=== PATIENT | female | born 1945 | race Caucasian/White ===

== ENCOUNTER 2017-02-06 11:57 | Inpatient (IN) | payer MEDICARE, BC ==
[~2017-02-06] VITALS: Ht 162.6 cm; Wt 55.8 kg
[2017-02-06] MEDS ORDERED: ONDANSETRON (ODT) 4 MG TAB ODT STA (12:29)
[2017-02-06] MEDS ORDERED: HYDROCODONE/APAP (5/325) TAB PO ONE (12:30)
[2017-02-06] MEDS ORDERED: INSU100V3 IJ (12:44)
[2017-02-06] MEDS ORDERED: FOLI-49 PO (12:45)
[2017-02-06] MEDS ORDERED: METO-429 PO (12:45)
[2017-02-06] MEDS ORDERED: LEVO200T6 PO (12:48)
[2017-02-06] MEDS ORDERED: WARF5TAB72 PO (12:48)
[2017-02-06] MEDS ORDERED: SITA1TAB PO (12:49)
[2017-02-06] MEDS ORDERED: LANT3I SC (12:51)
--- NOTE | 2017-02-06 13:24 | ERD ---
ER Documentation Chief Complaint Date/Time DATE: 02/06/17 TIME: 13:23 Chief Complaint trip and fall no ko c/o back pain HPI 71-year-old female history of end-stage renal disease on dialysis who fell out of bed this morning. Patient states that she landed directly on her bottom. She denies hitting her head or losing consciousness. Patient describes paraspinal lumbar back tenderness. The pain is moderate and nonradiating. No prodrome of chest pain or shortness of breath. The patient describes clear mechanical fall. ROS All systems reviewed and are negative except as per history of present illness. Medications Home Meds Reported Medications Insulin Glargine* (Lantus*) 100 Unit/Ml Soln, 10 UNIT SC QHS, #1 VIAL HOLD FOR BS LESS THAN 110 02/06/17 Sitagliptin Phos/Metformin HCl (Janumet 50-500 mg Tablet) 1 Each Tablet, 1 EACH PO DAILY, TAB 02/06/17 Levothyroxine Sodium* (Levothyroxine Sodium*) 200 Mcg Tablet, 200 MCG PO BEFORE BREAKFAST, #30 TAB 02/06/17 Warfarin Sodium* (Coumadin*) 5 Mg Tablet, 5 MG PO DAILY, TAB 02/06/17 Metoprolol Tartrate* (Lopressor*) 50 Mg Tab, 50 MG PO DAILY, #60 TAB 02/06/17 Folic Acid* (Folic Acid*) 1 Mg Tablet, 1 MG PO DAILY, TAB 02/06/17 Insulin Regular, Human (Humulin R) 100 Unit/1 Ml Vial, IJ TID Y for SLIDING SCALE, VIAL 02/06/17 Allergies Allergies: Coded Allergies: Penicillins (Unverified Allergy, Unknown, 02/06/17) PMhx/Soc Hx Miscellaneous Medical Probl: Yes (dialysis) Hx Alcohol Use: No Hx Substance Use: No Hx Tobacco Use: No Smoking Status: Never smoker FmHx Family History: No diabetes Physical Exam Vitals Vital Signs Date Time Temp Pulse Resp B/P Pulse Ox O2 Delivery O2 Flow Rate FiO2 02/06/17 15:30 124 14 106/87 99 02/06/17 13:21 149 15 109/85 94 Room Air 02/06/17 12:33 97.8 142 20 111/79 98 Physical Exam Airway is intact Bilateral breath sounds Strong distal pulses No obvious deficits General: Well developed, well nourished, no acute distress Head: Normocephalic, atraumatic Eyes: Pupils equally reactive, EOM intact ENT: Moist mucous membranes Neck: Supple, no lymphadenopathy, No midline tenderness, deformities, step-offs to the cervical spine, full active and passive range of motion without midline pain. Respiratory: Lungs clear bilaterally, no distress, no chest wall tenderness, no crepitus Cardiovascular: RRR, no murmurs, rubs, or gallops Abdominal: Soft, non-tender, non-distended, no peritoneal signs, pelvis is stable : Deferred MSK: No edema, no unilateral swelling, 5/5 strength, no midline tenderness deformities or step-offs to the thoracolumbar spine, reproducible soft tissue tenderness to the paraspinal muscles of the lumbar back Neurologic: Alert and oriented, moving all extremities, normal speech, no focal weakness, no cerebellar signs Skin: No ecchymoses or bruising to the chest or abdomen, tunneled right subclavian Vas-Cath in good position Psych: Normal mood Result Diagram: 02/06/17 1433 02/06/17 1433 Results 24 hrs Laboratory Tests Test 02/06/17 14:33 02/06/17 14:59 Anion Gap 22 Basophils # 0.010^3/ul Basophils % 0.1% Blood Urea Nitrogen 64mg/dl Calcium Level 9.9mg/dl Carbon Dioxide Level 29mmol/L Chloride Level 95mmol/L Creatinine 4.25mg/dl Eosinophils # 0.010^3/ul Eosinophils % 0.1% Glucose Level 195mg/dl Hematocrit 39.8% Hemoglobin 12.1g/dl Lymphocytes # 0.810^3/ul Lymphocytes % 9.3% Mean Corpuscular Hemoglobin 30.0pg Mean Corpuscular Hemoglobin Concent 30.4g/dl Mean Corpuscular Volume 98.8fl Mean Platelet Volume 11.3fl Monocytes # 0.710^3/ul Monocytes % 7.2% Neutrophils # 7.510^3/ul Neutrophils % 82.7% Nucleated Red Blood Cells # 0.010^3/ul Nucleated Red Blood Cells % 0.0/100WBC Platelet Count 43426^3/UL Potassium Level 5.5mmol/L Red Blood Count 4.0310^6/ul Red Cell Distribution Width 17.9% Sodium Level 140mmol/L Troponin I 0.026ng/ml White Blood Count 9.010^3/ul Activated Partial Thromboplast Time 59.5Sec INR International Normalized Ratio Pending Prothrombin Time Pending Prothrombin Time Ratio 7.1 Current Medications Medications (Trade) Dose Ordered Sig/Alan Route PRN Reason Start Time Stop Time Status Last Admin Dose Admin Acetaminophen/ Hydrocodone Bitart (Cabot (5/325)) 1 tab ONCE ONCE PO 02/06/17 12:30 02/06/17 12:32 DC 02/06/17 13:24 Ondansetron HCl 4 mg 4 mg ONCE STAT ODT 02/06/17 12:29 02/06/17 12:32 DC 02/06/17 13:24 Sodium Chloride (NS) 1,000 ml @ 1,000 mls/hr Q1H STAT IV 02/06/17 14:04 02/06/17 15:03 DC Diltiazem HCl 10 mg 10 mg ONCE STAT IV 02/06/17 14:12 02/06/17 14:16 DC 02/06/17 14:47 Diltiazem HCl 125 ml @ 5 mls/hr ONCE STAT IV 02/06/17 14:12 02/07/17 15:11 02/06/17 14:49 Sodium Chloride (NS) 250 ml @ 250 mls/hr Q1H STAT IV 02/06/17 14:52 02/06/17 15:51 DC Ondansetron HCl (Zofran Inj) 4 mg ER BRIDGE PRN IV NAUSEA AND/OR VOMITING 02/06/17 16:00 02/07/17 15:59 Acetaminophen (Tylenol Tab) 650 mg ER BRIDGE PRN PO MILD PAIN/FEVER 02/06/17 16:00 02/07/17 15:59 Procedures/MDM EKG, MONITORS, & DIAGNOSTIC IMAGING: CT head: No acute intracranial process CT lumbar spine: Pending CT pelvis no acute fracture Chest x-ray: I reviewed and interpreted a 1 view of the chest Mediastinum: No enlargement Cardiac silhouette: No cardiomegaly Airspace: Clear lung rose bilaterally without evidence of pneumothorax Bones: No evidence of fracture EKG: I reviewed and interpreted a 12-lead EKG. Rhythm: A. fib with RVR Ectopy: None Intervals: No abnormalities ST segments: No elevations or depressions T waves: No contiguous inversions MEDICAL DECISION MAKING: Clear mechanical fall. No evidence of syncope or seizure. The patient denies hitting her head. The patient does not meet high-risk criteria and based on NEXUS cervical spine criteria there is no indication for cervical spine imaging at this time. The patient is an end-stage renal patient and despite the fact that she did not hit her head at would be reasonable to obtain a CT imaging of the brain. Given the patient's age x-ray imaging will likely be insufficient sensitivity. CT imaging of the lumbar spine and pelvis would be reasonable. Patient given oral Cabot. ER COURSE: The patient was noted to have tachycardia. An EKG revealed A. fib with RVR. Patient reports a history of A. fib. She is not sure if she is anticoagulated. The patient was given a gentle bolus of 250. Cardizem 10 and Cardizem drip was initiated. The patient has better rate control. The patient also has very slight hyperkalemia of 5.5, no indication for reversal at this time. Patient requires nonemergent dialysis at some point. I kept the patient and/or family informed of laboratory and diagnostic imaging results throughout the emergency room course. DISPOSITION PLAN: Telemetry admission for management of the A. fib with RVR CONSULTATION: Accepting care team and consultations: I discussed the current laboratory data, diagnostic imaging and emergency care provided. Admitting team: Dr. Larios Admitting team indication: Insurance directed Departure Diagnosis: Primary Impression: Atrial fibrillation with RVR Additional Impressions: Back contusion Encounter type: initial encounter Laterality: unspecified laterality Qualified Code: S20.229A - Back contusion, unspecified laterality, initial encounter End stage renal disease on dialysis Condition: ADALBERTO Dunne MD Feb 06, 2017 13:24
--- NOTE | 2017-02-06 13:28 | RADRPT ---
PROCEDURE: CT Brain without contrast. CLINICAL INDICATION: 71-year-old female that fell out of bed. TECHNIQUE: A CT of the brain was performed on a high-resolution CT scanner utilizing a low dose te chnique with axial imaging from the skull base through the vertex without IV contrast. Multiplanar reformatted images were made. Images were reviewed on a PACS workstation. The CTDIvol is 43 point a mGy and the DLP is 720.2 mGycm. One or more of the following dose reduction techniques were used: - Automated exposure control. - Adjustment of the mA and/or kV according to patient size. Use of iterative reconstruction technique. COMPARISON: No. FINDINGS: There are vascular calcifications in the cavernous and supracavernous portions of the internal carot id arteries. There are vascular calcifications in the vertebral arteries. The cerebellar folia and cerebral sulci are prominent. There are chronic small vessel ischemic changes in the periventricula r white matter tracts adjacent to the lateral ventricles. There is a 1.2 x 0.8 cm old lacunar infar ct in the right lentiform nucleus. No intracranial mass or acute intracranial hemorrhages identifie d. The third and lateral ventricles are normal in size and configuration. The brain parenchyma is n ormal. The visible portions of the globes and extraocular muscles are normal. The paranasal sinuses are cl ear. The mastoid air cells and internal auditory canals are normal. The bony calvarium is intact. IMPRESSION: 1. Cerebral and cerebellar atrophy with chronic small vessel ischemic changes in the periventricula r white matter tracts adjacent to the lateral ventricles. MRI with diffusion weighted imaging is mo re sensitive in the detection of acute ischemic change in this setting. 2. 1.2 x 0.8 cm old lacunar infarct in the right lentiform nucleus. 3. There are vascular calcifications in the cavernous and supracavernous portions of the internal ca rotid arteries and in the basilar artery. 4. No intracranial mass or hemorrhage is identified. RPTAT:AAJJ Physician Jessy Date Time Electronically viewed and signed by Physician Jessy on 02/06/2017 13:28 JM/
[2017-02-06] MEDS ORDERED: SOD CHLORIDE 0.9% 1,000 ML IV STA (14:04)
[2017-02-06] MEDS ORDERED: DILTIAZEM 25 MG INJ IV STA (14:12)
[2017-02-06] MEDS ORDERED: DILTIAZEM-D5W 125MG/125ML DRIP 125 ML IV STA (14:12)
--- NOTE | 2017-02-06 14:16 | RADRPT ---
PROCEDURE: CT scan of the pelvis with IV contrast. CLINICAL INDICATION: 71-year-old female with history of fall from bed. TECHNIQUE: Thin section axial, coronal and sagittal images were performed through the pelvis witho ut contrast. Radiation Dose: CTDI: 3.7 and DLP: 110.5 One or more of the following dose reduction techniques were used: - Automated exposure control. - Adjustment of the mA and/or kV according to patient size. Use of iterative reconstruction technique. COMPARISON: No. FINDINGS: There are vascular calcifications ectasia of the distal abdominal aorta and proximal and distal port ions of the common iliac arteries. There is fecal material in the colon and rectal ampulla. There are vascular calcifications in the right left common iliac arteries. There is a partially visualized 2.5 by 2.3 cm calcification in the right abdomen. This may be conta ined within the gallbladder or a bowel loop. A CT scan of the abdomen and pelvis with oral contrast can be performed for definitive evaluation if needed. There are degenerative changes in the lower lumbar spine. There is a diverticulum in the proximal s igmoid colon containing barium. There is fecal material in the sigmoid colon and rectal ampulla. The innominate bone and visible portions of the femurs are intact. The sacrum and SI joints are int act. IMPRESSION: 1. There is no evidence of an acute pelvic fracture. 2. Atherosclerosis of the abdominal aorta and common iliac arteries. Atherosclerosis of the common femoral arteries. 3. Constipation. 4. Partially visualized 2.3 x 2.5 cm elliptical calcification in the right abdomen which is likely a partially visualized gallstone. 5. Osteoarthritis of the lower lumbar spine. 6. Osteoarthritis of both hips. 7. Grade 1 anterolisthesis of L4 on L5 with disk space narrowing and vacuum disk phenomenon at L4-5 . Number a disk space narrowing with ventral and dorsal spondylosis at L5-S1. 7. Diverticulosis of the sigmoid colon. RPTAT:AAJJ Physician Jessy Date Time Electronically viewed and signed by Reji Barbour Physician on 02/06/2017 14:16 FOX/
[2017-02-06 14:38] LABS: ADD SCAN DIFF NO
[2017-02-06 14:40] LABS: BASOPHILS % 0.1 % (0.0-2.0); EOSINOPHILS % 0.1 % (0.0-7.0); HEMATOCRIT 39.8 % (37.0-47.0); HEMOGLOBIN 12.1 g/dl (12.0-16.0); LYMPHOCYTES # 0.8 10^3/ul (0.8-2.9); LYMPHOCYTES % 9.3 % (15.0-51.0); MEAN CORPUSCULAR HGB CONC 30.4 g/dl (32.0-37.0); MEAN CORPUSCULAR VOLUME 98.8 fl (82.0-101.0); MEAN PLATELET VOLUME 11.3 fl (7.4-10.4); MONOCYTE # 0.7 10^3/ul (0.3-0.9); MONOCYTES % 7.2 % (0.0-11.0); NEUTROPHIL # 7.5 10^3/ul (1.6-7.5); NEUTROPHILS % 82.7 % (39.0-77.0); PLATELET COUNT 133 10^3/UL (140-415); RED BLOOD COUNT 4.03 10^6/ul (4.20-5.40); RED CELL DISTRIBUTION WIDTH 17.9 % (11.5-14.5)
[2017-02-06 14:49] LABS: POTASSIUM 5.5 mmol/L (3.5-5.1)
--- NOTE | 2017-02-06 14:49 | RADRPT ---
PROCEDURE: XR Chest. CLINICAL INDICATION: Chest pain TECHNIQUE: Anterior chest x-ray. COMPARISON: None. FINDINGS: Dual lumen dialysis catheter in right chest terminates the cavoatrial junction. Moderate size left pleural effusion is noted. Consolidation left lung base obscures left hemidiaphragm. The right lung is clear. No pleural effusion identified. There is no evidence of pneumothorax. There is atherosclerotic calcification of the aorta. The cardiomediastinal silhouette is unremarkab le. The soft tissues are normal. Degenerative changes are noted in the shoulders and in the thoracic spine. IMPRESSION: 1. Moderate size left pleural effusion. 2. Atelectasis versus infiltrate in left lung base. 3. Atherosclerotic calcification of the aorta. 4. Satisfactory position of right-sided dialysis catheter. RPTAT: QQ .Jose Marc MD, Date Time Electronically viewed and signed by .Jose Marc MD, MD on 02/06/2017 14:49 .M/
[2017-02-06 14:51] LABS: CREATININE 4.25 mg/dl (0.44-1.00)
[2017-02-06 14:52] LABS: CALCIUM 9.9 mg/dl (8.4-10.2)
[2017-02-06] MEDS ORDERED: SOD CHLORIDE 0.9% 250 ML IV STA (14:52)
[2017-02-06 15:04] LABS: TROPONIN-I 0.026 ng/ml (0.00-0.12)
[2017-02-06 15:57] LABS: PARTIAL THROMBOPLASTIN TIME 59.5 Sec (25.0-35.0)
[2017-02-06] MEDS ORDERED: ACETAMINOPHEN 325 MG TAB PO PRN (16:00)
[2017-02-06] MEDS ORDERED: ONDANSETRON 4 MG INJ IV PRN ×2 (16:00→20:00)
--- NOTE | 2017-02-06 16:03 | RADRPT ---
PROCEDURE: CT Lumbar Spine. CLINICAL INDICATION: Trauma TECHNIQUE: Noncontrast CT of the lumbar spine was performed with multiplanar reformatted images gen erated from the axial acquired data. The administered radiation dose was CTDI vol = 17 mGy, DLP = 5 45 mGy-cm. COMPARISON: There are no similar studies submitted for comparison. FINDINGS: SCOLIOSIS: There is some minimal levoscoliosis of the lumbar spine. LORDOSIS: Within normal limits. VERTEBRAL BODY HEIGHTS: Maintained. ALLIGNMENT: There is grade 1 anterolisthesis of L4-L5 due to facet arthritic changes. OSSEOUS STRUCTURES: There is no destructive osseous lesion.There is no acute fracture. DISCS: There is loss of disk height and L4-5 and L5-S1 with vacuum disk phenomena at L4-5. T12-L1 : There is no disc herniation, spinal canal, or foraminal stenosis. L1-L2 : There is no disc herniation, spinal canal, or foraminal stenosis. L2-L3 : There is no disc herniation, spinal canal, or foraminal stenosis. L3-L4 : There is no disc herniation, spinal canal, or foraminal stenosis. L4-L5 : There is diffuse disk bulge and disk osteophyte complex with superimposed right foraminal di sk protrusion. There is also bilateral facet arthrosis and ligamentum flavum hypertrophy. This res ults in moderate to marked spinal canal and right neural foraminal narrowing. L5-S1 : There is diffuse disk osteophyte complex with bilateral facet arthrosis and ligamentum flavu m hypertrophy. This results in mild spinal canal narrowing as well as mild right and moderate left neural foraminal narrowing. SACRUM: The sacroiliac joints are intact. OTHER: Bilateral pleural effusions are noted, likely large on the left and small to moderate on the right. Atherosclerotic calcifications are noted in the aorta and its branches. Coronary artery reyna cifications are noted. Multiple large stones within the gallbladder are partially seen. IMPRESSION: No acute fracture or subluxation. Lumbar spondylotic changes with moderate to marked spinal canal and right neural foraminal narrowing at L4-5. RPTAT: HIKT .Faisal Brar MD, MD Date Time Electronically viewed and signed by .Faisal Brar MD, on 02/06/2017 16:03 .T/
[2017-02-06 16:38] LABS: PROTIME 92.1 Sec (12.2-14.2); PT RATIO 7.2
[2017-02-06 16:39] LABS: INR > 10.00
[2017-02-06] MEDS ORDERED: PHYTONADIONE (1 MG/ML PO SYG) PO ONE (19:30)
[2017-02-06] MEDS ORDERED: GLUCAGON 1 MG INJ IM PRN (20:00)
[2017-02-06] MEDS ORDERED: GLUCOSE GEL 15 GRAM TUBE BUCCAL PRN (20:00)
[2017-02-06] MEDS ORDERED: DEXTROSE 50% 50 ML SYRINGE IV PRN ×2 (20:00)
[2017-02-06] MEDS ORDERED: DC GLYBURIDE, GLIPIZIDE,GLIMEPIRIDE AND PREVIOUS INSULIN ORDERS XX SCH (20:00)
[2017-02-06] MEDS ORDERED: GLUCOSE GEL 15 GRAM TUBE PO PRN ×2 (20:00)
[2017-02-06] MEDS ORDERED: PHYTONADIONE 5 MG in DEXTROSE 5% 50 ML IVPB ONE (20:00)
[2017-02-06 20:09] VITALS: TEMP 97.9
[2017-02-06 20:45] LABS: CK-MB 1.89 ng/ml (0.0-2.4)
[2017-02-06 20:48] LABS: TROPONIN-I 0.031 ng/ml (0.00-0.12)
[2017-02-06 21:00] VITALS: BP 116/80; RESP 17
[2017-02-06] MEDS ORDERED: NA POLYST SULFON 15 GM/60 ML BTL PO ONE (21:00)
[2017-02-06] MEDS: INSULIN ASPART [NOVOLOG] 3 ML PEN SC SCH (21:00)
[2017-02-06] MEDS ORDERED: FAMOTIDINE 20 MG TAB PO SCH (21:00)
[2017-02-06 21:14] VITALS: PULSE 130
--- NOTE | 2017-02-06 22:18 | HP ---
DATE OF ADMISSION: 02/06/2017 PRESENTING COMPLAINT: Per report is status post fall. HISTORY OF PRESENTING COMPLAINT: Ms. Self is a 71-year-old female who is an extremely poor hist orian. At this point, her orientation is not very clear. She seems to know where she is and her na me but does not know the time or date. Per report, she had reported ____ falling on her back. The patient tells me that she resides with her and her son, and her had called EMS to br ing her to the ER. In the ER, per ER physician, the patient was complaining about back pain, but fo r me, she complains only of severe dysphagia and very dry mouth. Further history basically is unobt ainable from this lady. She, however, does report affirmatively when asked about the back pain but denies chest pain or abdominal pain. She sometimes will not respond to questions and at other times responds depending on how she feels. No other history is obtainable at this time. Hence, a 12-poi nt review of systems could not be completed. PAST MEDICAL HISTORY: From evaluation of her medications and review of the chart includes: 1. Chronic atrial fibrillation. 2. Diabetes mellitus type 2. 3. Hypothyroidism. 4. End-stage renal disease on hemodialysis. SURGICAL HISTORY: The patient does have a temporary dialysis catheter in her right upper chest. Ot her surgical history is unknown. ALLERGIES: THE PATIENT IS SAID TO BE ALLERGIC TO PENICILLIN. SOCIAL HISTORY: The patient is said not to smoke, drink alcohol or use illicit drugs. FAMILY HISTORY: The patient says she resides at home with her and her son, but I was unable to elicit any family history of any chronic medical diseases. PHYSICAL EXAMINATION: VITAL SIGNS: Temperature 97.8, pulse ranges between 124 and 149, respiratory rate 14, blood pressur e 106/87, saturations 99% on room air. GENERAL: I found a very frail lady who was alert, oriented x2 only. She seemed comfortable but was yelling "I cannot swallow, I cannot swallow." HEENT: Her head was normocephalic without evidence of trauma. Her pupils were equal and reactive w ithout scleral jaundice. There was mild conjunctival pallor. Her mucous membranes are quite dry. Evaluation of the posterior pharynx was negative for erythema or exudate. NECK: Supple, nontender without JVD. CHEST: Presence of temporary dialysis access on the right upper chest but reduced air entry bilater ally but no overt crackles or wheezes. CARDIOVASCULAR: Irregularly irregular heart sounds. No cardiac murmurs. ABDOMEN: Seemed soft, nontender, nondistended with normoactive bowel sounds. LOWER EXTREMITIES: Negative for edema. BACK: Evaluation of her back did not show any gross bruising, but she did have some questionable te nderness where you palpate her on the lower back. NEUROLOGIC: She did not seem to have any focal deficits, but her strength was not quite optimal, wh ich was impeding physical exam. PSYCHIATRIC: She seemed mildly confused or just very thirsty. LABORATORY VALUES: Her chemistry is concerning with a potassium of 5.5, BUN of 64, creatinine of 4. 25 consistent with her history of end-stage renal disease, and her glucose was 195. First troponin was 0.26. Her coagulation profile was very concerning. Her INR was greater than 10, PT was 92.18, PTT was 59.5. On her CBC, her WBC count was normal as was her hemoglobin, but her platelet count is low at 133. She also had a neutrophilia. There is no urinalysis at this time. IMAGING STUDIES: Reviewed by myself. 1. Pelvis CT showed no evidence of acute pelvic fracture. Atherosclerosis of aorta, iliac arteries and femoral arteries. Constipation. A calcified probable gallstone. Chronic osteoarthritis of lo wer lumbar spine and of both hips. Grade I anterolisthesis of L4 on L5 with disk space narrowing an d vacuum disk phenomenon at L4-L5 and diverticulosis without diverticulitis of the sigmoid colon. 2. CT scan of the lumber spine did show no acute fracture or subluxation, but it did show bilateral pleural effusions, larger on the left than the right; atherosclerosis and multiple gallstones. The re are chronic spondylotic changes with moderate to marked spinal canal and right neural foraminal n arrowing at L4-L5. 3. Brain CT did show cerebral and cerebellar atrophy with chronic small vessel ischemic changes in the periventricular white matter tracts adjacent to the lateral ventricles, and they recommend an MR I if we want to look for acute ischemic changes. There is an old lacunar infarct in the right lenti form nucleus, but no acute intracranial mass or hemorrhage is identified. 4. Her chest x-ray showed moderate-sized left pleural effusion, atelectasis versus infiltrate in le ft lung base, atherosclerosis of the aorta and satisfactory position of the right-sided dialysis cat heter. EKG reviewed by myself and showed atrial fibrillation with RVR without ST elevations. ASSESSMENT: A 71-year-old brought in by emergency medical services with history of reported fall, c omplaining of lower back pain, managed for the followin. Status post acute fall without evidence of acute injury on CT scans. 2. Atrial fibrillation with rapid ventricular response. 3. Supratherapeutic INR. 4. Hyperkalemia secondary to #5. 5. End-stage renal disease on hemodialysis. 6. Bilateral pleural effusions, left greater than right, with probable underlying left-sided pneumo roselyn. 7. Suboptimally controlled diabetes type 2. 8. Thrombocytopenia. 9. Chronic hypothyroidism. 10. Previous cerebrovascular accident. 11. Chronic ____ osteoarthritis which also affects the lumbar spine with L4-L5 canal narrowing of u ncertain significance. 12. Cholelithiasis without cholecystitis. PLAN: The plan is to: 1. Admit this patient to the hospital and perform a detailed workup. 2. She is going to admit to telemetry floor and acute coronary syndrome ruled out. She will need a 2D echocardiogram. Will continue to push for rate control using Cardizem drip. 3. Patient needs cardiology consultation, and I will speak with Dr. Gongora to follow the patient. 4. For her bilateral pleural effusions, she will be continued on in-house dialysis, and I will obta in ultrasound-guided thoracentesis once her INR is improved and send that sample for culture in sett ing of probable left-sided pneumonia. 5. I will give her vitamin K intravenously at a low dose because her INR is greater than 10. 6. No further anticoagulation until INR is back to within therapeutic range. 7. Check a TSH to ensure that there is no abnormal control of her thyroid disease. 8. The patient will need physical therapy evaluation once more medically optimized. 9. The patient to be continued on her home Lantus at 10 units and given an 1800-calorie ADA diet. Oral hypoglycemics to be held at this time until we see how patient responds to current regimen. Pr ophylaxis will be with Pepcid. The patient does not require additional DVT prophylaxis in the setti ng of the supratherapeutic INR. This plan of care has been discussed patient. It is unclear how much she understands. Questions still ve been answered. I will be speaking with both Cardiology as well as Nephrology, Dr. Sanjeev Tolliver, to eliza tessa the patient for in-house hemodialysis. Dictated By: ALIX TALBOT MD BA/NTS Conf#: [id number] DID#: [id number]
[2017-02-06] MEDS: DOCUSATE SODIUM 100 MG CAP PO SCH (22:50)
[2017-02-06] MEDS: SOD CHLORIDE 0.9% 1,000 ML IV SCH (22:51)
[2017-02-06 23:00] VITALS: Ht 162.6 cm; Wt 55.8 kg
[2017-02-06] MEDS: INSULIN GLARGINE [LANtus] 3 ML PEN SC SCH (23:13)
--- NOTE | 2017-02-06 23:16 | CONS ---
DATE OF ADMISSION: 02/06/2017 DATE OF CONSULTATION: 02/06/2017 TYPE OF CONSULTATION: Nephrology. REASON FOR CONSULTATION: End-stage renal disease on hemodialysis who presented with atrial fibrilla tion with rapid ventricular rate. HISTORY OF PRESENT ILLNESS: This is a 71-year-old female with a past medical history of end-stage r enal disease on dialysis who fell out of bed this morning. The patient states that the patient land ed directly on her bottom. She denies hitting her head or losing consciousness. The patient descri bes the paraspinal lumbar back tenderness. She is noted to have atrial fibrillation with rapid vent ricular rate. Hence, admitted to the telemetry floor and renal has been consulted for maintenance h emodialysis in a chronic dialysis patient. REVIEW OF SYSTEMS: At the time of my evaluation, the patient is complaining of dizziness, blurry vi beryl, the fall episodes, and the back pain. Other review of systems has been obtained and is negati ve except what is mentioned in the history of present illness. PAST MEDICAL HISTORY: History of end-stage renal disease on hemodialysis, hypertension, diabetes me llitus, history of atrial fibrillation on possible anticoagulation with Coumadin. ALLERGIES: ALLERGIC TO PENICILLIN. SOCIAL HISTORY: No smoking, alcohol, or recreational drug use. FAMILY HISTORY: Not available. PHYSICAL EXAMINATION: VITAL SIGNS: Temperature 97.9, heart rate 130, respiration 22, blood pressure 93/70, saturation is 100% on room air. GENERAL: Awake, alert, in no distress. HEENT: Normal. Oropharynx clear. NECK: Supple. No JVD, no lymphadenopathy. LUNGS: Clear to auscultation. No crackles, no wheezes. HEART: S1, S2. Irregularly irregular. No murmur. ABDOMEN: Soft, nontender, nondistended. Bowel sounds are present. EXTREMITIES: No clubbing, cyanosis, or edema. NEUROLOGICAL: Nonfocal, intact. PSYCHIATRIC: Appropriate affect and mood. LABORATORY DATA/DIAGNOSTIC IMAGIN. WBC 9, hemoglobin 12.1, platelet count 133. 2. Sodium 140, potassium 5.5, chloride 95, bicarbonate 29, BUN 64, creatinine 4.2, glucose 195, reyna cium 9.9. 3. Troponin x2 negative. 4. PT 92.1, INR more than 10. 5. CT brain without contrast: No acute findings. It shows cerebral and cerebellar atrophy with ch ronic small vessel ischemic changes. 6. CT pelvis done which shows no evidence of any fractures, but there was some disk disease and spi nal stenosis. 7. Chest x-ray: Moderate size left pleural effusion, atelectasis versus infiltrate in the left basilio g base, atherosclerotic calcification of the aorta, satisfactory position of the right-sided dialysi s catheter. IMPRESSION: This is a 71-year-old female who was admitted after having a fall episode and found to be in atrial fibrillation with rapid ventricular rate. Renal has been consulted for maintenance hem odialysis. IMPRESSION: 1. End-stage renal disease on hemodialysis through right upper chest tunneled hemodialysis catheter . 2. Atrial fibrillation with rapid ventricular rate. The patient was on anticoagulation with Coumad in at home. 3. Left-sided moderate pleural effusion with left basilar infiltrates. 4. Status post fall episode at home. 5. History of hypertension. 6. History of diabetes mellitus. 7. History of end-stage renal disease on hemodialysis. PLAN: Thank you, Dr. Talbot, for this consultation. The patient was seen on the telemetry floor. 1. I will arrange the patient's hemodialysis to be done tomorrow. Currently, the potassium was tod ay 5.4, which has been treated. 2. The patient will need a thoracentesis of left chest for left moderate pleural effusion. 3. Continue the other anticoagulation plan. Cardiology consultation will be required. 4. The patient will be followed up along with the primary care service and subspecialist service. 5. The patient will be kept on dialysis Tuesday, Tuesday, Tuesday while being in the hospital. Shweta nwwvle, we will call the patient's dialysis unit tomorrow and try to get some more details about the patient's dialysis schedule. Thank you, Dr. Talbot for this consultation. I will continue to follow this patient. Total time spent in this patient's evaluations, making assessment and plan, communicating with the p atient and communicating with the nursing staff took more than 90 minutes and more than 50% of time spent in education. Dictated By: VIRIDIANA VILLARREAL MD, KP/NTS Conf#: [id number] DID#: [id number] CC: ALIX TALBOT MD;*[facility]*
[2017-02-07] VITALS (22 sets, daily range): BP systolic 98–137; BP diastolic 46–92; PULSE 98–160; RESP 16–20
[2017-02-07 00:08] LABS: CK-MB 1.87 ng/ml (0.0-2.4)
[2017-02-07 00:52] LABS: TROPONIN-I 0.028 ng/ml (0.00-0.12)
[2017-02-07] MEDS: ACCUCHECK AT 2AM (Patients on SS coverage) XX SCH (02:00)
[2017-02-07] MEDS: SOD CHLORIDE 0.9% 1,000 ML IV SCH ×2 (06:00→11:30)
[2017-02-07] MEDS ORDERED: LEVOTHYROXINE 100 MCG TAB PO SCH (07:00)
[2017-02-07] MEDS: INSULIN ASPART [NOVOLOG] 3 ML PEN SC SCH ×4 (08:00→21:00)
[2017-02-07 08:23] LABS: ADD SCAN DIFF NO
[2017-02-07] MEDS: FOLIC ACID 1 MG TAB PO SCH (08:37)
[2017-02-07] MEDS: DOCUSATE SODIUM 100 MG CAP PO SCH (08:37)
[2017-02-07] MEDS: FAMOTIDINE 20 MG TAB PO SCH (08:38)
[2017-02-07 08:42] LABS: INR 2.21; PROTIME 24.8 Sec (12.2-14.2); PT RATIO 1.9
[2017-02-07 08:46] LABS: ABNORMAL IP MESSAGE 1; BASOPHILS % 0.1 % (0.0-2.0); EOSINOPHILS % 0.2 % (0.0-7.0); HEMATOCRIT 36.1 % (37.0-47.0); HEMOGLOBIN 10.4 g/dl (12.0-16.0); LYMPHOCYTES # 0.8 10^3/ul (0.8-2.9); LYMPHOCYTES % 8.9 % (15.0-51.0); MEAN CORPUSCULAR HEMOGLOBIN 28.9 pg (29.0-33.0); MEAN CORPUSCULAR HGB CONC 28.8 g/dl (32.0-37.0); MEAN CORPUSCULAR VOLUME 100.3 fl (82.0-101.0); MEAN PLATELET VOLUME 11.4 fl (7.4-10.4); MONOCYTE # 0.6 10^3/ul (0.3-0.9); MONOCYTES % 6.6 % (0.0-11.0); NEUTROPHIL # 7.6 10^3/ul (1.6-7.5); NEUTROPHILS % 83.6 % (39.0-77.0); PLATELET COUNT 111 10^3/UL (140-415); RED CELL DISTRIBUTION WIDTH 17.9 % (11.5-14.5); WHITE BLOOD COUNT 9.1 10^3/ul (4.8-10.8)
[2017-02-07 08:51] LABS: POTASSIUM 4.5 mmol/L (3.5-5.1)
[2017-02-07 08:52] LABS: IRON 73 ug/dl (35-150)
[2017-02-07 08:53] LABS: BILIRUBIN,INDIRECT 0.3 mg/dl (0-1.1); BILIRUBIN,TOTAL 0.3 mg/dl (0.2-1.3); CREATININE 4.7 mg/dl (0.44-1.00); TOTAL PROTEIN 5.5 g/dl (6.1-8.1)
[2017-02-07 08:54] LABS: CALCIUM 9.4 mg/dl (8.4-10.2); CHOL/HDL RATIO 2.8 RATIO
[2017-02-07 08:59] LABS: CK-MB 2.25 ng/ml (0.0-2.4)
[2017-02-07] MEDS ORDERED: METOPROLOL 50 MG TAB PO SCH (09:00)
[2017-02-07 09:01] LABS: TOTAL IRON BINDING CAPACITY 223 ug/dl (241-421)
[2017-02-07 09:02] LABS: TROPONIN-I 0.016 ng/ml (0.00-0.12)
--- NOTE | 2017-02-07 11:59 | CONS ---
Date/Time of Note Date/Time of Note DATE: 02/07/17 TIME: 11:53 Assessment/Plan Assessment/Plan Additional Assessment/Plan 1. End-stage renal disease on hemodialysis through right upper chest tunneled hemodialysis catheter. 2. Atrial fibrillation with rapid ventricular rate. The patient was on anticoagulation with Coumadin at home. 3. Left-sided moderate pleural effusion with left basilar infiltrates. 4. Status post fall episode at home. 5. History of hypertension. 6. History of diabetes mellitus. 7. History of end-stage renal disease on hemodialysis. PLAN: pt still confused today HR in 120s BP stable will plan for HD today with gentle ultrafiltration if Pt becomes hypotensive then we will stop HD will follow up Consultation Date/Type/Reason Admit Date/Time Feb 06, 2017 at 15:53 Initial Consult Date 02/06/2017 Type of Consultation: NEPHROLOGY Reason for Consultation ESRD on HD presented with atrial fibrillation with RVR Referring Provider: ALIX TALBOT 24 HR Interval Summary Free Text/Dictation no acute events overnight,HR still 120-130, Plan for HD today Exam/Review of Systems Vital Signs Vitals Vital Signs Date Time Temp Pulse Resp B/P Pulse Ox O2 Delivery O2 Flow Rate FiO2 02/07/17 09:55 106 02/07/17 08:03 97.1 20 119/92 93 02/06/17 20:09 Room Air Intake and Output 02/06/17 02/06/17 02/07/17 15:00 23:00 07:00 Intake Total 770 ml Balance 770 ml Exam GENERAL: Awake,but not oriented to place and person HEENT: Normal. Oropharynx clear. NECK: Supple. No JVD, no lymphadenopathy. LUNGS: Clear to auscultation. No crackles, no wheezes. HEART: S1, S2. Irregularly irregular. No murmur. ABDOMEN: Soft, nontender, nondistended. Bowel sounds are present. EXTREMITIES: No clubbing, cyanosis, or edema. NEUROLOGICAL: Nonfocal, intact. PSYCHIATRIC: Appropriate affect and mood. Results Result Diagram: 02/07/17 0805 02/07/17 0805 Results 24 hrs Laboratory Tests Test 02/06/17 14:33 02/06/17 14:59 02/06/17 20:10 02/06/17 22:49 Anion Gap 22 H Basophils # 0.0 Basophils % 0.1 Blood Urea Nitrogen 64 H Calcium Level 9.9 Carbon Dioxide Level 29 Chloride Level 95 L Creatinine 4.25 H Eosinophils # 0.0 Eosinophils % 0.1 Glucose Level 195 Hematocrit 39.8 Hemoglobin 12.1 Lymphocytes # 0.8 Lymphocytes % 9.3 L Mean Corpuscular Hemoglobin 30.0 Mean Corpuscular Hemoglobin Concent 30.4 L Mean Corpuscular Volume 98.8 Mean Platelet Volume 11.3 H Monocytes # 0.7 Monocytes % 7.2 Neutrophils # 7.5 Neutrophils % 82.7 H Nucleated Red Blood Cells # 0.0 Nucleated Red Blood Cells % 0.0 Platelet Count 133 L Potassium Level 5.5 H Red Blood Count 4.03 L Red Cell Distribution Width 17.9 H Sodium Level 140 Troponin I 0.026 0.031 White Blood Count 9.0 Activated Partial Thromboplast Time 59.5 H INR International Normalized Ratio > 10.00 *H Prothrombin Time 92.1 H Prothrombin Time Ratio 7.2 Creatine Kinase 28 Creatine Kinase Index 6.8 Creatinine Kinase MB (Mass) 1.89 Bedside Glucose 142 Test 02/06/17 23:14 02/07/17 06:56 02/07/17 07:56 02/07/17 08:05 Creatine Kinase 30 23 Creatine Kinase Index 6.2 9.8 Creatinine Kinase MB (Mass) 1.87 2.25 Troponin I 0.028 0.016 Thyroid Stimulating Hormone (TSH) 0.209 L Bedside Glucose 67 L Activated Partial Thromboplast Time 40.0 H Alanine Aminotransferase (ALT/SGPT) 32 Albumin 3.0 L Alkaline Phosphatase 78 Anion Gap 22 H Aspartate Amino Transf (AST/SGOT) 11 L Basophils # 0.0 Basophils % 0.1 Blood Urea Nitrogen 65 H Calcium Level 9.4 Carbon Dioxide Level 29 Chloride Level 98 Cholesterol Level 107 Cholesterol/HDL Ratio 2.8 Creatinine 4.70 H Direct Bilirubin 0.00 Eosinophils # 0.0 Eosinophils % 0.2 Glucose Level 70 # HDL Cholesterol 38 Hematocrit 36.1 L Hemoglobin 10.4 L Hemoglobin A1c 5.3 INR International Normalized Ratio 2.21 Indirect Bilirubin 0.3 Iron Level 73 LDL Cholesterol, Calculated 54 Lymphocytes # 0.8 Lymphocytes % 8.9 L Magnesium Level 2.0 Mean Corpuscular Hemoglobin 28.9 L Mean Corpuscular Hemoglobin Concent 28.8 L Mean Corpuscular Volume 100.3 Mean Platelet Volume 11.4 H Monocytes # 0.6 Monocytes % 6.6 Neutrophils # 7.6 H Neutrophils % 83.6 H Nucleated Red Blood Cells # 0.0 Nucleated Red Blood Cells % 0.0 Percent Iron Saturation 33 Platelet Count 111 L Potassium Level 4.5 Prothrombin Time 24.8 #H Prothrombin Time Ratio 1.9 Red Blood Count 3.60 L Red Cell Distribution Width 17.9 H Sodium Level 144 Total Bilirubin 0.3 Total Iron Binding Capacity 223 L Total Protein 5.5 L Triglycerides Level 77 White Blood Count 9.1 Medications Medications Current Medications Folic Acid (Folic Acid) 1 mg DAILY PO Last administered on 02/07/17 08:37; Admin Dose 1 MG; Start 02/07/17 at 09:00 Insulin Glargine (Lantus) 10 unit QHS SC Last administered on 02/06/17 23:13; Admin Dose 10 UNIT; Start 02/06/17 at 21:00 Metoprolol Tartrate 50 mg 50 mg DAILY PO Last administered on 02/07/17 08:38; Admin Dose 50 MG; Start 02/07/17 at 09:00 Sodium Chloride (NS) 1,000 ml @ 100 mls/hr Q10H IV Last administered on 22:51; Admin Dose 100 MLS/HR; Start 02/06/17 at 20:00 Ondansetron HCl (Zofran Inj) 4 mg Q6H PRN IV NAUSEA AND/OR VOMITING; Start at 20:00 Docusate Sodium (Colace) 100 mg BID PO Last administered on 02/07/17 08:37; Admin Dose 100 MG; Start 02/06/17 at 21:00 Miscellaneous Information 1 ea NOTE XX ; Start 02/06/17 at 20:00 Diagnostic Test (Pha) (Accucheck) 1 ea 02 XX ; Start 02/07/17 at 02:00 Miscellaneous Information 1 ea NOTE XX ; Start 02/06/17 at 20:00 Glucose (Glutose) 15 gm Q15M PRN PO DECREASED GLUCOSE; Start 02/06/17 at 20:00 Glucose (Glutose) 22.5 gm Q15M PRN PO DECREASED GLUCOSE; Start 02/06/17 at 20: 00 Dextrose (D50w Syringe) 25 ml Q15M PRN IV DECREASED GLUCOSE; Start 3/19/17 at 20:00 Dextrose (D50w Syringe) 50 ml Q15M PRN IV DECREASED GLUCOSE; Start 02/06/17 at 20:00 Glucagon (Glucagen) 1 mg Q15M PRN IM DECREASED GLUCOSE; Start 02/06/17 at 20:00 Glucose (Glutose) 15 gm Q15M PRN BUCCAL DECREASED GLUCOSE; Start 02/06/17 at 20 :00 Famotidine (Pepcid) 20 mg DAILY PO Last administered on 02/07/17t 08:38; Admin Dose 20 MG; Start 02/07/17 at 09:00 VIRIDINAA VILLARREAL MD Feb 07, 2017 11:59
--- NOTE | 2017-02-07 13:54 | PN ---
Date/Time of Note Date/Time of Note DATE: 02/07/17 TIME: 13:47 Assessment/Plan VTE Prophylaxis VTE Prophylaxis Intervention: other (coumadin) Lines/Catheters IV Catheter Type (from Nrsg): Peripheral IV Urinary Cath still in place: No Assessment/Plan Chief Complaint/Hosp Course A/P 1) A Fib rvr; stable, cont rt control, Rx pain. 2) Pleural effusion; should improve w Rt control/HD. doubt infectious. 3) ESRD/ hd status 4) Ac encephalopathy/ delirium; watch for hypoxia 5) Dm/Htn 6) Constipation 7) Coagulopathy; improved. no coumadin if there are recurrent falls. may restart coumadin soon 8) Old stroke/ lacunar. cont rfm. 9) L4-5 stenosis; try medical management 1st. PT/snf if she agrees 10) Dysphagia? 11) Hypothyroidism 12) CAD? medical management for now. Problems: Subjective 24 Hr Interval Summary Free Text/Dictation S: events noted. +dyspnea. less back pain. Exam/Review of Systems Vital Signs Vitals Vital Signs Date Time Temp Pulse Resp B/P Pulse Ox O2 Delivery O2 Flow Rate FiO2 02/07/17 12:16 137 02/07/17 12:07 97.1 20 100/73 95 02/06/17 20:09 Room Air Intake and Output 02/06/17 02/06/17 02/07/17 14:59 22:59 06:59 Intake Total 770 ml Balance 770 ml Exam Constitutional: alert Respiratory: diminished breath sounds (+ crackles) Cardiovascular: irregular rhythm Gastrointestinal: non-tender, soft Extremities: other (no edema; back- non tender.) Results Result Diagram: 02/07/1780402/07/17 08 Results 24 hrs Laboratory Tests Test 02/06/17 14:33 02/06/17 14:59 02/06/17 20:10 02/06/17 22:49 Anion Gap 22 H Basophils # 0.0 Basophils % 0.1 Blood Urea Nitrogen 64 H Calcium Level 9.9 Carbon Dioxide Level 29 Chloride Level 95 L Creatinine 4.25 H Eosinophils # 0.0 Eosinophils % 0.1 Glucose Level 195 Hematocrit 39.8 Hemoglobin 12.1 Lymphocytes # 0.8 Lymphocytes % 9.3 L Mean Corpuscular Hemoglobin 30.0 Mean Corpuscular Hemoglobin Concent 30.4 L Mean Corpuscular Volume 98.8 Mean Platelet Volume 11.3 H Monocytes # 0.7 Monocytes % 7.2 Neutrophils # 7.5 Neutrophils % 82.7 H Nucleated Red Blood Cells # 0.0 Nucleated Red Blood Cells % 0.0 Platelet Count 133 L Potassium Level 5.5 H Red Blood Count 4.03 L Red Cell Distribution Width 17.9 H Sodium Level 140 Troponin I 0.026 0.031 White Blood Count 9.0 Activated Partial Thromboplast Time 59.5 H INR International Normalized Ratio > 10.00 *H Prothrombin Time 92.1 H Prothrombin Time Ratio 7.2 Creatine Kinase 28 Creatine Kinase Index 6.8 Creatinine Kinase MB (Mass) 1.89 Bedside Glucose 142 Test 02/06/17 23:14 02/07/17 06:56 02/07/17 07:56 02/07/17 08:05 Creatine Kinase 30 23 Creatine Kinase Index 6.2 9.8 Creatinine Kinase MB (Mass) 1.87 2.25 Troponin I 0.028 0.016 Thyroid Stimulating Hormone (TSH) 0.209 L Bedside Glucose 67 L Activated Partial Thromboplast Time 40.0 H Alanine Aminotransferase (ALT/SGPT) 32 Albumin 3.0 L Alkaline Phosphatase 78 Anion Gap 22 H Aspartate Amino Transf (AST/SGOT) 11 L Basophils # 0.0 Basophils % 0.1 Blood Urea Nitrogen 65 H Calcium Level 9.4 Carbon Dioxide Level 29 Chloride Level 98 Cholesterol Level 107 Cholesterol/HDL Ratio 2.8 Creatinine 4.70 H Direct Bilirubin 0.00 Eosinophils # 0.0 Eosinophils % 0.2 Glucose Level 70 # HDL Cholesterol 38 Hematocrit 36.1 L Hemoglobin 10.4 L Hemoglobin A1c 5.3 INR International Normalized Ratio 2.21 Indirect Bilirubin 0.3 Iron Level 73 LDL Cholesterol, Calculated 54 Lymphocytes # 0.8 Lymphocytes % 8.9 L Magnesium Level 2.0 Mean Corpuscular Hemoglobin 28.9 L Mean Corpuscular Hemoglobin Concent 28.8 L Mean Corpuscular Volume 100.3 Mean Platelet Volume 11.4 H Monocytes # 0.6 Monocytes % 6.6 Neutrophils # 7.6 H Neutrophils % 83.6 H Nucleated Red Blood Cells # 0.0 Nucleated Red Blood Cells % 0.0 Percent Iron Saturation 33 Platelet Count 111 L Potassium Level 4.5 Prothrombin Time 24.8 #H Prothrombin Time Ratio 1.9 Red Blood Count 3.60 L Red Cell Distribution Width 17.9 H Sodium Level 144 Total Bilirubin 0.3 Total Iron Binding Capacity 223 L Total Protein 5.5 L Triglycerides Level 77 White Blood Count 9.1 Test 02/07/17 12:07 Bedside Glucose 125 Medications Medications Current Medications Folic Acid (Folic Acid) 1 mg DAILY PO Last administered on 02/07/17 08:37; Admin Dose 1 MG; Start 02/07/17 at 09:00 Insulin Glargine (Lantus) 10 unit QHS SC Last administered on 02/06/17 23:13; Admin Dose 10 UNIT; Start 02/06/17 at 21:00 Metoprolol Tartrate 50 mg 50 mg DAILY PO Last administered on 02/07/17 08:38; Admin Dose 50 MG; Start 02/07/17 at 09:00 Sodium Chloride (NS) 1,000 ml @ 100 mls/hr Q10H IV Last administered on 22:51; Admin Dose 100 MLS/HR; Start 02/06/17 at 20:00 Ondansetron HCl (Zofran Inj) 4 mg Q6H PRN IV NAUSEA AND/OR VOMITING; Start at 20:00 Docusate Sodium (Colace) 100 mg BID PO Last administered on 02/07/17 08:37; Admin Dose 100 MG; Start 02/06/17 at 21:00 Miscellaneous Information 1 ea NOTE XX ; Start 02/06/17 at 20:00 Diagnostic Test (Pha) (Accucheck) 1 ea 02 XX ; Start 02/07/17 at 02:00 Miscellaneous Information 1 ea NOTE XX ; Start 02/06/17 at 20:00 Glucose (Glutose) 15 gm Q15M PRN PO DECREASED GLUCOSE; Start 02/06/17 at 20:00 Glucose (Glutose) 22.5 gm Q15M PRN PO DECREASED GLUCOSE; Start 02/06/17 at 20: 00 Dextrose (D50w Syringe) 25 ml Q15M PRN IV DECREASED GLUCOSE; Start 02/06/17 at 20:00 Dextrose (D50w Syringe) 50 ml Q15M PRN IV DECREASED GLUCOSE; Start 02/06/17 at 20:00 Glucagon (Glucagen) 1 mg Q15M PRN IM DECREASED GLUCOSE; Start 02/06/17 at 20:00 Glucose (Glutose) 15 gm Q15M PRN BUCCAL DECREASED GLUCOSE; Start 02/06/17 at 20 :00 Famotidine (Pepcid) 20 mg DAILY PO Last administered on 02/07/17t 08:38; Admin Dose 20 MG; Start 02/07/17 at 09:00 CRUZ CROUCH MD Feb 07, 2017 13:54
[2017-02-07] MEDS ORDERED: KETOROLAC 15 MG INJ IV PRN (14:00)
[2017-02-07] MEDS ORDERED: IBUPROFEN 800 MG TAB PO PRN (14:00)
[2017-02-07] MEDS ORDERED: BISACODYL (EC) 5 MG TAB PO ONE (14:00)
[2017-02-07] MEDS ORDERED: FUROSEMIDE 40 MG INJ IV ONE (21:00)
[2017-02-07] MEDS ORDERED: DIGOXIN 500 MCG INJ IV ONE ×2 (21:24→21:30)
[2017-02-07] MEDS: SENNA/DOCUSATE NA (8.6MG/50MG) TAB PO SCH (21:29)
--- NOTE | 2017-02-07 21:47 | CONS ---
DATE OF ADMISSION: 02/06/2017 DATE OF CONSULTATION: 02/07/2017 TYPE OF CONSULTATION: Cardiology. REASON FOR CONSULTATION: ____ atrial fibrillation. CHIEF COMPLAINT: Status post fall. HISTORY OF PRESENT ILLNESS: Thank you for this referral. History obtained from the patient who is an extremely poor historian, review of the chart, review of the old chart, discussion with the famil y and staff. This is an unfortunate 71-year-old female with history of renal failure on dialysis, h istory of chronic atrial fibrillation brought in reportedly for falls. The patient is not clear why she is here. She cannot explain to me. The patient that she has had recurrent falls. The last fa ll was a few days ago. However, she is not oriented to time, though. We were contacted to evaluate the patient because the patient has atrial fibrillation. Review of rhythm strip shows the patient has atrial fibrillation with rapid ventricular response yesterday and last night around 100 to 150 h eart rate. Denies any palpitations, denies any chest pain. She is on Coumadin. INR was more than 10 on admission. It has improved to 2.21 this morning. She denies any chest pain or pressure to me . PAST MEDICAL HISTORY: History of renal failure on dialysis, history of chronic atrial fibrillation, history of hypothyroidism on Synthroid, history of diabetes. Most likely memory impairment and dem entia. PAST SURGICAL HISTORY: Status post dialysis catheter placement. ALLERGIES: TO PENICILLIN. SOCIAL HISTORY: The patient does not smoke or drink. FAMILY HISTORY: No reported early coronary artery disease. REVIEW OF SYSTEMS: She denied all other except for above-mentioned. However, again poor historian. PHYSICAL EXAMINATION: VITAL SIGNS: Temperature 97.1, heart rate of 160, blood pressure 115/78, respiration rate of 20, sa turating 100%. HEENT: Normocephalic, atraumatic. Thin female in no acute distress. EYES: Pupils equal and round. CARDIOVASCULAR: Irregularly irregular. Systolic murmur. PULMONARY: With no wheezes anteriorly. GASTROINTESTINAL: Soft, nontender. No rebound or guarding. EXTREMITIES: With no significant lower extremity edema. DERMATOLOGIC: With multiple ecchymoses throughout the body. NEUROLOGIC: Awake and alert, oriented to person and place, but not date. PSYCHIATRIC: Appears to be calm now. LABORATORY: INR on admission was more than 10, repeat one this morning is 2.21. Sodium 144, potass ium 4.5, BUN of 65, creatinine 4.7, glucose of 70. Albumin is 3. Cholesterol 107, LDL is 54. WBC of 9.1, hemoglobin 10.4, platelets of 111. Chest x-ray done shows moderate-sized left pleural effus ion. Brain CT shows cerebral and cerebellar atrophy with chronic small vessel ischemic changes. A 1.2 x ____ mm old lacunar infarct. EKG shows atrial fibrillation with rapid ventricular response, w as personally reviewed. TSH was 0.209. ASSESSMENT AND PLAN: 1. Atrial fibrillation with rapid ventricular response. 2. Renal failure on dialysis. 3. Pleural effusion. 4. Abnormal EKG consistent with old anterior infarct. 5. Hypertension. 6. History of hypothyroidism on Synthroid supplement, but low TSH now consistent with possible hype rthyroidism. 7. Encephalopathy. RECOMMENDATIONS: I will give the patient 2 doses of Digoxin to control the heart rate better. I wi ll also change the metoprolol to propranolol to control the heart rate. I will monitor on telemetry . Dialysis as per renal. Thyroid function tests will be repeated including TSH and free T4. We wi ll hold off on thyroid medication until thyroid is adjusted. We will check the PT, INR again tomorr ow. Consider stopping the Coumadin, given her fall risk and recurrent falls. We will continue to eliza zarate along with you. Thank you for this referral. Dictated By: KATIUSKA BRITO MD AV/NTS Conf#: [id number] DID#: [id number] CC: ALIX TALBOT MD;*[facility]*
[2017-02-08] VITALS (10 sets, daily range): BP systolic 86–135; BP diastolic 53–97; PULSE 48–144; RESP 17–18
[2017-02-08] MEDS: PROPRANOLOL 20 MG TAB PO SCH ×5 (00:51→17:00)
[2017-02-08] MEDS ORDERED: DIGOXIN 500 MCG INJ IV ONE (01:30)
[2017-02-08] MEDS: INSULIN GLARGINE [LANtus] 3 ML PEN SC SCH ×2 (01:39→22:20)
[2017-02-08] MEDS: ACCUCHECK AT 2AM (Patients on SS coverage) XX SCH (02:00)
[2017-02-08] MEDS: DILTIAZEM-D5W 125MG/125ML DRIP 125 ML IV SCH ×2 (03:26→09:20)
[2017-02-08 07:44] LABS: ADD SCAN DIFF NO
[2017-02-08] MEDS: INSULIN ASPART [NOVOLOG] 3 ML PEN SC SCH ×4 (07:49→22:20)
[2017-02-08 07:56] LABS: ABNORMAL IP MESSAGE 1; BASOPHILS % 0.2 % (0.0-2.0); EOSINOPHILS % 0.6 % (0.0-7.0); HEMATOCRIT 34.3 % (37.0-47.0); LYMPHOCYTES # 0.7 10^3/ul (0.8-2.9); LYMPHOCYTES % 11.8 % (15.0-51.0); MEAN CORPUSCULAR HEMOGLOBIN 29.5 pg (29.0-33.0); MEAN CORPUSCULAR HGB CONC 29.2 g/dl (32.0-37.0); MEAN CORPUSCULAR VOLUME 101.2 fl (82.0-101.0); MEAN PLATELET VOLUME 11.7 fl (7.4-10.4); MONOCYTE # 0.6 10^3/ul (0.3-0.9); MONOCYTES % 9.8 % (0.0-11.0); NEUTROPHIL # 4.8 10^3/ul (1.6-7.5); NEUTROPHILS % 77.1 % (39.0-77.0); PLATELET COUNT 93 10^3/UL (140-415); RED BLOOD COUNT 3.39 10^6/ul (4.20-5.40); RED CELL DISTRIBUTION WIDTH 17.5 % (11.5-14.5); WHITE BLOOD COUNT 6.2 10^3/ul (4.8-10.8)
[2017-02-08 08:19] LABS: ALBUMIN 2.6 g/dl (3.3-4.9)
[2017-02-08 08:20] LABS: POTASSIUM 3.9 mmol/L (3.5-5.1)
[2017-02-08 08:22] LABS: ALBUMIN/GLOBULIN RATIO 1.08; BILIRUBIN,INDIRECT 0.4 mg/dl (0-1.1); BILIRUBIN,TOTAL 0.4 mg/dl (0.2-1.3); CREATININE 4.14 mg/dl (0.44-1.00)
[2017-02-08 08:23] LABS: CALCIUM 8.7 mg/dl (8.4-10.2); PHOSPHORUS 5.8 mg/dl (2.5-4.9)
[2017-02-08 08:30] LABS: INR 1.81; PROTIME 21.1 Sec (12.2-14.2); PT RATIO 1.6
[2017-02-08] MEDS: FOLIC ACID 1 MG TAB PO SCH (10:27)
[2017-02-08] MEDS: FAMOTIDINE 20 MG TAB PO SCH (10:27)
--- NOTE | 2017-02-08 11:57 | CONS ---
Date/Time of Note Date/Time of Note DATE: 02/08/17 TIME: 11:56 Assessment/Plan Assessment/Plan Additional Assessment/Plan 1. End-stage renal disease on hemodialysis through right upper chest tunneled hemodialysis catheter. 2. Atrial fibrillation with rapid ventricular rate. The patient was on anticoagulation with Coumadin at home. 3. Left-sided moderate pleural effusion with left basilar infiltrates. 4. Status post fall episode at home. 5. History of hypertension. 6. History of diabetes mellitus. 7. History of end-stage renal disease on hemodialysis. PLAN: pt still confused today HR more stable BP stable will plan for HD tomorrow will follow up Consultation Date/Type/Reason Admit Date/Time Feb 06, 2017 at 15:53 Initial Consult Date 02/06/2017 Type of Consultation: NEPHROLOGY Reason for Consultation ESRD on HD with atrial fibrillation RVR Referring Provider: ALIX TALBOT Exam/Review of Systems Vital Signs Vitals Vital Signs Date Time Temp Pulse Resp B/P Pulse Ox O2 Delivery O2 Flow Rate FiO2 02/08/17 08:18 98.9 57 18 86/66 97 02/06/17 20:09 Room Air Intake and Output 02/07/17 02/07/17 02/08/17 15:00 23:00 07:00 Intake Total 500 ml 400 ml Output Total 2100 ml Balance -1600 ml 400 ml Exam GENERAL: Awake,but not oriented to place and person HEENT: Normal. Oropharynx clear. NECK: Supple. No JVD, no lymphadenopathy. LUNGS: Clear to auscultation. No crackles, no wheezes. HEART: S1, S2. Irregularly irregular. No murmur. ABDOMEN: Soft, nontender, nondistended. Bowel sounds are present. EXTREMITIES: No clubbing, cyanosis, or edema. NEUROLOGICAL: Nonfocal, intact. PSYCHIATRIC: Appropriate affect and mood. Results Result Diagram: 02/08/17 0710 02/08/17 0710 Results 24 hrs Laboratory Tests Test 02/07/17 12:07 02/07/17 18:30 02/08/17 01:35 02/08/17 03:53 Bedside Glucose 125 196 152 74 Test 02/08/17 07:10 02/08/17 07:47 Alanine Aminotransferase (ALT/SGPT) 29 Albumin 2.6 L Albumin/Globulin Ratio 1.08 Alkaline Phosphatase 72 Anion Gap 20 H Aspartate Amino Transf (AST/SGOT) 17 Basophils # 0.0 Basophils % 0.2 Blood Urea Nitrogen 59 H Calcium Level 8.7 Carbon Dioxide Level 27 Chloride Level 96 L Creatinine 4.14 H Direct Bilirubin 0.00 Eosinophils # 0.0 Eosinophils % 0.6 Free Thyroxine 1.80 Globulin 2.40 Glucose Level 70 Hematocrit 34.3 L Hemoglobin 10.0 L INR International Normalized Ratio 1.81 Indirect Bilirubin 0.4 Lymphocytes # 0.7 L Lymphocytes % 11.8 L Magnesium Level 2.0 Mean Corpuscular Hemoglobin 29.5 Mean Corpuscular Hemoglobin Concent 29.2 L Mean Corpuscular Volume 101.2 H Mean Platelet Volume 11.7 H Monocytes # 0.6 Monocytes % 9.8 Neutrophils # 4.8 Neutrophils % 77.1 H Nucleated Red Blood Cells # 0.0 Nucleated Red Blood Cells % 0.0 Phosphorus Level 5.8 H Platelet Count 93 L Potassium Level 3.9 Prothrombin Time 21.1 H Prothrombin Time Ratio 1.6 Red Blood Count 3.39 L Red Cell Distribution Width 17.5 H Sodium Level 139 Thyroid Stimulating Hormone (TSH) 0.155 L Total Bilirubin 0.4 Total Protein 5.0 L White Blood Count 6.2 # Bedside Glucose 110 Medications Medications Current Medications Folic Acid (Folic Acid) 1 mg DAILY PO Last administered on 02/08/17 10:27; Admin Dose 1 MG; Start 02/07/17 at 09:00 Insulin Glargine (Lantus) 10 unit QHS SC Last administered on 02/08/17 01:39; Admin Dose 10 UNIT; Start 02/06/17 at 21:00 Ondansetron HCl (Zofran Inj) 4 mg Q6H PRN IV NAUSEA AND/OR VOMITING; Start at 20:00 Miscellaneous Information 1 ea NOTE XX ; Start 02/06/17 at 20:00 Diagnostic Test (Pha) (Accucheck) 1 ea 02 XX ; Start 02/07/17 at 02:00 Miscellaneous Information 1 ea NOTE XX ; Start 02/06/17 at 20:00 Glucose (Glutose) 15 gm Q15M PRN PO DECREASED GLUCOSE; Start 02/06/17 at 20:00 Glucose (Glutose) 22.5 gm Q15M PRN PO DECREASED GLUCOSE; Start 02/06/17 at 20: 00 Dextrose (D50w Syringe) 25 ml Q15M PRN IV DECREASED GLUCOSE; Start 02/06/17 at 20:00 Dextrose (D50w Syringe) 50 ml Q15M PRN IV DECREASED GLUCOSE; Start 02/06/17 at 20:00 Glucagon (Glucagen) 1 mg Q15M PRN IM DECREASED GLUCOSE; Start 02/06/17 at 20:00 Glucose (Glutose) 15 gm Q15M PRN BUCCAL DECREASED GLUCOSE; Start 02/06/17 at 20 :00 Famotidine (Pepcid) 20 mg DAILY PO Last administered on 02/08/17 10:27; Admin Dose 20 MG; Start 02/07/17 at 09:00 Senna/Docusate Sodium (Senokot-S) 2 tab HS PO Last administered on 02/07/17 21 :29; Admin Dose 2 TAB; Start 02/07/17 at 21:00 Ibuprofen (Motrin) 800 mg Q6H PRN PO MODERATE PAIN LEVEL 4-6; Start 02/07/17 at 14:00 Ketorolac Tromethamine (Toradol) 15 mg Q8H PRN IV PAIN; Start 02/07/17 at 14:00 ; Stop 02/10/17 at 13:59 Warfarin Sodium (Coumadin) 1 mg DAILY@17 PO ; Start 02/08/17 at 17:00 Propranolol HCl 20 mg 20 mg QID PO Last administered on 02/08/17 00:51; Admin Dose 20 MG; Start 02/07/17 at 21:30 Diltiazem HCl (Cardizem-D5W 125 Mg/125 ml Drip) 125 ml @ 15 mls/hr Q8H20M IV Last administered on 02/08/17 03:26; Admin Dose 15 MLS/HR; Start 02/08/17 at 01 :00 VIRIDIANA VILLARREAL MD Feb 08, 2017 11:57
--- NOTE | 2017-02-08 12:32 | PN ---
Date/Time of Note Date/Time of Note DATE: 02/08/17 TIME: 12:27 Assessment/Plan VTE Prophylaxis VTE Prophylaxis Intervention: other (Coumadin) Lines/Catheters IV Catheter Type (from Nrs): Peripheral IV Urinary Cath still in place: No Assessment/Plan Chief Complaint/Hosp Course Subjective: Events noted. RVR overnight. Required dig, beta-shakir, and then Cardizem drip. Poor sleep obviously. More comfortable today. Updated family. Sinus bradycardia then even pauses noted on monitor. Asymptomatic. Objective: Blood pressure stable Physical exam No pallor JVD droop Irregular, no murmur rub gallop Diminished but appears better Bowel sounds positive, nontender, nondistended, no origin No edema A/P 1) A Fib rvr; stable, cont rt control/adjust Cardizem & Coumadin. Rx pain. 2) Pleural effusion; should improve w Rt control/HD. doubt infectious. 3) ESRD/ hd status 4) Ac encephalopathy/ delirium; watch for hypoxia 5) Dm/Htn 6) Constipation 7) Coagulopathy; improved. no coumadin if there are recurrent falls. 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 cont rfm. 9) L4-5 stenosis; try medical management 1st. PT/snf if she agrees 10) Dysphagia? 11) Hypothyroidism. TSH a little low, hold therapy for now. 12) CAD? medical mngmnt for now. 13) SB/Pauses, adjust Cardizem drip. Keep on telemetry. Problems: Exam/Review of Systems Vital Signs Vitals Vital Signs Date Time Temp Pulse Resp B/P Pulse Ox O2 Delivery O2 Flow Rate FiO2 02/08/17 08:18 98.9 57 18 86/66 97 02/06/17 20:09 Room Air Intake and Output 02/07/17 02/07/17 02/08/17 15:00 23:00 07:00 Intake Total 500 ml 400 ml Output Total 2100 ml Balance -1600 ml 400 ml Results Result Diagram: 02/08/17 0710 02/08/17 0710 Results 24 hrs Laboratory Tests Test 02/07/17 18:30 02/08/17 01:35 02/08/17 03:53 02/08/17 07:10 Bedside Glucose 196 152 74 Alanine Aminotransferase (ALT/SGPT) 29 Albumin 2.6 L Albumin/Globulin Ratio 1.08 Alkaline Phosphatase 72 Anion Gap 20 H Aspartate Amino Transf (AST/SGOT) 17 Basophils # 0.0 Basophils % 0.2 Blood Urea Nitrogen 59 H Calcium Level 8.7 Carbon Dioxide Level 27 Chloride Level 96 L Creatinine 4.14 H Direct Bilirubin 0.00 Eosinophils # 0.0 Eosinophils % 0.6 Free Thyroxine 1.80 Globulin 2.40 Glucose Level 70 Hematocrit 34.3 L Hemoglobin 10.0 L INR International Normalized Ratio 1.81 Indirect Bilirubin 0.4 Lymphocytes # 0.7 L Lymphocytes % 11.8 L Magnesium Level 2.0 Mean Corpuscular Hemoglobin 29.5 Mean Corpuscular Hemoglobin Concent 29.2 L Mean Corpuscular Volume 101.2 H Mean Platelet Volume 11.7 H Monocytes # 0.6 Monocytes % 9.8 Neutrophils # 4.8 Neutrophils % 77.1 H Nucleated Red Blood Cells # 0.0 Nucleated Red Blood Cells % 0.0 Phosphorus Level 5.8 H Platelet Count 93 L Potassium Level 3.9 Prothrombin Time 21.1 H Prothrombin Time Ratio 1.6 Red Blood Count 3.39 L Red Cell Distribution Width 17.5 H Sodium Level 139 Thyroid Stimulating Hormone (TSH) 0.155 L Total Bilirubin 0.4 Total Protein 5.0 L White Blood Count 6.2 # Test 02/08/17 07:47 Bedside Glucose 110 Medications Medications Current Medications Folic Acid (Folic Acid) 1 mg DAILY PO Last administered on 02/08/17 10:27; Admin Dose 1 MG; Start 02/07/17 at 09:00 Insulin Glargine (Lantus) 10 unit QHS SC Last administered on 02/08/17 01:39; Admin Dose 10 UNIT; Start 02/06/17 at 21:00 Ondansetron HCl (Zofran Inj) 4 mg Q6H PRN IV NAUSEA AND/OR VOMITING; Start at 20:00 Miscellaneous Information 1 ea NOTE XX ; Start 02/06/17 at 20:00 Diagnostic Test (Pha) (Accucheck) 1 ea 02 XX ; Start 02/07/17 at 02:00 Miscellaneous Information 1 ea NOTE XX ; Start 02/06/17 at 20:00 Glucose (Glutose) 15 gm Q15M PRN PO DECREASED GLUCOSE; Start 02/06/17 at 20:00 Glucose (Glutose) 22.5 gm Q15M PRN PO DECREASED GLUCOSE; Start 02/06/17 at 20: 00 Dextrose (D50w Syringe) 25 ml Q15M PRN IV DECREASED GLUCOSE; Start 02/06/17 at 20:00 Dextrose (D50w Syringe) 50 ml Q15M PRN IV DECREASED GLUCOSE; Start 02/06/17 at 20:00 Glucagon (Glucagen) 1 mg Q15M PRN IM DECREASED GLUCOSE; Start 02/06/17 at 20:00 Glucose (Glutose) 15 gm Q15M PRN BUCCAL DECREASED GLUCOSE; Start 02/06/17 at 20 :00 Famotidine (Pepcid) 20 mg DAILY PO Last administered on 02/08/17 10:27; Admin Dose 20 MG; Start 02/07/17 at 09:00 Senna/Docusate Sodium (Senokot-S) 2 tab HS PO Last administered on 02/07/17 21 :29; Admin Dose 2 TAB; Start 02/07/17 at 21:00 Ibuprofen (Motrin) 800 mg Q6H PRN PO MODERATE PAIN LEVEL 4-6; Start 02/07/17 at 14:00 Ketorolac Tromethamine (Toradol) 15 mg Q8H PRN IV PAIN; Start 02/07/17 at 14:00 ; Stop 02/10/17 at 13:59 Warfarin Sodium (Coumadin) 1 mg DAILY@17 PO ; Start 02/08/17 at 17:00 Propranolol HCl 20 mg 20 mg QID PO Last administered on 02/08/17 00:51; Admin Dose 20 MG; Start 02/07/17 at 21:30 Diltiazem HCl (Cardizem-D5W 125 Mg/125 ml Drip) 125 ml @ 15 mls/hr Q8H20M IV Last administered on 02/08/17 03:26; Admin Dose 15 MLS/HR; Start 02/08/17 at 01 :00 CRUZ CROUCH MD Feb 08, 2017 12:32
[2017-02-08] MEDS ORDERED: ENOXAPARIN 60 MG/0.6 ML SYG SC SCH (13:00)
[2017-02-08] MEDS ORDERED: DILTIAZEM 30 MG TAB PO SCH (13:00)
--- NOTE | 2017-02-08 15:10 | RADRPT ---
Echocardiogram Report Patient Name: EVER GILL Gender: Female Date: 1945 Study Date: 08-Feb-2017 Progress Man: Julio Smith [facility] Location: 5551 Ref. Physician: KATIUSKA GONGORA Quality: Good Procedures: Transthoracic echocardiogram with complete 2D, M-Mode, and doppler examination. Indications: Atrial Fibrillation. 2D/M Mode Doppler Measurement Value Normal Ranges Measurement Value Normal Ranges LVIDd 2D 4.6 3.5 - 5.6 cm NORBERT Vmax 1.0 cm2 LVIDs 2D 3.5 2.1 - 4.1 cm NORBERT VTI 0.8 cm2 FS 2D 25.0 % AV Mean Joo 1.8 m/sec LVPWd 2D 1.1 0.6 - 1.1 cm AV Mean PG 15.0 mmHg IVSd 2D 1.0 0.6 - 1.1 cm AV Peak Joo 2.6 m/sec IVS/LVPW 2D 0.9 AV Peak PG 27.0 mmHg AoR Diam 2D 2.9 2.0 - 3.7 cm AV VTI 64.1 cm LA/Ao 2D 1 0 - 1 AI Peak PG 52.0 mmHg EDV 2D 97.3 cm3 AI Peak Joo 3.6 m/sec ESV 2D 41.1 cm3 AI PHT 668.0 msec LA Dimen 2D 3.5 2.3 - 4.0 cm LVOT Mean Joo 0.4 m/sec LVOT Diam 2.3 cm LVOT Mean PG 1.0 mmHg LVOT Area 4.2 cm2 LVOT Peak Joo 0.6 m/sec LVOT Peak PG 2.0 mmHg LVOT VTI 11.8 cm MV E Peak Joo 1.0 m/sec MV Decel Time 151 msec TR Peak Joo 2.7 m/sec TR Peak PG 29.0 mmHg RVSP 44.0 mmHg Findings Left Ventricle: Normal left ventricular cavity size. Mild concentric left ventricular hypertrophy. Severe global left ventricular systolic dysfunction. Ejection fraction is visually estimated at 25 %. Tissue Doppler/Mitral Doppler indices are indeterminate in this study due to the presence of atrial fibrillation. Right Ventricle: Normal right ventricular size. Normal right ventricular systolic function. Left Atrium: There is moderate enlargement of left atrium. Right Atrium: There is mild enlargement of right atrium. Mitral Valve: Mild mitral leaflet calcification. Mild mitral annular calcification. Trace mitral regurgitation. Aortic Valve: Mild aortic stenosis. Aortic valve Max velocity 2.60 m/sec. Max PG 27.00 mmHg. Mean PG 15.00 mmHg. Aortic sclerosis without stenosis. Aortic cusps appear mildly calcified. Trace aortic valve regurgitation. Tricuspid Valve: Normal appearance of the tricuspid valve. Estimated peak PA systolic pressure 44 mmHg. There is mild tricuspid regurgitation. Pulmonic Valve: Normal pulmonic valve appearance. There is trace pulmonic regurgitation. Pericardium: Normal pericardium with no significant pericardial effusion. Left pleural effusion seen. Aorta: Normal aortic root. IVC: Dilated IVC without respiratory collapse consistent with elevated right atrial pressure. Conclusions 1.Normal left ventricular cavity size. Mild concentric left ventricular hypertrophy. Severe global left ventricular systolic dysfunction. Ejection fraction is visually estimated at 25 %. Tissue Doppler/Mitral Doppler indices are indeterminate in this study due to the presence of atrial fibrillation. 2.There is moderate enlargement of left atrium. 3.There is mild enlargement of right atrium. 4.Mild mitral leaflet calcification. Mild mitral annular calcification. Trace mitral regurgitation. 5.Mild aortic stenosis. Aortic valve Max velocity 2.60 m/sec. Max PG 27.00 mmHg. Mean PG 15.00 mmHg. Aortic sclerosis without stenosis. Aortic cusps appear mildly calcified. Trace aortic valve regurgitation. 6.Normal appearance of the tricuspid valve. Estimated peak PA systolic pressure 44 mmHg. There is mild tricuspid regurgitation. 7.Dilated IVC without respiratory collapse consistent with elevated right atrial pressure. Electronically Signed By: Katiuska Gongora 08-Feb-2017 15:09:20 -0700 Patient Name: EVER GILL Study Date: 08-Feb-2017 [id number]
[2017-02-08] MEDS ORDERED: WARFARIN 1 MG TAB PO SCH (17:00)
[2017-02-08] MEDS ORDERED: WARFARIN 3 MG TAB PO SCH (17:00)
[2017-02-08] MEDS ORDERED: DIGOXIN 0.125 MG TAB PO ONE (18:30)
[2017-02-08] MEDS ORDERED: DILTIAZEM 125 MG in DEXTROSE 5% 100 ML IV SCH (18:30)
[2017-02-08] MEDS ORDERED: DILTIAZEM-D5W 125MG/125ML DRIP 125 ML IV SCH (18:30)
[2017-02-08] MEDS: DILTIAZEM 125 MG in DEXTROSE 5% 100 ML IV SCH (18:48)
[2017-02-08] MEDS: SENNA/DOCUSATE NA (8.6MG/50MG) TAB PO SCH (22:17)
[2017-02-09] VITALS (16 sets, daily range): BP systolic 94–135; BP diastolic 52–89; PULSE 98–151; RESP 16–20
--- NOTE | 2017-02-09 00:33 | PN ---
DATE: 02/08/2017 CARDIOLOGY FOLLOWUP SUBJECTIVE: Discussed with the staff. ____ Discussed with rhythm strip was reviewed. The patient remains in atrial fibrillation. Heart rate has remained elevated but much better controlled than . She is on Cardizem drip. Denies any chest pain or pressure, shortness of breath, palpitat ions to me. MEDICATIONS: Reviewed. PHYSICAL EXAMINATION: VITAL SIGNS: Temperature 97.6, heart rate of 108, blood pressure 121/76, respiration rate of 18, sa turating 96%. HEENT: Normocephalic, atraumatic, cachectic female. Pupils are equal. CARDIOVASCULAR: Irregularly irregular. Systolic murmur. PULMONARY: With no wheezes heard. GASTROINTESTINAL: Soft, thin, nontender. EXTREMITIES: With trivial lower extremity edema. NEUROLOGIC: Awake, alert, oriented to person and place. PSYCHIATRIC: Appears to be calm. DERMATOLOGIC: There are multiple ecchymoses throughout the body. LABORATORY DATA: WBC of 6.2, hemoglobin 10.0, glucose of 93. Sodium 139, potassium 3.9, BUN of 59, creatinine 4.14, glucose 70. INR is 1.81. Echocardiogram was personally reviewed, which shows sev ere LV dysfunction, ejection fraction estimated about 25%. There is biatrial enlargement noted. Ao rtic valve appeared to be calcified with probably moderate aortic stenosis. Trace aortic insufficie ncy noted. PA pressures ____ mmHg. IVC was dilated too. ASSESSMENT AND PLAN: 1. Atrial fibrillation with rapid ventricular response. 2. Congestive heart failure. 3. Severe cardiomyopathy. 4. Renal failure and fluid overload. 5. Coagulopathy. 6. Hyperkalemia, currently has resolved with dialysis. RECOMMENDATIONS: I will start the patient on Coreg and will stop the Cardizem p.o. and Propranolol instead. I will start the patient on low dose of lisinopril as well as long as long as okay with Re nal. monitoring analyst will be continued. We will give one extra dose of digoxin today and monitor digoxin level tomorrow. Thyroid supplement will be replaced as a lower dose. Thyroid function sejal t recommended to be checked again in a few weeks and adjusted. Dictated By: KATIUSKA BRITO MD AV/EMANUEL Conf#: [id number] DID#: [id number] CC: CRUZ CROUCH MD;*[facility]*
[2017-02-09] MEDS: ACCUCHECK AT 2AM (Patients on SS coverage) XX SCH (02:00)
[2017-02-09] MEDS: LEVOTHYROXINE 125 MCG TAB PO SCH (05:46)
--- NOTE | 2017-02-09 07:44 | RADRPT ---
PROCEDURE: XR Chest. CLINICAL INDICATION: Dyspnea TECHNIQUE: Single frontal chest x-ray. COMPARISON: 02/06/2017 FINDINGS: Cardiomegaly with moderate CHF is seen, stable over time. Moderate and significant left basilar ple ural effusion is identified. Atelectasis is seen in the right lung base. The heart size is enlarged with a aortic atherosclerotic vascular calcifications. Right chest central line is seen with the t ip in the superior vena cava, stable. Advanced chronic degenerative changes of the left shoulder jhonatan int is seen with intra-articular loose bodies. Benign senescent changes are seen elsewhere througho ut the remaining osseous structures. IMPRESSION: 1. Cardiomegaly with moderate congestion and edema, stable. 2. Moderate and significant left basilar pleural effusion, also stable. 3. Vascular calcifications consistent with atherosclerosis. 4. Similar and stable appearances since the prior study. RPTAT: HMJB .Edward Vásquez MD, Date Time Electronically viewed and signed by .Edward Vásquez MD, on 02/09/2017 07:43 .B/
[2017-02-09] MEDS: INSULIN ASPART [NOVOLOG] 3 ML PEN SC SCH ×4 (08:00→20:39)
[2017-02-09 08:46] LABS: ALBUMIN 2.4 g/dl (3.3-4.9)
[2017-02-09 08:48] LABS: INR 4.43; PT RATIO 3.4
[2017-02-09 08:49] LABS: ALBUMIN/GLOBULIN RATIO 1.04; BILIRUBIN,INDIRECT 0.2 mg/dl (0-1.1); BILIRUBIN,TOTAL 0.2 mg/dl (0.2-1.3); CREATININE 5.08 mg/dl (0.44-1.00); TOTAL PROTEIN 4.7 g/dl (6.1-8.1)
[2017-02-09 08:50] LABS: CALCIUM 8.9 mg/dl (8.4-10.2); CHOL/HDL RATIO 2.4 RATIO
[2017-02-09 08:58] LABS: MAGNESIUM 1.8 mg/dl (1.7-2.5); PHOSPHORUS 6.2 mg/dl (2.5-4.9)
[2017-02-09] MEDS: FAMOTIDINE 20 MG TAB PO SCH (09:14)
[2017-02-09] MEDS: FOLIC ACID 1 MG TAB PO SCH (09:14)
[2017-02-09] MEDS: LISINOPRIL 5 MG TAB PO SCH (09:16)
--- NOTE | 2017-02-09 10:21 | CONS ---
Date/Time of Note Date/Time of Note DATE: 02/09/17 TIME: 10:12 Assessment/Plan Assessment/Plan Additional Assessment/Plan 1. End-stage renal disease on hemodialysis through right upper chest tunneled hemodialysis catheter. 2. Atrial fibrillation with rapid ventricular rate. The patient was on anticoagulation with Coumadin at home. 3. Left-sided moderate pleural effusion with left basilar infiltrates. 4. Status post fall episode at home. 5. History of hypertension. 6. History of diabetes mellitus. 7. History of end-stage renal disease on hemodialysis. PLAN: pt still agitated, currenlty getting HD, tolerating so far, but not eating well , nurse instructed ok to give IVF D51/2 NS if pt not taking enough PO diet HR more stable BP stable will continue HD on MWF while being in hospital pt go to HD Unit in [place], regular schedule is now TTS Consultation Date/Type/Reason Admit Date/Time Feb 06, 2017 at 15:53 Initial Consult Date 02/06/2017 Type of Consultation: NEPHROLOGY Reason for Consultation ESRD on HD , admitted with atrial fibrillation with RVR Referring Provider: ALIX TALBOT 24 HR Interval Summary Free Text/Dictation currently gettign HD, had a low BS, pt is agitated, still not eating enough PO diet Exam/Review of Systems Vital Signs Vitals Vital Signs Date Time Temp Pulse Resp B/P Pulse Ox O2 Delivery O2 Flow Rate FiO2 02/09/17 08:55 98.8 106 16 112/88 95 02/06/17 20:09 Room Air Intake and Output 02/08/17 02/08/17 02/09/17 15:00 23:00 07:00 Intake Total 850 ml 200 ml Balance 850 ml 200 ml Exam GENERAL: Awake,but not oriented to place and person HEENT: Normal. Oropharynx clear. NECK: Supple. No JVD, no lymphadenopathy. LUNGS: Clear to auscultation. No crackles, no wheezes. HEART: S1, S2. Irregularly irregular. No murmur. ABDOMEN: Soft, nontender, nondistended. Bowel sounds are present. EXTREMITIES: No clubbing, cyanosis, or edema. NEUROLOGICAL: Nonfocal, intact. PSYCHIATRIC: Appropriate affect and mood. Results Result Diagram: 02/08/17 0710 02/09/17 0720 Results 24 hrs Laboratory Tests Test 02/08/17 12:40 02/08/17 17:04 02/08/17 22:13 02/09/17 02:10 Bedside Glucose 87 94 301 H 72 Test 02/09/17 07:20 02/09/17 07:40 02/09/17 08:26 Alanine Aminotransferase (ALT/SGPT) 30 Albumin 2.4 L Albumin/Globulin Ratio 1.04 Alkaline Phosphatase 68 Anion Gap 18 H Aspartate Amino Transf (AST/SGOT) 13 L Blood Urea Nitrogen 76 H Calcium Level 8.9 Carbon Dioxide Level 27 Chloride Level 95 L Cholesterol Level 77 L Cholesterol/HDL Ratio 2.4 Creatinine 5.08 H Direct Bilirubin 0.00 Globulin 2.30 Glucose Level 37 #*L HDL Cholesterol 32 L INR International Normalized Ratio 4.43 Indirect Bilirubin 0.2 LDL Cholesterol, Calculated 34 Potassium Level 5.0 Prothrombin Time 43.0 #H Prothrombin Time Ratio 3.4 Sodium Level 135 Total Bilirubin 0.2 Total Protein 4.7 L Triglycerides Level 54 Magnesium Level 1.8 Phosphorus Level 6.2 H Bedside Glucose 46 *L Medications Medications Current Medications Folic Acid (Folic Acid) 1 mg DAILY PO Last administered on 02/09/17 09:14; Admin Dose 1 MG; Start 02/07/17 at 09:00 Insulin Glargine (Lantus) 10 unit QHS SC Last administered on 02/08/17 22:20; Admin Dose 10 UNIT; Start 02/06/17 at 21:00 Ondansetron HCl (Zofran Inj) 4 mg Q6H PRN IV NAUSEA AND/OR VOMITING; Start at 20:00 Miscellaneous Information 1 ea NOTE XX ; Start 02/06/17 at 20:00 Diagnostic Test (Pha) (Accucheck) 1 ea 02 XX ; Start 02/07/17 at 02:00 Miscellaneous Information 1 ea NOTE XX ; Start 02/06/17 at 20:00 Glucose (Glutose) 15 gm Q15M PRN PO DECREASED GLUCOSE; Start 02/06/17 at 20:00 Glucose (Glutose) 22.5 gm Q15M PRN PO DECREASED GLUCOSE; Start 02/06/17 at 20: 00 Dextrose (D50w Syringe) 25 ml Q15M PRN IV DECREASED GLUCOSE; Start 02/06/17 at 20:00 Dextrose (D50w Syringe) 50 ml Q15M PRN IV DECREASED GLUCOSE; Start 02/06/17 at 20:00 Glucagon (Glucagen) 1 mg Q15M PRN IM DECREASED GLUCOSE; Start 02/06/17 at 20:00 Glucose (Glutose) 15 gm Q15M PRN BUCCAL DECREASED GLUCOSE; Start 02/06/17 at 20 :00 Famotidine (Pepcid) 20 mg DAILY PO Last administered on 02/09/17 09:14; Admin Dose 20 MG; Start 02/07/17 at 09:00 Senna/Docusate Sodium (Senokot-S) 2 tab HS PO Last administered on 02/08/17 22 :17; Admin Dose 2 TAB; Start 02/07/17 at 21:00 Ibuprofen (Motrin) 800 mg Q6H PRN PO MODERATE PAIN LEVEL 4-6; Start 02/07/17 at 14:00 Ketorolac Tromethamine (Toradol) 15 mg Q8H PRN IV PAIN; Start 02/07/17 at 14:00 ; Stop 02/10/17 at 13:59 Warfarin Sodium (Coumadin) 3 mg DAILY@17 PO Last administered on 02/08/17 18: 07; Admin Dose 3 MG; Start 02/08/17 at 17:00; Status Future Hold Enoxaparin Sodium (Lovenox) 55 mg Q24H SC Last administered on 02/08/17 14:02 ; Admin Dose 55 MG; Start 02/08/17 at 13:00; Status Future Hold Carvedilol (Coreg) 3.125 mg QID PO Last administered on 02/09/17 09:14; Admin Dose 3.125 MG; Start 02/08/17 at 18:30 Levothyroxine Sodium (Synthroid) 125 mcg DAILY@06 PO Last administered on 05:46; Admin Dose 125 MCG; Start 02/09/17 at 06:00 Lisinopril 2.5 mg 2.5 mg DAILY PO Last administered on 02/09/17 09:16; Admin Dose 2.5 MG; Start 02/09/17 at 09:00 Diltiazem HCl/ Dextrose (Cardizem Iv/D5W) 125 ml @ 5 mls/hr Q24H IV Last administered on 02/08/17 18:48; Admin Dose 5 MLS/HR; Start 02/08/17 at 19:00 VIRIDIANA VILLARREAL MD Feb 09, 2017 10:21
--- NOTE | 2017-02-09 10:35 | PN ---
DATE: 02/09/2017 CARDIOLOGY FOLLOWUP SUBJECTIVE: Discussed with the staff. Rhythm strip reviewed. The patient remains in atrial fibril lation. Heart rate is overall better control but intermittently has been a little low, with the mor e than 3-second pauses and at times has been markedly elevated, heart rate of 150s. The patient say s she denies any chest pain or palpitation to me. Denies any palpitations to me, shortness of breat h to me. She is still confused though. Discussed with the staff. Discussed with Dr. Tolliver. MEDICATIONS: Reviewed as per medication reconciliation, personally reviewed. PHYSICAL EXAMINATION: VITAL SIGNS: Temperature 98.8, heart rate of 106, blood pressure 112/88, respiration rate of 16, sa turating 95%. HEENT: Normocephalic, atraumatic. Thin female in no acute distress. Pupils are equal and round. CARDIOVASCULAR: Irregularly irregular. Systolic murmur. PULMONARY: No wheezes heard. Minimal rhonchi at the base. GASTROINTESTINAL: Soft, nontender. EXTREMITIES: No significant edema. NEUROLOGIC: Awake and alert, oriented to person and place. PSYCHIATRIC: Appears to be calm. LABORATORY: Sodium 135, potassium 5, BUN of 76, creatinine 5.08, glucose 37. INR was 4.43. ASSESSMENT AND PLAN: 1. Atrial fibrillation with rapid ventricular response. 2. Congestive heart failure. 3. Severe cardiomyopathy, etiology unclear. 4. Renal failure on dialysis. 5. Coagulopathy. 6. Electrolyte abnormalities. 7. History of hypertension, currently hypotensive. 8. Dementia, memory impairment. RECOMMENDATIONS: I will continue with lisinopril. Coreg will be continued at the current dose and increase as needed and tolerated. Lisinopril will be continued and try to increase as tolerated. D igoxin will be given the very low dose intermittently to avoid digoxin toxicity given her renal fail ure. Dialysis as per renal. We will schedule her for Lexiscan for tomorrow to evaluate for ischemi a given her severe cardiomyopathy. Continue to monitor on telemetry. Dictated By: KATIUSKA BRITO MD AV/NTS Conf#: [id number] DID#: [id number] CC: CRUZ CROUCH MD;*End*
[2017-02-09] MEDS ORDERED: METOPROLOL (XL) 25 MG TAB PO ONE (11:00)
[2017-02-09 11:01] LABS: ADD SCAN DIFF NO
[2017-02-09 11:05] LABS: BASOPHILS % 0.1 % (0.0-2.0); EOSINOPHILS # 0.1 10^3/ul (0.0-0.5); EOSINOPHILS % 0.7 % (0.0-7.0); HEMATOCRIT 33.3 % (37.0-47.0); HEMOGLOBIN 10.3 g/dl (12.0-16.0); LYMPHOCYTES # 1.2 10^3/ul (0.8-2.9); LYMPHOCYTES % 17.5 % (15.0-51.0); MEAN CORPUSCULAR HEMOGLOBIN 30.5 pg (29.0-33.0); MEAN CORPUSCULAR HGB CONC 30.9 g/dl (32.0-37.0); MEAN CORPUSCULAR VOLUME 98.5 fl (82.0-101.0); MEAN PLATELET VOLUME 11.5 fl (7.4-10.4); MONOCYTE # 0.7 10^3/ul (0.3-0.9); MONOCYTES % 10.9 % (0.0-11.0); NEUTROPHIL # 4.7 10^3/ul (1.6-7.5); NEUTROPHILS % 70.2 % (39.0-77.0); PLATELET COUNT 110 10^3/UL (140-415); RED BLOOD COUNT 3.38 10^6/ul (4.20-5.40); RED CELL DISTRIBUTION WIDTH 16.7 % (11.5-14.5); WHITE BLOOD COUNT 6.7 10^3/ul (4.8-10.8)
--- NOTE | 2017-02-09 17:39 | PN ---
Date/Time of Note Date/Time of Note DATE: 02/09/17 TIME: 17:34 Assessment/Plan VTE Prophylaxis VTE Prophylaxis Intervention: LMWH Lines/Catheters IV Catheter Type (from Nrs): Peripheral IV Urinary Cath still in place: No Assessment/Plan Chief Complaint/Hosp Course S: 02/08-Events noted. RVR overnight.Req dig/ bb, then Cardizem gtt.Poor sleep obviously.More comfortable today.Updated family.Sb/pauses noted. Asymptomatic. 02/09- more stable, but still in delirium. low bs noted this am; didnt eat. O: vss; ST PE No pallor/JVD/droop Irreg, no m/r/g ctab Bs+ nt nd, no r/r/g No edema Neuro- non focal A/P 1) A Fib rvr; stable, cont rt control/adjust Cardizem & Coumadin. Rx pain. 2) Pl Effusion; should improve w Rt control/HD. doubt infectious. 3) ESRD/ hd status 4) Ac encephalopathy/ delirium; dig? watch for hypoxia 5) Dm/Htn 6) Constipation 7) Coagulopathy; improved. no coumadin if there are recurrent falls. 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 cont rfm. 9) L4-5 stenosis; try medical management 1st. PT/snf if she agrees 10) Dysphagia? 11) Hypothyroidism. TSH a little low, hold therapy for now. 12) CAD? medical mngmnt for now. 13) SB/Pauses, adjust Cardizem drip. Keep on telemetry. Problems: Exam/Review of Systems Vital Signs Vitals Vital Signs Date Time Temp Pulse Resp B/P Pulse Ox O2 Delivery O2 Flow Rate FiO2 02/09/17 16:07 125 02/09/17 12:22 98.6 18 122/78 96 02/06/17 20:09 Room Air Intake and Output 02/08/17 02/08/17 02/09/17 15:00 23:00 07:00 Intake Total 850 ml 200 ml Balance 850 ml 200 ml Results Result Diagram: 02/09/17 0720 02/09/17 0720 Results 24 hrs Laboratory Tests Test 02/08/17 22:13 02/09/17 02:10 02/09/17 07:20 02/09/17 07:40 Bedside Glucose 301 H 72 White Blood Count 6.7 Red Blood Count 3.38 L Hemoglobin 10.3 L Hematocrit 33.3 L Mean Corpuscular Volume 98.5 Mean Corpuscular Hemoglobin 30.5 Mean Corpuscular Hemoglobin Concent 30.9 L Red Cell Distribution Width 16.7 H Platelet Count 110 L Mean Platelet Volume 11.5 H Neutrophils % 70.2 Lymphocytes % 17.5 Monocytes % 10.9 Eosinophils % 0.7 Basophils % 0.1 Nucleated Red Blood Cells % 0.0 Neutrophils # 4.7 Lymphocytes # 1.2 Monocytes # 0.7 Eosinophils # 0.1 Basophils # 0.0 Nucleated Red Blood Cells # 0.0 Prothrombin Time 43.0 #H Prothrombin Time Ratio 3.4 INR International Normalized Ratio 4.43 Sodium Level 135 Potassium Level 5.0 Chloride Level 95 L Carbon Dioxide Level 27 Anion Gap 18 H Blood Urea Nitrogen 76 H Creatinine 5.08 H Glucose Level 37 #*L Calcium Level 8.9 Total Bilirubin 0.2 Direct Bilirubin 0.00 Indirect Bilirubin 0.2 Aspartate Amino Transf (AST/SGOT) 13 L Alanine Aminotransferase (ALT/SGPT) 30 Alkaline Phosphatase 68 Total Protein 4.7 L Albumin 2.4 L Globulin 2.30 Albumin/Globulin Ratio 1.04 Triglycerides Level 54 Cholesterol Level 77 L LDL Cholesterol, Calculated 34 HDL Cholesterol 32 L Cholesterol/HDL Ratio 2.4 Digoxin Level 1.6 Phosphorus Level 6.2 H Magnesium Level 1.8 Test 02/09/17 08:26 02/09/17 10:07 Bedside Glucose 46 *L 156 Medications Medications Current Medications Folic Acid (Folic Acid) 1 mg DAILY PO Last administered on 02/09/17t 09:14; Admin Dose 1 MG; Start 02/07/17 at 09:00 Ondansetron HCl (Zofran Inj) 4 mg Q6H PRN IV NAUSEA AND/OR VOMITING; Start at 20:00 Miscellaneous Information 1 ea NOTE XX ; Start 02/06/17 at 20:00 Diagnostic Test (Pha) (Accucheck) 1 ea 02 XX ; Start 02/07/17 at 02:00 Miscellaneous Information 1 ea NOTE XX ; Start 02/06/17 at 20:00 Glucose (Glutose) 15 gm Q15M PRN PO DECREASED GLUCOSE; Start 02/06/17 at 20:00 Glucose (Glutose) 22.5 gm Q15M PRN PO DECREASED GLUCOSE; Start 02/06/17 at 20: 00 Dextrose (D50w Syringe) 25 ml Q15M PRN IV DECREASED GLUCOSE; Start 02/06/17 at 20:00 Dextrose (D50w Syringe) 50 ml Q15M PRN IV DECREASED GLUCOSE; Start 02/06/17 at 20:00 Glucagon (Glucagen) 1 mg Q15M PRN IM DECREASED GLUCOSE; Start 02/06/17 at 20:00 Glucose (Glutose) 15 gm Q15M PRN BUCCAL DECREASED GLUCOSE; Start 02/06/17 at 20 :00 Famotidine (Pepcid) 20 mg DAILY PO Last administered on 02/09/17 09:14; Admin Dose 20 MG; Start 02/07/17 at 09:00 Senna/Docusate Sodium (Senokot-S) 2 tab HS PO Last administered on 02/08/17 22 :17; Admin Dose 2 TAB; Start 02/07/17 at 21:00 Ibuprofen (Motrin) 800 mg Q6H PRN PO MODERATE PAIN LEVEL 4-6; Start 02/07/17 at 14:00 Ketorolac Tromethamine (Toradol) 15 mg Q8H PRN IV PAIN; Start 02/07/17 at 14:00 ; Stop 02/10/17 at 13:59 Carvedilol (Coreg) 3.125 mg QID PO Last administered on 02/09/17 12:47; Admin Dose 3.125 MG; Start 02/08/17 at 18:30 Levothyroxine Sodium (Synthroid) 125 mcg DAILY@06 PO Last administered on 05:46; Admin Dose 125 MCG; Start 02/09/17 at 06:00 Lisinopril 2.5 mg 2.5 mg DAILY PO Last administered on 02/09/17 09:16; Admin Dose 2.5 MG; Start 02/09/17 at 09:00 Diltiazem HCl/ Dextrose (Cardizem Iv/D5W) 125 ml @ 5 mls/hr Q24H IV Last administered on 02/08/17 18:48; Admin Dose 5 MLS/HR; Start 02/08/17 at 19:00 CRUZ CROUCH MD Feb 09, 2017 17:39
[2017-02-09] MEDS: DILTIAZEM 125 MG in DEXTROSE 5% 100 ML IV SCH (19:00)
[2017-02-09] MEDS: SENNA/DOCUSATE NA (8.6MG/50MG) TAB PO SCH (20:34)
[2017-02-09] MEDS: INSULIN GLARGINE [LANtus] 3 ML PEN SC SCH (20:38)
[2017-02-10] VITALS (11 sets, daily range): BP systolic 98–135; BP diastolic 59–93; PULSE 85–122; RESP 16–20
[2017-02-10] MEDS: ACCUCHECK AT 2AM (Patients on SS coverage) XX SCH (02:20)
[2017-02-10] MEDS: LEVOTHYROXINE 125 MCG TAB PO SCH (05:48)
[2017-02-10] MEDS: PANTOPRAZOLE (EC) 40 MG TAB PO SCH (05:48)
[2017-02-10] MEDS: INSULIN ASPART [NOVOLOG] 3 ML PEN SC SCH ×4 (07:22→20:14)
[2017-02-10] MEDS ORDERED: REGADENOSON 0.4 MG/5 ML SYG ONE ×2 (08:09→08:40)
[2017-02-10 08:32] LABS: ADD SCAN DIFF NO
[2017-02-10 08:35] LABS: BASOPHILS % 0.2 % (0.0-2.0); EOSINOPHILS # 0.1 10^3/ul (0.0-0.5); EOSINOPHILS % 0.8 % (0.0-7.0); HEMATOCRIT 33.8 % (37.0-47.0); HEMOGLOBIN 10.5 g/dl (12.0-16.0); LYMPHOCYTES % 16.4 % (15.0-51.0); MEAN CORPUSCULAR HEMOGLOBIN 30.3 pg (29.0-33.0); MEAN CORPUSCULAR HGB CONC 31.1 g/dl (32.0-37.0); MEAN CORPUSCULAR VOLUME 97.4 fl (82.0-101.0); MEAN PLATELET VOLUME 11.2 fl (7.4-10.4); MONOCYTE # 0.7 10^3/ul (0.3-0.9); MONOCYTES % 11.5 % (0.0-11.0); NEUTROPHIL # 4.2 10^3/ul (1.6-7.5); NEUTROPHILS % 70.1 % (39.0-77.0); PLATELET COUNT 108 10^3/UL (140-415); RED BLOOD COUNT 3.47 10^6/ul (4.20-5.40); RED CELL DISTRIBUTION WIDTH 16.7 % (11.5-14.5); WHITE BLOOD COUNT 5.9 10^3/ul (4.8-10.8)
[2017-02-10 08:51] LABS: PROTIME 56.7 Sec (12.2-14.2); PT RATIO 4.4
[2017-02-10 08:56] LABS: ALBUMIN 2.4 g/dl (3.3-4.9); POTASSIUM 5.7 mmol/L (3.5-5.1)
[2017-02-10 08:58] LABS: BILIRUBIN,INDIRECT 0.1 mg/dl (0-1.1); BILIRUBIN,TOTAL 0.1 mg/dl (0.2-1.3); CREATININE 5.08 mg/dl (0.44-1.00)
[2017-02-10 08:59] LABS: TOTAL PROTEIN 4.8 g/dl (6.1-8.1)
[2017-02-10 09:00] LABS: CALCIUM 8.9 mg/dl (8.4-10.2)
[2017-02-10] MEDS: FAMOTIDINE 20 MG TAB PO SCH (09:17)
[2017-02-10] MEDS: FOLIC ACID 1 MG TAB PO SCH (09:17)
[2017-02-10] MEDS: LISINOPRIL 5 MG TAB PO SCH (09:18)
[2017-02-10 09:19] LABS: MAGNESIUM 1.9 mg/dl (1.7-2.5); PHOSPHORUS 6.4 mg/dl (2.5-4.9)
--- NOTE | 2017-02-10 09:28 | RADRPT ---
PROCEDURE: Lexiscan myocardial perfusion study CLINICAL INDICATION: 71 -year-old patient complaining of chest pain. TECHNIQUE: Lexiscan 0.4 mg intravenously separate acquisition gated myocardial perfusion SPECT usi ng Tc 99m Myoview 28.9 mCi intravenously at stress and Tc-99m Myoview, 9.4 mCi intravenously at rest was performed using the rest/stress sequence. Poststress Myoview SPECT images were obtained in the supine position. COMPARISON: No prior studies. FINDINGS: Perfusion images reveal no evidence of perfusion defects. Lexiscan post stress gated SPECT images demonstrate moderate hypokinesis of the left ventricle. IMPRESSION: 1. No evidence of perfusion defects. 2. Moderate hypokinesis of the left ventricle. 3. The left ventricle ejection fraction at stress is 28%. A call report was made to Dr. Gongora at 09:26 a.m. on February 10, 2017. RPTAT: HH .Elsie Lorenzana MD, MD Date Time Electronically viewed and signed by .Elsie Lorenzana MD, on 02/10/2017 09:28 .L/
[2017-02-10 09:36] LABS: INR 6.27
--- NOTE | 2017-02-10 09:38 | PN ---
DATE: 02/10/2017 CARDIOLOGY FOLLOWUP SUBJECTIVE: The patient remains in atrial fibrillation. Heart rate is under fair control, intermit tently markedly elevated still. The patient denies any chest pain or palpitations to me. MEDICATIONS: Reviewed, as per medical reconciliation, personally reviewed. PHYSICAL EXAMINATION: VITAL SIGNS: Temperature 97.5, heart rate of 119, blood pressure 130/90, respiratory rate of 16, sa turating 95%. HEENT: Normocephalic, atraumatic. Thin, cachectic female. Pupils are equal. CARDIOVASCULAR: Irregularly irregular. Systolic murmur. PULMONARY: No wheezes anteriorly. GASTROINTESTINAL: Soft, nontender. EXTREMITIES: With no significant lower extremity edema. NEUROLOGIC: Awake and alert. Responds appropriately. PSYCHIATRIC: Appears to be calm. LABORATORY: Glucose this morning is 102. The rest of the labs are still pending. ASSESSMENT AND PLAN: 1. Atrial fibrillation with rapid ventricular response. 2. Congestive heart failure secondary to systolic dysfunction, chronic. 3. Severe cardiomyopathy, unclear if ischemic versus nonischemic. 4. Renal failure, on dialysis. 5. Coagulopathy and elevated INR. 6. Electrolyte abnormalities. 7. History of hypertension. 8. Dementia. RECOMMENDATIONS: I would continue with the low dose lisinopril as tolerated. Coumadin to be adjust ed, based on the INR level. I will change the Carvedilol to 6.25 t.i.d. and as long as the blood pr essure is stable, we will increase the dose and change it to b.i.d. Lexiscan stress test will be do ne today to rule out reversible ischemia. Will check the digoxin level intermittently and give extr a digoxin as needed and as tolerated to control the heart rate. Dictated By: KATIUSKA LOPEZ/EMANUEL Conf#: [id number] DID#: [id number]
--- NOTE | 2017-02-10 09:41 | PN ---
DATE: 02/09/2017 LEXISCAN STRESS TEST INDICATION: Cardiomyopathy. DESCRIPTION: Lexiscan was performed as per protocol. FINDINGS: 1. Baseline EKG showed atrial fibrillation with rapid ventricular response anteroseptal infarct, ag e undetermined. Heart rate at baseline is 111, blood pressure 137/90, heart rate at peak stress is 129, blood pressure of 140/74. 2. No significant ischemic ST changes noted. No significant arrhythmia noted except for atrial fib rillation. CONCLUSION: Lexiscan stress test reported normal, see nuclear medicine result for final report. Dictated By: KATIUSKA BRITO MD AV/EMANUEL Conf#: [id number] DID#: [id number]
--- NOTE | 2017-02-10 10:41 | PN ---
Date/Time of Note Date/Time of Note DATE: 02/10/17 TIME: 10:38 Assessment/Plan VTE Prophylaxis VTE Prophylaxis Intervention: other (Coumadin) Lines/Catheters IV Catheter Type (from Nrsg): Peripheral IV Urinary Cath still in place: No Assessment/Plan Chief Complaint/Hosp Course S: 02/08-Events noted. RVR overnight.Req dig/ bb, then Cardizem gtt.Poor sleep obviously.More comfortable today.Updated family.Sb/pauses noted. Asymptomatic. 02/09- more stable, but still in delirium. low bs noted this am; didnt eat. 02/10-fairly stable, heart rate still a little high. Some diarrhea- dig. O: vss; ST PE No pallor/JVD/droop Irreg, no m/r/g ctab Bs+ nt nd, no r/r/g No edema Neuro- non focal A/P 1) A Fib rvr; stable, cont rt control/adjust ccc/dig/coumadin. Rx pain. 2) Pl Effusion; should improve w Rt control/HD. doubt infectious. 3) ESRD/ hd status 4) Ac encephalopathy/ delirium; dig? watch for hypoxia 5) Dm/Htn 6) Constipation, resolved 7) Coagulopathy; no active bleeding. no coumadin if there are recurrent falls. 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 cont rfm. 9) L4-5 stenosis; try medical mngmnt 1st. PT/snf if she agrees 10) Dysphagia? 11) Hypothyroidism. TSH a little low, hold therapy for now. 12) CAD? medical mngmnt for now. 13) SB/Pauses, adjusted ccc ggt. Keep on tele 14) Cmy- ischemic vs nonischemic. cont lisinopril/dig. Stress test negative. Problems: Exam/Review of Systems Vital Signs Vitals Vital Signs Date Time Temp Pulse Resp B/P Pulse Ox O2 Delivery O2 Flow Rate FiO2 02/10/17 08:17 119 02/10/17 05:01 97.5 16 135/93 95 02/06/17 20:09 Room Air Intake and Output 02/09/17 02/09/17 02/10/17 15:00 23:00 07:00 Intake Total 600 ml 500 ml Output Total 800 ml Balance -200 ml 500 ml Results Result Diagram: 02/10/17 0658 02/10/17 0658 Results 24 hrs Laboratory Tests Test 02/09/17 12:17 02/09/17 18:08 02/09/17 19:49 02/10/17 01:28 Bedside Glucose 152 169 187 165 Test 02/10/17 06:58 02/10/17 07:20 02/10/17 07:23 White Blood Count 5.9 Red Blood Count 3.47 L Hemoglobin 10.5 L Hematocrit 33.8 L Mean Corpuscular Volume 97.4 Mean Corpuscular Hemoglobin 30.3 Mean Corpuscular Hemoglobin Concent 31.1 L Red Cell Distribution Width 16.7 H Platelet Count 108 L Mean Platelet Volume 11.2 H Neutrophils % 70.1 Lymphocytes % 16.4 Monocytes % 11.5 H Eosinophils % 0.8 Basophils % 0.2 Nucleated Red Blood Cells % 0.0 Neutrophils # 4.2 Lymphocytes # 1.0 Monocytes # 0.7 Eosinophils # 0.1 Basophils # 0.0 Nucleated Red Blood Cells # 0.0 Prothrombin Time 56.7 #H Prothrombin Time Ratio 4.4 INR International Normalized Ratio 6.27 *H Sodium Level 134 L Potassium Level 5.7 H Chloride Level 94 L Carbon Dioxide Level 26 Anion Gap 20 H Blood Urea Nitrogen 83 H Creatinine 5.08 H Glucose Level 99 # Calcium Level 8.9 Total Bilirubin 0.1 L Direct Bilirubin 0.00 Indirect Bilirubin 0.1 Aspartate Amino Transf (AST/SGOT) 15 Alanine Aminotransferase (ALT/SGPT) 34 Alkaline Phosphatase 72 Total Protein 4.8 L Albumin 2.4 L Globulin 2.40 Albumin/Globulin Ratio 1.00 Digoxin Level 1.6 Bedside Glucose 102 Phosphorus Level 6.4 H Magnesium Level 1.9 Medications Medications Current Medications Folic Acid (Folic Acid) 1 mg DAILY PO Last administered on 02/10/17 09:17; Admin Dose 1 MG; Start 02/07/17 at 09:00 Ondansetron HCl (Zofran Inj) 4 mg Q6H PRN IV NAUSEA AND/OR VOMITING; Start at 20:00 Miscellaneous Information 1 ea NOTE XX ; Start 02/06/17 at 20:00 Diagnostic Test (Pha) (Accucheck) 1 ea 02 XX Last administered on 02/10/17 02: 20; Admin Dose 1 EA; Start 02/07/17 at 02:00 Miscellaneous Information 1 ea NOTE XX ; Start 02/06/17 at 20:00 Glucose (Glutose) 15 gm Q15M PRN PO DECREASED GLUCOSE; Start 02/06/17 at 20:00 Glucose (Glutose) 22.5 gm Q15M PRN PO DECREASED GLUCOSE; Start 02/06/17 at 20: 00 Dextrose (D50w Syringe) 25 ml Q15M PRN IV DECREASED GLUCOSE; Start 02/06/17 at 20:00 Dextrose (D50w Syringe) 50 ml Q15M PRN IV DECREASED GLUCOSE; Start 02/06/17 at 20:00 Glucagon (Glucagen) 1 mg Q15M PRN IM DECREASED GLUCOSE; Start 02/06/17 at 20:00 Glucose (Glutose) 15 gm Q15M PRN BUCCAL DECREASED GLUCOSE; Start 02/06/17 at 20 :00 Famotidine (Pepcid) 20 mg DAILY PO Last administered on 02/10/17 09:17; Admin Dose 20 MG; Start 02/07/17 at 09:00 Senna/Docusate Sodium (Senokot-S) 2 tab HS PO Last administered on 02/09/17 20 :34; Admin Dose 2 TAB; Start 02/07/17 at 21:00 Ibuprofen (Motrin) 800 mg Q6H PRN PO MODERATE PAIN LEVEL 4-6; Start 02/07/17 at 14:00 Ketorolac Tromethamine (Toradol) 15 mg Q8H PRN IV PAIN; Start 02/07/17 at 14:00 ; Stop 02/10/17 at 13:59 Levothyroxine Sodium (Synthroid) 125 mcg DAILY@06 PO Last administered on 05:46; Admin Dose 125 MCG; Start 02/09/17 at 06:00 Lisinopril (Zestril) 2.5 mg DAILY PO Last administered on 02/10/17 09:18; Admin Dose 2.5 MG; Start 02/09/17 at 09:00 Insulin Glargine (Lantus) 7 unit DAILY@20 SC Last administered on 02/09/17 20: 38; Admin Dose 7 UNIT; Start 02/09/17 at 20:00 Warfarin Sodium (Coumadin) 1 mg DAILY@17 PO ; Start 02/11/17 at 17:00; Status Future Hold Pantoprazole (Protonix Tab) 40 mg DAILY@06 PO ; Start 02/10/17 at 06:00 Carvedilol (Coreg) 6.25 mg TID PO Last administered on 02/10/17t 09:16; Admin Dose 6.25 MG; Start 02/10/17 at 09:00 CRUZ CROUCH MD Feb 10, 2017 10:41
[2017-02-10 13:04] LABS: FOLATE > 20.0 ng/ml (2.8-20.0)
[2017-02-10] MEDS ORDERED: IBUPROFEN 800 MG TAB PO PRN (14:30)
--- NOTE | 2017-02-10 18:57 | CONS ---
Date/Time of Note Date/Time of Note DATE: 02/10/17 TIME: 18:56 Assessment/Plan Assessment/Plan Additional Assessment/Plan 1. End-stage renal disease on hemodialysis through right upper chest tunneled hemodialysis catheter. 2. Atrial fibrillation with rapid ventricular rate. The patient was on anticoagulation with Coumadin at home. 3. Left-sided moderate pleural effusion with left basilar infiltrates. 4. Status post fall episode at home. 5. History of hypertension. 6. History of diabetes mellitus. 7. History of end-stage renal disease on hemodialysis. PLAN: less agitated HR more stable BP stable next HD on tuesday HD outpatient schedule is TTS Consultation Date/Type/Reason Admit Date/Time Feb 06, 2017 at 15:53 Initial Consult Date 02/06/2017 Type of Consultation: NEPHROLOGY Referring Provider: ALIX TALBOT 24 HR Interval Summary Free Text/Dictation agitated, s/p HD yesterday Exam/Review of Systems Vital Signs Vitals Vital Signs Date Time Temp Pulse Resp B/P Pulse Ox O2 Delivery O2 Flow Rate FiO2 02/10/17 16:14 85 02/10/17 15:51 97.4 20 109/60 95 02/06/17 20:09 Room Air Intake and Output 02/09/17 02/09/17 02/10/17 15:00 23:00 07:00 Intake Total 600 ml 500 ml Output Total 800 ml Balance -200 ml 500 ml Results Result Diagram: 02/10/17 0658 02/10/17 0658 Results 24 hrs Laboratory Tests Test 02/09/17 19:49 02/10/17 01:28 02/10/17 06:58 02/10/17 07:20 Bedside Glucose 187 165 102 White Blood Count 5.9 Red Blood Count 3.47 L Hemoglobin 10.5 L Hematocrit 33.8 L Mean Corpuscular Volume 97.4 Mean Corpuscular Hemoglobin 30.3 Mean Corpuscular Hemoglobin Concent 31.1 L Red Cell Distribution Width 16.7 H Platelet Count 108 L Mean Platelet Volume 11.2 H Neutrophils % 70.1 Lymphocytes % 16.4 Monocytes % 11.5 H Eosinophils % 0.8 Basophils % 0.2 Nucleated Red Blood Cells % 0.0 Neutrophils # 4.2 Lymphocytes # 1.0 Monocytes # 0.7 Eosinophils # 0.1 Basophils # 0.0 Nucleated Red Blood Cells # 0.0 Prothrombin Time 56.7 #H Prothrombin Time Ratio 4.4 INR International Normalized Ratio 6.27 *H Sodium Level 134 L Potassium Level 5.7 H Chloride Level 94 L Carbon Dioxide Level 26 Anion Gap 20 H Blood Urea Nitrogen 83 H Creatinine 5.08 H Glucose Level 99 # Calcium Level 8.9 Total Bilirubin 0.1 L Direct Bilirubin 0.00 Indirect Bilirubin 0.1 Aspartate Amino Transf (AST/SGOT) 15 Alanine Aminotransferase (ALT/SGPT) 34 Alkaline Phosphatase 72 Total Protein 4.8 L Albumin 2.4 L Globulin 2.40 Albumin/Globulin Ratio 1.00 Digoxin Level 1.6 Rapid Plasma Reagin NONREACTIVE Test 02/10/17 07:23 02/10/17 12:19 02/10/17 17:46 Phosphorus Level 6.4 H Magnesium Level 1.9 Vitamin B12 Level 435 Folate > 20.0 H Bedside Glucose 135 162 Medications Medications Current Medications Folic Acid (Folic Acid) 1 mg DAILY PO Last administered on 02/10/17 09:17; Admin Dose 1 MG; Start 02/07/17 at 09:00 Ondansetron HCl (Zofran Inj) 4 mg Q6H PRN IV NAUSEA AND/OR VOMITING; Start at 20:00 Miscellaneous Information 1 ea NOTE XX ; Start 02/06/17 at 20:00 Diagnostic Test (Pha) (Accucheck) 1 ea 02 XX Last administered on 02/10/17 02: 20; Admin Dose 1 EA; Start 02/07/17 at 02:00 Miscellaneous Information 1 ea NOTE XX ; Start 02/06/17 at 20:00 Glucose (Glutose) 15 gm Q15M PRN PO DECREASED GLUCOSE; Start 02/06/17 at 20:00 Glucose (Glutose) 22.5 gm Q15M PRN PO DECREASED GLUCOSE; Start 02/06/17 at 20: 00 Dextrose (D50w Syringe) 25 ml Q15M PRN IV DECREASED GLUCOSE; Start 02/06/17 at 20:00 Dextrose (D50w Syringe) 50 ml Q15M PRN IV DECREASED GLUCOSE; Start 02/06/17 at 20:00 Glucagon (Glucagen) 1 mg Q15M PRN IM DECREASED GLUCOSE; Start 02/06/17 at 20:00 Glucose (Glutose) 15 gm Q15M PRN BUCCAL DECREASED GLUCOSE; Start 02/06/17 at 20 :00 Ibuprofen (Motrin) 800 mg Q6H PRN PO MODERATE PAIN LEVEL 4-6; Start 02/07/17 at 14:00 Levothyroxine Sodium (Synthroid) 125 mcg DAILY@06 PO Last administered on 05:46; Admin Dose 125 MCG; Start 02/09/17 at 06:00 Lisinopril (Zestril) 2.5 mg DAILY PO Last administered on 02/10/17 09:18; Admin Dose 2.5 MG; Start 02/09/17 at 09:00 Insulin Glargine (Lantus) 7 unit DAILY@20 SC Last administered on 02/09/17 20: 38; Admin Dose 7 UNIT; Start 02/09/17 at 20:00 Pantoprazole (Protonix Tab) 40 mg DAILY@06 PO ; Start 02/10/17 at 06:00 Carvedilol (Coreg) 6.25 mg TID PO Last administered on 02/10/17 14:57; Admin Dose 6.25 MG; Start 02/10/17 at 09:00 Warfarin Sodium (Coumadin) 1 mg DAILY@17 PO ; Start 02/14/17 at 17:00; Status Future Hold VIRIDIANA VILLARREAL MD Feb 10, 2017 18:57
[2017-02-10] MEDS: INSULIN GLARGINE [LANtus] 3 ML PEN SC SCH (20:13)
[2017-02-11] VITALS (17 sets, daily range): BP systolic 68–122; BP diastolic 38–81; PULSE 97–137; RESP 16–20
[2017-02-11] MEDS: ACCUCHECK AT 2AM (Patients on SS coverage) XX SCH (02:00)
[2017-02-11] MEDS: LEVOTHYROXINE 125 MCG TAB PO SCH (05:27)
[2017-02-11] MEDS: PANTOPRAZOLE (EC) 40 MG TAB PO SCH (05:27)
[2017-02-11 07:47] LABS: ADD SCAN DIFF NO
[2017-02-11 07:52] LABS: BASOPHILS % 0.2 % (0.0-2.0); EOSINOPHILS % 0.6 % (0.0-7.0); HEMATOCRIT 35.7 % (37.0-47.0); HEMOGLOBIN 11.4 g/dl (12.0-16.0); LYMPHOCYTES # 0.9 10^3/ul (0.8-2.9); LYMPHOCYTES % 17.4 % (15.0-51.0); MEAN CORPUSCULAR HEMOGLOBIN 30.6 pg (29.0-33.0); MEAN CORPUSCULAR HGB CONC 31.9 g/dl (32.0-37.0); MEAN CORPUSCULAR VOLUME 95.7 fl (82.0-101.0); MEAN PLATELET VOLUME 11.3 fl (7.4-10.4); MONOCYTE # 0.6 10^3/ul (0.3-0.9); MONOCYTES % 11.5 % (0.0-11.0); NEUTROPHIL # 3.8 10^3/ul (1.6-7.5); NEUTROPHILS % 69.4 % (39.0-77.0); PLATELET COUNT 111 10^3/UL (140-415); RED BLOOD COUNT 3.73 10^6/ul (4.20-5.40); RED CELL DISTRIBUTION WIDTH 16.3 % (11.5-14.5); WHITE BLOOD COUNT 5.4 10^3/ul (4.8-10.8)
[2017-02-11] MEDS: INSULIN ASPART [NOVOLOG] 3 ML PEN SC SCH ×4 (07:55→21:32)
[2017-02-11 08:07] LABS: PROTIME 59.8 Sec (12.2-14.2); PT RATIO 4.7
[2017-02-11 08:15] LABS: ALBUMIN 2.5 g/dl (3.3-4.9)
[2017-02-11 08:17] LABS: CREATININE 5.85 mg/dl (0.44-1.00)
[2017-02-11 08:18] LABS: ALBUMIN/GLOBULIN RATIO 1.08; BILIRUBIN,INDIRECT 0.1 mg/dl (0-1.1); BILIRUBIN,TOTAL 0.1 mg/dl (0.2-1.3); TOTAL PROTEIN 4.8 g/dl (6.1-8.1)
[2017-02-11 08:25] LABS: POTASSIUM 6.3 mmol/L (3.5-5.1)
[2017-02-11 08:31] LABS: CK-MB 4.25 ng/ml (0.0-2.4)
[2017-02-11 08:43] LABS: TROPONIN-I 0.031 ng/ml (0.00-0.12)
[2017-02-11] MEDS: FOLIC ACID 1 MG TAB PO SCH (09:04)
[2017-02-11] MEDS: LISINOPRIL 5 MG TAB PO SCH (09:04)
[2017-02-11 09:24] LABS: INR 6.71
--- NOTE | 2017-02-11 10:02 | CONS ---
Date/Time of Note Date/Time of Note DATE: 02/11/17 TIME: 10:00 Assessment/Plan Assessment/Plan Additional Assessment/Plan 1. End-stage renal disease on hemodialysis through right upper chest tunneled hemodialysis catheter. 2. Atrial fibrillation with rapid ventricular rate. The patient was on anticoagulation with Coumadin at home. 3. Left-sided moderate pleural effusion with left basilar infiltrates. 4. Status post fall episode at home. 5. History of hypertension. 6. History of diabetes mellitus. 7. History of end-stage renal disease on hemodialysis. Hyperkalemia K 6.3 PLAN: less agitated K 6.3 today, will arrange for her HD today HR more stable BP stable HD outpatient schedule is TTS if pt gets HD today then we will do next HD on Tuesday then pt will be on TTS schedule Consultation Date/Type/Reason Admit Date/Time Feb 06, 2017 at 15:53 Initial Consult Date 02/06/2017 Type of Consultation: NEPHROLOGY Reason for Consultation ESRD on HD, with atrial fibrillation with RVR hyperkalemia Referring Provider: ALIX TALBOT 24 HR Interval Summary Free Text/Dictation K6.3, BUN 106, SBP in 110s Exam/Review of Systems Vital Signs Vitals Vital Signs Date Time Temp Pulse Resp B/P Pulse Ox O2 Delivery O2 Flow Rate FiO2 02/11/17 08:24 101 02/11/17 07:52 98.2 20 113/72 97 Intake and Output 02/10/17 02/10/17 02/11/17 15:00 23:00 07:00 Intake Total 720 ml Balance 720 ml Exam GENERAL: Awake,but not oriented to place and person HEENT: Normal. Oropharynx clear. NECK: Supple. No JVD, no lymphadenopathy. LUNGS: Clear to auscultation. No crackles, no wheezes. HEART: S1, S2. Irregularly irregular. No murmur. ABDOMEN: Soft, nontender, nondistended. Bowel sounds are present. EXTREMITIES: No clubbing, cyanosis, or edema. NEUROLOGICAL: Nonfocal, intact. Results Result Diagram: 02/11/17 0706 02/11/17 0706 Results 24 hrs Laboratory Tests Test 02/10/17 12:19 02/10/17 17:46 02/10/17 19:51 02/11/17 00:38 Bedside Glucose 135 162 214 179 Test 02/11/17 07:06 02/11/17 07:46 White Blood Count 5.4 Red Blood Count 3.73 L Hemoglobin 11.4 L Hematocrit 35.7 L Mean Corpuscular Volume 95.7 Mean Corpuscular Hemoglobin 30.6 Mean Corpuscular Hemoglobin Concent 31.9 L Red Cell Distribution Width 16.3 H Platelet Count 111 L Mean Platelet Volume 11.3 H Neutrophils % 69.4 Lymphocytes % 17.4 Monocytes % 11.5 H Eosinophils % 0.6 Basophils % 0.2 Nucleated Red Blood Cells % 0.0 Neutrophils # 3.8 Lymphocytes # 0.9 Monocytes # 0.6 Eosinophils # 0.0 Basophils # 0.0 Nucleated Red Blood Cells # 0.0 Prothrombin Time 59.8 H Prothrombin Time Ratio 4.7 INR International Normalized Ratio 6.71 *H Sodium Level 134 L Potassium Level 6.3 *H Chloride Level 94 L Carbon Dioxide Level 26 Anion Gap 20 H Blood Urea Nitrogen 106 H Creatinine 5.85 H Glucose Level 76 Calcium Level 9.0 Magnesium Level 2.0 Total Bilirubin 0.1 L Direct Bilirubin 0.00 Indirect Bilirubin 0.1 Aspartate Amino Transf (AST/SGOT) 16 Alanine Aminotransferase (ALT/SGPT) 31 Alkaline Phosphatase 69 Creatine Kinase 100 Creatine Kinase Index 4.3 Creatinine Kinase MB (Mass) 4.25 H Troponin I 0.031 Total Protein 4.8 L Albumin 2.5 L Globulin 2.30 Albumin/Globulin Ratio 1.08 Digoxin Level 1.8 Bedside Glucose 75 Medications Medications Current Medications Folic Acid (Folic Acid) 1 mg DAILY PO Last administered on 02/11/17 09:04; Admin Dose 1 MG; Start 02/07/17 at 09:00 Ondansetron HCl (Zofran Inj) 4 mg Q6H PRN IV NAUSEA AND/OR VOMITING; Start at 20:00 Miscellaneous Information 1 ea NOTE XX ; Start 02/06/17 at 20:00 Diagnostic Test (Pha) (Accucheck) 1 ea 02 XX Last administered on 02/11/17 02: 00; Admin Dose 1 EA; Start 02/07/17 at 02:00 Miscellaneous Information 1 ea NOTE XX ; Start 02/06/17 at 20:00 Glucose (Glutose) 15 gm Q15M PRN PO DECREASED GLUCOSE; Start 02/06/17 at 20:00 Glucose (Glutose) 22.5 gm Q15M PRN PO DECREASED GLUCOSE; Start 02/06/17 at 20: 00 Dextrose (D50w Syringe) 25 ml Q15M PRN IV DECREASED GLUCOSE; Start 02/06/17 at 20:00 Dextrose (D50w Syringe) 50 ml Q15M PRN IV DECREASED GLUCOSE; Start 02/06/17 at 20:00 Glucagon (Glucagen) 1 mg Q15M PRN IM DECREASED GLUCOSE; Start 02/06/17 at 20:00 Glucose (Glutose) 15 gm Q15M PRN BUCCAL DECREASED GLUCOSE; Start 02/06/17 at 20 :00 Ibuprofen (Motrin) 800 mg Q6H PRN PO MODERATE PAIN LEVEL 4-6; Start 02/07/17 at 14:00 Levothyroxine Sodium (Synthroid) 125 mcg DAILY@06 PO Last administered on 05:27; Admin Dose 125 MCG; Start 02/09/17 at 06:00 Insulin Glargine (Lantus) 7 unit DAILY@20 SC Last administered on 02/10/17 20: 13; Admin Dose 7 UNIT; Start 02/09/17 at 20:00 Pantoprazole (Protonix Tab) 40 mg DAILY@06 PO Last administered on 02/11/17 05 :27; Admin Dose 40 MG; Start 02/10/17 at 06:00 Warfarin Sodium (Coumadin) 1 mg DAILY@17 PO ; Start 02/14/17 at 17:00; Status Future Hold Carvedilol (Coreg) 12.5 mg BID PO ; Start 02/11/17 at 21:00 Carvedilol (Coreg) 6.25 mg ONCE ONCE PO ; Start 02/11/17 at 10:00; Stop at 10:01 VIRIDIANA VILLARREAL MD Feb 11, 2017 10:02
--- NOTE | 2017-02-11 10:12 | PN ---
DATE: 02/11/2017 CARDIOLOGY FOLLOWUP SUBJECTIVE: Discussed with the staff. Rhythm strip was reviewed. The patient remains in atrial fib rillation. Heart rate has remained stable, mostly to the high side. The patient denies any chest p ain or pressure. Appears to be confused though, more than yesterday. MEDICATIONS: Reviewed. PHYSICAL EXAMINATION: VITAL SIGNS: Temperature 98.2, heart rate of 108, blood pressure is 113/72, respiration rate of 20, saturating 97%. HEENT: Normocephalic, atraumatic. Thin female. Pupils are equal. CARDIOVASCULAR: Irregularly irregular. Systolic murmur. PULMONARY: With no wheezes heard anteriorly. GASTROINTESTINAL: Soft, nontender. EXTREMITIES: With no significant lower extremity edema. NEUROLOGIC: Awake, oriented to person only. PSYCHIATRIC: Appears to be confused and agitated. DERMATOLOGIC: There are multiple ecchymoses. LABORATORY: INR is still pending. Sodium 134, potassium 6.3, BUN of 106, creatinine of 5.85, gluco se of 76. Lexiscan stress test done yesterday showed ejection fraction about 28% with no evidence o f perfusion defect. ASSESSMENT AND PLAN: 1. Congestive heart failure. 2. Severe cardiomyopathy, probably nonischemic. 3. Atrial fibrillation with rapid ventricular response. 4. Coagulopathy. 5. Renal failure on dialysis. 6. Dementia. 7. Hypertension. 8. Electrolyte abnormality, hyperkalemia. RECOMMENDATIONS: I will discontinue the ZACARIAS inhibitor due to her severe hyperkalemia. Coumadin is on hold. I would increase the Coreg to 12.5 b.i.d. Patient may need a vitamin K dose to reverse th e Coumadin if it is markedly elevated. Most recent from today is 1.8. We will hold off any more di goxin until the level is down given her renal failure. Dictated By: KATIUSKA BRITO MD AV/NTS Conf#: [id number] DID#: [id number] CC: CRUZ CROUCH MD;*EndCC*
--- NOTE | 2017-02-11 12:24 | PN ---
Date/Time of Note Date/Time of Note DATE: 02/11/17 TIME: 12:22 Assessment/Plan VTE Prophylaxis VTE Prophylaxis Intervention: other (coumadin) Lines/Catheters IV Catheter Type (from Nrsg): Saline Lock Urinary Cath still in place: No Assessment/Plan Chief Complaint/Hosp Course S: 02/08-Events noted. RVR overnight.Req dig/ bb, then Cardizem gtt.Poor sleep obviously.More comfortable today.Updated family.Sb/pauses noted. Asymptomatic. 02/09- more stable, but still in delirium. low bs noted this am; didnt eat. 02/10-fairly stable, heart rate still a little high. Some diarrhea- dig. 02/11-alert oriented no distress. No dyspnea. On hd. O: vss; ST PE No pallor/JVD/droop Irreg, no m/r/g ctab; hd access c/d/i Bs+ nt nd, no r/r/g No edema Neuro- non focal A/P 1) A Fib rvr; stable, cont rt control/adjust ccc/dig/coumadin. Rx pain. 2) Pl Effusion; should improve w Rt control/HD. doubt infectious. 3) ESRD/ hd status 4) Ac encephalopathy/ delirium; dig? watch for hypoxia. Today oriented to yr/ mnth. 5) Dm/Htn 6) Constipation, resolved 7) Coagulopathy; no active bleeding. no coumadin if there are recurrent falls. 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 cont rfm. 9) L4-5 stenosis; try medical mngmnt 1st. PT/snf if she agrees 10) Dysphagia? 11) Hypothyroidism. TSH a little low, hold therapy for now. 12) CAD? medical mngmnt for now. 13) SB/Pauses, adjusted ccc ggt. Keep on tele 14) Cmy- ischemic vs nonischemic. cont lisinopril/dig. Stress test negative. Problems: Exam/Review of Systems Vital Signs Vitals Vital Signs Date Time Temp Pulse Resp B/P Pulse Ox O2 Delivery O2 Flow Rate FiO2 02/11/17 11:54 98.2 56 20 90/53 98 Intake and Output 02/10/17 02/10/17 02/11/17 15:00 23:00 07:00 Intake Total 720 ml Balance 720 ml Results Result Diagram: 02/11/17 0706 02/11/17 0706 Results 24 hrs Laboratory Tests Test 02/10/17 17:46 02/10/17 19:51 02/11/17 00:38 02/11/17 07:06 Bedside Glucose 162 214 179 White Blood Count 5.4 Red Blood Count 3.73 L Hemoglobin 11.4 L Hematocrit 35.7 L Mean Corpuscular Volume 95.7 Mean Corpuscular Hemoglobin 30.6 Mean Corpuscular Hemoglobin Concent 31.9 L Red Cell Distribution Width 16.3 H Platelet Count 111 L Mean Platelet Volume 11.3 H Neutrophils % 69.4 Lymphocytes % 17.4 Monocytes % 11.5 H Eosinophils % 0.6 Basophils % 0.2 Nucleated Red Blood Cells % 0.0 Neutrophils # 3.8 Lymphocytes # 0.9 Monocytes # 0.6 Eosinophils # 0.0 Basophils # 0.0 Nucleated Red Blood Cells # 0.0 Prothrombin Time 59.8 H Prothrombin Time Ratio 4.7 INR International Normalized Ratio 6.71 *H Sodium Level 134 L Potassium Level 6.3 *H Chloride Level 94 L Carbon Dioxide Level 26 Anion Gap 20 H Blood Urea Nitrogen 106 H Creatinine 5.85 H Glucose Level 76 Calcium Level 9.0 Magnesium Level 2.0 Total Bilirubin 0.1 L Direct Bilirubin 0.00 Indirect Bilirubin 0.1 Aspartate Amino Transf (AST/SGOT) 16 Alanine Aminotransferase (ALT/SGPT) 31 Alkaline Phosphatase 69 Creatine Kinase 100 Creatine Kinase Index 4.3 Creatinine Kinase MB (Mass) 4.25 H Troponin I 0.031 Total Protein 4.8 L Albumin 2.5 L Globulin 2.30 Albumin/Globulin Ratio 1.08 Digoxin Level 1.8 Test 02/11/17 07:46 Bedside Glucose 75 Medications Medications Current Medications Folic Acid (Folic Acid) 1 mg DAILY PO Last administered on 02/11/17 09:04; Admin Dose 1 MG; Start 02/07/17 at 09:00 Ondansetron HCl (Zofran Inj) 4 mg Q6H PRN IV NAUSEA AND/OR VOMITING; Start at 20:00 Miscellaneous Information 1 ea NOTE XX ; Start 02/06/17 at 20:00 Diagnostic Test (Pha) (Accucheck) 1 ea 02 XX Last administered on 02/11/17 02: 00; Admin Dose 1 EA; Start 02/07/17 at 02:00 Miscellaneous Information 1 ea NOTE XX ; Start 02/06/17 at 20:00 Glucose (Glutose) 15 gm Q15M PRN PO DECREASED GLUCOSE; Start 02/06/17 at 20:00 Glucose (Glutose) 22.5 gm Q15M PRN PO DECREASED GLUCOSE; Start 02/06/17 at 20: 00 Dextrose (D50w Syringe) 25 ml Q15M PRN IV DECREASED GLUCOSE; Start 02/06/17 at 20:00 Dextrose (D50w Syringe) 50 ml Q15M PRN IV DECREASED GLUCOSE; Start 02/06/17 at 20:00 Glucagon (Glucagen) 1 mg Q15M PRN IM DECREASED GLUCOSE; Start 02/06/17 at 20:00 Glucose (Glutose) 15 gm Q15M PRN BUCCAL DECREASED GLUCOSE; Start 02/06/17 at 20 :00 Ibuprofen (Motrin) 800 mg Q6H PRN PO MODERATE PAIN LEVEL 4-6; Start 02/07/17 at 14:00 Levothyroxine Sodium (Synthroid) 125 mcg DAILY@06 PO Last administered on 05:27; Admin Dose 125 MCG; Start 02/09/17 at 06:00 Insulin Glargine (Lantus) 7 unit DAILY@20 SC Last administered on 02/10/17 20: 13; Admin Dose 7 UNIT; Start 02/09/17 at 20:00 Pantoprazole (Protonix Tab) 40 mg DAILY@06 PO Last administered on 02/11/17 05 :27; Admin Dose 40 MG; Start 02/10/17 at 06:00 Warfarin Sodium (Coumadin) 1 mg DAILY@17 PO ; Start 02/14/17 at 17:00; Status Future Hold Carvedilol (Coreg) 12.5 mg BID PO ; Start 02/11/17 at 21:00 CRUZ CROUCH MD Feb 11, 2017 12:24
[2017-02-11] MEDS ORDERED: WARFARIN 1 MG TAB PO SCH (17:00)
[2017-02-11] MEDS: INSULIN GLARGINE [LANtus] 3 ML PEN SC SCH (21:33)
[2017-02-12] VITALS (12 sets, daily range): BP systolic 93–140; BP diastolic 54–89; PULSE 99–141; RESP 16–19
[2017-02-12] MEDS: ACCUCHECK AT 2AM (Patients on SS coverage) XX SCH (02:32)
[2017-02-12] MEDS: PANTOPRAZOLE (EC) 40 MG TAB PO SCH (06:05)
[2017-02-12] MEDS: LEVOTHYROXINE 125 MCG TAB PO SCH (06:05)
[2017-02-12] MEDS: INSULIN ASPART [NOVOLOG] 3 ML PEN SC SCH ×4 (08:00→20:44)
[2017-02-12 09:03] LABS: POTASSIUM 4.9 mmol/L (3.5-5.1)
[2017-02-12 09:05] LABS: CREATININE 4.7 mg/dl (0.44-1.00)
[2017-02-12 09:08] LABS: INR 5.42; PROTIME 50.5 Sec (12.2-14.2); PT RATIO 3.9
[2017-02-12] MEDS: FOLIC ACID 1 MG TAB PO SCH (09:32)
--- NOTE | 2017-02-12 11:17 | PN ---
Date/Time of Note Date/Time of Note DATE: 02/12/17 TIME: 11:14 Assessment/Plan VTE Prophylaxis VTE Prophylaxis Intervention: SCD's Lines/Catheters IV Catheter Type (from [facility]): Saline Lock Urinary Cath still in place: No Assessment/Plan Assessment/Plan 1. Congestive heart failure. 2. Severe cardiomyopathy, probably nonischemic. 3. Atrial fibrillation with rapid ventricular response. 4. Coagulopathy. 5. Renal failure on dialysis. 6. Dementia. 7. Hypertension. 8. Electrolyte abnormality, hyperkalemia. RECOMMENDATIONS: off ZACARIAS inhibitor due to her severe hyperkalemia. Coumadin is on hold. continue Coreg to 12.5 b.i.d. We will hold off any more digoxin until the level is down given her renal failure. Subjective 24 Hr Interval Summary Free Text/Dictation The patient with no change Exam/Review of Systems Vital Signs Vitals Vital Signs Date Time Temp Pulse Resp B/P Pulse Ox O2 Delivery O2 Flow Rate FiO2 02/12/17 08:42 98.0 98 18 121/69 98 Intake and Output 02/11/17 02/11/17 02/12/17 15:00 23:00 07:00 Intake Total 300 ml 960 ml 80 ml Output Total 800 ml Balance -500 ml 960 ml 80 ml Results Result Diagram: 02/11/17 0706 02/12/17 0718 Results 24 hrs Laboratory Tests Test 02/11/17 12:24 02/11/17 17:27 02/11/17 21:30 02/12/17 02:21 Bedside Glucose 186 171 221 H 135 Test 02/12/17 07:18 02/12/17 08:00 02/12/17 08:22 02/12/17 09:25 Prothrombin Time Pending Prothrombin Time Ratio 3.9 INR International Normalized Ratio 5.42 Sodium Level 138 Potassium Level 4.9 Chloride Level 100 Carbon Dioxide Level 27 Anion Gap 16 Blood Urea Nitrogen 78 H Creatinine 4.70 #H Glucose Level 25 #*L Calcium Level 9.0 Bedside Glucose 33 *L 170 77 Medications Medications Current Medications Folic Acid (Folic Acid) 1 mg DAILY PO Last administered on 02/12/17t 09:32; Admin Dose 1 MG; Start 02/07/17 at 09:00 Ondansetron HCl (Zofran Inj) 4 mg Q6H PRN IV NAUSEA AND/OR VOMITING; Start at 20:00 Miscellaneous Information 1 ea NOTE XX ; Start 02/06/17 at 20:00 Diagnostic Test (Pha) (Accucheck) 1 ea 02 XX Last administered on 02/12/17 02: 32; Admin Dose 1 EA; Start 02/07/17 at 02:00 Miscellaneous Information 1 ea NOTE XX ; Start 02/06/17 at 20:00 Glucose (Glutose) 15 gm Q15M PRN PO DECREASED GLUCOSE; Start 02/06/17 at 20:00 Glucose (Glutose) 22.5 gm Q15M PRN PO DECREASED GLUCOSE; Start 02/06/17 at 20: 00 Dextrose (D50w Syringe) 25 ml Q15M PRN IV DECREASED GLUCOSE; Start 02/06/17 at 20:00 Dextrose (D50w Syringe) 50 ml Q15M PRN IV DECREASED GLUCOSE Last administered on 02/12/17 08:04; Admin Dose 50 ML; Start 02/06/17 at 20:00 Glucagon (Glucagen) 1 mg Q15M PRN IM DECREASED GLUCOSE; Start 02/06/17 at 20:00 Glucose (Glutose) 15 gm Q15M PRN BUCCAL DECREASED GLUCOSE; Start 02/06/17 at 20 :00 Ibuprofen (Motrin) 800 mg Q6H PRN PO MODERATE PAIN LEVEL 4-6; Start 02/07/17 at 14:00 Levothyroxine Sodium (Synthroid) 125 mcg DAILY@06 PO Last administered on 06:05; Admin Dose 125 MCG; Start 02/09/17 at 06:00 Pantoprazole (Protonix Tab) 40 mg DAILY@06 PO Last administered on 02/12/17 06 :05; Admin Dose 40 MG; Start 02/10/17 at 06:00 Warfarin Sodium (Coumadin) 1 mg DAILY@17 PO ; Start 02/14/17 at 17:00; Status Future Hold Carvedilol (Coreg) 12.5 mg BID PO Last administered on 02/12/17 09:33; Admin Dose 12.5 MG; Start 02/11/17 at 21:00 KUMAR ARGUETA MD Feb 12, 2017 11:17
--- NOTE | 2017-02-12 11:31 | CONS ---
Date/Time of Note Date/Time of Note DATE: 02/12/17 TIME: 11:27 Assessment/Plan Assessment/Plan Additional Assessment/Plan 1. End-stage renal disease on hemodialysis through right upper chest tunneled hemodialysis catheter. 2. Atrial fibrillation with rapid ventricular rate. The patient was on anticoagulation with Coumadin at home. 3. Left-sided moderate pleural effusion with left basilar infiltrates. 4. Status post fall episode at home. 5. History of hypertension. 6. History of diabetes mellitus. 7. History of end-stage renal disease on hemodialysis. Hyperkalemia K 6.3 PLAN: s/p emergent HD for hyperkalemia yesterday- will arrange for her HD tomorrow HD outpatient schedule is TTS will follow up Consultation Date/Type/Reason Admit Date/Time Feb 06, 2017 at 15:53 Initial Consult Date 02/06/2017 Type of Consultation: NEPHROLOGY Referring Provider: ALIX TALBOT 24 HR Interval Summary Free Text/Dictation K 4.9, Hypoglycemic episode, s/p HD yesterday Exam/Review of Systems Vital Signs Vitals Vital Signs Date Time Temp Pulse Resp B/P Pulse Ox O2 Delivery O2 Flow Rate FiO2 02/12/17 08:42 98.0 98 18 121/69 98 Intake and Output 02/11/17 02/11/17 02/12/17 15:00 23:00 07:00 Intake Total 300 ml 960 ml 80 ml Output Total 800 ml Balance -500 ml 960 ml 80 ml Exam GENERAL: Awake,but not oriented to place and person HEENT: Normal. Oropharynx clear. NECK: Supple. No JVD, no lymphadenopathy. LUNGS: Clear to auscultation. No crackles, no wheezes. HEART: S1, S2. Irregularly irregular. No murmur. ABDOMEN: Soft, nontender, nondistended. Bowel sounds are present. EXTREMITIES: No clubbing, cyanosis, or edema. NEUROLOGICAL: Nonfocal, intact. Results Result Diagram: 02/11/17 0706 02/12/17 0718 Results 24 hrs Laboratory Tests Test 02/11/17 12:24 02/11/17 17:27 02/11/17 21:30 02/12/17 02:21 Bedside Glucose 186 171 221 H 135 Test 02/12/17 07:18 02/12/17 08:00 02/12/17 08:22 02/12/17 09:25 Prothrombin Time 50.5 H Prothrombin Time Ratio 3.9 INR International Normalized Ratio 5.42 Sodium Level 138 Potassium Level 4.9 Chloride Level 100 Carbon Dioxide Level 27 Anion Gap 16 Blood Urea Nitrogen 78 H Creatinine 4.70 #H Glucose Level 25 #*L Calcium Level 9.0 Bedside Glucose 33 *L 170 77 Medications Medications Current Medications Folic Acid (Folic Acid) 1 mg DAILY PO Last administered on 02/12/17 09:32; Admin Dose 1 MG; Start 02/07/17 at 09:00 Ondansetron HCl (Zofran Inj) 4 mg Q6H PRN IV NAUSEA AND/OR VOMITING; Start at 20:00 Miscellaneous Information 1 ea NOTE XX ; Start 02/06/17 at 20:00 Diagnostic Test (Pha) (Accucheck) 1 ea 02 XX Last administered on 02/12/17 02: 32; Admin Dose 1 EA; Start 02/07/17 at 02:00 Miscellaneous Information 1 ea NOTE XX ; Start 02/06/17 at 20:00 Glucose (Glutose) 15 gm Q15M PRN PO DECREASED GLUCOSE; Start 02/06/17 at 20:00 Glucose (Glutose) 22.5 gm Q15M PRN PO DECREASED GLUCOSE; Start 02/06/17 at 20: 00 Dextrose (D50w Syringe) 25 ml Q15M PRN IV DECREASED GLUCOSE; Start 02/06/17 at 20:00 Dextrose (D50w Syringe) 50 ml Q15M PRN IV DECREASED GLUCOSE Last administered on 02/12/17 08:04; Admin Dose 50 ML; Start 02/06/17 at 20:00 Glucagon (Glucagen) 1 mg Q15M PRN IM DECREASED GLUCOSE; Start 02/06/17 at 20:00 Glucose (Glutose) 15 gm Q15M PRN BUCCAL DECREASED GLUCOSE; Start 02/06/17 at 20 :00 Ibuprofen (Motrin) 800 mg Q6H PRN PO MODERATE PAIN LEVEL 4-6; Start 02/07/17 at 14:00 Levothyroxine Sodium (Synthroid) 125 mcg DAILY@06 PO Last administered on 06:05; Admin Dose 125 MCG; Start 02/09/17 at 06:00 Pantoprazole (Protonix Tab) 40 mg DAILY@06 PO Last administered on 02/12/17 06 :05; Admin Dose 40 MG; Start 02/10/17 at 06:00 Warfarin Sodium (Coumadin) 1 mg DAILY@ PO ; Start 02/14/17 at 17:00; Status Future Hold Carvedilol (Coreg) 12.5 mg BID PO Last administered on 02/12/17 09:33; Admin Dose 12.5 MG; Start 02/11/17 at 21:00 VIRIDIANA VILLARREAL MD Feb 12, 2017 11:31
--- NOTE | 2017-02-12 12:51 | PN ---
Date/Time of Note Date/Time of Note DATE: 02/12/17 TIME: 12:49 Assessment/Plan VTE Prophylaxis VTE Prophylaxis Intervention: LMWH, other (Coumadin) Lines/Catheters IV Catheter Type (from Nrsg): Saline Lock Urinary Cath still in place: No Assessment/Plan Chief Complaint/Hosp Course S: 02/08-Events noted. RVR overnight.Req dig/ bb, then Cardizem gtt.Poor sleep obviously.More comfortable today.Updated family.Sb/pauses noted. Asymptomatic. 02/09- more stable, but still in delirium. low bs noted this am; didnt eat. 02/10-fairly stable, heart rate still a little high. Some diarrhea- dig. 02/11-alert oriented no distress. No dyspnea. On hd. 02/12-Hypoglycemia noted. needs a feeder. DC Lantus in the interim. Hr labile. O: vss; ST/A. fib RVR PE No pallor/JVD/droop Irreg, no m/r/g ctab; hd access c/d/i Bs+ nt nd, no r/r/g No edema A/P 1) A Fib rvr; mod stable, cont rt control/adjust ccc/dig/coumadin. Rx pain. 2) Pl Effusion; should improve w Rt control/HD. doubt infectious. 3) ESRD/ hd status 4) Ac encephalopathy/ delirium; dig? watch for hypoxia. 5) Dm/Htn 6) Constipation, resolved 7) Coagulopathy; no active bleeding. no coumadin if there are recurrent falls. 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 cont rfm. 9) L4-5 stenosis; try medical mngmnt 1st. PT/snf if she agrees 10) Dysphagia? 11) Hypothyroidism. TSH a little low, hold therapy for now. 12) CAD? medical mngmnt for now. 13) SB/Pauses, adjusted ccc. Keep on tele 14) Cmy- ischemic vs nonischemic. cont lisinopril/dig. Stress test negative. Problems: Exam/Review of Systems Vital Signs Vitals Vital Signs Date Time Temp Pulse Resp B/P Pulse Ox O2 Delivery O2 Flow Rate FiO2 02/12/17 12:27 98.0 75 18 118/72 98 Intake and Output 02/11/17 02/11/17 02/12/17 15:00 23:00 07:00 Intake Total 300 ml 960 ml 80 ml Output Total 800 ml Balance -500 ml 960 ml 80 ml Results Result Diagram: 02/11/17 0706 02/12/17 0718 Results 24 hrs Laboratory Tests Test 02/11/17 17:27 02/11/17 21:30 02/12/17 02:21 02/12/17 07:18 Bedside Glucose 171 221 H 135 Prothrombin Time 50.5 H Prothrombin Time Ratio 3.9 INR International Normalized Ratio 5.42 Sodium Level 138 Potassium Level 4.9 Chloride Level 100 Carbon Dioxide Level 27 Anion Gap 16 Blood Urea Nitrogen 78 H Creatinine 4.70 #H Glucose Level 25 #*L Calcium Level 9.0 Test 02/12/17 08:00 02/12/17 08:22 02/12/17 09:25 02/12/17 11:47 Bedside Glucose 33 *L 170 77 122 Medications Medications Current Medications Folic Acid (Folic Acid) 1 mg DAILY PO Last administered on 02/12/17 09:32; Admin Dose 1 MG; Start 02/07/17 at 09:00 Ondansetron HCl (Zofran Inj) 4 mg Q6H PRN IV NAUSEA AND/OR VOMITING; Start at 20:00 Miscellaneous Information 1 ea NOTE XX ; Start 02/06/17 at 20:00 Diagnostic Test (Pha) (Accucheck) 1 ea 02 XX Last administered on 02/12/17 02: 32; Admin Dose 1 EA; Start 02/07/17 at 02:00 Miscellaneous Information 1 ea NOTE XX ; Start 02/06/17 at 20:00 Glucose (Glutose) 15 gm Q15M PRN PO DECREASED GLUCOSE; Start 02/06/17 at 20:00 Glucose (Glutose) 22.5 gm Q15M PRN PO DECREASED GLUCOSE; Start 02/06/17 at 20: 00 Dextrose (D50w Syringe) 25 ml Q15M PRN IV DECREASED GLUCOSE; Start 02/06/17 at 20:00 Dextrose (D50w Syringe) 50 ml Q15M PRN IV DECREASED GLUCOSE Last administered on 02/12/17 08:04; Admin Dose 50 ML; Start 02/06/17 at 20:00 Glucagon (Glucagen) 1 mg Q15M PRN IM DECREASED GLUCOSE; Start 02/06/17 at 20:00 Glucose (Glutose) 15 gm Q15M PRN BUCCAL DECREASED GLUCOSE; Start 02/06/17 at 20 :00 Ibuprofen (Motrin) 800 mg Q6H PRN PO MODERATE PAIN LEVEL 4-6; Start 02/07/17 at 14:00 Levothyroxine Sodium (Synthroid) 125 mcg DAILY@06 PO Last administered on 06:05; Admin Dose 125 MCG; Start 02/09/17 at 06:00 Pantoprazole (Protonix Tab) 40 mg DAILY@06 PO Last administered on 02/12/17 06 :05; Admin Dose 40 MG; Start 02/10/17 at 06:00 Warfarin Sodium (Coumadin) 1 mg DAILY@17 PO ; Start 02/14/17 at 17:00; Status Future Hold Carvedilol (Coreg) 12.5 mg BID PO Last administered on 02/12/17 09:33; Admin Dose 12.5 MG; Start 02/11/17 at 21:00 CRUZ CROUCH MD Feb 12, 2017 12:51
[2017-02-12] MEDS ORDERED: DILTIAZEM-D5W 125MG/125ML DRIP 125 ML IV SCH (20:00)
[2017-02-13] VITALS (23 sets, daily range): BP systolic 75–143; BP diastolic 43–85; PULSE 61–112; RESP 16–19
[2017-02-13] MEDS: ACCUCHECK AT 2AM (Patients on SS coverage) XX SCH (02:00)
[2017-02-13] MEDS: PANTOPRAZOLE (EC) 40 MG TAB PO SCH (05:06)
[2017-02-13] MEDS: LEVOTHYROXINE 125 MCG TAB PO SCH (05:06)
[2017-02-13] MEDS: INSULIN ASPART [NOVOLOG] 3 ML PEN SC SCH ×4 (08:00→21:00)
[2017-02-13 08:05] LABS: ADD SCAN DIFF NO
[2017-02-13 08:09] LABS: BASOPHILS % 0.4 % (0.0-2.0); EOSINOPHILS % 0.7 % (0.0-7.0); HEMATOCRIT 32.5 % (37.0-47.0); LYMPHOCYTES % 21.4 % (15.0-51.0); MEAN CORPUSCULAR HEMOGLOBIN 29.8 pg (29.0-33.0); MEAN CORPUSCULAR HGB CONC 30.8 g/dl (32.0-37.0); MEAN CORPUSCULAR VOLUME 96.7 fl (82.0-101.0); MEAN PLATELET VOLUME 10.8 fl (7.4-10.4); MONOCYTE # 0.6 10^3/ul (0.3-0.9); MONOCYTES % 13.2 % (0.0-11.0); NEUTROPHIL # 2.9 10^3/ul (1.6-7.5); NEUTROPHILS % 63.9 % (39.0-77.0); PLATELET COUNT 104 10^3/UL (140-415); RED BLOOD COUNT 3.36 10^6/ul (4.20-5.40); RED CELL DISTRIBUTION WIDTH 16.7 % (11.5-14.5); WHITE BLOOD COUNT 4.5 10^3/ul (4.8-10.8)
[2017-02-13 08:28] LABS: POTASSIUM 5.7 mmol/L (3.5-5.1)
[2017-02-13 08:30] LABS: CREATININE 5.28 mg/dl (0.44-1.00)
[2017-02-13 08:31] LABS: CALCIUM 9.2 mg/dl (8.4-10.2); PHOSPHORUS 6.7 mg/dl (2.5-4.9)
[2017-02-13] MEDS: FOLIC ACID 1 MG TAB PO SCH (09:13)
[2017-02-13] MEDS ORDERED: DIPHENHYDRAMINE 25 MG CAP PO ONE (11:30)
[2017-02-13] MEDS ORDERED: SOD CHLORIDE 0.9% 1,000 ML IV PRN (11:33)
[2017-02-13] MEDS ORDERED: ALBUMIN HUMAN 25% 100 ML IV PRN (12:00)
[2017-02-13] MEDS ORDERED: HEPARIN 1000 UNITS/ML 10 ML INJ CATHETER SCH (12:00)
--- NOTE | 2017-02-13 12:44 | PN ---
Date/Time of Note Date/Time of Note DATE: 02/13/17 TIME: 12:41 Assessment/Plan VTE Prophylaxis VTE Prophylaxis Intervention: other (Coumadin) Lines/Catheters IV Catheter Type (from Nrsg): Saline Lock Urinary Cath still in place: No Assessment/Plan Chief Complaint/Hosp Course S: 02/08-Events noted. RVR overnight.Req dig/ bb, then Cardizem gtt.Poor sleep obviously.More comfortable today.Updated family.Sb/pauses noted. Asymptomatic. 02/09- more stable, but still in delirium. low bs noted this am; didnt eat. 02/10-fairly stable, heart rate still a little high. Some diarrhea- dig. 02/11-alert oriented no distress. No dyspnea. On hd. 02/12-Hypoglycemia noted. needs a feeder. DC Lantus in the interim. Hr labile. 02/13-appears more stable. No distress. On HD. O: vss;A fib PE No pallor/JVD/droop Irreg, no m/r/g ctab; hd access c/d/i Bs+ nt nd, no r/r/g No edema A/P 1) A Fib rvr; mod stable, cont rt control/adjust ccc/dig/coumadin. Rx pain. Would like to see what hr does with some activity/PT. 2) Pl Effusion; should improve w Rt control/HD. doubt infectious. 3) ESRD/ hd status 4) Ac encephalopathy/ delirium; dig? watch for hypoxia. 5) Dm/Htn 6) Constipation, resolved 7) Coagulopathy; no active bleeding. no coumadin if there are recurrent falls. 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 cont rfm. 9) L4-5 stenosis; try medical mngmnt 1st. PT. DC to snf; if she agrees 10) Dysphagia? 11) Hypothyroidism. TSH a little low, hold therapy for now. 12) CAD? medical mngmnt for now. 13) SB/Pauses, adjusted ccc. Keep on tele 14) Cmy- ischemic vs nonischemic. cont lisinopril/dig. Stress test negative. Problems: Exam/Review of Systems Vital Signs Vitals Vital Signs Date Time Temp Pulse Resp B/P Pulse Ox O2 Delivery O2 Flow Rate FiO2 02/13/17 12:13 95 02/13/17 10:45 20 02/13/17 07:56 98.0 125/78 98 Intake and Output 02/12/17 02/12/17 02/13/17 15:00 23:00 07:00 Intake Total 700 ml 245 ml Balance 700 ml 245 ml Results Result Diagram: 02/13/17 0715 02/13/17 0715 Results 24 hrs Laboratory Tests Test 02/12/17 17:23 02/12/17 20:41 02/13/17 07:15 02/13/17 09:12 Bedside Glucose 118 94 95 White Blood Count 4.5 L Red Blood Count 3.36 L Hemoglobin 10.0 L Hematocrit 32.5 L Mean Corpuscular Volume 96.7 Mean Corpuscular Hemoglobin 29.8 Mean Corpuscular Hemoglobin Concent 30.8 L Red Cell Distribution Width 16.7 H Platelet Count 104 L Mean Platelet Volume 10.8 H Neutrophils % 63.9 Lymphocytes % 21.4 Monocytes % 13.2 H Eosinophils % 0.7 Basophils % 0.4 Nucleated Red Blood Cells % 0.0 Neutrophils # 2.9 Lymphocytes # 1.0 Monocytes # 0.6 Eosinophils # 0.0 Basophils # 0.0 Nucleated Red Blood Cells # 0.0 Sodium Level 134 L Potassium Level 5.7 H Chloride Level 98 Carbon Dioxide Level 26 Anion Gap 16 Blood Urea Nitrogen 89 H Creatinine 5.28 H Glucose Level 99 # Calcium Level 9.2 Phosphorus Level 6.7 H Magnesium Level 2.0 Test 02/13/17 11:20 Bedside Glucose 163 Medications Medications Current Medications Folic Acid (Folic Acid) 1 mg DAILY PO Last administered on 02/13/17 09:13; Admin Dose 1 MG; Start 02/07/17 at 09:00 Ondansetron HCl (Zofran Inj) 4 mg Q6H PRN IV NAUSEA AND/OR VOMITING; Start at 20:00 Miscellaneous Information 1 ea NOTE XX ; Start 02/06/17 at 20:00 Diagnostic Test (Pha) (Accucheck) 1 ea 02 XX Last administered on 02/12/17 02: 32; Admin Dose 1 EA; Start 02/07/17 at 02:00 Miscellaneous Information 1 ea NOTE XX ; Start 02/06/17 at 20:00 Glucose (Glutose) 15 gm Q15M PRN PO DECREASED GLUCOSE; Start 02/06/17 at 20:00 Glucose (Glutose) 22.5 gm Q15M PRN PO DECREASED GLUCOSE; Start 02/06/17 at 20: 00 Dextrose (D50w Syringe) 25 ml Q15M PRN IV DECREASED GLUCOSE; Start 02/06/17 at 20:00 Dextrose (D50w Syringe) 50 ml Q15M PRN IV DECREASED GLUCOSE Last administered on 02/12/17 08:04; Admin Dose 50 ML; Start 02/06/17 at 20:00 Glucagon (Glucagen) 1 mg Q15M PRN IM DECREASED GLUCOSE; Start 02/06/17 at 20:00 Glucose (Glutose) 15 gm Q15M PRN BUCCAL DECREASED GLUCOSE; Start 02/06/17 at 20 :00 Ibuprofen (Motrin) 800 mg Q6H PRN PO MODERATE PAIN LEVEL 4-6; Start 02/07/17 at 14:00 Levothyroxine Sodium (Synthroid) 125 mcg DAILY@06 PO Last administered on 05:06; Admin Dose 125 MCG; Start 02/09/17 at 06:00 Pantoprazole (Protonix Tab) 40 mg DAILY@06 PO Last administered on 02/13/17 05 :06; Admin Dose 40 MG; Start 02/10/17 at 06:00 Warfarin Sodium (Coumadin) 1 mg DAILY@17 PO ; Start 02/14/17 at 17:00; Status Future Hold Carvedilol 12.5 mg 12.5 mg BID PO Last administered on 02/13/17 09:14; Admin Dose 12.5 MG; Start 02/11/17 at 21:00 Diltiazem HCl 125 ml @ 5 mls/hr TITRATE IV Last administered on 02/12/17 20:44 ; Admin Dose 5 MLS/HR; Start 02/12/17 at 20:00 Sodium Chloride (NS) 1,000 ml @ 0 mls/hr Q0M PRN IV TO KEEP SBP ABOVE 90; Start 02/13/17 at 11:33 CRUZ CROUCH MD Feb 13, 2017 12:44
--- NOTE | 2017-02-13 16:55 | CONS ---
Date/Time of Note Date/Time of Note DATE: 02/13/17 TIME: 16:53 Assessment/Plan Assessment/Plan Additional Assessment/Plan 1. End-stage renal disease on hemodialysis through right upper chest tunneled hemodialysis catheter. 2. Atrial fibrillation with rapid ventricular rate. The patient was on anticoagulation with Coumadin at home. 3. Left-sided moderate pleural effusion with left basilar infiltrates. 4. Status post fall episode at home. 5. History of hypertension. 6. History of diabetes mellitus. 7. History of end-stage renal disease on hemodialysis. Hyperkalemia K 6.3 PLAN: Plan for HD today, will give Benadryl 25 mg IV x 1 during HD for agitation, BP stable, will keep her on , , Tuesday schedule HD outpatient schedule is TTS will follow up Consultation Date/Type/Reason Admit Date/Time Feb 06, 2017 at 15:53 Initial Consult Date 02/06/2017 Type of Consultation: NEPHROLOGY Referring Provider: ALIX TALBOT 24 HR Interval Summary Free Text/Dictation remains less agitated, plan for HD today Exam/Review of Systems Vital Signs Vitals Vital Signs Date Time Temp Pulse Resp B/P Pulse Ox O2 Delivery O2 Flow Rate FiO2 02/13/17 16:10 108 02/13/17 13:45 16 02/13/17 12:53 98.0 109/69 98 Intake and Output 02/12/17 02/12/17 02/13/17 15:00 23:00 07:00 Intake Total 700 ml 245 ml Balance 700 ml 245 ml Exam GENERAL: Awake,but not oriented to place and person HEENT: Normal. Oropharynx clear. NECK: Supple. No JVD, no lymphadenopathy. LUNGS: Clear to auscultation. No crackles, no wheezes. HEART: S1, S2. Irregularly irregular. No murmur. ABDOMEN: Soft, nontender, nondistended. Bowel sounds are present. EXTREMITIES: No clubbing, cyanosis, or edema. NEUROLOGICAL: Nonfocal, intact. Results Result Diagram: 02/13/17 0715 02/13/17 0715 Results 24 hrs Laboratory Tests Test 02/12/17 17:23 02/12/17 20:41 02/13/17 07:15 02/13/17 09:12 Bedside Glucose 118 94 95 White Blood Count 4.5 L Red Blood Count 3.36 L Hemoglobin 10.0 L Hematocrit 32.5 L Mean Corpuscular Volume 96.7 Mean Corpuscular Hemoglobin 29.8 Mean Corpuscular Hemoglobin Concent 30.8 L Red Cell Distribution Width 16.7 H Platelet Count 104 L Mean Platelet Volume 10.8 H Neutrophils % 63.9 Lymphocytes % 21.4 Monocytes % 13.2 H Eosinophils % 0.7 Basophils % 0.4 Nucleated Red Blood Cells % 0.0 Neutrophils # 2.9 Lymphocytes # 1.0 Monocytes # 0.6 Eosinophils # 0.0 Basophils # 0.0 Nucleated Red Blood Cells # 0.0 Sodium Level 134 L Potassium Level 5.7 H Chloride Level 98 Carbon Dioxide Level 26 Anion Gap 16 Blood Urea Nitrogen 89 H Creatinine 5.28 H Glucose Level 99 # Calcium Level 9.2 Phosphorus Level 6.7 H Magnesium Level 2.0 Test 02/13/17 11:20 Bedside Glucose 163 Medications Medications Current Medications Folic Acid (Folic Acid) 1 mg DAILY PO Last administered on 02/13/17 09:13; Admin Dose 1 MG; Start 02/07/17 at 09:00 Ondansetron HCl (Zofran Inj) 4 mg Q6H PRN IV NAUSEA AND/OR VOMITING; Start at 20:00 Miscellaneous Information 1 ea NOTE XX ; Start 02/06/17 at 20:00 Diagnostic Test (Pha) (Accucheck) 1 ea 02 XX Last administered on 02/12/17 02: 32; Admin Dose 1 EA; Start 02/07/17 at 02:00 Miscellaneous Information 1 ea NOTE XX ; Start 02/06/17 at 20:00 Glucose (Glutose) 15 gm Q15M PRN PO DECREASED GLUCOSE; Start 02/06/17 at 20:00 Glucose (Glutose) 22.5 gm Q15M PRN PO DECREASED GLUCOSE; Start 02/06/17 at 20: 00 Dextrose (D50w Syringe) 25 ml Q15M PRN IV DECREASED GLUCOSE; Start 02/06/17 at 20:00 Dextrose (D50w Syringe) 50 ml Q15M PRN IV DECREASED GLUCOSE Last administered on 02/12/17 08:04; Admin Dose 50 ML; Start 02/06/17 at 20:00 Glucagon (Glucagen) 1 mg Q15M PRN IM DECREASED GLUCOSE; Start 3/19/17 at 20:00 Glucose (Glutose) 15 gm Q15M PRN BUCCAL DECREASED GLUCOSE; Start 02/06/17 at 20 :00 Ibuprofen (Motrin) 800 mg Q6H PRN PO MODERATE PAIN LEVEL 4-6; Start 02/07/17 at 14:00 Levothyroxine Sodium (Synthroid) 125 mcg DAILY@06 PO Last administered on 05:06; Admin Dose 125 MCG; Start 02/09/17 at 06:00 Pantoprazole (Protonix Tab) 40 mg DAILY@06 PO Last administered on 02/13/17 05 :06; Admin Dose 40 MG; Start 02/10/17 at 06:00 Carvedilol 12.5 mg 12.5 mg BID PO Last administered on 02/13/17 09:14; Admin Dose 12.5 MG; Start 02/11/17 at 21:00 Diltiazem HCl 125 ml @ 5 mls/hr TITRATE IV Last administered on 02/12/17 20:44 ; Admin Dose 5 MLS/HR; Start 02/12/17 at 20:00 Sodium Chloride (NS) 1,000 ml @ 0 mls/hr Q0M PRN IV TO KEEP SBP ABOVE 90; Start 02/13/17 at 11:33 Warfarin Sodium (Coumadin) 1 mg DAILY@17 PO ; Start 02/16/17 at 17:00 VIRIDINAA VILLARREAL MD Feb 13, 2017 16:55
[2017-02-14] VITALS (11 sets, daily range): BP systolic 111–138; BP diastolic 66–98; PULSE 93–130; RESP 18–20
[2017-02-14] MEDS: ACCUCHECK AT 2AM (Patients on SS coverage) XX SCH (02:00)
[2017-02-14] MEDS: LEVOTHYROXINE 125 MCG TAB PO SCH (05:48)
[2017-02-14] MEDS: PANTOPRAZOLE (EC) 40 MG TAB PO SCH (05:49)
[2017-02-14 07:18] LABS: INR 3.43; PROTIME 35.1 Sec (12.2-14.2); PT RATIO 2.7
[2017-02-14 07:23] LABS: POTASSIUM 5.2 mmol/L (3.5-5.1)
[2017-02-14 07:25] LABS: CREATININE 4.47 mg/dl (0.44-1.00)
[2017-02-14 07:26] LABS: CALCIUM 8.6 mg/dl (8.4-10.2); MAGNESIUM 1.9 mg/dl (1.7-2.5)
[2017-02-14] MEDS: INSULIN ASPART [NOVOLOG] 3 ML PEN SC SCH ×4 (08:00→20:36)
[2017-02-14] MEDS: FOLIC ACID 1 MG TAB PO SCH (08:36)
--- NOTE | 2017-02-14 10:36 | CONS ---
Date/Time of Note Date/Time of Note DATE: 02/14/17 TIME: 10:35 Assessment/Plan Assessment/Plan Additional Assessment/Plan 1. End-stage renal disease on hemodialysis through right upper chest tunneled hemodialysis catheter. 2. Atrial fibrillation with rapid ventricular rate. The patient was on anticoagulation with Coumadin at home. 3. Left-sided moderate pleural effusion with left basilar infiltrates. 4. Status post fall episode at home. 5. History of hypertension. 6. History of diabetes mellitus. 7. History of end-stage renal disease on hemodialysis. PLAN: HD tomorrow, s/p HD yesterday HD outpatient schedule is TTS will follow up Consultation Date/Type/Reason Admit Date/Time Feb 06, 2017 at 15:53 Initial Consult Date 02/06/2017 Type of Consultation: NEPHROLOGY Referring Provider: ALIX TALBOT 24 HR Interval Summary Free Text/Dictation s/p HD yesterday, more calm today, BP stable Exam/Review of Systems Vital Signs Vitals Vital Signs Date Time Temp Pulse Resp B/P Pulse Ox O2 Delivery O2 Flow Rate FiO2 02/14/17 08:21 101 02/14/17 08:00 97.2 20 111/70 96 Intake and Output 02/13/17 02/13/17 02/14/17 15:00 23:00 07:00 Intake Total 700 ml 700 ml Output Total 1800 ml Balance -1100 ml 700 ml Exam GENERAL: Awake,but not oriented to place and person HEENT: Normal. Oropharynx clear. NECK: Supple. No JVD, no lymphadenopathy. LUNGS: Clear to auscultation. No crackles, no wheezes. HEART: S1, S2. Irregularly irregular. No murmur. ABDOMEN: Soft, nontender, nondistended. Bowel sounds are present. EXTREMITIES: No clubbing, cyanosis, or edema. NEUROLOGICAL: Nonfocal, intact. Results Result Diagram: 02/13/17 0715 02/14/17 0610 Results 24 hrs Laboratory Tests Test 02/13/17 11:20 02/13/17 16:55 02/13/17 21:52 02/14/17 06:10 Bedside Glucose 163 132 178 Prothrombin Time 35.1 #H Prothrombin Time Ratio 2.7 INR International Normalized Ratio 3.43 Sodium Level 131 L Potassium Level 5.2 H Chloride Level 96 L Carbon Dioxide Level 27 Anion Gap 13 Blood Urea Nitrogen 68 H Creatinine 4.47 H Glucose Level 110 Calcium Level 8.6 Magnesium Level 1.9 Digoxin Level 1.4 Test 02/14/17 08:11 Bedside Glucose 93 Medications Medications Current Medications Folic Acid (Folic Acid) 1 mg DAILY PO Last administered on 02/14/17 08:36; Admin Dose 1 MG; Start 02/07/17 at 09:00 Ondansetron HCl (Zofran Inj) 4 mg Q6H PRN IV NAUSEA AND/OR VOMITING; Start at 20:00 Miscellaneous Information 1 ea NOTE XX ; Start 02/06/17 at 20:00 Diagnostic Test (Pha) (Accucheck) 1 ea 02 XX Last administered on 02/12/17 02: 32; Admin Dose 1 EA; Start 02/07/17 at 02:00 Miscellaneous Information 1 ea NOTE XX ; Start 02/06/17 at 20:00 Glucose (Glutose) 15 gm Q15M PRN PO DECREASED GLUCOSE; Start 02/06/17 at 20:00 Glucose (Glutose) 22.5 gm Q15M PRN PO DECREASED GLUCOSE; Start 02/06/17 at 20: 00 Dextrose (D50w Syringe) 25 ml Q15M PRN IV DECREASED GLUCOSE; Start 02/06/17 at 20:00 Dextrose (D50w Syringe) 50 ml Q15M PRN IV DECREASED GLUCOSE Last administered on 02/12/17 08:04; Admin Dose 50 ML; Start 02/06/17 at 20:00 Glucagon (Glucagen) 1 mg Q15M PRN IM DECREASED GLUCOSE; Start 02/06/17 at 20:00 Glucose (Glutose) 15 gm Q15M PRN BUCCAL DECREASED GLUCOSE; Start 02/06/17 at 20 :00 Ibuprofen (Motrin) 800 mg Q6H PRN PO MODERATE PAIN LEVEL 4-6; Start 02/07/17 at 14:00 Levothyroxine Sodium (Synthroid) 125 mcg DAILY@06 PO Last administered on 05:48; Admin Dose 125 MCG; Start 02/09/17 at 06:00 Pantoprazole (Protonix Tab) 40 mg DAILY@06 PO Last administered on 02/14/17 05 :49; Admin Dose 40 MG; Start 02/10/17 at 06:00 Carvedilol 12.5 mg 12.5 mg BID PO Last administered on 02/14/17 08:37; Admin Dose 12.5 MG; Start 02/11/17 at 21:00 Diltiazem HCl 125 ml @ 5 mls/hr TITRATE IV Last administered on 02/12/17 20:44 ; Admin Dose 5 MLS/HR; Start 02/12/17 at 20:00 Sodium Chloride (NS) 1,000 ml @ 0 mls/hr Q0M PRN IV TO KEEP SBP ABOVE 90; Start 02/13/17 at 11:33 Warfarin Sodium (Coumadin) 1 mg DAILY@17 PO ; Start 02/16/17 at 17:00 VIRIDIANA VILLARREAL MD Feb 14, 2017 10:36
--- NOTE | 2017-02-14 16:35 | PN ---
Date/Time of Note Date/Time of Note DATE: 02/14/17 TIME: 16:21 Assessment/Plan VTE Prophylaxis VTE Prophylaxis Intervention: other (coumadin) Lines/Catheters IV Catheter Type (from Nrs): [facility] Urinary Cath still in place: No Assessment/Plan Assessment/Plan 1) Chronic atrial fibrillation, still with RVR at 102, coumadin in on held INR 3.43 today, add cardizem po 2) Dialted cardiomyopathy, negative stress test, probable tachycardia-induced, control VR 3) CHF, systolic, chronic, follow up with cardiology 4) Pl Effusion; CHF related, on HD 5) ESRD/ HD status, HD as scheduled 6) DM, 7) HTN, controlled 8) Old stroke/ lacunar. cont rfm. 9) L4-5 stenosis; try medical mngmnt 1st. PT. DC to snf; if she agrees 10) Hypothyroidism. TSH a little low, hold therapy for now. Subjective 24 Hr Interval Summary Free Text/Dictation alert, oriented and no distress Exam/Review of Systems Vital Signs Vitals Vital Signs Date Time Temp Pulse Resp B/P Pulse Ox O2 Delivery O2 Flow Rate FiO2 02/14/17 16:07 114 02/14/17 12:18 97.7 20 126/87 98 Intake and Output 02/13/17 02/13/17 02/14/17 15:00 23:00 07:00 Intake Total 700 ml 700 ml Output Total 1800 ml Balance -1100 ml 700 ml Exam Constitutional: alert, oriented, well developed Psych: nl mood/affect, no complaints Head: atraumatic, normocephalic Eyes: EOMI, PERRL, nl conjunctiva, nl lids ENMT: nl external ears & nose, nl lips & teeth, nl nasal mucosa & septum Neck: non-tender, supple Respiratory: clear to auscultation, normal air movement, No congested cough, No crackles/rales, No diminished breath sounds, No intercostal retraction, No labored breathing, No other, No respirations, No tactile fremitus, No wheezing Cardiovascular: irregular rhythm Gastrointestinal: nl liver, spleen, non-tender, soft, No ascites, No bowel sounds, No distended, No firm, No hepatomegaly, No mass , No other, No rebound or guarding, No splenomegaly, No surgical scars, No tender Musculoskeletal: nl extremities to inspection Extremities: normal pulses, No calf tenderness, No clubbing, No cyanosis, No edema, No other, No palpable cord, No pitting pedal edema, No tenderness Neurological: [employer] II-XII intact, nl mental status, nl speech, nl strength Lymph: nl lymph nodes Results Result Diagram: 02/13/17 0715 02/14/17 0610 Results 24 hrs Laboratory Tests Test 02/13/17 16:55 02/13/17 21:52 02/14/17 06:10 02/14/17 08:11 Bedside Glucose 132 178 93 Prothrombin Time 35.1 #H Prothrombin Time Ratio 2.7 INR International Normalized Ratio 3.43 Sodium Level 131 L Potassium Level 5.2 H Chloride Level 96 L Carbon Dioxide Level 27 Anion Gap 13 Blood Urea Nitrogen 68 H Creatinine 4.47 H Glucose Level 110 Calcium Level 8.6 Magnesium Level 1.9 Digoxin Level 1.4 Test 02/14/17 11:52 Bedside Glucose 211 Medications Medications Current Medications Folic Acid (Folic Acid) 1 mg DAILY PO Last administered on 02/14/17 08:36; Admin Dose 1 MG; Start 02/07/17 at 09:00 Ondansetron HCl (Zofran Inj) 4 mg Q6H PRN IV NAUSEA AND/OR VOMITING; Start at 20:00 Miscellaneous Information 1 ea NOTE XX ; Start 02/06/17 at 20:00 Diagnostic Test (Pha) (Accucheck) 1 ea 02 XX Last administered on 02/12/17 02: 32; Admin Dose 1 EA; Start 02/07/17 at 02:00 Miscellaneous Information 1 ea NOTE XX ; Start 02/06/17 at 20:00 Glucose (Glutose) 15 gm Q15M PRN PO DECREASED GLUCOSE; Start 02/06/17 at 20:00 Glucose (Glutose) 22.5 gm Q15M PRN PO DECREASED GLUCOSE; Start 02/06/17 at 20: 00 Dextrose (D50w Syringe) 25 ml Q15M PRN IV DECREASED GLUCOSE; Start 02/06/17 at 20:00 Dextrose (D50w Syringe) 50 ml Q15M PRN IV DECREASED GLUCOSE Last administered on 02/12/17 08:04; Admin Dose 50 ML; Start 02/06/17 at 20:00 Glucagon (Glucagen) 1 mg Q15M PRN IM DECREASED GLUCOSE; Start 02/06/17 at 20:00 Glucose (Glutose) 15 gm Q15M PRN BUCCAL DECREASED GLUCOSE; Start 02/06/17 at 20 :00 Ibuprofen (Motrin) 800 mg Q6H PRN PO MODERATE PAIN LEVEL 4-6; Start 02/07/17 at 14:00 Levothyroxine Sodium (Synthroid) 125 mcg DAILY@06 PO Last administered on 05:48; Admin Dose 125 MCG; Start 02/09/17 at 06:00 Pantoprazole (Protonix Tab) 40 mg DAILY@06 PO Last administered on 02/14/17 05 :49; Admin Dose 40 MG; Start 02/10/17 at 06:00 Carvedilol 12.5 mg 12.5 mg BID PO Last administered on 02/14/17 08:37; Admin Dose 12.5 MG; Start 02/11/17 at 21:00 Diltiazem HCl 125 ml @ 5 mls/hr TITRATE IV Last administered on 02/12/17 20:44 ; Admin Dose 5 MLS/HR; Start 02/12/17 at 20:00 Sodium Chloride (NS) 1,000 ml @ 0 mls/hr Q0M PRN IV TO KEEP SBP ABOVE 90; Start 02/13/17 at 11:33 Warfarin Sodium (Coumadin) 1 mg DAILY@17 PO ; Start 02/16/17 at 17:00 МАРИЯ FRANK MD Feb 14, 2017 16:32
[2017-02-14] MEDS ORDERED: WARFARIN 1 MG TAB PO SCH (17:00)
[2017-02-14] MEDS ORDERED: DILTIAZEM 30 MG TAB PO SCH (17:00)
--- NOTE | 2017-02-14 19:35 | PN ---
DATE: 02/14/2017 SUBJECTIVE: Discussed with the staff. Rhythm strip was reviewed. The patient remains in atrial fi brillation. Heart rate stable ____ high still. The patient herself is confused, unable to provide history to me. MEDICATIONS: Reviewed, which include: 1. Coumadin 1 mg. 2. Cardizem 30 q.i.d. 3. Coreg 12.5. 4. Levothyroxine 125. 5. Insulin. PHYSICAL EXAMINATION: VITAL SIGNS: Temperature 97.2, heart rate of 114, blood pressure of 126/87, respiratory rate of 20, saturating 98%. HEENT: Normocephalic, atraumatic. Thin female. Pupils are equal. CARDIOVASCULAR: Irregularly irregular. Systolic murmur. PULMONARY: Anteriorly with no wheezes. GASTROINTESTINAL: Soft, nontender. EXTREMITIES: No significant edema. NEUROLOGIC: Awake and alert, oriented to person. PSYCHIATRIC: Labile mood and crying spells. DERMATOLOGIC: Multiple ecchymoses. LABORATORY: Digoxin level is 1.4 this morning. Sodium 131, potassium 5.2, BUN 68, creatinine ____, glucose of 110. WBC 4.5, hemoglobin of 10, platelets of 104. ASSESSMENT AND PLAN: 1. Congestive heart failure. 2. Severe nonischemic cardiomyopathy. 3. Atrial fibrillation, rapid ventricular response. 4. Coagulopathy. 5. Renal failure, status post dialysis. 6. Dementia. 7. History of hypertension. 8. Electrolyte abnormalities. RECOMMENDATIONS: Coumadin is being adjusted as per Internal Medicine. Digoxin is on hold. I will stop the Cardizem given her severe cardiomyopathy. Will increase the carvedilol ____ instead to con trol the heart rate better. Continue with the rest of her cardiac care. Dictated By: KATIUSKA BRITO MD AV/NTS Conf#: [id number] DID#: [id number] CC: CRUZ CROUCH MD;*End*
[2017-02-15] VITALS (18 sets, daily range): BP systolic 91–151; BP diastolic 52–103; PULSE 68–112; RESP 16–20
[2017-02-15] MEDS: ACCUCHECK AT 2AM (Patients on SS coverage) XX SCH (02:00)
[2017-02-15] MEDS: PANTOPRAZOLE (EC) 40 MG TAB PO SCH (05:37)
[2017-02-15] MEDS: LEVOTHYROXINE 125 MCG TAB PO SCH (05:37)
[2017-02-15] MEDS: INSULIN ASPART [NOVOLOG] 3 ML PEN SC SCH ×4 (08:00→20:43)
[2017-02-15] MEDS: FOLIC ACID 1 MG TAB PO SCH (08:21)
[2017-02-15 08:42] LABS: INR 2.61; PROTIME 28.3 Sec (12.2-14.2); PT RATIO 2.2
[2017-02-15 08:55] LABS: POTASSIUM 5.2 mmol/L (3.5-5.1)
[2017-02-15 08:57] LABS: CREATININE 5.31 mg/dl (0.44-1.00)
--- NOTE | 2017-02-15 10:30 | CONS ---
Date/Time of Note Date/Time of Note DATE: 02/15/17 TIME: 10:28 Assessment/Plan Assessment/Plan Additional Assessment/Plan 1. End-stage renal disease on hemodialysis through right upper chest tunneled hemodialysis catheter. 2. Atrial fibrillation with rapid ventricular rate. The patient was on anticoagulation with Coumadin at home. 3. Left-sided moderate pleural effusion with left basilar infiltrates. 4. Status post fall episode at home. 5. History of hypertension. 6. History of diabetes mellitus. 7. History of end-stage renal disease on hemodialysis. PLAN: HD today HD outpatient schedule is TTS will follow up Consultation Date/Type/Reason Admit Date/Time Feb 06, 2017 at 15:53 Initial Consult Date 02/06/2017 Type of Consultation: NEPHROLOGY Referring Provider: ALIX TALBOT 24 HR Interval Summary Free Text/Dictation plan for HD today Exam/Review of Systems Vital Signs Vitals Vital Signs Date Time Temp Pulse Resp B/P Pulse Ox O2 Delivery O2 Flow Rate FiO2 02/15/17 08:41 112 02/15/17 08:19 98.0 20 151/91 96 Intake and Output 02/14/17 02/14/17 02/15/17 15:00 23:00 07:00 Intake Total 800 ml 400 ml Balance 800 ml 400 ml Exam GENERAL: Awake,but not oriented to place and person HEENT: Normal. Oropharynx clear. NECK: Supple. No JVD, no lymphadenopathy. LUNGS: Clear to auscultation. No crackles, no wheezes. HEART: S1, S2. Irregularly irregular. No murmur. ABDOMEN: Soft, nontender, nondistended. Bowel sounds are present. EXTREMITIES: No clubbing, cyanosis, or edema. NEUROLOGICAL: Nonfocal, intact. Results Result Diagram: 02/13/17 0715 02/15/17 0708 Results 24 hrs Laboratory Tests Test 02/14/17 11:52 02/14/17 16:45 02/14/17 20:32 02/15/17 02:25 Bedside Glucose 211 133 218 217 Test 02/15/17 07:08 02/15/17 08:07 Prothrombin Time 28.3 H Prothrombin Time Ratio 2.2 INR International Normalized Ratio 2.61 Sodium Level 129 L Potassium Level 5.2 H Chloride Level 93 L Carbon Dioxide Level 25 Anion Gap 16 Blood Urea Nitrogen 85 H Creatinine 5.31 H Glucose Level 120 Calcium Level 9.0 Magnesium Level 2.0 Bedside Glucose 115 Medications Medications Current Medications Folic Acid (Folic Acid) 1 mg DAILY PO Last administered on 02/15/17 08:21; Admin Dose 1 MG; Start 02/07/17 at 09:00 Ondansetron HCl (Zofran Inj) 4 mg Q6H PRN IV NAUSEA AND/OR VOMITING; Start at 20:00 Miscellaneous Information 1 ea NOTE XX ; Start 02/06/17 at 20:00 Diagnostic Test (Pha) (Accucheck) 1 ea 02 XX Last administered on 02/12/17 02: 32; Admin Dose 1 EA; Start 02/07/17 at 02:00 Miscellaneous Information 1 ea NOTE XX ; Start 02/06/17 at 20:00 Glucose (Glutose) 15 gm Q15M PRN PO DECREASED GLUCOSE; Start 02/06/17 at 20:00 Glucose (Glutose) 22.5 gm Q15M PRN PO DECREASED GLUCOSE; Start 02/06/17 at 20: 00 Dextrose (D50w Syringe) 25 ml Q15M PRN IV DECREASED GLUCOSE; Start 02/06/17 at 20:00 Dextrose (D50w Syringe) 50 ml Q15M PRN IV DECREASED GLUCOSE Last administered on 02/12/17 08:04; Admin Dose 50 ML; Start 02/06/17 at 20:00 Glucagon (Glucagen) 1 mg Q15M PRN IM DECREASED GLUCOSE; Start 02/06/17 at 20:00 Glucose (Glutose) 15 gm Q15M PRN BUCCAL DECREASED GLUCOSE; Start 02/06/17 at 20 :00 Ibuprofen (Motrin) 800 mg Q6H PRN PO MODERATE PAIN LEVEL 4-6; Start 02/07/17 at 14:00 Levothyroxine Sodium (Synthroid) 125 mcg DAILY@06 PO Last administered on 05:37; Admin Dose 125 MCG; Start 02/09/17 at 06:00 Pantoprazole 40 mg 40 mg DAILY@06 PO Last administered on 02/15/17 05:37; Admin Dose 40 MG; Start 02/10/17 at 06:00 Sodium Chloride (NS) 1,000 ml @ 0 mls/hr Q0M PRN IV TO KEEP SBP ABOVE 90; Start 02/13/17 at 11:33 Warfarin Sodium (Coumadin) 1 mg DAILY@17 PO ; Start 02/16/17 at 17:00 Carvedilol (Coreg) 12.5 mg TID PO Last administered on 02/15/17t 08:21; Admin Dose 12.5 MG; Start 02/14/17 at 21:00 VIRIDIANA VILLARREAL MD Feb 15, 2017 10:29
--- NOTE | 2017-02-15 14:07 | PN ---
Date/Time of Note Date/Time of Note DATE: 02/15/17 TIME: 14:04 Assessment/Plan VTE Prophylaxis VTE Prophylaxis Intervention: other (coumadin) Lines/Catheters IV Catheter Type (from Nrsg): PERMACATH Urinary Cath still in place: No Assessment/Plan Assessment/Plan 1) Chronic atrial fibrillation, still with RVR, cardizem is stopped and coreg is increased, follow up with cardiology 2) Dilated cardiomyopathy, negative stress test, probable tachycardia-induced, control VR 3) CHF, systolic, chronic, follow up with cardiology 4) Pl Effusion; CHF related, on HD 5) ESRD/ HD status, HD as scheduled 6) DM, 7) HTN, controlled 8) Old stroke/ lacunar. cont rfm. 9) L4-5 stenosis; try medical mngmnt 1st. PT. DC to snf; if she agrees 10) Hypothyroidism. TSH a little low, hold therapy for now. Subjective 24 Hr Interval Summary Free Text/Dictation no event, no distress Exam/Review of Systems Vital Signs Vitals Vital Signs Date Time Temp Pulse Resp B/P Pulse Ox O2 Delivery O2 Flow Rate FiO2 02/15/17 12:43 98.0 87 20 110/68 96 Intake and Output 02/14/17 02/14/17 02/15/17 15:00 23:00 07:00 Intake Total 800 ml 400 ml Balance 800 ml 400 ml Exam Constitutional: alert, oriented, well developed Psych: nl mood/affect, no complaints Head: atraumatic, normocephalic Eyes: EOMI, nl conjunctiva, nl lids ENMT: nl external ears & nose, nl lips & teeth, nl nasal mucosa & septum Neck: non-tender, supple Respiratory: clear to auscultation, normal air movement, No congested cough, No crackles/rales, No diminished breath sounds, No intercostal retraction, No labored breathing, No other, No respirations, No tactile fremitus, No wheezing Cardiovascular: irregular rhythm, nl pulses, No S3, No S4, No bruits, No diastolic murmur, No edema, No gallop, No jugular venous distention (JVD), No murmurs/extra sounds, No other, No rub, No systolic murmur Gastrointestinal: nl liver, spleen, non-tender, soft, No ascites, No bowel sounds, No distended, No firm, No hepatomegaly, No mass , No other, No rebound or guarding, No splenomegaly, No surgical scars, No tender Musculoskeletal: nl extremities to inspection Extremities: normal pulses Results Result Diagram: 02/13/17 0715 02/15/17 0708 Results 24 hrs Laboratory Tests Test 02/14/17 16:45 02/14/17 20:32 02/15/17 02:25 02/15/17 07:08 Bedside Glucose 133 218 217 Prothrombin Time 28.3 H Prothrombin Time Ratio 2.2 INR International Normalized Ratio 2.61 Sodium Level 129 L Potassium Level 5.2 H Chloride Level 93 L Carbon Dioxide Level 25 Anion Gap 16 Blood Urea Nitrogen 85 H Creatinine 5.31 H Glucose Level 120 Calcium Level 9.0 Magnesium Level 2.0 Test 02/15/17 08:07 02/15/17 12:00 Bedside Glucose 115 135 Medications Medications Current Medications Folic Acid (Folic Acid) 1 mg DAILY PO Last administered on 02/15/17 08:21; Admin Dose 1 MG; Start 02/07/17 at 09:00 Ondansetron HCl (Zofran Inj) 4 mg Q6H PRN IV NAUSEA AND/OR VOMITING; Start at 20:00 Miscellaneous Information 1 ea NOTE XX ; Start 02/06/17 at 20:00 Diagnostic Test (Pha) (Accucheck) 1 ea 02 XX Last administered on 02/12/17 02: 32; Admin Dose 1 EA; Start 02/07/17 at 02:00 Miscellaneous Information 1 ea NOTE XX ; Start 02/06/17 at 20:00 Glucose (Glutose) 15 gm Q15M PRN PO DECREASED GLUCOSE; Start 02/06/17 at 20:00 Glucose (Glutose) 22.5 gm Q15M PRN PO DECREASED GLUCOSE; Start 02/06/17 at 20: 00 Dextrose (D50w Syringe) 25 ml Q15M PRN IV DECREASED GLUCOSE; Start 02/06/17 at 20:00 Dextrose (D50w Syringe) 50 ml Q15M PRN IV DECREASED GLUCOSE Last administered on 02/12/17 08:04; Admin Dose 50 ML; Start 02/06/17 at 20:00 Glucagon (Glucagen) 1 mg Q15M PRN IM DECREASED GLUCOSE; Start 02/06/17 at 20:00 Glucose (Glutose) 15 gm Q15M PRN BUCCAL DECREASED GLUCOSE; Start 02/06/17 at 20 :00 Ibuprofen (Motrin) 800 mg Q6H PRN PO MODERATE PAIN LEVEL 4-6; Start 02/07/17 at 14:00 Levothyroxine Sodium (Synthroid) 125 mcg DAILY@06 PO Last administered on 05:37; Admin Dose 125 MCG; Start 02/09/17 at 06:00 Pantoprazole 40 mg 40 mg DAILY@06 PO Last administered on 02/15/17 05:37; Admin Dose 40 MG; Start 02/10/17 at 06:00 Sodium Chloride (NS) 1,000 ml @ 0 mls/hr Q0M PRN IV TO KEEP SBP ABOVE 90; Start 02/13/17 at 11:33 Warfarin Sodium (Coumadin) 1 mg DAILY@17 PO ; Start 02/16/17 at 17:00 Carvedilol (Coreg) 12.5 mg TID PO Last administered on 02/15/17 08:21; Admin Dose 12.5 MG; Start 02/14/17 at 21:00 МАРИЯ FRANK MD Feb 15, 2017 14:07
--- NOTE | 2017-02-15 16:12 | PN ---
DATE: 02/15/2017 CARDIOLOGY FOLLOWUP SUBJECTIVE: Remains in atrial fibrillation. Heart rate is elevated, but in better control. No rep orted chest pain or pressure. The patient is on dialysis. Denies any shortness of breath. MEDICATIONS: Reviewed. PHYSICAL EXAMINATION: VITAL SIGNS: Temperature 98.6. ____ 0. Heart rate of 100, blood pressure 110/68, respiratory rate of 20. HEENT: Normocephalic, atraumatic. Elderly cachectic female. Pupils are equal. NECK: Supple. CARDIOVASCULAR: Irregularly irregular. Systolic murmur. PULMONARY: With no wheezes anteriorly. CHEST: Status post hemodialysis access on the right. GASTROINTESTINAL: Soft, nontender. EXTREMITIES: No significant edema. NEUROLOGIC: Awake. LABORATORY: Sodium 129, potassium 5.2, BUN of 85, creatinine 5.3, glucose 120. INR is 2.61. ASSESSMENT AND PLAN: 1. Atrial fibrillation with rapid ventricular response. 2. Congestive heart failure. 3. Severe cardiomyopathy. 4. Renal failure on dialysis. 5. Essential hypertension. 6. Encephalopathy and dementia. 7. ____ RECOMMENDATIONS: Continue with hemodialysis. Coreg will be continued. Thyroid management as per i nternal medicine. Diabetic control as per internal medicine. Dictated By: KATIUSKA BRITO MD AV/EMANUEL Conf#: [id number] DID#: [id number] CC: JOHN PANCHAL MD;*EndCC*
[2017-02-16] VITALS (12 sets, daily range): BP systolic 103–139; BP diastolic 66–84; PULSE 82–106; RESP 16–18
[2017-02-16] MEDS: ACCUCHECK AT 2AM (Patients on SS coverage) XX SCH (02:00)
[2017-02-16] MEDS: LEVOTHYROXINE 125 MCG TAB PO SCH (05:34)
[2017-02-16] MEDS: PANTOPRAZOLE (EC) 40 MG TAB PO SCH (05:34)
[2017-02-16] MEDS: INSULIN ASPART [NOVOLOG] 3 ML PEN SC SCH ×4 (08:00→21:06)
[2017-02-16 08:50] LABS: POTASSIUM 4.9 mmol/L (3.5-5.1)
[2017-02-16 08:53] LABS: CREATININE 4.13 mg/dl (0.44-1.00)
[2017-02-16 08:56] LABS: INR 2.33; PROTIME 25.8 Sec (12.2-14.2)
[2017-02-16] MEDS: FOLIC ACID 1 MG TAB PO SCH (09:13)
--- NOTE | 2017-02-16 10:33 | PN ---
DATE: 02/16/2017 CARDIOLOGY FOLLOWUP SUBJECTIVE: Discussed with the staff. Rhythm strip was reviewed. The patient remains in atrial fi brillation. Heart rate has been under fair control. Denies any chest pain or palpitation or shortn ess of breath to me. MEDICATIONS: Reviewed. PHYSICAL EXAMINATION: VITAL SIGNS: Temperature 97.9, heart rate of 97, blood pressure 138/79, respiration rate of 18, sat urating 96%. HEENT: Normocephalic, atraumatic. Thin female. Pupils are equal. CARDIOVASCULAR: Irregularly irregular. Systolic murmur. PULMONARY: With no wheezes anteriorly. GASTROINTESTINAL: Soft, nontender. EXTREMITIES: With no significant edema. There are multiple ecchymoses. NEUROLOGIC: Awake and alert, oriented to person and place. PSYCHIATRIC: Appears to be calm. LABORATORY: INR 2.3. Sodium 138, potassium 4.9, BUN of 63, creatinine 4.13, glucose 106. ASSESSMENT AND PLAN: 1. Congestive heart failure. 2. Atrial fibrillation with rapid ventricular response. 3. Severe cardiomyopathy. 4. Renal failure on dialysis. 5. Encephalopathy. RECOMMENDATIONS: 1. Coreg will be continued. Thyroid management as per internal medicine. Hemodialysis will be con tinued as well. Dictated By: KATIUSKA BRITO MD AV/NTS Conf#: [id number] DID#: [id number] CC: JOHN PANCHAL MD;*EndCC*
--- NOTE | 2017-02-16 14:52 | PN ---
Date/Time of Note Date/Time of Note DATE: 02/16/17 TIME: 14:39 Assessment/Plan VTE Prophylaxis VTE Prophylaxis Intervention: heparin Lines/Catheters IV Catheter Type (from Nrs): PERMACATH Urinary Cath still in place: No Assessment/Plan Assessment/Plan 1) Chronic atrial fibrillation, still with RVR, increase coreg to 25 mg po bid 2) Dilated cardiomyopathy, negative stress test, probable tachycardia-induced, control VR 3) CHF, systolic, chronic, follow up with cardiology 4) Pl Effusion; CHF related, on HD 5) ESRD/ HD status, HD as scheduled 6) DM, 7) HTN, controlled 8) Old stroke/ lacunar. cont rfm. 9) L4-5 stenosis; try medical mngmnt 1st. PT. DC to snf; if she agrees 10) Hypothyroidism. start synthroid at 150 mcg/day Subjective 24 Hr Interval Summary Free Text/Dictation calm, no distress Exam/Review of Systems Vital Signs Vitals Vital Signs Date Time Temp Pulse Resp B/P Pulse Ox O2 Delivery O2 Flow Rate FiO2 02/16/17 12:16 98.9 103 17 134/66 96 02/15/17 16:00 Nasal Cannula Intake and Output 02/15/17 02/15/17 02/16/17 15:00 23:00 07:00 Intake Total 800 ml 100 ml Output Total 1800 ml Balance -1000 ml 100 ml Exam Constitutional: alert, oriented, well developed Psych: nl mood/affect, no complaints Head: atraumatic, normocephalic Eyes: EOMI, PERRL, nl conjunctiva, nl lids ENMT: nl external ears & nose, nl lips & teeth, nl nasal mucosa & septum Neck: non-tender, supple Respiratory: clear to auscultation, normal air movement, No congested cough, No crackles/rales, No diminished breath sounds, No intercostal retraction, No labored breathing, No other, No respirations, No tactile fremitus, No wheezing Cardiovascular: irregular rhythm Gastrointestinal: nl liver, spleen, non-tender, soft, No ascites, No bowel sounds, No distended, No firm, No hepatomegaly, No mass , No other, No rebound or guarding, No splenomegaly, No surgical scars, No tender Musculoskeletal: nl extremities to inspection Extremities: normal pulses, No calf tenderness, No clubbing, No cyanosis, No edema, No other, No palpable cord, No pitting pedal edema, No tenderness Neurological: INFORMATION BROKER II-XII intact, nl mental status, nl speech Skin: nl turgor Lymph: nl lymph nodes Results Result Diagram: 02/13/17 0715 02/16/17 0715 Results 24 hrs Laboratory Tests Test 02/15/17 20:40 02/16/17 02:12 02/16/17 07:15 02/16/17 07:25 Bedside Glucose 194 185 Sodium Level 138 Potassium Level 4.9 Chloride Level 103 # Carbon Dioxide Level 28 Anion Gap 12 Blood Urea Nitrogen 63 H Creatinine 4.13 #H Glucose Level 106 Calcium Level 9.0 Prothrombin Time 25.8 H Prothrombin Time Ratio 2.0 INR International Normalized Ratio 2.33 Test 02/16/17 07:53 02/16/17 11:09 Bedside Glucose 108 162 Medications Medications Current Medications Folic Acid (Folic Acid) 1 mg DAILY PO Last administered on 02/16/17 09:13; Admin Dose 1 MG; Start 02/07/17 at 09:00 Ondansetron HCl (Zofran Inj) 4 mg Q6H PRN IV NAUSEA AND/OR VOMITING; Start at 20:00 Miscellaneous Information 1 ea NOTE XX ; Start 02/06/17 at 20:00 Diagnostic Test (Pha) (Accucheck) 1 ea 02 XX Last administered on 02/12/17 02: 32; Admin Dose 1 EA; Start 02/07/17 at 02:00 Miscellaneous Information 1 ea NOTE XX ; Start 02/06/17 at 20:00 Glucose (Glutose) 15 gm Q15M PRN PO DECREASED GLUCOSE; Start 02/06/17 at 20:00 Glucose (Glutose) 22.5 gm Q15M PRN PO DECREASED GLUCOSE; Start 02/06/17 at 20: 00 Dextrose (D50w Syringe) 25 ml Q15M PRN IV DECREASED GLUCOSE; Start 02/06/17 at 20:00 Dextrose (D50w Syringe) 50 ml Q15M PRN IV DECREASED GLUCOSE Last administered on 02/12/17 08:04; Admin Dose 50 ML; Start 02/06/17 at 20:00 Glucagon (Glucagen) 1 mg Q15M PRN IM DECREASED GLUCOSE; Start 02/06/17 at 20:00 Glucose (Glutose) 15 gm Q15M PRN BUCCAL DECREASED GLUCOSE; Start 02/06/17 at 20 :00 Ibuprofen (Motrin) 800 mg Q6H PRN PO MODERATE PAIN LEVEL 4-6; Start 02/07/17 at 14:00 Levothyroxine Sodium (Synthroid) 125 mcg DAILY@06 PO Last administered on 05:34; Admin Dose 125 MCG; Start 02/09/17 at 06:00 Pantoprazole 40 mg 40 mg DAILY@06 PO Last administered on 02/16/17 05:34; Admin Dose 40 MG; Start 02/10/17 at 06:00 Sodium Chloride (NS) 1,000 ml @ 0 mls/hr Q0M PRN IV TO KEEP SBP ABOVE 90; Start 02/13/17 at 11:33 Warfarin Sodium (Coumadin) 1 mg DAILY@17 PO ; Start 02/16/17 at 17:00 Carvedilol (Coreg) 12.5 mg TID PO Last administered on 02/16/17 12:28; Admin Dose 12.5 MG; Start 02/14/17 at 21:00 МАРИЯ FRANK MD Feb 16, 2017 14:49
[2017-02-16] MEDS: WARFARIN 1 MG TAB PO SCH (17:06)
[2017-02-17] VITALS (16 sets, daily range): BP systolic 91–139; BP diastolic 44–85; PULSE 66–105; RESP 16–18
[2017-02-17] MEDS: ACCUCHECK AT 2AM (Patients on SS coverage) XX SCH (02:00)
[2017-02-17] MEDS: PANTOPRAZOLE (EC) 40 MG TAB PO SCH (05:09)
[2017-02-17] MEDS ORDERED: LEVOTHYROXINE 150 MCG TAB PO SCH (06:00)
[2017-02-17] MEDS: INSULIN ASPART [NOVOLOG] 3 ML PEN SC SCH ×2 (08:00→14:18)
[2017-02-17] MEDS: FOLIC ACID 1 MG TAB PO SCH (09:17)
--- NOTE | 2017-02-17 09:43 | PN ---
DATE: 02/17/2017 CARDIOLOGY FOLLOWUP PROGRESS NOTE SUBJECTIVE: The patient remains in atrial fibrillation. Heart rate is better controlled. Denies a ny chest pain or pressure or palpitations to me. MEDICATIONS: Reviewed. PHYSICAL EXAMINATION: VITAL SIGNS: Temperature 98, heart rate of 84, blood pressure of 123/57, respiratory rate of 18, sa turating 98%. GENERAL: Elderly female. Thin. HEENT: Normocephalic, atraumatic. CARDIOVASCULAR: Irregularly irregular, systolic murmur. PULMONARY: With no wheezes. GASTROINTESTINAL: Soft, nontender. EXTREMITIES: With no significant edema. NEUROLOGIC: Awake and alert, oriented to person and place. PSYCHIATRIC: Appears to be calm. LABORATORY: Glucose of 104. Most recent digoxin level on is 1.4. ASSESSMENT AND PLAN: 1. Atrial fibrillation with rapid ventricular response, heart rate is better controlled. 2. Congestive heart failure. 3. Severe nonischemic cardiomyopathy. 4. Renal failure, on dialysis. 5. Encephalopathy. 6. Hypertension. 7. Anemia. RECOMMENDATIONS: I will continue with the current cardiac care including carvedilol. Coumadin is t o be adjusted to keep the INR between 2 and 3. Okay for discharge from the cardiac standpoint. The patient is scheduled for followup with me as an outpatient. Dictated By: KATIUSKA BRITO MD AV/EMANUEL Conf#: [id number] DID#: [id number] CC: VITALIY RUSS MD;*EndCC*
--- NOTE | 2017-02-17 12:10 | CONS ---
Date/Time of Note Date/Time of Note DATE: 02/17/17 TIME: 11:59 Assessment/Plan Assessment/Plan Additional Assessment/Plan 1. End-stage renal disease on hemodialysis through right upper chest tunneled hemodialysis catheter. 2. Atrial fibrillation with rapid ventricular rate. The patient was on anticoagulation with Coumadin at home. 3. Left-sided moderate pleural effusion with left basilar infiltrates. 4. Status post fall episode at home. 5. History of hypertension. 6. History of diabetes mellitus. 7. History of end-stage renal disease on hemodialysis. PLAN: HD today HD outpatient schedule is TTS will follow up Consultation Date/Type/Reason Admit Date/Time Feb 06, 2017 at 15:53 Initial Consult Date 02/06/2017 Type of Consultation: NEPHROLOGY Referring Provider: ALIX TALBOT 24 HR Interval Summary Free Text/Dictation currently getting HD ,BP stable Exam/Review of Systems Vital Signs Vitals Vital Signs Date Time Temp Pulse Resp B/P Pulse Ox O2 Delivery O2 Flow Rate FiO2 02/17/17 11:30 78 02/17/17 11:00 18 02/17/17 08:25 98.0 123/57 98 02/15/17 16:00 Nasal Cannula Intake and Output 02/16/17 02/16/17 02/17/17 15:00 23:00 07:00 Intake Total 200 ml Balance 200 ml Exam GENERAL: Awake,but not oriented to place and person HEENT: Normal. Oropharynx clear. NECK: Supple. No JVD, no lymphadenopathy. LUNGS: Clear to auscultation. No crackles, no wheezes. HEART: S1, S2. Irregularly irregular. No murmur. ABDOMEN: Soft, nontender, nondistended. Bowel sounds are present. EXTREMITIES: No clubbing, cyanosis, or edema. NEUROLOGICAL: Nonfocal, intact. Results Result Diagram: 02/13/17 0715 02/16/17 0715 Results 24 hrs Laboratory Tests Test 02/16/17 17:04 02/16/17 20:01 02/17/17 03:43 02/17/17 08:48 Bedside Glucose 162 187 147 104 Medications Medications Current Medications Folic Acid (Folic Acid) 1 mg DAILY PO Last administered on 02/17/17t 09:17; Admin Dose 1 MG; Start 02/07/17 at 09:00 Ondansetron HCl (Zofran Inj) 4 mg Q6H PRN IV NAUSEA AND/OR VOMITING; Start at 20:00 Miscellaneous Information 1 ea NOTE XX ; Start 02/06/17 at 20:00 Diagnostic Test (Pha) (Accucheck) 1 ea 02 XX Last administered on 02/12/17 02: 32; Admin Dose 1 EA; Start 02/07/17 at 02:00 Miscellaneous Information 1 ea NOTE XX ; Start 02/06/17 at 20:00 Glucose (Glutose) 15 gm Q15M PRN PO DECREASED GLUCOSE; Start 02/06/17 at 20:00 Glucose (Glutose) 22.5 gm Q15M PRN PO DECREASED GLUCOSE; Start 02/06/17 at 20: 00 Dextrose (D50w Syringe) 25 ml Q15M PRN IV DECREASED GLUCOSE; Start 02/06/17 at 20:00 Dextrose (D50w Syringe) 50 ml Q15M PRN IV DECREASED GLUCOSE Last administered on 02/12/17 08:04; Admin Dose 50 ML; Start 02/06/17 at 20:00 Glucagon (Glucagen) 1 mg Q15M PRN IM DECREASED GLUCOSE; Start 02/06/17 at 20:00 Glucose (Glutose) 15 gm Q15M PRN BUCCAL DECREASED GLUCOSE; Start 02/06/17 at 20 :00 Ibuprofen (Motrin) 800 mg Q6H PRN PO MODERATE PAIN LEVEL 4-6; Start 02/07/17 at 14:00 Pantoprazole 40 mg 40 mg DAILY@06 PO Last administered on 02/17/17 05:09; Admin Dose 40 MG; Start 02/10/17 at 06:00 Sodium Chloride (NS) 1,000 ml @ 0 mls/hr Q0M PRN IV TO KEEP SBP ABOVE 90; Start 02/13/17 at 11:33 Warfarin Sodium (Coumadin) 1 mg DAILY@17 PO Last administered on 02/16/17 17: 06; Admin Dose 1 MG; Start 02/16/17 at 17:00 Levothyroxine Sodium (Synthroid) 150 mcg DAILY@06 PO Last administered on 05:09; Admin Dose 150 MCG; Start 02/17/17 at 06:00 Carvedilol (Coreg) 25 mg BID PO Last administered on 02/16/17 21:03; Admin Dose 25 MG; Start 02/16/17 at 21:00 VIRIDIANA VILLARREAL MD Feb 17, 2017 12:10
[2017-02-17] MEDS ORDERED: CARV25TA79 PO (13:51)
[2017-02-17] MEDS ORDERED: COU1 PO (13:51)
[2017-02-17] MEDS ORDERED: SYN15 PO (13:51)
--- NOTE | 2017-02-17 14:06 | DS ---
Date/Time of Note Date/Time of Note DATE: 02/17/17 TIME: 13:55 Discharge Summary Admission/Discharge Info Admit Date/Time Feb 06, 2017 at 15:53 Discharge Date/Time Final Diagnosis 1) Chronic atrial fibrillation, on coreg and coumadin, adjust coumadin to keep INR 2-3 2) Dilated cardiomyopathy, negative stress test, probable tachycardia-induced, control VR 3) CHF, systolic, chronic, follow up with cardiology 4) Pl Effusion; CHF related, on HD 5) ESRD/ HD status, HD as scheduled 6) DM, follwo up with PCP 7) HTN, controlled 8) Old stroke/ lacunar. cont rfm. 9) L4-5 stenosis; try medical mngmnt 1st. PT. DC to snf; if she agrees 10) Hypothyroidism. start synthroid at 150 mcg/day Patient Condition: Stable Hospital Course Ms. Self is a 71-year-old female who is an extremely poor historian. she complains only of severe dysphagia and very dry mouth. Patient has persistent atrila fibrillation with rapid ventricular response. Metoprolol was switched to coreg, coreg dosage is gradually increased. The Vr is better controlled. Patient will follow up with Dr. Gongora in office. Coumadin was on hold for high INR>10. It was resume with 1 mg daily since 02/16/2017. Patient will follow up with cardiology?PCP to adjust coumadin dosage to keep INR 2-3. CHF is compensated without shortness of breath now. TSH is 0.155. Synthroid is decreased from 200 mcg daily to 150 mcg daily. Follow up with PCP to adjust dosage. Home Meds Active Scripts Carvedilol* (Carvedilol*) 25 Mg Tablet, 25 MG PO BID for 30 Days, TAB Prov:МАРИЯ FRANK MD 02/17/17 Levothyroxine Sodium* (Synthroid*) 150 Mcg Tablet, 150 MCG PO DAILY@06 for 30 Days, TAB Prov:МАРИЯ FRANK MD 02/17/17 Warfarin Sod (Coumadin) 1 Mg Tab, 1 MG PO DAILY@17 for 30 Days, TAB Prov:МАРИЯ FRANK MD 02/17/17 Reported Medications Insulin Glargine* (Lantus*) 100 Unit/Ml Soln, 10 UNIT SC QHS, #1 VIAL HOLD FOR BS LESS THAN 110 02/06/17 Sitagliptin Phos/Metformin HCl (Janumet 50-500 mg Tablet) 1 Each Tablet, 1 EACH PO DAILY, TAB 02/06/17 Folic Acid* (Folic Acid*) 1 Mg Tablet, 1 MG PO DAILY, TAB 02/06/17 Insulin Regular, Human (Humulin R) 100 Unit/1 Ml Vial, IJ TID Y for SLIDING SCALE, VIAL 02/06/17 Discontinued Reported Medications Levothyroxine Sodium* (Levothyroxine Sodium*) 200 Mcg Tablet, 200 MCG PO BEFORE BREAKFAST, #30 TAB 02/06/17 Warfarin Sodium* (Coumadin*) 5 Mg Tablet, 5 MG PO DAILY, TAB 02/06/17 Metoprolol Tartrate* (Lopressor*) 50 Mg Tab, 50 MG PO DAILY, #60 TAB 02/06/17 Follow-up Plan PCP and cardiology in 1-2 weeks Pending Labs Laboratory Tests Test 02/16/17 17:04 02/16/17 20:01 02/17/17 03:43 02/17/17 08:48 Bedside Glucose 162mg/dL (70-220) 187mg/dL (70-220) 147mg/dL (70-220) 104mg/dL (70-220) Test 02/17/17 12:31 Bedside Glucose 170mg/dL (70-220) МАРИЯ FRANK MD Feb 17, 2017 14:06
[2017-02-17] MEDS: WARFARIN 1 MG TAB PO SCH (16:14)
== END 2017-02-17 16:36 | DRG 308 ==
LOC: E/R 11:57 → MS4 15:53
PROVIDERS: ADMIT Family Medicine; ATTEND Family Medicine
PROC: 5A1D60Z (ICD-10-PCS; principal; 2017-02-07)
DX: I48.91 Unspecified atrial fibrillation (principal); J18.9 Pneumonia, unspecified organism; G93.40 Encephalopathy, unspecified; I13.2 Hypertensive heart and chronic kidney disease with heart failure and with stage 5 chronic kidney disease, or end stage renal disease; J90 Pleural effusion, not elsewhere classified; I42.0 Dilated cardiomyopathy; I50.22 Chronic systolic (congestive) heart failure; N18.6 End stage renal disease; R13.10 Dysphagia, unspecified; E87.5 Hyperkalemia; S20.229A Contusion of unspecified back wall of thorax, initial encounter; E11.9 Type 2 diabetes mellitus without complications; Z79.4 Long term (current) use of insulin; E03.9 Hypothyroidism, unspecified; Z86.73 Personal history of transient ischemic attack (TIA), and cerebral infarction without residual deficits; M47.9 Spondylosis, unspecified; K80.20 Calculus of gallbladder without cholecystitis without obstruction; Z79.02 Long term (current) use of antithrombotics/antiplatelets; R41.0 Disorientation, unspecified; E05.90 Thyrotoxicosis, unspecified without thyrotoxic crisis or storm; I95.9 Hypotension, unspecified; Z99.2 Dependence on renal dialysis
CPT/HCPCS: 36415; 70450; 71010; 72131; 72192; 78452; 80048; 80053; 80061; 80076; 80162; 82306; 82550; 82553; 82607; 82746; 82962; 83036; 83540; 83735; 84100; 84439; 84443; 84484; 85025; 85610; 85730; 86592; 90935; 93005; 93017; 93306; 96374; 96375; 97162; A9500; A9505; J1644; J1815; J1940; J2785; J7030; J7040

== ENCOUNTER 2017-03-15 12:18 | Inpatient (IN) | payer MEDICARE, BC ==
[~2017-03-15] VITALS: Ht 167.6 cm; Wt 76.0 kg
[~2017-03-15 12:18] MED LIST: CARV25TA79 PO; COU1 PO; FOLI-49 PO; INSU100V3 IJ; LANT3I SC; SITA1TAB PO; SYN15 PO
[2017-03-15] MEDS ORDERED: NOVO3I SC (12:53)
[2017-03-15] MEDS ORDERED: SOD CHLORIDE 0.9% 250 ML IV ONE ×4 (13:00→19:30)
[2017-03-15 13:36] LABS: ADD SCAN DIFF NO
[2017-03-15 13:39] LABS: ABNORMAL IP MESSAGE 1; HEMATOCRIT 27.8 % (37.0-47.0); HEMOGLOBIN 8.4 g/dl (12.0-16.0); LYMPHOCYTES # 0.2 10^3/ul (0.8-2.9); LYMPHOCYTES % 2.6 % (15.0-51.0); MEAN CORPUSCULAR HEMOGLOBIN 30.1 pg (29.0-33.0); MEAN CORPUSCULAR HGB CONC 30.2 g/dl (32.0-37.0); MEAN CORPUSCULAR VOLUME 99.6 fl (82.0-101.0); MEAN PLATELET VOLUME 10.4 fl (7.4-10.4); MONOCYTE # 0.3 10^3/ul (0.3-0.9); MONOCYTES % 3.6 % (0.0-11.0); NEUTROPHILS % 89.5 % (39.0-77.0); NUCLEATED RED BLOOD CELLS% 0.3 /100WBC (0.0-0.0); PLATELET COUNT 104 10^3/UL (140-415); RED BLOOD COUNT 2.79 10^6/ul (4.20-5.40); RED CELL DISTRIBUTION WIDTH 18.4 % (11.5-14.5); WHITE BLOOD COUNT 7.8 10^3/ul (4.8-10.8)
[2017-03-15 13:54] LABS: CALCIUM 8.7 mg/dl (8.4-10.2); CREATININE 3.52 mg/dl (0.44-1.00)
--- NOTE | 2017-03-15 19:43 | RADRPT ---
PROCEDURE: CT brain without contrast CLINICAL INDICATION: Headaches TECHNIQUE: A CT of the brain was performed utilizing axial sections from the skull base through th e vertex without contrast. Sagittal and coronal images were also reformatted. The exam CTDIvol = 44. 81 mGy and DLP = 810.25 mGy-cm. COMPARISON: CT head 02/06/2017 FINDINGS: No acute intracranial hemorrhage is identified. There is no mass effect or midline shift. No extra -axial fluid collection is seen. The ventricles and sulci are larger in size and configuration for the patient's provided age of 71 years consistent with advanced generalized atrophy. Low attenuatio n of the subcortical and periventricular white matter is again noted, nonspecific but likely the seq uela of chronic small vessel ischemia. Lacunar infarct within the inferior aspect of the right lent iform nucleus is again noted. Freed-white differentiation is preserved with no findings to suggest a n acute ischemic infarct. Generalized cerebellar atrophy is again seen with no acute posterior fossa abnormality or mass effec t, the fourth ventricle is midline. Severe atherosclerotic calcification of the cavernous internal carotid and vertebral arteries is present. The osseous structures are unremarkable. The mastoid air cells and visualized paranasal sinuses are clear. RPTAT:HJJR IMPRESSION: 1.Advanced atrophy for the patient's provided age with moderate chronic small vessel ischemic white matter disease but no evidence of acute intracranial abnormality or findings to explain the patient' s provided history. 2. No interval change from 02/06/2017. 3. Chronic lacunar infarct in the inferior right lentiform nucleus again noted. 4. Severe atherosclerotic calcification. Physician Santi Date Time Electronically viewed and signed by Physician Santi on 03/15/2017 19:43 /
--- NOTE | 2017-03-15 20:17 | ERA ---
ER Documentation Chief Complaint Date/Time DATE: 03/15/17 TIME: 20:12 Chief Complaint HYPOTENSION HPI This is a 71-year-old female who is getting dialysis today and toward the end of dialysis the patient became hypotensive. The patient's was asymptomatic. On arrival here she says she feels sleepy that she always feels sleepy after dialysis. She says she has a little nausea but no vomiting no diarrhea no headache. No recent illness such as cough fever or URI symptoms. ROS All systems reviewed and are negative except as per history of present illness. Medications Home Meds Active Scripts Carvedilol* (Carvedilol*) 25 Mg Tablet, 25 MG PO BID for 30 Days, TAB Prov:МАРИЯ FRANK MD 02/17/17 Levothyroxine Sodium* (Synthroid*) 150 Mcg Tablet, 150 MCG PO DAILY@06 for 30 Days, TAB Prov:МАРИЯ FRANK MD 02/17/17 Warfarin Sod (Coumadin) 1 Mg Tab, 1 MG PO DAILY@17 for 30 Days, TAB Prov:МАРИЯ FRANK MD 02/17/17 Reported Medications Insulin Aspart* (Novolog Insulin Pen*) 100 Unit/Ml Soln, 0-12 UNITS SC .SLIDING SCALE AC, EA 03/15/17 Sitagliptin Phos/Metformin HCl (Janumet 50-500 mg Tablet) 1 Each Tablet, 1 EACH PO DAILY, TAB 02/06/17 Folic Acid* (Folic Acid*) 1 Mg Tablet, 1 MG PO DAILY, TAB 02/06/17 Discontinued Reported Medications Insulin Glargine* (Lantus*) 100 Unit/Ml Soln, 10 UNIT SC QHS, #1 VIAL HOLD FOR BS LESS THAN 110 02/06/17 Insulin Regular, Human (Humulin R) 100 Unit/1 Ml Vial, IJ TID Y for SLIDING SCALE, VIAL 02/06/17 Allergies Allergies: Coded Allergies: Penicillins (Unverified Allergy, Unknown, 02/06/17) PMhx/Soc History of Surgery: Yes (Cholitiasis) Anesthesia Reaction: No (UNKNOWN) Hx Neurological Disorder: No Hx Respiratory Disorders: No Hx Cardiac Disorders: Yes (AFib) Hx Psychiatric Problems: No Hx Miscellaneous Medical Probl: No Hx Alcohol Use: No Hx Substance Use: No Hx Tobacco Use: No Smoking Status: Unknown if ever smoked FmHx Family History: No coronary disease Physical Exam Vitals Vital Signs Date Time Temp Pulse Resp B/P Pulse Ox O2 Delivery O2 Flow Rate FiO2 03/15/17 18:00 74/42 03/15/17 15:55 112 87/40 03/15/17 13:42 74 104/38 100 03/15/17 13:13 Nasal Cannula 2 03/15/17 12:37 97.6 85 20 80/46 100 Physical Exam Const: Well-developed, well-nourished Head: Atraumatic, normocephalic Eyes: Normal Conjunctiva, PERRLA, EOMI, normal sclera, no nystagmus ENT: Normal External Ears, Nose and Mouth, very dry tongue and mucus membranes. Neck: Full range of motion. No meningismus, no lymphadenopathy. Resp: Clear to auscultation bilaterally, no wheezing, rhonchi, rales Cardio: Regular rate and rhythm, no murmurs, S1 S2 present Abd: Soft, non tender x 4, non distended. Normal bowel sounds, no guarding or rebound, no pulsitile abdominal masses or bruits Skin: No petechiae or rashes, no ecchymosis , no maculopapular rash Back: No midline or flank tenderness Ext: No cyanosis, mild edema to all extremity, FROM x 4, normal inspection, neurovascularly intact x 4 Neur: Sleepy but easily arousable and answers questions t, STR 5/5 x 4, sensation intact x 4, no focal findings, cerebellum intact Psych: Normal Mood and Affect Result Diagram: 03/15/17 1325 03/15/17 1325 Results 24 hrs Laboratory Tests Test 03/15/17 13:25 White Blood Count 7.810^3/ul Red Blood Count 2.7910^6/ul Hemoglobin 8.4g/dl Hematocrit 27.8% Mean Corpuscular Volume 99.6fl Mean Corpuscular Hemoglobin 30.1pg Mean Corpuscular Hemoglobin Concent 30.2g/dl Red Cell Distribution Width 18.4% Platelet Count 63477^3/UL Mean Platelet Volume 10.4fl Neutrophils % 89.5% Lymphocytes % 2.6% Monocytes % 3.6% Eosinophils % 0.0% Basophils % 0.0% Nucleated Red Blood Cells % 0.3/100WBC Neutrophils # 7.010^3/ul Lymphocytes # 0.210^3/ul Monocytes # 0.310^3/ul Eosinophils # 0.010^3/ul Basophils # 0.010^3/ul Nucleated Red Blood Cells # 0.010^3/ul Sodium Level 133mmol/L Potassium Level 4.0mmol/L Chloride Level 111mmol/L Carbon Dioxide Level 17mmol/L Anion Gap 9 Blood Urea Nitrogen 34mg/dl Creatinine 3.52mg/dl Glucose Level 119mg/dl Calcium Level 8.7mg/dl Current Medications Medications (Trade) Dose Ordered Sig/Alan Route PRN Reason Start Time Stop Time Status Last Admin Dose Admin Sodium Chloride 250 ml @ 250 mls/hr Q1H ONCE IV 03/15/17 13:00 03/15/17 13:59 DC 03/15/17 13:12 Sodium Chloride 250 ml @ 250 mls/hr Q1H ONCE IV 03/15/17 14:30 03/15/17 15:29 DC 03/15/17 14:37 Sodium Chloride 250 ml @ 250 mls/hr Q1H ONCE IV 03/15/17 17:00 03/15/17 17:59 DC 03/15/17 17:04 Sodium Chloride (NS) 250 ml @ 250 mls/hr Q1H ONCE IV 03/15/17 19:30 03/15/17 20:29 03/15/17 19:29 Procedures/MDM PROCEDURE: CT brain without contrast CLINICAL INDICATION: Headaches TECHNIQUE: A CT of the brain was performed utilizing axial sections from the skull base through the vertex without contrast. Sagittal and coronal images were also reformatted. The exam CTDIvol = 44.81 mGy and DLP = 810.25 mGy-cm. COMPARISON: CT head 02/06/2017 FINDINGS: No acute intracranial hemorrhage is identified. There is no mass effect or midline shift. No extra-axial fluid collection is seen. The ventricles and sulci are larger in size and configuration for the patient's provided age of 71 years consistent with advanced generalized atrophy. Low attenuation of the subcortical and periventricular white matter is again noted, nonspecific but likely the sequela of chronic small vessel ischemia. Lacunar infarct within the inferior aspect of the right lentiform nucleus is again noted. Freed-white differentiation is preserved with no findings to suggest an acute ischemic infarct. Generalized cerebellar atrophy is again seen with no acute posterior fossa abnormality or mass effect, the fourth ventricle is midline. Severe atherosclerotic calcification of the cavernous internal carotid and vertebral arteries is present. The osseous structures are unremarkable. The mastoid air cells and visualized paranasal sinuses are clear. RPTAT:HJJR IMPRESSION: 1.Advanced atrophy for the patient's provided age with moderate chronic small vessel ischemic white matter disease but no evidence of acute intracranial abnormality or findings to explain the patient's provided history. 2. No interval change from 02/06/2017. 3. Chronic lacunar infarct in the inferior right lentiform nucleus again noted. 4. Severe atherosclerotic calcification. Physician Santi Date Time Electronically viewed and signed by Sravan Roland Physician on 03/15/2017 19:43 JR/ CC: FRANCY REINOSO DO Patient's CO2 is 17 patient appears clinically dehydrated. Feel the patient was probably dehydrated before dialysis she was fluid is not been taken off. I have given gentle boluses of normal saline to 50 cc at a time. The patient's blood pressure will respond somewhat and drop back down. Patient is still remaining sleepy. CT scan of brain does not show anything acute on pending chest x-ray Blood work is unremarkable We will admit for gentle rehydration and further monitoring Departure Diagnosis: Primary Impression: Hypotension Qualified Code: I95.3 - Hemodialysis-associated hypotension Condition: Fair FRANCY REINOSO DO Mar 15, 2017 20:17
[2017-03-15] MEDS ORDERED: SOD CHLORIDE 0.9% 1,000 ML IV SCH (20:25)
[2017-03-15] MEDS ORDERED: ONDANSETRON 4 MG INJ IV PRN (20:30)
[2017-03-15] MEDS ORDERED: ACETAMINOPHEN 325 MG TAB PO PRN (20:30)
--- NOTE | 2017-03-15 20:50 | RADRPT ---
PROCEDURE: XR Chest. CLINICAL INDICATION: Headache. TECHNIQUE: AP Portable chest. COMPARISON: 02/09/2017 FINDINGS: Moderate to marked cardiomegaly is again noted. There is marked pulmonary vascular congestion. The re is new, near complete opacification of the left chest. Increased hazy opacity is seen throughout the right [id number] chest. The osseous structures are unremarkable. A right chest tunnel dialysis catheter is unchanged. IMPRESSION: Marked pulmonary vascular congestion with increased opacities throughout the left greater than right chest likely due to moderate right and large left pleural effusions and atelectasis. RPTAT: HIKT .Faisal Brar MD, MD Date Time Electronically viewed and signed by .Faisal Brar MD, MD on 03/15/2017 20:49 .T/
[2017-03-16] VITALS (77 sets, daily range): BP systolic 49–147; BP diastolic 32–109; PULSE 77–148; RESP 9–26; TEMP 97.1; Ht 167.6 cm; Wt 76.0 kg
[2017-03-16] MEDS ORDERED: morphine 2 MG INJ IV PRN (01:00)
[2017-03-16] MEDS ORDERED: ACETAMINOPHEN 650MG/20.3ML CUP PO PRN (01:00)
[2017-03-16] MEDS ORDERED: ONDANSETRON 4 MG INJ IV PRN (01:00)
[2017-03-16] MEDS ORDERED: ALBUTEROL/IPRATROPIUM (NEB) 3 ML AMP NEB PRN (01:00)
[2017-03-16] MEDS ORDERED: LIDOCAINE 1% (MPF) 5 ML VIAL SC ONE (06:00)
[2017-03-16 06:06] LABS: ADD SCAN DIFF NO
[2017-03-16 06:16] LABS: ABNORMAL IP MESSAGE 1; HEMATOCRIT 32.1 % (37.0-47.0); HEMOGLOBIN 9.6 g/dl (12.0-16.0); MEAN CORPUSCULAR HEMOGLOBIN 30.9 pg (29.0-33.0); MEAN CORPUSCULAR HGB CONC 29.9 g/dl (32.0-37.0); MEAN CORPUSCULAR VOLUME 103.2 fl (82.0-101.0); PLATELET COUNT 105 10^3/UL (140-415); RED BLOOD COUNT 3.11 10^6/ul (4.20-5.40); RED CELL DISTRIBUTION WIDTH 18.7 % (11.5-14.5); WHITE BLOOD COUNT 10.2 10^3/ul (4.8-10.8)
[2017-03-16 06:25] LABS: ALBUMIN 2.4 g/dl (3.3-4.9); POTASSIUM 4.6 mmol/L (3.5-5.1)
[2017-03-16 06:27] LABS: CREATININE 3.92 mg/dl (0.44-1.00)
[2017-03-16 06:28] LABS: ALBUMIN/GLOBULIN RATIO 0.85; BILIRUBIN,INDIRECT 0.1 mg/dl (0-1.1); BILIRUBIN,TOTAL 0.1 mg/dl (0.2-1.3); CALCIUM 8.7 mg/dl (8.4-10.2); TOTAL PROTEIN 5.2 g/dl (6.1-8.1)
[2017-03-16] MEDS ORDERED: GLUCOSE GEL 15 GRAM TUBE BUCCAL PRN (07:30)
[2017-03-16] MEDS ORDERED: GLUCOSE GEL 15 GRAM TUBE PO PRN ×2 (07:30)
[2017-03-16] MEDS ORDERED: DEXTROSE 50% 50 ML SYRINGE IV PRN ×2 (07:30)
[2017-03-16] MEDS ORDERED: GLUCAGON 1 MG INJ IM PRN (07:30)
[2017-03-16] MEDS: PANTOPRAZOLE 40 MG INJ IV SCH (07:37)
[2017-03-16 07:40] LABS: LYMPHOCYTES # 0.4 10^3/ul (0.8-2.9); MONOCYTE # 0.5 10^3/ul (0.3-0.9); NEUTROPHIL # 8.3 10^3/ul (1.6-7.5)
[2017-03-16 07:41] LABS: ANISOCYTOSIS 1+
[2017-03-16] MEDS: INSULIN ASPART [NOVOLOG] 3 ML PEN SC SCH ×4 (08:40→21:33)
--- NOTE | 2017-03-16 09:14 | HP ---
DATE OF ADMISSION: 03/15/2017 TIME SEEN: 2300. CHIEF COMPLAINT: Hypotension. HISTORY OF PRESENT ILLNESS: The patient is a 71-year-old female with a history of hypertension, chele betes, old stroke, CHF with systolic dysfunction, dilated cardiomyopathy, atrial fibrillation, hypot hyroidism, and end-stage renal disease on dialysis, who was sent from a dialysis center for hypotens ion. During dialysis the patient became hypotensive and as such, she was sent to the ER for evaluati on. When she presented to the ER, the patient was very sleepy and as such meaningful information co uld not be obtained. When she presented her blood pressure was 80/46, heart rate 85, respiratory ra te 20, temperature 97.6, oxygen saturation 100%. Her blood pressure has been as low as 70/47 despit e fluids that she received. Currently, she is on Levophed. REVIEW OF SYSTEMS: Unable to fully assess because the patient is very sleepy right now. PAST MEDICAL HISTORY: As per HPI. PAST SURGICAL HISTORY: Right upper chest dialysis catheter. SOCIAL HISTORY: Unknown. ALLERGIES: PENICILLIN. HOME MEDICATIONS: 1. Coumadin. 2. Coreg. 3. Insulin. 4. Synthroid. 5. Janumet. 6. Folic acid. PHYSICAL EXAMINATION: VITAL SIGNS: Blood pressure 74/57, heart rate 120, respiratory rate 18, temperature earlier was 97. 6, oxygen saturation 96% on 3 liters. GENERAL: The patient is very sleepy. She is arousable and does attempt to answer some questions. HEENT: No obvious head deformity. Pupils are reactive to light. CARDIOVASCULAR: Tachycardic. CHEST: Decreased breath sounds especially at the bases bilaterally. ABDOMEN: Soft. No grimaces noted on palpation. Positive bowel sounds. EXTREMITIES: No edema. LABORATORY DATA: Hemoglobin 8.4, platelet counts 104. Sodium 33, chloride 111, bicarbonate 17, BUN 34, creatinine 3.52. IMPRESSION 1. Hypotension, during dialysis, currently on pressor. 2. End-stage renal disease on dialysis. 3. Cardiomyopathy with severe systolic dysfunction with EF of 25%. 4. History of diabetes. 5. History of hypothyroidism. 6. Old lacunar stroke. 7. Moderate to large bilateral pleural effusion. PLAN: She is currently awaiting ICU admission. Will continue pressor support. Given the patient i s dialysis dependent and is anuric, we have to be careful about the fluids, especially in a patient with systolic dysfunction as well as with chest x-ray showing large pleural effusions. We will plac e a nephrology consult as well as a cardiology consult. Will obviously hold her Coreg. We will cont inue her insulin, Synthroid and Coumadin, but prior to that she will have a formal swallow evaluatio n since she has been very sleepy. As far as her anemia is concerned, her hemoglobin dropped by 1.5 grams in a month. We will check in the morning and if not back at her baseline, then we will call G I to see if possible GI bleed is a contributing factor to her hypotension. We will check FOBT. We w ill also place a pulmonary consult, given her large pleural effusion and to see when we can, or if w e should do a thoracentesis. Further workup and management per clinical course. Total critical time spent is about 45 minutes. Dictated By: NATHANIEL JIANG/EMANUEL Conf#: [id number] DID#: [id number]
[2017-03-16 09:39] LABS: INR 3.44; PROTIME 35.2 Sec (12.2-14.2); PT RATIO 2.8
[2017-03-16 09:59] LABS: AADO2 Arterial 92.7 mmHg (7.0-24.0); Allen Test ACCEPTAB; Arterial Base Excess -20.7 mmol/L (-3.0-3); Arterial COHb 0.6 % (0.0-3.0); Arterial Fraction of Oxyhgb 92.2 % (93.0-99.0); Arterial HCO3 11.4 mmol/L (22.0-26.0); Arterial MetHb 0.3 % (0.0-1.5); Arterial Total Hemglobin 10.3 g/dl (12.0-18.0); MODE NASAL CANNULA
[2017-03-16] MEDS ORDERED: SOD CHLORIDE 0.9% 500 ML IV ONE ×2 (10:00)
--- NOTE | 2017-03-16 10:44 | QN ---
Documentation Comment I was called from the emergency room to 118 the ICU to intubate a patient for severe acidosis, altered mental status and need to hyperventilate. ET intubation note: Preoxygenated with bag mask ventilations oxygen saturation 99%, RSI was used with 20 of etomidate and 100 of succinylcholine. Patient was easily intubated on one attempt using a Mac 4 blade with 7.5 ET tube to 23 at the lip. Patient to the procedure well no complications. She was saturating 100 % after the procedure. MOLINA COOPER DO Mar 16, 2017 10:44
[2017-03-16] MEDS ORDERED: NA BICARBONATE 8.4% 50 ML SYG ONE (10:50)
--- NOTE | 2017-03-16 10:57 | CONS ---
DATE OF ADMISSION: 03/15/2017 DATE OF CONSULTATION: 03/16/2017 TYPE OF CONSULTATION: Cardiology. REFERRING PHYSICIAN: Eduardo Pinto MD REASON FOR CONSULTATION: Atrial fibrillation, cardiomyopathy, shock. CHIEF COMPLAINT: Hypotension. HISTORY OF PRESENT ILLNESS: Thank you for this referral. History was obtained from extensive revie w of the old chart, discussion with Dr. Pinto and the staff. The patient is unable to provide histor y as has baseline dementia as well as currently lethargic. A 71-year-old female with multiple compl icated medical history, who was brought in because after dialysis yesterday became hypotensive. The patient was brought in and was noted to have blood pressure in the 70s, required to be on pressors, on Levophed. The patient also has been lethargic. At this point, unable to provide any history to me. No reported chest pain or pressure. The patient also has been in atrial fibrillation with rap id ventricular response. Review of the old chart shows that the patient has had chronic atrial fibr illation with rapid ventricular response. She also has severe cardiomyopathy, ejection fracti on about 30%. Nuclear stress test done a month ago showed no evidence of perfusion defect, though. Currently, the patient is in the ICU on Levophed drip. PAST MEDICAL HISTORY: History of chronic atrial fibrillation, history of renal failure on dialysis, history of hypothyroidism on Synthroid, history of diabetes, memory impairment, dementia, history o f severe cardiomyopathy, most likely nonischemic based on no evidence of ischemia on the stress test . PAST SURGICAL HISTORY: Status post hemodialysis catheter in place. SOCIAL HISTORY: The patient does not smoke or drink. Lives in a detention. FAMILY HISTORY: No reported coronary artery disease. MEDICATIONS: Medication reconciliation personally reviewed. ALLERGIES: PENICILLIN. REVIEW OF SYSTEMS: Unable to obtain except for the above-mentioned. The patient is currently don rgic unable to provide history. PHYSICAL EXAMINATION: VITAL SIGNS: Temperature 97.1, heart rate of 115, blood pressure of 78/62, respiratory rate of 15. Saturating 97%. HEENT: Normocephalic, atraumatic. Thin female. Eyes are closed. CARDIOVASCULAR: Irregularly irregular, systolic murmur. PULMONARY: Mild rhonchi, diffuse. CHEST: Right-sided hemodialysis access in place. GASTROINTESTINAL: Soft, nontender. EXTREMITIES: Positive lower extremity edema. NEUROLOGIC: Lethargic, difficult to arouse. PSYCHIATRIC: Appears to be calm. LABORATORY/DIAGNOSTIC DATA: WBC of 10.2, hemoglobin 9.6, platelet 105. Sodium 139, potassium 4.6, BUN of 41, creatinine 3.92, glucose 138. Troponin negative x2. INR is not done yet. EKG: Atrial fibrillation with rapid ventricular response. Brain CT shows advanced atrophy for ariel ent's age, moderate chronic small vessel disease, no evidence of acute intracranial abnormality. est x-ray done last night showed marked pulmonary vascular congestion, increased opacity throughout the left lung , likely moderate right and large left pleural effusions and atelectasis. Review of the old chart showed that the patient had a stress test done on 02/10/2017, showed ejection frac tion of 28% with no perfusion defects. Echocardiogram done on 02/08/2017, which was personally revi ewed, showed ejection fraction of 25% with mild LVH, mild aortic stenosis. ASSESSMENT AND PLAN: 1. Shock, possible sepsis versus cardiogenic. 2. Severe nonischemic cardiomyopathy. 3. Atrial fibrillation with rapid ventricular response. 4. Renal failure, on dialysis. 5. Anemia. 6. Encephalopathy. 7. History of hypertension, currently hypotensive and in shock. 8. Memory impairment and dementia. 9. Abnormal EKG. 10. History of thyroid disorder. 11. Malnutrition with low albumin level. RECOMMENDATIONS: The patient's blood pressure medications are on hold. We will continue the Levoph ed for the time being. Antibiotic will be deferred to the internal medicine decision. Continue wit h the ICU care for now. I will order a stat PT/INR and evaluate to see if the patient can be resume d on her Coumadin, which she was taking previously. Thoracentesis may be considered as well. We wi ll ask Dr. Gustafson to evaluate the patient. Thank you for the referral. We will continue to follow along with you. Dictated By: KATIUSKA BRITO MD AV/NTS Conf#: [id number] DID#: [id number] CC: EDUARDO PINTO MD;*EndCC*
[2017-03-16] MEDS ORDERED: NA BICARBONATE 8.4% 50 ML SYG IV ONE (11:00)
[2017-03-16] MEDS ORDERED: MIDAZOLAM (DRIP) 50 mg/50 mL 50 ML IV SCH (11:00)
--- NOTE | 2017-03-16 11:29 | CONS ---
Date/Time of Note Date/Time of Note DATE: 03/16/17 TIME: 11:22 Assessment/Plan Assessment/Plan Additional Assessment/Plan Chest x-ray was reviewed from yesterday evening which is showing bilateral pleural effusions and changes of congestive heart failure. Endotracheal tube is at an adequate level. Assessment recommendations; 1. Patient admitted with severe hypotension likely from underlying cardiomyopathy. 2. Multiple other comorbidities including end-stage renal disease, diabetes, hypertension, history of CVA. 3. Severe acidosis. Which is mixed both metabolic as well as respiratory. Patient has been intubated, ventilator settings have been adjusted patient has been started on assist control of 20, tidal volume 500, PEEP of 5, currently 100 % FiO2. Sodium bicarb has been replaced. Repeat ABG will be performed shortly. Because of profound hypotension as well as stroke I would recommend covering the patient empirically with broad-spectrum antibiotic coverage. Azactam 1 g every 12 hours will be started. She also did not have any peripheral IV access. Therefore right femoral triple- lumen central venous catheter was placed without difficulty at bedside under full sterile precautions. Prognosis is guarded. Consultation Date/Type/Reason Admit Date/Time Mar 15, 2017 at 20:26 Date of Consultation: Mar 16, 2017 Type of Consultation: Pulmonary/critical care Reason for Consultation Consultations requested for respiratory failure. Next History presenting any; patient is a 71-year-old lady who came into the emergency room yesterday sent over from dialysis center for hypotension. On evaluation patient was found to be quite hypotensive, chest x-ray was done which was showing bilateral pulmonary edema, the patient was transferred to ICU was maintained on BiPAP and I got a call from the nurse while I was rounding the patient's blood gas looks quite bad with severe acidosis, I went to see the patient immediately however ER physician also was called in and intubated the patient at bedside without difficulty. History is obtained from medical records. Past medical history; 1. Patient with history of end-stage renal disease on hemodialysis. 2. Hypertension. 3. CVA., Extent of that is currently not known. 4. Diabetes. 5. Hypothyroidism. 6. Atrial fibrillation. 7. Patient has a right subclavian hemodialysis catheter in place. Indication; were reviewed. Allergies; are to penicillin. Social history; not available. Apparently patient does not smoke. Family history; not available. Next Occupational history; not available. Review of systems; currently unable to be obtained. General exam; prior to be intubated patient was having agonal respirations and was unresponsive. Social History Smoking Status: Unknown if ever smoked Exam/Review of Systems Vital Signs Vitals Vital Signs Date Time Temp Pulse Resp B/P Pulse Ox O2 Delivery O2 Flow Rate FiO2 03/16/17 11:09 136 20 100 100 03/16/17 09:30 80/61 Nasal Cannula 5.0 03/16/17 06:30 91.8 Intake and Output 03/15/17 03/15/17 03/16/17 15:00 23:00 07:00 Intake Total 160 ml Balance 160 ml Exam HEENT examination; supple neck, positive JVD. No lymphadenopathy. Midline trachea. No thyromegaly. Patient upper jaw is edentulous. Has bilateral intraocular lens implants. Orally intubated. Chest exam is; diminished breath on lung bases bilaterally. Upper lobes are clear. S1-S2 audible, no murmurs. Irregular rhythm. Abdomen exam is; protuberant, there is a well-healed laparotomy scar. Umbilicus is flat. Bowel sounds are absent. No organomegaly felt. No ascites felt. Extremity exam is; no peripheral edema. Pulses 1+ bilaterally. 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 Results Result Diagram: 03/16/17 0536 03/16/17 0536 Results 24 hrs Laboratory Tests Test 03/15/17 13:25 03/15/17 21:25 03/16/17 05:36 03/16/17 08:31 White Blood Count 7.8 # 10.2 # Red Blood Count 2.79 L 3.11 L Hemoglobin 8.4 L 9.6 L Hematocrit 27.8 L 32.1 L Mean Corpuscular Volume 99.6 103.2 H Mean Corpuscular Hemoglobin 30.1 30.9 Mean Corpuscular Hemoglobin Concent 30.2 L 29.9 L Red Cell Distribution Width 18.4 H 18.7 H Platelet Count 104 L 105 L Mean Platelet Volume 10.4 11.0 H Neutrophils % 89.5 H 81.0 H Lymphocytes % 2.6 L 4.0 L Monocytes % 3.6 5.0 Eosinophils % 0.0 Basophils % 0.0 Nucleated Red Blood Cells % 0.3 H Neutrophils # 7.0 8.3 H Lymphocytes # 0.2 L 0.4 L Monocytes # 0.3 0.5 Eosinophils # 0.0 Basophils # 0.0 Nucleated Red Blood Cells # 0.0 Sodium Level 133 L 139 Potassium Level 4.0 4.6 Chloride Level 111 H 110 Carbon Dioxide Level 17 L 14 L Anion Gap 9 20 #H Blood Urea Nitrogen 34 H 41 H Creatinine 3.52 H 3.92 H Glucose Level 119 138 Calcium Level 8.7 8.7 Troponin I 0.012 < 0.012 Band Neutrophils % 10.0 H Anisocytosis 1+ Total Bilirubin 0.1 L Direct Bilirubin 0.00 Indirect Bilirubin 0.1 Aspartate Amino Transf (AST/SGOT) 12 L Alanine Aminotransferase (ALT/SGPT) 26 Alkaline Phosphatase 97 Total Protein 5.2 L Albumin 2.4 L Globulin 2.80 Albumin/Globulin Ratio 0.85 Bedside Glucose 149 Test 03/16/17 08:58 03/16/17 09:29 03/16/17 10:08 03/16/17 11:01 Prothrombin Time 35.2 #H Prothrombin Time Ratio 2.8 INR International Normalized Ratio 3.44 Blood Gas Specimen Source Blood arterial Arterial Blood Date Drawn 03/16/2017 9:50:11 AM Arterial Blood pH (Temp corrected) 6.919 *L Arterial Blood pCO2 (Temp correct) 57.0 H Arterial Blood pO2 (Temp corrected) 97.9 H Arterial Blood HCO3 11.4 L Arterial Blood Base Excess -20.7 L Arterial Blood Oxygen Saturation 93.0 L Akhil Test ACCEPTAB Arterial Blood Gas Puncture Site Right Radial Arterial Blood Carboxyhemoglobin 0.6 Arterial Blood Methemoglobin 0.3 Blood Gas A-a O2 Differential 92.7 H Oxyhemoglobin Percent 92.2 L Total Hemoglobin 10.3 L Blood Gas Temperature 37.0 Blood Gas Modality NASAL CANNULA FiO2 36.0 Blood Gas Critical Value Read Back Phil REIS RN Blood Gas Notified Whom JLD Blood Gas Notified Time 03/16/2017 9:59:35 AM Lactic Acid Level 1.5 Digoxin Level 0.5 L Bedside Glucose 153 Medications Medications Current Medications Norepinephrine/ Dextrose (Levophed/D5W) 500 ml @ 9.37 mls/hr TITRATE IV Last administered on 03/16/17t 06:39; Admin Dose 5.62 MLS/HR; Start 03/15/17 at 23:00 Ondansetron HCl (Zofran Inj) 4 mg Q6H PRN IV NAUSEA AND/OR VOMITING; Start at 01:00 Acetaminophen (Tylenol Liquid) 650 mg Q6H PRN PO PAIN LEVEL 1-3 OR FEVER; Start 03/16/17 at 01:00 Morphine Sulfate (morphine) 2 mg Q4H PRN IV PAIN LEVEL 7-10; Start 03/16/17 at 01:00 Pantoprazole (Protonix Iv) 40 mg DAILY@06 IV Last administered on 03/16/17t 07: 37; Admin Dose 40 MG; Start 03/16/17 at 06:00 Diagnostic Test (Pha) (Accu-Chek) 1 ea 02 XX ; Start 03/17/17 at 02:00 Miscellaneous Information 1 ea NOTE XX ; Start 03/16/17 at 07:30 Glucose (Glutose) 15 gm Q15M PRN PO DECREASED GLUCOSE; Start 03/16/17 at 07:30 Glucose (Glutose) 22.5 gm Q15M PRN PO DECREASED GLUCOSE; Start 03/16/17 at 07: 30 Dextrose (D50w Syringe) 25 ml Q15M PRN IV DECREASED GLUCOSE; Start 03/16/17 at 07:30 Dextrose (D50w Syringe) 50 ml Q15M PRN IV DECREASED GLUCOSE; Start 03/16/17 at 07:30 Glucagon (Glucagen) 1 mg Q15M PRN IM DECREASED GLUCOSE; Start 03/16/17 at 07:30 Glucose 15 gm 15 gm Q15M PRN BUCCAL DECREASED GLUCOSE; Start 03/16/17 at 07:30 Midazolam HCl (Versed) 50 ml @ 1 mls/hr TITRATE IV ; Start 03/16/17 at 11:00 YUNIOR JUNIOR Mar 16, 2017 11:29
[2017-03-16 12:08] LABS: Allen Test ACCEPTAB; Arterial Base Excess -15.2 mmol/L (-3.0-3); Arterial COHb 0.8 % (0.0-3.0); Arterial Fraction of Oxyhgb 97.6 % (93.0-99.0); Arterial HCO3 11.4 mmol/L (22.0-26.0); Arterial MetHb 0.3 % (0.0-1.5); Arterial Total Hemglobin 10.5 g/dl (12.0-18.0); Blood Gas Low PEEP Setting 0 cmH2O; MODE VENT - AC
[2017-03-16] MEDS: AZTREONAM 0.5 GM in SOD CHLORIDE 0.9% 50 ML IV SCH (12:15)
--- NOTE | 2017-03-16 12:42 | RADRPT ---
PROCEDURE: XR Chest. CLINICAL INDICATION: Status post intubation TECHNIQUE: An AP view of the chest was obtained. COMPARISON: Chest x-ray dated 03/15/2017 FINDINGS: The endotracheal tube tip is approximately 2.4 cm above the nai. There is a right chest Perma- Cath with tip near the cavoatrial junction. There is prominence of the interstitial and central pulmonary vascular markings with large left and moderate right pleural effusions. No focal airspace opacification or pneumothorax is seen. The ca rdiomediastinal silhouette is mildly enlarged . Calcifications are seen within the aortic arch. Th e osseous structures demonstrate senescent changes. There is severe left shoulder arthrosis. IMPRESSION: 1. Findings suggestive of pulmonary vascular congestion with large left and moderate right pleural effusion. No significant interval change. 2. Mild cardiomegaly and aortic atherosclerosis. 3. Tubes and lines, as described above. RPTAT: HH .Alvina Bowden MD, MD Date Time Electronically viewed and signed by .Alvina Bowden MD, on 03/16/2017 12:42 .G/
[2017-03-16] MEDS: PHENYLephrine 40 MG in DEXTROSE 5% 496 ML IV SCH ×4 (13:19→23:22)
[2017-03-16] MEDS ORDERED: SODIUM BICARBONATE (IV ADD) 100 MEQ in SOD CHLORIDE 0.45% 900 ML IV SCH (13:30)
--- NOTE | 2017-03-16 14:26 | CONS ---
DATE OF ADMISSION: 03/15/2017 DATE OF CONSULTATION: 03/16/2017 TYPE OF CONSULTATION: NEPHROLOGY CONSULTATION REFERRING PHYSICIAN: Kristyn Vinson MD REASON FOR CONSULTATION: End-stage renal disease on hemodialysis who presented with septic shock, currently hypotensive, tachycardic, in atrial fibrillation with rapid ventricular rate. HISTORY OF PRESENT ILLNESS: This is a 71-year-old female who has a past medical history of hypertension, diabetes mellitus, history of previous CVA, COPD, CHF with systolic dysfunction, dilated cardiomyopathy, atrial fibrillation , hypothyroidism, end-stage renal disease on hemodialysis Tuesday, , Tuesday through the ____ dialysis catheter, who was sent from her center for hypotension. During the dialysis, the patient became hypotensive. She was brought in to the emergency room. In the ER, she was very sleepy, so unable to obtain any detailed history, but the patient was hypotensive with a systolic blood pressure down to 80/46. She went into atrial fibrillation with rapid ventricular rate. Cardiology has been consulted. Currently, she is on Levophed for blood pressure support, still very hypotensive with a systolic blood pressure of 51/43. She is tachycardic with a heart rate up to 135 to 140 and renal has been consulted for maintenance hemodialysis and for fluid overload due to the pulmonary condition and moderate pleural effusion on her chest x-ray. REVIEW OF SYSTEMS: Positive for shortness of breath and hypotensive episodes in the dialysis unit. Other review of systems is unable to obtain from the patient since this is currently intubated and sedated. PAST MEDICAL HISTORY: As per HPI. PAST SURGICAL HISTORY: Right upper chest ____ dialysis catheter. SOCIAL HISTORY: No smoking, alcohol or recreational drug use as per previous records. ALLERGIES: PENICILLIN. HOME MEDICATIONS: Have been reviewed. PHYSICAL EXAMINATION: VITAL SIGNS: Temperature 97.1, heart rate 142, respiration 23, blood pressure is 100/66, saturation is 100% on ventilator. HEENT: ET tube in place. NECK: Jugular venous distention. LUNGS: Bilateral coarse breath sounds with minimal basilar crackles present. HEART: S1, S2, tachycardia. Irregularly irregular. ABDOMEN: Soft, nontender, nondistended, obese. EXTREMITIES: 1 to 2+ pitting edema. The patient has right upper chest tunneled hemodialysis catheter in place. NEUROLOGICAL: Uncooperative for exam since the patient is currently sedated, intubated. PSYCHIATRIC: Appropriate. SKIN: No rash. LABORATORY DATA/DIAGNOSTIC IMAGIN. WBC 10.2, hemoglobin 9.6, platelet count is 105, Sodium 139, potassium 4.6, chloride 110, bicarbonate 14, BUN 41, creatinine 3.9, glucose is 138, calcium 8.7. LFTs are normal. PT 35.2, ____ INR is 3.44. 2. Toxicology is 0.5. 3. Chest x-ray shows bilateral moderate pleural effusion and pulmonary congestion with mild cardiomegaly and aortic atherosclerosis. IMPRESSION: This is a 71-year-old female who presented with hypotension, who was sent from a dialysis unit and getting admitted for septic shock, acute fluid overload with pleural effusions in bilateral lung. 1. End-stage renal disease on hemodialysis, regular schedule is Tuesday, , Tuesday. 2. Cardiomyopathy with a severe systolic dysfunction with ejection fraction of 25%. 3. History of hypertension. 4. History of hypothyroidism. 5. History of previous cerebrovascular accident. 6. Moderate to large bilateral pleural effusion. 7. Acute respiratory failure, multifactorial secondary to sepsis, hypotension pleural effusions and fluid overload, currently intubated on ventilator. PLAN: The patient is on Coumadin. Her INR is very elevated, so unable to do any thoracentesis at this point, but she is dialysis dependent. She is anuric. The patient will be tried on ultrafiltration to see if she can tolerate and will be able to remove fluids for her pulmonary edema. Continue the IV antibiotics and other care as per the primary care physician. The patient is currently too unstable. She is currently on 2 pressors to support her blood pressures and depending on her course, will decide for further plan. I will give IV her albumin 25% IV 100 mL IV x1 and further plan will be depending on the patient's course in the hospital. She is currently seen in the ICU, currently intubated and further code status will be discussed by the family member later on. will use digoxin/amiodarone for rate control so she can tolerated HD Total time spent in this patient evaluation, making assessment/plan, communicating with family member at bedside and Communicating with nursing staff took more than 90 minutes Dictated By: VIRIDIANA VILLARREAL MD, KP/EMANUEL Conf#: [id number] DID#: [id number] [facility]usy
[2017-03-16] MEDS ORDERED: AMIODARONE 900 MG in DEXTROSE 5% 482 ML IV SCH ×2 (14:30→15:30)
[2017-03-16] MEDS ORDERED: AMIODARONE 150MG/D5W BOLUS 100 ML IV ONE (14:30)
[2017-03-16] MEDS ORDERED: ALBUMIN HUMAN 25% 100 ML IV ONE (14:30)
[2017-03-16] MEDS: SODIUM BICARBONATE (IV ADD) 100 MEQ in SOD CHLORIDE 0.45% 900 ML IV SCH (14:43)
[2017-03-16] MEDS ORDERED: DIGOXIN 500 MCG INJ IV ONE (15:00)
--- NOTE | 2017-03-16 15:20 | PN ---
Date/Time of Note Date/Time of Note DATE: 03/16/17 TIME: 15:14 Assessment/Plan VTE Prophylaxis VTE Prophylaxis Intervention: SCD's Assessment/Plan Chief Complaint/Hosp Course 1. Hypotension-may be baseline as Lactic Acid is nl -cont pressor support for now 2. End-stage renal disease on dialysis -HD per Renal 3. Hypercapnic Resp Failure -Intubated today 4. Dementia with Debility -pt made into a DNR today after discussion about code status with daughter -CT Brain shows advanced atrophy 5. History of hypothyroidism. 6. Old lacunar stroke. 7. Moderate to large bilateral pleural effusion -HD 8. AG Acidosis 2/2 Resp and Renal -Intubated -cont Bicarb gtt 9. Cardiomyopathy with severe systolic dysfunction with EF of 25% 10. History of diabetes -cont NISS PPx- SCD's Problems: Subjective 24 Hr Interval Summary Subjective hx not possible: pt non-verbal Exam/Review of Systems Vital Signs Vitals Vital Signs Date Time Temp Pulse Resp B/P Pulse Ox O2 Delivery O2 Flow Rate FiO2 03/16/17 15:00 113 12 123/90 100 Mechanical Ventilator 03/16/17 12:58 80 03/16/17 11:00 97.1 03/16/17 10:15 5.0 Intake and Output 03/15/17 03/15/17 03/16/17 15:00 23:00 07:00 Intake Total 160 ml Output Total 0 ml Balance 160 ml Exam Constitutional: non-verbal Respiratory: clear to auscultation Cardiovascular: regular rate and rhythm Gastrointestinal: soft, No distended Musculoskeletal: nl extremities to inspection Results Result Diagram: 03/16/17 0536 03/16/17 0536 Results 24 hrs Laboratory Tests Test 03/15/17 21:25 03/16/17 05:36 03/16/17 08:31 03/16/17 08:58 Troponin I 0.012 < 0.012 White Blood Count 10.2 # Red Blood Count 3.11 L Hemoglobin 9.6 L Hematocrit 32.1 L Mean Corpuscular Volume 103.2 H Mean Corpuscular Hemoglobin 30.9 Mean Corpuscular Hemoglobin Concent 29.9 L Red Cell Distribution Width 18.7 H Platelet Count 105 L Mean Platelet Volume 11.0 H Neutrophils % 81.0 H Band Neutrophils % 10.0 H Lymphocytes % 4.0 L Monocytes % 5.0 Eosinophils % Neutrophils # 8.3 H Lymphocytes # 0.4 L Monocytes # 0.5 Eosinophils # Anisocytosis 1+ Sodium Level 139 Potassium Level 4.6 Chloride Level 110 Carbon Dioxide Level 14 L Anion Gap 20 #H Blood Urea Nitrogen 41 H Creatinine 3.92 H Glucose Level 138 Calcium Level 8.7 Total Bilirubin 0.1 L Direct Bilirubin 0.00 Indirect Bilirubin 0.1 Aspartate Amino Transf (AST/SGOT) 12 L Alanine Aminotransferase (ALT/SGPT) 26 Alkaline Phosphatase 97 Total Protein 5.2 L Albumin 2.4 L Globulin 2.80 Albumin/Globulin Ratio 0.85 Bedside Glucose 149 Prothrombin Time 35.2 #H Prothrombin Time Ratio 2.8 INR International Normalized Ratio 3.44 Test 03/16/17 09:29 03/16/17 10:08 03/16/17 11:01 03/16/17 11:18 Blood Gas Specimen Source Blood arterial Arterial Blood Date Drawn 03/16/2017 9:50:11 AM Arterial Blood pH (Temp corrected) 6.919 *L Arterial Blood pCO2 (Temp correct) 57.0 H Arterial Blood pO2 (Temp corrected) 97.9 H Arterial Blood HCO3 11.4 L Arterial Blood Base Excess -20.7 L Arterial Blood Oxygen Saturation 93.0 L Akhil Test ACCEPTAB Arterial Blood Gas Puncture Site Right Radial Arterial Blood Carboxyhemoglobin 0.6 Arterial Blood Methemoglobin 0.3 Blood Gas A-a O2 Differential 92.7 H Oxyhemoglobin Percent 92.2 L Total Hemoglobin 10.3 L Blood Gas Temperature 37.0 Blood Gas Modality NASAL CANNULA FiO2 36.0 Blood Gas Critical Value Read Back Y CHATO RN Blood Gas Notified Whom SKYLAD Blood Gas Notified Time 03/16/2017 9:59:35 AM Lactic Acid Level 1.5 Digoxin Level 0.5 L Bedside Glucose 153 Troponin I < 0.012 Test 03/16/17 11:29 Blood Gas Specimen Source Blood arterial Arterial Blood Date Drawn 03/16/2017 11:50:25 AM Arterial Blood pH (Temp corrected) 7.206 *L Arterial Blood pCO2 (Temp correct) 29.4 L Arterial Blood pO2 (Temp corrected) 195.6 H Arterial Blood HCO3 11.4 L Arterial Blood Base Excess -15.2 L Arterial Blood Oxygen Saturation 98.7 Akhil Test ACCEPTAB Arterial Blood Gas Puncture Site Right Radial Arterial Blood Carboxyhemoglobin 0.8 Arterial Blood Methemoglobin 0.3 Blood Gas A-a O2 Differential 488.0 H Oxyhemoglobin Percent 97.6 Total Hemoglobin 10.5 L Blood Gas Temperature 37.0 Blood Gas Respiration Rate 20.0 Blood Gas Actual Respiration Rate 20 Blood Gas Modality VENT - AC FiO2 100.0 Blood Gas Tidal Volume 500.0 Blood Gas Low PEEP Setting 0 Blood Gas Critical Value Read Back Phil REIS RN Blood Gas Notified Whom JLD Blood Gas Notified Time 03/16/2017 12:08:26 PM Medications Medications Current Medications Norepinephrine/ Dextrose (Levophed/D5W) 500 ml @ 9.37 mls/hr TITRATE IV Last administered on 03/16/17 06:39; Admin Dose 5.62 MLS/HR; Start 03/15/17 at 23:00 Ondansetron HCl (Zofran Inj) 4 mg Q6H PRN IV NAUSEA AND/OR VOMITING; Start at 01:00 Acetaminophen (Tylenol Liquid) 650 mg Q6H PRN PO PAIN LEVEL 1-3 OR FEVER; Start 03/16/17 at 01:00 Morphine Sulfate (morphine) 2 mg Q4H PRN IV PAIN LEVEL 7-10; Start 03/16/17 at 01:00 Pantoprazole (Protonix Iv) 40 mg DAILY@06 IV Last administered on 03/16/17 07: 37; Admin Dose 40 MG; Start 03/16/17 at 06:00 Diagnostic Test (Pha) (Accu-Chek) 1 ea 02 XX ; Start 03/17/17 at 02:00 Miscellaneous Information 1 ea NOTE XX ; Start 03/16/17 at 07:30 Glucose (Glutose) 15 gm Q15M PRN PO DECREASED GLUCOSE; Start 03/16/17 at 07:30 Glucose (Glutose) 22.5 gm Q15M PRN PO DECREASED GLUCOSE; Start 03/16/17 at 07: 30 Dextrose (D50w Syringe) 25 ml Q15M PRN IV DECREASED GLUCOSE; Start 03/16/17 at 07:30 Dextrose (D50w Syringe) 50 ml Q15M PRN IV DECREASED GLUCOSE; Start 03/16/17 at 07:30 Glucagon (Glucagen) 1 mg Q15M PRN IM DECREASED GLUCOSE; Start 03/16/17 at 07:30 Glucose 15 gm 15 gm Q15M PRN BUCCAL DECREASED GLUCOSE; Start 03/16/17 at 07:30 Midazolam HCl 50 ml @ 1 mls/hr TITRATE IV ; Start 03/16/17 at 11:00 Aztreonam 0.5 gm/ Sodium Chloride 50 ml @ 100 mls/hr Q12 IV Last administered on 03/16/17 12:15; Admin Dose 100 MLS/HR; Start 03/16/17 at 12:30 Phenylephrine HCl 40 mg/Dextrose 500 ml @ 75 mls/hr TITRATE IV Last administered on 03/16/17 13:19; Admin Dose 75 MLS/HR; Start 03/16/17 at 12:15 Sodium Bicarbonate 100 meq/Sodium Chloride 1,000 ml @ 80 mls/hr [id number] IV Last administered on 03/16/17 14:43; Admin Dose 80 MLS/HR; Start 03/16/17 at 15 :30 Albumin Human 100 ml @ 100 mls/hr ONCE ONCE IV Last administered on 14:43; Admin Dose 100 MLS/HR; Start 03/16/17 at 14:30; Stop 03/16/17 at 15: 29 Amiodarone HCl/ Dextrose (Cordarone Iv/ D5W) 500 ml @ 0 mls/hr Q0M IV Last administered on 03/16/17 14:46; Admin Dose 33.4 MLS/HR; Start 03/16/17 at 15:30 VASILE DEMPSEY Mar 16, 2017 15:20
[2017-03-16] MEDS ORDERED: PENDING SANTYL ORDER FOR WOUND CARE XX PRN (16:00)
[2017-03-16] MEDS: COLLAGENASE 30 GM TUBE TOP SCH (18:18)
[2017-03-16] MEDS ORDERED: COLLAGENASE 30 GM TUBE TOP PRN (18:30)
[2017-03-16 22:13] LABS: AADO2 Arterial 266.6 mmHg (7.0-24.0); Allen Test ACCEPTAB; Arterial Base Excess -11.9 mmol/L (-3.0-3); Arterial COHb 0.8 % (0.0-3.0); Arterial Fraction of Oxyhgb 88.5 % (93.0-99.0); Arterial HCO3 12.7 mmol/L (22.0-26.0); Arterial MetHb 0.3 % (0.0-1.5); Arterial Total Hemglobin 9.5 g/dl (12.0-18.0); MODE VENT - AC
[2017-03-17] VITALS (99 sets, daily range): BP systolic 51–136; BP diastolic 34–91; PULSE 69–129; RESP 10–28
[2017-03-17] MEDS: AZTREONAM 0.5 GM in SOD CHLORIDE 0.9% 50 ML IV SCH ×4 (00:32→21:09)
[2017-03-17] MEDS: PHENYLephrine 40 MG in DEXTROSE 5% 496 ML IV SCH ×3 (01:09→05:53)
[2017-03-17] MEDS: INSULIN ASPART [NOVOLOG] 3 ML PEN SC SCH ×6 (01:23→21:00)
[2017-03-17] MEDS ORDERED: GLUCAGON 1 MG INJ IM PRN (02:00)
[2017-03-17] MEDS ORDERED: GLUCOSE GEL 15 GRAM TUBE BUCCAL PRN (02:00)
[2017-03-17] MEDS: ACCU-CHEK XX SCH (02:00)
[2017-03-17] MEDS ORDERED: DEXTROSE 50% 50 ML SYRINGE IV PRN (02:00)
[2017-03-17] MEDS ORDERED: GLUCOSE GEL 15 GRAM TUBE PO PRN ×2 (02:00)
[2017-03-17] MEDS ORDERED: INSULIN GLARGINE [LANtus] 3 ML PEN SC ONE (02:00)
[2017-03-17] MEDS: SODIUM BICARBONATE (IV ADD) 100 MEQ in SOD CHLORIDE 0.45% 900 ML IV SCH (04:32)
[2017-03-17] MEDS: PANTOPRAZOLE 40 MG INJ IV SCH (05:47)
[2017-03-17] MEDS ORDERED: SODIUM BICARBONATE (IV ADD) 100 MEQ in DEXTROSE 5%-0.45% NACL 900 ML IV SCH (06:00)
[2017-03-17 06:07] LABS: ADD SCAN DIFF NO
[2017-03-17 06:19] LABS: ABNORMAL IP MESSAGE 1; HEMOGLOBIN 8.7 g/dl (12.0-16.0); MEAN CORPUSCULAR HEMOGLOBIN 30.1 pg (29.0-33.0); MEAN CORPUSCULAR HGB CONC 31.1 g/dl (32.0-37.0); MEAN CORPUSCULAR VOLUME 96.9 fl (82.0-101.0); MEAN PLATELET VOLUME 10.7 fl (7.4-10.4); PLATELET COUNT 147 10^3/UL (140-415); RED BLOOD COUNT 2.89 10^6/ul (4.20-5.40); RED CELL DISTRIBUTION WIDTH 18.4 % (11.5-14.5); WHITE BLOOD COUNT 12.6 10^3/ul (4.8-10.8)
[2017-03-17 06:32] LABS: PROTIME 58.4 Sec (12.2-14.2); PT RATIO 4.6
[2017-03-17 06:40] LABS: CREATINE KINASE < 20 IU/L (23-200)
[2017-03-17 06:45] LABS: ALBUMIN 2.4 g/dl (3.3-4.9); ALBUMIN/GLOBULIN RATIO 1.04; BILIRUBIN,INDIRECT 0.4 mg/dl (0-1.1); BILIRUBIN,TOTAL 0.4 mg/dl (0.2-1.3); CALCIUM 8.4 mg/dl (8.4-10.2); CREATININE 3.52 mg/dl (0.44-1.00); MAGNESIUM 1.8 mg/dl (1.7-2.5); POTASSIUM 3.9 mmol/L (3.5-5.1); TOTAL PROTEIN 4.7 g/dl (6.1-8.1)
[2017-03-17 06:50] LABS: CK-MB 1.68 ng/ml (0.0-2.4)
[2017-03-17 06:54] LABS: TROPONIN-I < 0.012 ng/ml (0.00-0.12)
[2017-03-17 07:09] LABS: THYROID STIMULATING HORMONE 15.1 MIU/L (0.465-4.680)
[2017-03-17 07:32] LABS: INR 6.51
[2017-03-17] MEDS ORDERED: DIGOXIN 500 MCG INJ IV ONE (08:00)
[2017-03-17] MEDS: PHENYLephrine 40 MG in SOD CHLORIDE 0.9% 496 ML IV SCH ×7 (08:08→23:17)
[2017-03-17] MEDS: COLLAGENASE 30 GM TUBE TOP SCH (09:00)
[2017-03-17] MEDS ORDERED: PHYTONADIONE (1 MG/ML PO SYG) NGT ONE (09:00)
--- NOTE | 2017-03-17 09:00 | PN ---
DATE: 03/17/2017 CARDIOLOGY FOLLOWUP PROGRESS NOTE SUBJECTIVE: Discussed with the staff in the ICU. Discussed with multiple physicians including Dr. Villarreal. The patient's ____ event noted. The patient with increased respiratory failure, lethargic an d severe acidosis, required to be intubated. Still on multiple pressors including Chris-Synephrine ip, 250 mcg of Levophed. The patient remains in atrial fibrillation and replaced on amiodarone but is still in atrial fibrillation but heart rate is better controlled with multiple medications. The patient is intubated and unable to give history to me. MEDICATIONS: Reviewed as per medication reconciliation, personally reviewed. PHYSICAL EXAMINATION: VITAL SIGNS: Temperature 98.6, heart rate of 82, blood pressure 115/70, respiratory rate of 20, sat urating 100%. HEENT: Normocephalic, atraumatic. Status post intubation on the vent. Eyes: Pupils are equal. CARDIOVASCULAR: Irregularly irregular. Systolic murmur. PULMONARY: With mild rhonchi at the base. GASTROINTESTINAL: Soft, nontender. EXTREMITIES: Positive diffuse lower extremity edema with sacral ulcers. NEUROLOGIC: Sedated. LABORATORY DATA: INR yesterday was 3.4, today is 6.5. Sodium 128, potassium 3.9, BUN of 45, creati nine of 3.52, glucose of 354. Troponin less than 0.12. ProBNP of 75,000. Albumin is 2.4. TSH is 15 with a free T4 of 1.07. Digoxin level yesterday was 0.5 and today is 1.3. ABG done yesterday sh ows pH of 6.9. Last night ABG after intubation showed pH of 7.32 with pCO2 of 24, pO2 of 62. Chest x-ray yesterday afternoon after intubation shows pulmonary vascular congestion, a large left a nd moderate right pleural effusion. ASSESSMENT AND PLAN: 1. Shock, probably a combination of cardiogenic as well as septic, requiring multiple pressors. 2. Atrial fibrillation with rapid ventricular response. 3. Severe nonischemic cardiomyopathy. 4. Renal failure on dialysis. 5. Severe coagulopathy, probably combination of medication as well as possibly DIC. 6. Encephalopathy. 7. Hypoxemic hypercapnic respiratory failure, status post intubation, currently on the vent and bita t dependent. 8. History of hypertension, currently hypotension and shock. 9. Dementia/memory impairment. 10. Abnormal EKG. 11. Thyroid disorder. 12. Malnutrition with low albumin level. 13. Anasarca. 14. Large pleural effusion. 15. Anemia. RECOMMENDATIONS: I will give a dose of vitamin K. PT/INR will be monitored again tomorrow. I will stop the amiodarone. Give 1 small dose of digoxin, check the digoxin level again tomorrow to avoid digoxin toxicity. Chris-Synephrine drip will be continued for blood pressure and heart rate control. Levophed as needed will be continued as well. Try to titrate off if possible. Antibiotic is elia ged as per pulmonary and internal medicine. Vent support will be continued. We will hold off on an y more Coumadin for now. Diabetic control as per internal medicine. We will continue with the ICU care. More than 39 minutes of critical care time was spent in management of this patient excluding any pro cedures. Dictated By: KATIUSKA BRITO MD AV/NTS Conf#: [id number] DID#: [id number] CC: VASILE DEMPSEY MD; VIRIDIANA VILLARREAL MD;*EndCC*
--- NOTE | 2017-03-17 09:45 | CONS ---
Date/Time of Note Date/Time of Note DATE: 03/17/17 TIME: 09:43 Assessment/Plan Assessment/Plan Additional Assessment/Plan Ventilator settings; AC of 20, tidal volume 500, PEEP of 0, 60% FiO2. Patient currently on Levophed at 12 mics per minute, phenylephrine at 300 mics per minute, Versed 3 mg/h. Assessment recommendations; 1. Patient admitted for severe hypotension from underlying cardiomyopathy. 2. Possibly superimposed pneumonia. 3. Atrial ablation. 4. End-stage renal disease on hemodialysis. 5. Hypothyroidism. 6. History of CVA. Continue current treatment. Wean down FiO2 to keep O2 saturation between 92-94% . Obtain follow-up chest x-ray. prognosis is guarded. 35 minutes of critical care time was spent evaluating the patient. Consultation Date/Type/Reason Admit Date/Time Mar 15, 2017 at 20:26 Initial Consult Date 03/16/17 Type of Consultation: Pulmonary/critical care 24 HR Interval Summary Free Text/Dictation Patient condition remains critical. Still requiring full ventilator support as well as high-dose pressor support with combination phenylephrine and Levophed drips. General exam; elderly lady, orally intubated, sedated, currently in no distress. Exam/Review of Systems Vital Signs Vitals Vital Signs Date Time Temp Pulse Resp B/P Pulse Ox O2 Delivery O2 Flow Rate FiO2 03/17/17 09:30 81 20 105/67 99 Mechanical Ventilator 03/17/17 08:02 70 03/17/17 07:00 96.6 03/16/17 10:15 5.0 Intake and Output 03/16/17 03/16/17 03/17/17 15:00 23:00 07:00 Intake Total 4515.89 ml 3152.72 ml 2451.25 ml Output Total 0 ml 3200 ml 0 ml Balance 4515.89 ml -47.28 ml 2451.25 ml Exam HEENT examination; supple neck, positive JVD. No lymphadenopathy. Midline trachea. Orally intubated. Patient has a multiple carious teeth. Has bilateral intraocular lens implants. No thyromegaly. No neck bruits. Chest exam is; diminished breath on lung bases bilaterally. S1-S2 audible, irregular rhythm. No murmurs. Abdomen examination; soft, nondistended. No organomegaly. Bowel sounds audible. Extremity examination; no peripheral edema. [employer] examination; patient is sedated. Results Result Diagram: 03/17/17 0515 03/17/17 0515 Results 24 hrs Laboratory Tests Test 03/16/17 10:08 03/16/17 11:01 03/16/17 11:18 03/16/17 11:29 Lactic Acid Level 1.5 Digoxin Level 0.5 L Bedside Glucose 153 Troponin I < 0.012 Blood Gas Specimen Source Blood arterial Arterial Blood Date Drawn 03/16/2017 11:50:25 AM Arterial Blood pH (Temp corrected) 7.206 *L Arterial Blood pCO2 (Temp correct) 29.4 L Arterial Blood pO2 (Temp corrected) 195.6 H Arterial Blood HCO3 11.4 L Arterial Blood Base Excess -15.2 L Arterial Blood Oxygen Saturation 98.7 Akhil Test ACCEPTAB Arterial Blood Gas Puncture Site Right Radial Arterial Blood Carboxyhemoglobin 0.8 Arterial Blood Methemoglobin 0.3 Blood Gas A-a O2 Differential 488.0 H Oxyhemoglobin Percent 97.6 Total Hemoglobin 10.5 L Blood Gas Temperature 37.0 Blood Gas Respiration Rate 20.0 Blood Gas Actual Respiration Rate 20 Blood Gas Modality VENT - AC FiO2 100.0 Blood Gas Tidal Volume 500.0 Blood Gas Low PEEP Setting 0 Blood Gas Critical Value Read Back Y CHATO RN Blood Gas Notified Whom JLD Blood Gas Notified Time 03/16/2017 12:08:26 PM Test 03/16/17 17:10 03/16/17 21:29 03/16/17 22:00 03/17/17 01:21 Bedside Glucose 244 H 294 H 329 H Blood Gas Specimen Source Blood arterial Arterial Blood Date Drawn 03/16/2017 10:05:15 PM Arterial Blood pH (Temp corrected) 7.326 L Arterial Blood pCO2 (Temp correct) 24.8 L Arterial Blood pO2 (Temp corrected) 62.0 L Arterial Blood HCO3 12.7 L Arterial Blood Base Excess -11.9 L Arterial Blood Oxygen Saturation 89.5 L Akhil Test ACCEPTAB Arterial Blood Gas Puncture Site Right Radial Arterial Blood Carboxyhemoglobin 0.8 Arterial Blood Methemoglobin 0.3 Blood Gas A-a O2 Differential 266.6 H Oxyhemoglobin Percent 88.5 L Total Hemoglobin 9.5 L Blood Gas Temperature 37.0 Blood Gas Respiration Rate 20.0 Blood Gas Actual Respiration Rate 20 Blood Gas Modality VENT - AC FiO2 50.0 Blood Gas Tidal Volume 500.0 Blood Gas Notified Whom MG Blood Gas Notified Time 03/16/2017 10:13:12 PM Test 03/17/17 05:15 03/17/17 05:18 03/17/17 08:55 White Blood Count 12.6 #H Red Blood Count 2.89 L Hemoglobin 8.7 L Hematocrit 28.0 L Mean Corpuscular Volume 96.9 Mean Corpuscular Hemoglobin 30.1 Mean Corpuscular Hemoglobin Concent 31.1 L Red Cell Distribution Width 18.4 H Platelet Count 147 # Mean Platelet Volume 10.7 H Neutrophils % Eosinophils % Neutrophils # Eosinophils # Prothrombin Time 58.4 #H Prothrombin Time Ratio 4.6 INR International Normalized Ratio 6.51 *H Sodium Level 128 L Potassium Level 3.9 Chloride Level 102 Carbon Dioxide Level 15 L Anion Gap 15 Blood Urea Nitrogen 45 H Creatinine 3.52 H Glucose Level 354 #H Calcium Level 8.4 Magnesium Level 1.8 Total Bilirubin 0.4 Direct Bilirubin 0.00 Indirect Bilirubin 0.4 Aspartate Amino Transf (AST/SGOT) 9 L Alanine Aminotransferase (ALT/SGPT) 27 Alkaline Phosphatase 94 Creatine Kinase < 20 L Creatine Kinase Index Creatinine Kinase MB (Mass) 1.68 Troponin I < 0.012 B-Type Natriuretic Peptide 78226 H Total Protein 4.7 L Albumin 2.4 L Globulin 2.30 Albumin/Globulin Ratio 1.04 Thyroid Stimulating Hormone (TSH) 15.100 H Free Thyroxine 1.07 Digoxin Level 1.3 # Bedside Glucose 366 H 357 H Medications Medications Current Medications Norepinephrine/ Dextrose (Levophed/D5W) 500 ml @ 9.37 mls/hr TITRATE IV Last administered on 03/17/17 03:50; Admin Dose 9.37 MLS/HR; Start 03/15/17 at 23:00 Ondansetron HCl (Zofran Inj) 4 mg Q6H PRN IV NAUSEA AND/OR VOMITING; Start at 01:00 Acetaminophen (Tylenol Liquid) 650 mg Q6H PRN PO PAIN LEVEL 1-3 OR FEVER; Start 03/16/17 at 01:00 Morphine Sulfate (morphine) 2 mg Q4H PRN IV PAIN LEVEL 7-10; Start 03/16/17 at 01:00 Pantoprazole (Protonix Iv) 40 mg DAILY@06 IV Last administered on 03/17/17 05: 47; Admin Dose 40 MG; Start 03/16/17 at 06:00 Diagnostic Test (Pha) 1 ea 1 ea 02 XX Last administered on 03/17/17 02:00; Admin Dose 1 EA; Start 03/17/17 at 02:00 Midazolam HCl 50 ml @ 1 mls/hr TITRATE IV ; Start 03/16/17 at 11:00 Aztreonam/Sodium Chloride (Azactam/NS) 50 ml @ 100 mls/hr Q12 IV Last administered on 03/17/17 00:32; Admin Dose 100 MLS/HR; Start 03/16/17 at 12:30 Miscellaneous Information (Pending Santyl Order For Wound Care) This patient still... PRN PRN XX WOUND CARE; Start 03/16/17 at 16:00 Collagenase (Santyl) 1 applic DAILY TOP ; Start 03/16/17 at 18:30 Collagenase (Santyl) 1 applic PRN PRN TOP WOUND CARE; Start 03/16/17 at 18:30 Insulin Aspart (Novolog Insulin Pen) NOVOLOG *MODERATE* ALGORI... Q4 SC Last administered on 03/17/17 09:01; Admin Dose 12 UNIT; Start 03/17/17 at 05:00 Insulin Glargine (Lantus) 15 unit DAILY@20 SC ; Start 03/17/17 at 20:00 Miscellaneous Information 1 ea NOTE XX ; Start 03/17/17 at 02:00 Glucose (Glutose) 15 gm Q15M PRN PO DECREASED GLUCOSE; Start 03/17/17 at 02:00 Glucose (Glutose) 22.5 gm Q15M PRN PO DECREASED GLUCOSE; Start 03/17/17 at 02: 00 Dextrose (D50w Syringe) 25 ml Q15M PRN IV DECREASED GLUCOSE; Start 03/17/17 at 02:00 Dextrose (D50w Syringe) 50 ml Q15M PRN IV DECREASED GLUCOSE; Start 03/17/17 at 02:00 Glucagon (Glucagen) 1 mg Q15M PRN IM DECREASED GLUCOSE; Start 03/17/17 at 02:00 Glucose 15 gm 15 gm Q15M PRN BUCCAL DECREASED GLUCOSE; Start 03/17/17 at 02:00 Phenylephrine HCl 40 mg/Sodium Chloride 500 ml @ 75 mls/hr TITRATE IV Last administered on 03/17/17 08:08; Admin Dose 225 MLS/HR; Start 03/17/17 at 08:00 Sodium Chloride (NS) 1,000 ml @ 80 mls/hr [id number] IV ; Start 03/17/17 at 09:30 ; Status YUNIOR RICHARDS Mar 17, 2017 09:45
[2017-03-17] MEDS ORDERED: SODIUM BICARBONATE (IV ADD) 100 MEQ in SOD CHLORIDE 0.9% 900 ML IV SCH (10:30)
--- NOTE | 2017-03-17 11:29 | CONS ---
Date/Time of Note Date/Time of Note DATE: 03/17/17 TIME: 11:24 Assessment/Plan Assessment/Plan Additional Assessment/Plan 1. End-stage renal disease on hemodialysis, regular schedule is Tuesday, , Tuesday. 2. Atiral fibrillation with RVR 2. Cardiomyopathy with a severe systolic dysfunction with ejection fraction of 25%. 3. History of hypertension. 4. History of hypothyroidism. 5. History of previous cerebrovascular accident. 6. Moderate to large bilateral pleural effusion. 7. Acute respiratory failure, multifactorial secondary to sepsis, hypotension pleural effusions and fluid overload, currently intubated on ventilator. PLAN: S/p HD 2 days in a row- 9 L removed, rate controlled with amiodarone and digoxin INR high, pt needs thoracentesis, will order FFP tranfusion with HD tomorrow HD ordered for tomorrow with FFP transfusion will follow up Consultation Date/Type/Reason Admit Date/Time Mar 15, 2017 at 20:26 Initial Consult Date 03/16/17 Type of Consultation: NEPHROLOGY Reason for Consultation acute pulmonary edema, resp failure, ESRD on HD Referring Provider: VASILE DEMPSEY 24 HR Interval Summary Free Text/Dictation s/p HD 2 days in a row- 9 L removed, BP labile on pressors Exam/Review of Systems Vital Signs Vitals Vital Signs Date Time Temp Pulse Resp B/P Pulse Ox O2 Delivery O2 Flow Rate FiO2 03/17/17 11:00 84 20 102/67 98 Mechanical Ventilator 03/17/17 10:07 60 03/17/17 07:00 96.6 03/16/17 10:15 5.0 Intake and Output 03/16/17 03/16/17 03/17/17 15:00 23:00 07:00 Intake Total 4515.89 ml 3152.72 ml 2756.25 ml Output Total 0 ml 3200 ml 0 ml Balance 4515.89 ml -47.28 ml 2756.25 ml Exam HEENT: ET tube in place. NECK: Jugular venous distention. LUNGS: Bilateral coarse breath sounds with minimal basilar crackles present. HEART: S1, S2, tachycardia. Irregularly irregular. ABDOMEN: Soft, nontender, nondistended, obese. EXTREMITIES: 1 to 2+ pitting edema. The patient has right upper chest tunneled hemodialysis catheter in place. NEUROLOGICAL: Uncooperative for exam since the patient is currently sedated, intubated. PSYCHIATRIC: Appropriate. SKIN: No rash. Results Result Diagram: 03/17/17 0515 03/17/17 0515 Results 24 hrs Laboratory Tests Test 03/16/17 11:29 03/16/17 17:10 03/16/17 21:29 03/16/17 22:00 Blood Gas Specimen Source Blood arterial Blood arterial Arterial Blood Date Drawn 03/16/2017 11:50:25 AM 03/16/2017 10:05:15 PM Arterial Blood pH (Temp corrected) 7.206 *L 7.326 L Arterial Blood pCO2 (Temp correct) 29.4 L 24.8 L Arterial Blood pO2 (Temp corrected) 195.6 H 62.0 L Arterial Blood HCO3 11.4 L 12.7 L Arterial Blood Base Excess -15.2 L -11.9 L Arterial Blood Oxygen Saturation 98.7 89.5 L Akhil Test ACCEPTAB ACCEPTAB Arterial Blood Gas Puncture Site Right Radial Right Radial Arterial Blood Carboxyhemoglobin 0.8 0.8 Arterial Blood Methemoglobin 0.3 0.3 Blood Gas A-a O2 Differential 488.0 H 266.6 H Oxyhemoglobin Percent 97.6 88.5 L Total Hemoglobin 10.5 L 9.5 L Blood Gas Temperature 37.0 37.0 Blood Gas Respiration Rate 20.0 20.0 Blood Gas Actual Respiration Rate 20 20 Blood Gas Modality VENT - AC VENT - AC FiO2 100.0 50.0 Blood Gas Tidal Volume 500.0 500.0 Blood Gas Low PEEP Setting 0 Blood Gas Critical Value Read Back Phil REIS RN Blood Gas Notified Whom JLD MG Blood Gas Notified Time 03/16/2017 12:08:26 PM 03/16/2017 10:13:12 PM Bedside Glucose 244 H 294 H Test 03/17/17 01:21 03/17/17 05:15 03/17/17 05:18 03/17/17 08:55 Bedside Glucose 329 H 366 H 357 H White Blood Count 12.6 #H Red Blood Count 2.89 L Hemoglobin 8.7 L Hematocrit 28.0 L Mean Corpuscular Volume 96.9 Mean Corpuscular Hemoglobin 30.1 Mean Corpuscular Hemoglobin Concent 31.1 L Red Cell Distribution Width 18.4 H Platelet Count 147 # Mean Platelet Volume 10.7 H Neutrophils % Eosinophils % Neutrophils # Eosinophils # Prothrombin Time 58.4 #H Prothrombin Time Ratio 4.6 INR International Normalized Ratio 6.51 *H Sodium Level 128 L Potassium Level 3.9 Chloride Level 102 Carbon Dioxide Level 15 L Anion Gap 15 Blood Urea Nitrogen 45 H Creatinine 3.52 H Glucose Level 354 #H Calcium Level 8.4 Magnesium Level 1.8 Total Bilirubin 0.4 Direct Bilirubin 0.00 Indirect Bilirubin 0.4 Aspartate Amino Transf (AST/SGOT) 9 L Alanine Aminotransferase (ALT/SGPT) 27 Alkaline Phosphatase 94 Creatine Kinase < 20 L Creatine Kinase Index Creatinine Kinase MB (Mass) 1.68 Troponin I < 0.012 B-Type Natriuretic Peptide 42630 H Total Protein 4.7 L Albumin 2.4 L Globulin 2.30 Albumin/Globulin Ratio 1.04 Thyroid Stimulating Hormone (TSH) 15.100 H Free Thyroxine 1.07 Digoxin Level 1.3 # Medications Medications Current Medications Norepinephrine/ Dextrose (Levophed/D5W) 500 ml @ 9.37 mls/hr TITRATE IV Last administered on 03/17/17 10:17; Admin Dose 22.5 MLS/HR; Start 03/15/17 at 23:00 Ondansetron HCl (Zofran Inj) 4 mg Q6H PRN IV NAUSEA AND/OR VOMITING; Start at 01:00 Acetaminophen (Tylenol Liquid) 650 mg Q6H PRN PO PAIN LEVEL 1-3 OR FEVER; Start 03/16/17 at 01:00 Morphine Sulfate (morphine) 2 mg Q4H PRN IV PAIN LEVEL 7-10; Start 03/16/17 at 01:00 Pantoprazole (Protonix Iv) 40 mg DAILY@06 IV Last administered on 03/17/17 05: 47; Admin Dose 40 MG; Start 03/16/17 at 06:00 Diagnostic Test (Pha) 1 ea 1 ea 02 XX Last administered on 03/17/17 02:00; Admin Dose 1 EA; Start 03/17/17 at 02:00 Midazolam HCl 50 ml @ 1 mls/hr TITRATE IV Last administered on 03/17/17 11:04 ; Admin Dose 3 MLS/HR; Start 03/16/17 at 11:00 Aztreonam/Sodium Chloride (Azactam/NS) 50 ml @ 100 mls/hr Q12 IV Last administered on 03/17/17 00:32; Admin Dose 100 MLS/HR; Start 03/16/17 at 12:30 Miscellaneous Information (Pending Santyl Order For Wound Care) This patient still... PRN PRN XX WOUND CARE; Start 03/16/17 at 16:00 Collagenase (Santyl) 1 applic DAILY TOP ; Start 03/16/17 at 18:30 Collagenase (Santyl) 1 applic PRN PRN TOP WOUND CARE; Start 03/16/17 at 18:30 Insulin Aspart (Novolog Insulin Pen) NOVOLOG *MODERATE* ALGORI... Q4 SC Last administered on 03/17/17 09:01; Admin Dose 12 UNIT; Start 03/17/17 at 05:00 Insulin Glargine (Lantus) 15 unit DAILY@20 SC ; Start 03/17/17 at 20:00 Miscellaneous Information 1 ea NOTE XX ; Start 03/17/17 at 02:00 Glucose (Glutose) 15 gm Q15M PRN PO DECREASED GLUCOSE; Start 03/17/17 at 02:00 Glucose (Glutose) 22.5 gm Q15M PRN PO DECREASED GLUCOSE; Start 03/17/17 at 02: 00 Dextrose (D50w Syringe) 25 ml Q15M PRN IV DECREASED GLUCOSE; Start 03/17/17 at 02:00 Dextrose (D50w Syringe) 50 ml Q15M PRN IV DECREASED GLUCOSE; Start 03/17/17 at 02:00 Glucagon (Glucagen) 1 mg Q15M PRN IM DECREASED GLUCOSE; Start 03/17/17 at 02:00 Glucose 15 gm 15 gm Q15M PRN BUCCAL DECREASED GLUCOSE; Start 03/17/17 at 02:00 Phenylephrine HCl 40 mg/Sodium Chloride 500 ml @ 75 mls/hr TITRATE IV Last administered on 03/17/17 10:15; Admin Dose 225 MLS/HR; Start 03/17/17 at 08:00 Sodium Bicarbonate 100 meq/Sodium Chloride 1,000 ml @ 80 mls/hr [id number] IV Last administered on 03/17/17 11:02; Admin Dose 80 MLS/HR; Start 03/17/17 at 10 :30 Phytonadione/ Dextrose (Vitamin K/D5W) 51 ml @ 102 mls/hr ONCE ONCE IVPB ; Start 03/17/17 at 11:30; Stop 4/27/17 at 11:59; Status UNV VILLARREAL, VIRIDIANA S. MD Mar 17, 2017 11:29
[2017-03-17 12:12] LABS: LYMPHOCYTES # 0.6 10^3/ul (0.8-2.9); MONOCYTE # 0.6 10^3/ul (0.3-0.9); MYELOCYTES # 0.1; NEUTROPHIL # 8.7 10^3/ul (1.6-7.5)
[2017-03-17 12:13] LABS: BURR CELLS 1+; POLYCHROMASIA 1+
[2017-03-17] MEDS ORDERED: PHYTONADIONE 10 MG in DEXTROSE 5% 50 ML IVPB ONE (12:30)
--- NOTE | 2017-03-17 15:58 | PN ---
Date/Time of Note Date/Time of Note DATE: 03/17/17 TIME: 15:57 Assessment/Plan VTE Prophylaxis VTE Prophylaxis Intervention: SCD's Lines/Catheters IV [facility] PERMA CATH Urinary Cath still in place: No Assessment/Plan Chief Complaint/Hosp Course 1. Hypotension-may be baseline as Lactic Acid is nl -cont pressor support for now 2. End-stage renal disease on dialysis -HD per Renal 3. Hypercapnic Resp Failure -Intubated 4. Dementia with Debility -pt made into a DNR today after discussion about code status with daughter -CT Brain shows advanced atrophy 5. History of hypothyroidism. 6. Old lacunar stroke. 7. Moderate to large bilateral pleural effusion -HD 8. AG Acidosis 2/2 Resp and Renal -Intubated -cont Bicarb gtt 9. Cardiomyopathy with severe systolic dysfunction with EF of 25% 10. History of diabetes -cont NISS PPx- SCD's Problems: Subjective 24 Hr Interval Summary Subjective hx not possible: pt non-verbal Exam/Review of Systems Vital Signs Vitals Vital Signs Date Time Temp Pulse Resp B/P Pulse Ox O2 Delivery O2 Flow Rate FiO2 03/17/17 15:30 106 03/17/17 15:15 20 115/62 98 Mechanical Ventilator 03/17/17 13:30 97.1 03/17/17 13:16 50 03/16/17 10:15 5.0 Intake and Output 03/16/17 03/16/17 03/17/17 15:00 23:00 07:00 Intake Total 4515.89 ml 3152.72 ml 2756.25 ml Output Total 0 ml 3200 ml 0 ml Balance 4515.89 ml -47.28 ml 2756.25 ml Exam Constitutional: non-verbal Respiratory: clear to auscultation Cardiovascular: regular rate and rhythm Gastrointestinal: soft, No distended Musculoskeletal: nl extremities to inspection Results Result Diagram: 03/17/17 0515 03/17/17 0515 Results 24 hrs Laboratory Tests Test 03/16/17 17:10 03/16/17 21:29 03/16/17 22:00 03/17/17 01:21 Bedside Glucose 244 H 294 H 329 H Blood Gas Specimen Source Blood arterial Arterial Blood Date Drawn 03/16/2017 10:05:15 PM Arterial Blood pH (Temp corrected) 7.326 L Arterial Blood pCO2 (Temp correct) 24.8 L Arterial Blood pO2 (Temp corrected) 62.0 L Arterial Blood HCO3 12.7 L Arterial Blood Base Excess -11.9 L Arterial Blood Oxygen Saturation 89.5 L Akhil Test ACCEPTAB Arterial Blood Gas Puncture Site Right Radial Arterial Blood Carboxyhemoglobin 0.8 Arterial Blood Methemoglobin 0.3 Blood Gas A-a O2 Differential 266.6 H Oxyhemoglobin Percent 88.5 L Total Hemoglobin 9.5 L Blood Gas Temperature 37.0 Blood Gas Respiration Rate 20.0 Blood Gas Actual Respiration Rate 20 Blood Gas Modality VENT - AC FiO2 50.0 Blood Gas Tidal Volume 500.0 Blood Gas Notified Whom MG Blood Gas Notified Time 03/16/2017 10:13:12 PM Test 03/17/17 05:15 03/17/17 05:18 03/17/17 08:55 03/17/17 12:39 White Blood Count 12.6 #H Red Blood Count 2.89 L Hemoglobin 8.7 L Hematocrit 28.0 L Mean Corpuscular Volume 96.9 Mean Corpuscular Hemoglobin 30.1 Mean Corpuscular Hemoglobin Concent 31.1 L Red Cell Distribution Width 18.4 H Platelet Count 147 # Mean Platelet Volume 10.7 H Neutrophils % 69.0 Band Neutrophils % 20.0 H Lymphocytes % 5.0 L Monocytes % 5.0 Eosinophils % Myelocytes % 1.0 H Nucleated Red Blood Cells % 2.0 H Neutrophils # 8.7 H Lymphocytes # 0.6 L Monocytes # 0.6 Eosinophils # Myelocytes # 0.1 Polychromasia 1+ Prothrombin Time 58.4 #H Prothrombin Time Ratio 4.6 INR International Normalized Ratio 6.51 *H Sodium Level 128 L Potassium Level 3.9 Chloride Level 102 Carbon Dioxide Level 15 L Anion Gap 15 Blood Urea Nitrogen 45 H Creatinine 3.52 H Glucose Level 354 #H Calcium Level 8.4 Magnesium Level 1.8 Total Bilirubin 0.4 Direct Bilirubin 0.00 Indirect Bilirubin 0.4 Aspartate Amino Transf (AST/SGOT) 9 L Alanine Aminotransferase (ALT/SGPT) 27 Alkaline Phosphatase 94 Creatine Kinase < 20 L Creatine Kinase Index Creatinine Kinase MB (Mass) 1.68 Troponin I < 0.012 B-Type Natriuretic Peptide 11399 H Total Protein 4.7 L Albumin 2.4 L Globulin 2.30 Albumin/Globulin Ratio 1.04 Thyroid Stimulating Hormone (TSH) 15.100 H Free Thyroxine 1.07 Digoxin Level 1.3 # Bedside Glucose 366 H 357 H 281 H Medications Medications Current Medications Norepinephrine/ Dextrose (Levophed/D5W) 500 ml @ 9.37 mls/hr TITRATE IV Last administered on 03/17/17 10:17; Admin Dose 22.5 MLS/HR; Start 03/15/17 at 23:00 Ondansetron HCl (Zofran Inj) 4 mg Q6H PRN IV NAUSEA AND/OR VOMITING; Start at 01:00 Acetaminophen (Tylenol Liquid) 650 mg Q6H PRN PO PAIN LEVEL 1-3 OR FEVER; Start 03/16/17 at 01:00 Morphine Sulfate (morphine) 2 mg Q4H PRN IV PAIN LEVEL 7-10; Start 03/16/17 at 01:00 Pantoprazole (Protonix Iv) 40 mg DAILY@06 IV Last administered on 03/17/17 05: 47; Admin Dose 40 MG; Start 03/16/17 at 06:00 Diagnostic Test (Pha) 1 ea 1 ea 02 XX Last administered on 03/17/17 02:00; Admin Dose 1 EA; Start 03/17/17 at 02:00 Midazolam HCl 50 ml @ 1 mls/hr TITRATE IV Last administered on 03/17/17 11:04 ; Admin Dose 3 MLS/HR; Start 03/16/17 at 11:00 Aztreonam/Sodium Chloride (Azactam/NS) 50 ml @ 100 mls/hr Q12 IV Last administered on 03/17/17 12:42; Admin Dose 100 MLS/HR; Start 03/16/17 at 12:30 Collagenase (Santyl) 1 applic DAILY TOP ; Start 03/16/17 at 18:30 Collagenase (Santyl) 1 applic PRN PRN TOP WOUND CARE; Start 03/16/17 at 18:30 Insulin Aspart (Novolog Insulin Pen) NOVOLOG *MODERATE* ALGORI... Q4 SC Last administered on 03/17/17 12:47; Admin Dose 8 UNIT; Start 03/17/17 at 05:00 Insulin Glargine (Lantus) 15 unit DAILY@20 SC ; Start 03/17/17 at 20:00 Miscellaneous Information 1 ea NOTE XX ; Start 03/17/17 at 02:00 Glucose (Glutose) 15 gm Q15M PRN PO DECREASED GLUCOSE; Start 03/17/17 at 02:00 Glucose (Glutose) 22.5 gm Q15M PRN PO DECREASED GLUCOSE; Start 03/17/17 at 02: 00 Dextrose (D50w Syringe) 25 ml Q15M PRN IV DECREASED GLUCOSE; Start 03/17/17 at 02:00 Dextrose (D50w Syringe) 50 ml Q15M PRN IV DECREASED GLUCOSE; Start 03/17/17 at 02:00 Glucagon (Glucagen) 1 mg Q15M PRN IM DECREASED GLUCOSE; Start 03/17/17 at 02:00 Glucose 15 gm 15 gm Q15M PRN BUCCAL DECREASED GLUCOSE; Start 03/17/17 at 02:00 Phenylephrine HCl 40 mg/Sodium Chloride 500 ml @ 75 mls/hr TITRATE IV Last administered on 03/17/17 14:24; Admin Dose 225 MLS/HR; Start 03/17/17 at 08:00 Sodium Bicarbonate/ Sodium Chloride (Na Bicarb/NS) 1,000 ml @ 80 mls/hr [id number] IV Last administered on 03/17/17 11:02; Admin Dose 80 MLS/HR; Start at 10:30 VASILE DEMPSEY Mar 17, 2017 15:58
--- NOTE | 2017-03-17 17:15 | RADRPT ---
Vent Rate: 140 bpm RR Interval: 0 msec MN Interval: 0 msec QRS Duration: 88 msec QT Interval: 328 msec QTC Interval: 500 msec P-R-T [place]: 0 - -11 - 0 degrees Atrial fibrillation with rapid ventricular response with premature ventricular or aberrantly conducted complexes Low voltage QRS ST amp; T wave abnormality, consider inferior ischemia or digitalis effect ST amp; T wave abnormality, consider anterior ischemia or digitalis effect Abnormal ECG Electronically Signed By: Jimmie Milton [id number]
[2017-03-17] MEDS: INSULIN GLARGINE [LANtus] 3 ML PEN SC SCH (20:00)
[2017-03-17] MEDS ORDERED: INSULIN GLARGINE [LANtus] 3 ML PEN SC SCH (20:00)
[2017-03-17] MEDS ORDERED: SODIUM BICARBONATE (IV ADD) 100 MEQ in DEXTROSE 5%-0.9% NACL 1,000 ML IV SCH ×4 (22:30)
[2017-03-17] MEDS ORDERED: PHENYLephrine 160 MG in SOD CHLORIDE 0.9% 484 ML IV PRN (23:30)
[2017-03-17] MEDS ORDERED: PHENYLephrine 160 MG in DEXTROSE 5% 484 ML IV PRN (23:30)
[2017-03-18] VITALS (104 sets, daily range): BP systolic 64–151; BP diastolic 44–94; PULSE 85–168; RESP 9–40
[2017-03-18] MEDS: INSULIN ASPART [NOVOLOG] 3 ML PEN SC SCH ×6 (01:00→20:41)
[2017-03-18] MEDS: PHENYLephrine 160 MG in SOD CHLORIDE 0.9% 484 ML IV SCH ×2 (01:46→10:50)
[2017-03-18] MEDS: DEXTROSE 50% 50 ML SYRINGE IV PRN ×2 (01:55→05:36)
[2017-03-18] MEDS ORDERED: DEXTROSE 50% 50 ML SYRINGE IV ONE (02:00)
[2017-03-18 02:20] LABS: ALBUMIN 1.7 g/dl (3.3-4.9); CHLORIDE 104 mmol/L (97-110); SODIUM 135 mmol/L (135-144)
[2017-03-18 02:21] LABS: POTASSIUM 3.3 mmol/L (3.5-5.1)
[2017-03-18] MEDS: ACCU-CHEK XX SCH (02:22)
[2017-03-18 02:23] LABS: ALKALINE PHOSPHATASE 77 IU/L (42-121); ANION GAP 14 (8-16); ASPARTATE AMINO TRANSFERASE < 8 IU/L (15-46); BILIRUBIN,INDIRECT 0.6 mg/dl (0-1.1); BILIRUBIN,TOTAL 0.6 mg/dl (0.2-1.3); CARBON DIOXIDE 20 mmol/L (21-31); TOTAL PROTEIN 3.8 g/dl (6.1-8.1)
[2017-03-18 02:24] LABS: ALANINE AMINOTRANSFERASE 24 IU/L (13-69); BLOOD UREA NITROGEN 35 mg/dl (7-20); CALCIUM 7.9 mg/dl (8.4-10.2)
[2017-03-18 02:30] LABS: GLUCOSE 49 mg/dl (70-220)
[2017-03-18 04:58] LABS: ADD SCAN DIFF NO
[2017-03-18 05:03] LABS: ABNORMAL IP MESSAGE 1; HEMATOCRIT 30.9 % (37.0-47.0); HEMOGLOBIN 9.9 g/dl (12.0-16.0); MEAN CORPUSCULAR HEMOGLOBIN 29.6 pg (29.0-33.0); MEAN CORPUSCULAR VOLUME 92.2 fl (82.0-101.0); MEAN PLATELET VOLUME 11.1 fl (7.4-10.4); RED BLOOD COUNT 3.35 10^6/ul (4.20-5.40); RED CELL DISTRIBUTION WIDTH 18.6 % (11.5-14.5); WHITE BLOOD COUNT 19.4 10^3/ul (4.8-10.8)
[2017-03-18 05:18] LABS: PLATELET COUNT 78 10^3/UL (140-415)
[2017-03-18 05:19] LABS: INR 1.78; PROTIME 20.9 Sec (12.2-14.2); PT RATIO 1.6
[2017-03-18 05:29] LABS: ALBUMIN 1.9 g/dl (3.3-4.9); ALBUMIN/GLOBULIN RATIO 0.79; BILIRUBIN,INDIRECT 0.5 mg/dl (0-1.1); BILIRUBIN,TOTAL 0.5 mg/dl (0.2-1.3); CALCIUM 8.3 mg/dl (8.4-10.2); CREATININE 2.51 mg/dl (0.44-1.00); MAGNESIUM 1.5 mg/dl (1.7-2.5); POTASSIUM 3.4 mmol/L (3.5-5.1); TOTAL PROTEIN 4.3 g/dl (6.1-8.1)
[2017-03-18] MEDS: PANTOPRAZOLE 40 MG INJ IV SCH (05:30)
[2017-03-18] MEDS: POTASSIUM CHLORIDE 50 ML IVPB PRN (05:30)
[2017-03-18] MEDS: DEXTROSE IV SCH ×3 (07:57→21:26)
[2017-03-18] MEDS: SODIUM BICARBONATE IV SCH ×3 (07:57→21:26)
[2017-03-18] MEDS: NACL IV SCH ×3 (07:57→21:26)
[2017-03-18] MEDS ORDERED: AMIODARONE 900 MG in DEXTROSE 5% 482 ML IV SCH (09:00)
[2017-03-18] MEDS: COLLAGENASE 30 GM TUBE TOP SCH (09:02)
--- NOTE | 2017-03-18 09:15 | RADRPT ---
PROCEDURE: XR Chest. CLINICAL INDICATION: CHF TECHNIQUE: An AP view of the chest was obtained. COMPARISON: Chest x-ray dated 03/15/2017 and 03/16/2017 FINDINGS: The endotracheal tube tip is approximately 2.2 cm above the nai. The tip of the enteric tube ex tends below the left diaphragm. There is a right chest Perma-Cath with tip near the cavoatrial junct ion. There is prominence of the interstitial and central pulmonary vascular markings with large left and moderate right pleural effusions. No focal airspace opacification or pneumothorax is seen. The ca rdiomediastinal silhouette is mildly enlarged . Calcifications are seen within the aortic arch. Th e osseous structures demonstrate senescent changes. There is severe left shoulder arthrosis. IMPRESSION: 1. Findings suggestive of pulmonary vascular congestion/interstitial edema with large left and mod erate right pleural effusion. Findings are increased when compared to the prior examination. 2. Mild cardiomegaly and aortic atherosclerosis. 3. Tubes and lines, as described above. RPTAT: HH .Alvina Bowden MD, MD Date Time Electronically viewed and signed by .lAvina Bowden MD, on 03/18/2017 09:14 .G/
--- NOTE | 2017-03-18 09:36 | CONS ---
Date/Time of Note Date/Time of Note DATE: 03/18/17 TIME: 09:32 Assessment/Plan Assessment/Plan Additional Assessment/Plan Chest x-ray was reviewed from today which is showing diffuse bilateral pulmonary edema with bilateral pleural effusions left greater than right. Endotracheal tube is at an adequate level. Ventilator settings; AC of 20, tidal volume 500, PEEP of 0, 50% FiO2. Patient currently on phenylephrine drip at 300 mics per minute, Levophed at 10 mics per minute. Assessment recommendations; 1. Patient admitted with cardiac arrest due to underlying cardia myopathy with severe pulmonary edema. 2. Possibly superimposed pneumonia. 3. Coagulopathy. 4. Thrombocytopenia. 5. Severe shock. 6. History of end-stage renal disease. On hemodialysis. 7. Bilateral pleural effusions. Continue current treatment. Patient currently is too unstable hemodynamically to undergo thoracentesis. Prognosis is very poor. Family has appropriately made her DNR status. 35 minutes of critical care time was spent evaluating the patient. Consultation Date/Type/Reason Admit Date/Time Mar 15, 2017 at 20:26 Initial Consult Date 03/16/17 Type of Consultation: Pulmonary/critical care Referring Provider: VASILE DEMPSEY 24 HR Interval Summary Free Text/Dictation Patient condition remains extremely critical. Requiring full ventilator support as well as high-dose combination pressor support for blood pressure maintenance. General exam; elderly woman, orally intubated, has been off sedation and is currently unresponsive. Exam/Review of Systems Vital Signs Vitals Vital Signs Date Time Temp Pulse Resp B/P Pulse Ox O2 Delivery O2 Flow Rate FiO2 03/18/17 08:30 126 24 106/84 03/18/17 08:15 92 03/18/17 08:00 98.8 Mechanical Ventilator 03/18/17 07:52 50 03/16/17 10:15 5.0 Intake and Output 03/17/17 03/17/17 03/18/17 15:00 23:00 07:00 Intake Total 2722.50 ml 2883.86 ml 1616.46 ml Output Total 0 ml 1500 ml 0 ml Balance 2722.50 ml 1383.86 ml 1616.46 ml Exam HEENT examination; supple neck, positive JVD. No lymphadenopathy. Midline trachea. No thyromegaly. Orally intubated. Patient has bilateral intraocular lens implants. Has multiple carious teeth. Chest examination; diminished breath sound bilaterally with scattered crackles. S1-S2 audible, tachycardic, irregular rhythm. No murmurs. Abdomen examination; soft, nondistended. No organomegaly. Bowel sounds are very sluggish. Extremity exam is; trace edema. 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 Results Result Diagram: 03/18/17 0410 03/18/17 0410 Results 24 hrs Laboratory Tests Test 03/17/17 12:39 03/17/17 16:55 03/17/17 21:08 03/18/17 01:49 Bedside Glucose 281 H 174 77 34 *L Test 03/18/17 01:53 03/18/17 02:00 03/18/17 02:11 03/18/17 02:35 Bedside Glucose 52 L 78 147 Sodium Level 135 Potassium Level 3.3 L Chloride Level 104 Carbon Dioxide Level 20 L Anion Gap 14 Blood Urea Nitrogen 35 H Creatinine 2.50 #H Glucose Level 49 #*L Calcium Level 7.9 L Total Bilirubin 0.6 Direct Bilirubin 0.00 Indirect Bilirubin 0.6 Aspartate Amino Transf (AST/SGOT) < 8 L Alanine Aminotransferase (ALT/SGPT) 24 Alkaline Phosphatase 77 Total Protein 3.8 L Albumin 1.7 L Globulin 2.10 Albumin/Globulin Ratio 0.80 Test 03/18/17 04:10 03/18/17 04:18 03/18/17 05:28 03/18/17 05:48 White Blood Count 19.4 #H Red Blood Count 3.35 L Hemoglobin 9.9 L Hematocrit 30.9 L Mean Corpuscular Volume 92.2 Mean Corpuscular Hemoglobin 29.6 Mean Corpuscular Hemoglobin Concent 32.0 Red Cell Distribution Width 18.6 H Platelet Count 78 #L Mean Platelet Volume 11.1 H Neutrophils % Eosinophils % Neutrophils # Eosinophils # Prothrombin Time 20.9 #H Prothrombin Time Ratio 1.6 INR International Normalized Ratio 1.78 Sodium Level 132 L Potassium Level 3.4 L Chloride Level 105 Carbon Dioxide Level 20 L Anion Gap 10 Blood Urea Nitrogen 35 H Creatinine 2.51 H Glucose Level 91 # Calcium Level 8.3 L Magnesium Level 1.5 L Total Bilirubin 0.5 Direct Bilirubin 0.00 Indirect Bilirubin 0.5 Aspartate Amino Transf (AST/SGOT) 15 Alanine Aminotransferase (ALT/SGPT) 28 Alkaline Phosphatase 95 Total Protein 4.3 L Albumin 1.9 L Globulin 2.40 Albumin/Globulin Ratio 0.79 Digoxin Level 1.5 Bedside Glucose 119 74 105 Test 03/18/17 08:15 Bedside Glucose 73 Medications Medications Current Medications Norepinephrine/ Dextrose (Levophed/D5W) 500 ml @ 9.37 mls/hr TITRATE IV Last administered on 03/18/17 06:04; Admin Dose 24.37 MLS/HR; Start 03/15/17 at 23: 00 Ondansetron HCl (Zofran Inj) 4 mg Q6H PRN IV NAUSEA AND/OR VOMITING; Start at 01:00 Acetaminophen (Tylenol Liquid) 650 mg Q6H PRN PO PAIN LEVEL 1-3 OR FEVER; Start 03/16/17 at 01:00 Morphine Sulfate (morphine) 2 mg Q4H PRN IV PAIN LEVEL 7-10; Start 03/16/17 at 01:00 Pantoprazole (Protonix Iv) 40 mg DAILY@06 IV Last administered on 03/18/17 05: 30; Admin Dose 40 MG; Start 03/16/17 at 06:00 Diagnostic Test (Pha) 1 ea 1 ea 02 XX Last administered on 03/18/17 02:22; Admin Dose 1 EA; Start 03/17/17 at 02:00 Midazolam HCl 50 ml @ 1 mls/hr TITRATE IV Last administered on 03/17/17 11:04 ; Admin Dose 3 MLS/HR; Start 03/16/17 at 11:00 Aztreonam/Sodium Chloride (Azactam/NS) 50 ml @ 100 mls/hr Q12 IV Last administered on 03/17/17 21:09; Admin Dose 100 MLS/HR; Start 03/16/17 at 12:30 Collagenase (Santyl) 1 applic DAILY TOP Last administered on 03/18/17 09:02; Admin Dose 1 APPLIC; Start 03/16/17 at 18:30 Collagenase (Santyl) 1 applic PRN PRN TOP WOUND CARE; Start 03/16/17 at 18:30 Insulin Aspart (Novolog Insulin Pen) NOVOLOG *MODERATE* ALGORI... Q4 SC Last administered on 03/17/17 16:59; Admin Dose 2 UNIT; Start 03/17/17 at 05:00 Miscellaneous Information 1 ea NOTE XX ; Start 03/17/17 at 02:00 Glucose (Glutose) 15 gm Q15M PRN PO DECREASED GLUCOSE; Start 03/17/17 at 02:00 Glucose (Glutose) 22.5 gm Q15M PRN PO DECREASED GLUCOSE; Start 03/17/17 at 02: 00 Dextrose (D50w Syringe) 25 ml Q15M PRN IV DECREASED GLUCOSE; Start 03/17/17 at 02:00 Dextrose (D50w Syringe) 50 ml Q15M PRN IV DECREASED GLUCOSE Last administered on 03/18/17 05:36; Admin Dose 50 ML; Start 03/17/17 at 02:00 Glucagon (Glucagen) 1 mg Q15M PRN IM DECREASED GLUCOSE; Start 03/17/17 at 02:00 Glucose (Glutose) 15 gm Q15M PRN BUCCAL DECREASED GLUCOSE; Start 03/17/17 at 02 :00 Insulin Glargine 20 unit 20 unit DAILY@20 SC ; Start 03/17/17 at 20:00 Phenylephrine HCl 160 mg/Sodium Chloride 500 ml @ 18.75 mls/ hr TITRATE IV Last administered on 03/18/17 01:46; Admin Dose 56.25 MLS/HR; Start 03/17/17 at 23:45; Stop 03/18/17 at 23:44 Sodium Bicarbonate 100 meq/Dextrose/ Sodium Chloride 1,000 ml @ 80 mls/hr [id number] IV Last administered on 03/18/17 07:57; Admin Dose 80 MLS/HR; Start at 06:30 Amiodarone HCl/ Dextrose (Cordarone Iv/ D5W) 500 ml @ 0 mls/hr Q0M IV ; Start at 09:00; Stop 03/19/17 at 08:59 YNUIOR JUNIOR Mar 18, 2017 09:36
[2017-03-18 09:54] LABS: LYMPHOCYTES # 1.2 10^3/ul (0.8-2.9); MONOCYTE # 1.4 10^3/ul (0.3-0.9)
--- NOTE | 2017-03-18 11:14 | CONS ---
Date/Time of Note Date/Time of Note DATE: 03/18/17 TIME: 11:12 Assessment/Plan Assessment/Plan Additional Assessment/Plan 1. End-stage renal disease on hemodialysis, regular schedule is Tuesday, , Tuesday. 2. Atiral fibrillation with RVR 2. Cardiomyopathy with a severe systolic dysfunction with ejection fraction of 25%. 3. History of hypertension. 4. History of hypothyroidism. 5. History of previous cerebrovascular accident. 6. Moderate to large bilateral pleural effusion. 7. Acute respiratory failure, multifactorial secondary to sepsis, hypotension pleural effusions and fluid overload, currently intubated on ventilator. PLAN: S/p HD 3 days in a row- 10 L removed, rate controlled with amiodarone and digoxin INR 1.78- s/p 3 FFp with HD today, US guided thoracentesis ordered for today will pt on list for HD tomorrow will follow up Consultation Date/Type/Reason Admit Date/Time Mar 15, 2017 at 20:26 Initial Consult Date 03/16/17 Type of Consultation: NEPHROLOGY Referring Provider: VASILE DEMPSEY 24 HR Interval Summary Free Text/Dictation pt INR 1.78- received 3 units FFP during HD today, s/p HD 3 days in a row, remains intubated, Exam/Review of Systems Vital Signs Vitals Vital Signs Date Time Temp Pulse Resp B/P Pulse Ox O2 Delivery O2 Flow Rate FiO2 03/18/17 10:50 142 03/18/17 09:41 20 96 50 03/18/17 08:30 106/84 03/18/17 08:00 98.8 Mechanical Ventilator 03/16/17 10:15 5.0 Intake and Output 03/17/17 03/17/17 03/18/17 15:00 23:00 07:00 Intake Total 2722.50 ml 2883.86 ml 1616.46 ml Output Total 0 ml 1500 ml 0 ml Balance 2722.50 ml 1383.86 ml 1616.46 ml Exam HEENT: ET tube in place. NECK: Jugular venous distention. LUNGS: Bilateral coarse breath sounds with minimal basilar crackles present. HEART: S1, S2, tachycardia. Irregularly irregular. ABDOMEN: Soft, nontender, nondistended, obese. EXTREMITIES: 1 to 2+ pitting edema. The patient has right upper chest tunneled hemodialysis catheter in place. NEUROLOGICAL: Uncooperative for exam since the patient is currently sedated, intubated. PSYCHIATRIC: Appropriate. SKIN: No rash. Results Result Diagram: 03/18/17 0410 03/18/17 0410 Results 24 hrs Laboratory Tests Test 03/17/17 12:39 03/17/17 16:55 03/17/17 21:08 03/18/17 01:49 Bedside Glucose 281 H 174 77 34 *L Test 03/18/17 01:53 03/18/17 02:00 03/18/17 02:11 03/18/17 02:35 Bedside Glucose 52 L 78 147 Sodium Level 135 Potassium Level 3.3 L Chloride Level 104 Carbon Dioxide Level 20 L Anion Gap 14 Blood Urea Nitrogen 35 H Creatinine 2.50 #H Glucose Level 49 #*L Calcium Level 7.9 L Total Bilirubin 0.6 Direct Bilirubin 0.00 Indirect Bilirubin 0.6 Aspartate Amino Transf (AST/SGOT) < 8 L Alanine Aminotransferase (ALT/SGPT) 24 Alkaline Phosphatase 77 Total Protein 3.8 L Albumin 1.7 L Globulin 2.10 Albumin/Globulin Ratio 0.80 Test 03/18/17 04:10 03/18/17 04:18 03/18/17 05:28 03/18/17 05:48 White Blood Count 19.4 #H Red Blood Count 3.35 L Hemoglobin 9.9 L Hematocrit 30.9 L Mean Corpuscular Volume 92.2 Mean Corpuscular Hemoglobin 29.6 Mean Corpuscular Hemoglobin Concent 32.0 Red Cell Distribution Width 18.6 H Platelet Count 78 #L Mean Platelet Volume 11.1 H Neutrophils % 67.0 Band Neutrophils % 20.0 H Lymphocytes % 6.0 L Monocytes % 7.0 Eosinophils % Neutrophils # 13.0 H Lymphocytes # 1.2 Monocytes # 1.4 H Eosinophils # Differential Comment MANUAL DIFF Prothrombin Time 20.9 #H Prothrombin Time Ratio 1.6 INR International Normalized Ratio 1.78 Sodium Level 132 L Potassium Level 3.4 L Chloride Level 105 Carbon Dioxide Level 20 L Anion Gap 10 Blood Urea Nitrogen 35 H Creatinine 2.51 H Glucose Level 91 # Calcium Level 8.3 L Magnesium Level 1.5 L Total Bilirubin 0.5 Direct Bilirubin 0.00 Indirect Bilirubin 0.5 Aspartate Amino Transf (AST/SGOT) 15 Alanine Aminotransferase (ALT/SGPT) 28 Alkaline Phosphatase 95 Total Protein 4.3 L Albumin 1.9 L Globulin 2.40 Albumin/Globulin Ratio 0.79 Digoxin Level 1.5 Bedside Glucose 119 74 105 Test 03/18/17 08:15 Bedside Glucose 73 Medications Medications Current Medications Norepinephrine/ Dextrose (Levophed/D5W) 500 ml @ 9.37 mls/hr TITRATE IV Last administered on 03/18/17 06:04; Admin Dose 24.37 MLS/HR; Start 03/15/17 at 23: 00 Ondansetron HCl (Zofran Inj) 4 mg Q6H PRN IV NAUSEA AND/OR VOMITING; Start at 01:00 Acetaminophen (Tylenol Liquid) 650 mg Q6H PRN PO PAIN LEVEL 1-3 OR FEVER; Start 03/16/17 at 01:00 Morphine Sulfate (morphine) 2 mg Q4H PRN IV PAIN LEVEL 7-10; Start 03/16/17 at 01:00 Pantoprazole (Protonix Iv) 40 mg DAILY@06 IV Last administered on 03/18/17 05: 30; Admin Dose 40 MG; Start 03/16/17 at 06:00 Diagnostic Test (Pha) 1 ea 1 ea 02 XX Last administered on 03/18/17 02:22; Admin Dose 1 EA; Start 03/17/17 at 02:00 Midazolam HCl 50 ml @ 1 mls/hr TITRATE IV Last administered on 03/17/17 11:04 ; Admin Dose 3 MLS/HR; Start 03/16/17 at 11:00 Aztreonam/Sodium Chloride (Azactam/NS) 50 ml @ 100 mls/hr Q12 IV Last administered on 03/17/17 21:09; Admin Dose 100 MLS/HR; Start 03/16/17 at 12:30 Collagenase (Santyl) 1 applic DAILY TOP Last administered on 03/18/17 09:02; Admin Dose 1 APPLIC; Start 03/16/17 at 18:30 Collagenase (Santyl) 1 applic PRN PRN TOP WOUND CARE; Start 03/16/17 at 18:30 Insulin Aspart (Novolog Insulin Pen) NOVOLOG *MODERATE* ALGORI... Q4 SC Last administered on 03/17/17 16:59; Admin Dose 2 UNIT; Start 03/17/17 at 05:00 Miscellaneous Information 1 ea NOTE XX ; Start 03/17/17 at 02:00 Glucose (Glutose) 15 gm Q15M PRN PO DECREASED GLUCOSE; Start 03/17/17 at 02:00 Glucose (Glutose) 22.5 gm Q15M PRN PO DECREASED GLUCOSE; Start 03/17/17 at 02: 00 Dextrose (D50w Syringe) 25 ml Q15M PRN IV DECREASED GLUCOSE; Start 03/17/17 at 02:00 Dextrose (D50w Syringe) 50 ml Q15M PRN IV DECREASED GLUCOSE Last administered on 03/18/17 05:36; Admin Dose 50 ML; Start 03/17/17 at 02:00 Glucagon (Glucagen) 1 mg Q15M PRN IM DECREASED GLUCOSE; Start 03/17/17 at 02:00 Glucose (Glutose) 15 gm Q15M PRN BUCCAL DECREASED GLUCOSE; Start 03/17/17 at 02 :00 Insulin Glargine 20 unit 20 unit DAILY@20 SC ; Start 03/17/17 at 20:00 Phenylephrine HCl 160 mg/Sodium Chloride 500 ml @ 18.75 mls/ hr TITRATE IV Last administered on 03/18/17 10:50; Admin Dose 56.25 MLS/HR; Start 03/17/17 at 23:45; Stop 03/18/17 at 23:44 Sodium Bicarbonate 100 meq/Dextrose/ Sodium Chloride 1,000 ml @ 80 mls/hr [id number] IV Last administered on 03/18/17 07:57; Admin Dose 80 MLS/HR; Start at 06:30 Amiodarone HCl/ Dextrose (Cordarone Iv/ D5W) 500 ml @ 0 mls/hr Q0M IV Last administered on 03/18/17 10:05; Admin Dose 33.4 MLS/HR; Start 03/18/17 at 09:00 ; Stop 03/19/17 at 08:59 VIRIDIANA VILLARREAL MD Mar 18, 2017 11:14
[2017-03-18] MEDS: AZTREONAM 0.5 GM in SOD CHLORIDE 0.9% 50 ML IV SCH ×2 (11:57→21:26)
--- NOTE | 2017-03-18 14:36 | PN ---
Date/Time of Note Date/Time of Note DATE: 03/18/17 TIME: 14:34 Assessment/Plan VTE Prophylaxis VTE Prophylaxis Intervention: SCD's Assessment/Plan Chief Complaint/Hosp Course 1. Hypotension-may be baseline as Lactic Acid is nl -cont pressor support for now 2. End-stage renal disease on dialysis -HD per Renal 3. Hypercapnic Resp Failure -Intubated 4. Dementia with Debility -pt made into a DNR today after discussion about code status with daughter -CT Brain shows advanced atrophy 5. History of hypothyroidism. 6. Old lacunar stroke. 7. Moderate to large bilateral pleural effusion -HD 8. AG Acidosis 2/2 Resp and Renal-improved -Intubated -cont Bicarb gtt 9. Cardiomyopathy with severe systolic dysfunction with EF of 25% 10. History of diabetes -cont NISS PPx- SCD's Problems: Subjective 24 Hr Interval Summary Subjective hx not possible: pt non-verbal Exam/Review of Systems Vital Signs Vitals Vital Signs Date Time Temp Pulse Resp B/P Pulse Ox O2 Delivery O2 Flow Rate FiO2 03/18/17 14:01 112 20 97 50 03/18/17 13:45 122/76 03/18/17 13:00 Mechanical Ventilator 03/18/17 12:00 98.5 03/16/17 10:15 5.0 Intake and Output 03/17/17 03/17/17 03/18/17 15:00 23:00 07:00 Intake Total 2722.50 ml 2883.86 ml 1616.46 ml Output Total 0 ml 1500 ml 0 ml Balance 2722.50 ml 1383.86 ml 1616.46 ml Exam Constitutional: non-verbal Respiratory: clear to auscultation Cardiovascular: regular rate and rhythm Gastrointestinal: soft, No distended Musculoskeletal: nl extremities to inspection Results Result Diagram: 03/18/17 0410 03/18/17 0410 Results 24 hrs Laboratory Tests Test 03/17/17 16:55 03/17/17 21:08 03/18/17 01:49 03/18/17 01:53 Bedside Glucose 174 77 34 *L 52 L Test 03/18/17 02:00 03/18/17 02:11 03/18/17 02:35 03/18/17 04:10 Sodium Level 135 132 L Potassium Level 3.3 L 3.4 L Chloride Level 104 105 Carbon Dioxide Level 20 L 20 L Anion Gap 14 10 Blood Urea Nitrogen 35 H 35 H Creatinine 2.50 #H 2.51 H Glucose Level 49 #*L 91 # Calcium Level 7.9 L 8.3 L Total Bilirubin 0.6 0.5 Direct Bilirubin 0.00 0.00 Indirect Bilirubin 0.6 0.5 Aspartate Amino Transf (AST/SGOT) < 8 L 15 Alanine Aminotransferase (ALT/SGPT) 24 28 Alkaline Phosphatase 77 95 Total Protein 3.8 L 4.3 L Albumin 1.7 L 1.9 L Globulin 2.10 2.40 Albumin/Globulin Ratio 0.80 0.79 Bedside Glucose 78 147 White Blood Count 19.4 #H Red Blood Count 3.35 L Hemoglobin 9.9 L Hematocrit 30.9 L Mean Corpuscular Volume 92.2 Mean Corpuscular Hemoglobin 29.6 Mean Corpuscular Hemoglobin Concent 32.0 Red Cell Distribution Width 18.6 H Platelet Count 78 #L Mean Platelet Volume 11.1 H Neutrophils % 67.0 Band Neutrophils % 20.0 H Lymphocytes % 6.0 L Monocytes % 7.0 Eosinophils % Neutrophils # 13.0 H Lymphocytes # 1.2 Monocytes # 1.4 H Eosinophils # Differential Comment MANUAL DIFF Prothrombin Time 20.9 #H Prothrombin Time Ratio 1.6 INR International Normalized Ratio 1.78 Magnesium Level 1.5 L Digoxin Level 1.5 Test 03/18/17 04:18 03/18/17 05:28 03/18/17 05:48 03/18/17 08:15 Bedside Glucose 119 74 105 73 Test 03/18/17 13:32 Bedside Glucose 96 Medications Medications Current Medications Norepinephrine/ Dextrose (Levophed/D5W) 500 ml @ 9.37 mls/hr TITRATE IV Last administered on 03/18/17t 06:04; Admin Dose 24.37 MLS/HR; Start 03/15/17 at 23: 00 Ondansetron HCl (Zofran Inj) 4 mg Q6H PRN IV NAUSEA AND/OR VOMITING; Start at 01:00 Acetaminophen (Tylenol Liquid) 650 mg Q6H PRN PO PAIN LEVEL 1-3 OR FEVER; Start 03/16/17 at 01:00 Morphine Sulfate (morphine) 2 mg Q4H PRN IV PAIN LEVEL 7-10; Start 03/16/17 at 01:00 Pantoprazole (Protonix Iv) 40 mg DAILY@06 IV Last administered on 03/18/17 05: 30; Admin Dose 40 MG; Start 03/16/17 at 06:00 Diagnostic Test (Pha) 1 ea 1 ea 02 XX Last administered on 03/18/17 02:22; Admin Dose 1 EA; Start 03/17/17 at 02:00 Midazolam HCl 50 ml @ 1 mls/hr TITRATE IV Last administered on 03/17/17 11:04 ; Admin Dose 3 MLS/HR; Start 03/16/17 at 11:00 Aztreonam/Sodium Chloride (Azactam/NS) 50 ml @ 100 mls/hr Q12 IV Last administered on 03/18/17 11:57; Admin Dose 100 MLS/HR; Start 03/16/17 at 12:30 Collagenase (Santyl) 1 applic DAILY TOP Last administered on 03/18/17 09:02; Admin Dose 1 APPLIC; Start 03/16/17 at 18:30 Collagenase (Santyl) 1 applic PRN PRN TOP WOUND CARE; Start 03/16/17 at 18:30 Insulin Aspart (Novolog Insulin Pen) NOVOLOG *MODERATE* ALGORI... Q4 SC Last administered on 03/17/17 16:59; Admin Dose 2 UNIT; Start 03/17/17 at 05:00 Miscellaneous Information 1 ea NOTE XX ; Start 03/17/17 at 02:00 Glucose (Glutose) 15 gm Q15M PRN PO DECREASED GLUCOSE; Start 03/17/17 at 02:00 Glucose (Glutose) 22.5 gm Q15M PRN PO DECREASED GLUCOSE; Start 03/17/17 at 02: 00 Dextrose (D50w Syringe) 25 ml Q15M PRN IV DECREASED GLUCOSE; Start 03/17/17 at 02:00 Dextrose (D50w Syringe) 50 ml Q15M PRN IV DECREASED GLUCOSE Last administered on 03/18/17 05:36; Admin Dose 50 ML; Start 03/17/17 at 02:00 Glucagon (Glucagen) 1 mg Q15M PRN IM DECREASED GLUCOSE; Start 03/17/17 at 02:00 Glucose (Glutose) 15 gm Q15M PRN BUCCAL DECREASED GLUCOSE; Start 03/17/17 at 02 :00 Insulin Glargine 20 unit 20 unit DAILY@20 SC ; Start 03/17/17 at 20:00 Phenylephrine HCl 160 mg/Sodium Chloride 500 ml @ 18.75 mls/ hr TITRATE IV Last administered on 03/18/17 10:50; Admin Dose 56.25 MLS/HR; Start 03/17/17 at 23:45; Stop 03/18/17 at 23:44 Sodium Bicarbonate 100 meq/Dextrose/ Sodium Chloride 1,000 ml @ 80 mls/hr [id number] IV Last administered on 03/18/17 07:57; Admin Dose 80 MLS/HR; Start at 06:30 Amiodarone HCl/ Dextrose (Cordarone Iv/ D5W) 500 ml @ 0 mls/hr Q0M IV Last administered on 03/18/17 10:05; Admin Dose 33.4 MLS/HR; Start 03/18/17 at 09:00 ; Stop 03/19/17 at 08:59 VASILE DEMSPEY Mar 18, 2017 14:36
[2017-03-18] MEDS ORDERED: MAGNESIUM SULFATE 2 GM/50 ML 50 ML IVPB ONE (15:00)
--- NOTE | 2017-03-18 16:05 | PN ---
DATE: 03/18/2017 CARDIOLOGY FOLLOWUP SUBJECTIVE: The patient remains in atrial fibrillation. Intermittently elevated heart rate. She w as started back on amiodarone drip. The patient is nonverbal on the vent, maxed out on Chris-Synephri ne drip as well as on the Levophed drip. Status post dialysis today. She is in the ICU on the vent . MEDICATIONS: Reviewed as per medication reconciliation, personally reviewed. PHYSICAL EXAMINATION: VITAL SIGNS: Temperature 98.5, heart rate of 112, blood pressure of 120/78, respiratory rate of 24, saturating 97%. HEENT: Normocephalic, atraumatic. Status post intubation on the vent. Eyes are closed. CARDIOVASCULAR: Irregularly irregular, systolic murmur. PULMONARY: With mild rhonchi, diffuse. GASTROINTESTINAL: Soft, nontender. EXTREMITIES: With ankle edema. NEUROLOGIC: Sedated. There are multiple ecchymoses. LABORATORY: Chest x-ray showed pulmonary vascular congestion/edema. ____ increased. INR is 1.78 t marylin, sodium 132, potassium 3.4, BUN of 35, creatinine 2.51, glucose of 91, magnesium is 1.5. Album in is 1.7 and 1.9. WBC of 19.4, hemoglobin 9.9, platelets of 78. ASSESSMENT AND PLAN: 1. Severe sepsis. 2. Shock, combination of cardiogenic and septic, probably, 3. Severe lactic acidosis. 4. Renal failure on dialysis. 5. Hypoxemia respiratory failure, status post intubation on the vent. 5. Atrial fibrillation with rapid ventricular response. Her severe cardiomyopathy appeared to be n onischemic. 6. Dementia. 7. History of cerebrovascular accident. 8. Bilateral pleural effusion. 9. History of diabetes. 10. Renal failure on dialysis. RECOMMENDATIONS: We will continue with the current cardiac care for now. We will continue with ami odarone for the time being. Digoxin level is 1.5. Will hold off on any more digoxin until we furth er reassess. Digoxin level will be checked tomorrow. Multiple pressors will be continued for now. Code status DNR. We will further discuss with family regarding possibility of comfort care. Will hold off on Coumadin now and decision for possible thoracentesis. Vent support will be continued. Continue with the ICU care. More than 38 minutes of critical care time was spent managing this patient excluding procedures. Di scussed with the staff and discussed with Dr. Vinson. Dictated By: KATIUSKA LOPEZ/EMANUEL Conf#: [id number] DID#: [id number]
[2017-03-18] MEDS ORDERED: LIDOCAINE 1% (MPF) 5 ML VIAL ONE (18:32)
[2017-03-18] MEDS: INSULIN GLARGINE [LANtus] 3 ML PEN SC SCH (20:00)
--- NOTE | 2017-03-18 20:11 | RADRPT ---
PROCEDURE: Ultrasound guided thoracentesis CLINICAL INDICATION: Pleural effusion TECHNIQUE: The risks benefits and alternatives of the procedure were explained to the patient. In formed written consent was obtained. A time-out was performed. The overlying skin of the left lowe r lateral chest was prepped and draped in the usual fashion. 5 cc of Xylocaine was injected locally for pain control. Under ultrasound guidance, a 5-Micronesian catheter was introduced into the left pleu ral space without difficulty. COMPARISON: Chest x-ray from 03/18/2017 FINDINGS: 1750 cc of clear yellow fluid was aspirated from the left pleural space. The fluid was not sent to t he lab for further analysis. IMPRESSION: 1. Successful left chest ultrasound guided thoracentesis. 2. No immediate complications occurred. RPTAT: QQ .Eddie Boyer MD, Date Time Electronically viewed and signed by .Eddie Boyer MD, on 03/18/2017 20:10 .A/
--- NOTE | 2017-03-18 21:00 | RADRPT ---
PROCEDURE: XR Chest. CLINICAL INDICATION: Status post thoracentesis TECHNIQUE: Single frontal chest x-ray. COMPARISON: at 6:03 AM FINDINGS: The left pleural effusion is significantly decreased, status post interval thoracentesis. No eviden ce of pneumothorax. There is a persistent small right pleural effusion with atelectasis as well as moderate congestion. The heart size is prominent. Aortic atherosclerotic calcifications are presen t. The endotracheal tube right Perma-Cath, and enteric tube are stable. The enteric tube side port is in the region of the distal esophagus. Bilateral shoulder degenerative changes are noted. IMPRESSION: 1. Decrease left pleural effusion, status post thoracentesis. No evidence of pneumothorax. 2. Persistent cardiomegaly with mild to moderate congestion and small right pleural effusion, not s ignificantly change. 3. Endotracheal tube, right Perma-Cath, and enteric tube in place. The enteric tube side port is i n this esophagus. 4. Aortic atherosclerosis. RPTAT: QQ .Eddie Boyer MD, MD Date Time Electronically viewed and signed by .Eddie Boyer MD, on 03/18/2017 20:59 .A/
[2017-03-19] VITALS (102 sets, daily range): BP systolic 76–132; BP diastolic 44–87; PULSE 84–108; RESP 16–23
[2017-03-19] MEDS: INSULIN ASPART [NOVOLOG] 3 ML PEN SC SCH ×6 (01:06→20:50)
[2017-03-19] MEDS: ACCU-CHEK XX SCH (01:17)
[2017-03-19] MEDS: PANTOPRAZOLE 40 MG INJ IV SCH (05:06)
[2017-03-19] MEDS: PHENYLephrine 160 MG in DEXTROSE 5% 484 ML IV SCH ×2 (05:12→19:31)
[2017-03-19 05:27] LABS: ADD SCAN DIFF NO
[2017-03-19 05:58] LABS: ABNORMAL IP MESSAGE 1; HEMATOCRIT 24.8 % (37.0-47.0); MEAN CORPUSCULAR HGB CONC 32.3 g/dl (32.0-37.0); MEAN CORPUSCULAR VOLUME 92.9 fl (82.0-101.0); MEAN PLATELET VOLUME 11.2 fl (7.4-10.4); RED BLOOD COUNT 2.67 10^6/ul (4.20-5.40); RED CELL DISTRIBUTION WIDTH 18.7 % (11.5-14.5)
[2017-03-19 06:07] LABS: CREATININE 2.13 mg/dl (0.44-1.00)
[2017-03-19 06:08] LABS: CALCIUM 8.4 mg/dl (8.4-10.2); MAGNESIUM 1.9 mg/dl (1.7-2.5)
[2017-03-19] MEDS: POTASSIUM CHLORIDE 50 ML IVPB PRN ×3 (06:41→09:28)
--- NOTE | 2017-03-19 09:02 | CONS ---
Date/Time of Note Date/Time of Note DATE: 03/19/17 TIME: 08:58 Assessment/Plan Assessment/Plan Additional Assessment/Plan Chest x-ray from today is pending. Ventilator settings; AC of 20, tidal volume 500, PEEP of 0, 50% FiO2. Assessment recommendations; 1. Patient admitted for respiratory failure due to underlying cardia myopathy and pulmonary edema. 2. Improved mental status. 3. Possibly superimposed pneumonia. 4. End-stage renal disease, on hemodialysis. 5. Atrial fibrillation. 6. Bilateral pleural effusions. 7. Coagulopathy. Continue current supportive care. Patient prognosis is extremely poor. The family likely may opt for comfort care measures. 35 minutes of critical care time was spent evaluating the patient. Consultation Date/Type/Reason Admit Date/Time Mar 15, 2017 at 20:26 Initial Consult Date 03/16/17 Type of Consultation: Pulmonary/critical care Referring Provider: VASILE DEMPSEY 24 HR Interval Summary Free Text/Dictation Patient condition remains critical. Still requiring high-dose pressor support with combination drips. Patient mental status however is significantly improved to the point where the patient is readily arousable. General exam; elderly lady, orally intubated, awake. Currently in no distress. Exam/Review of Systems Vital Signs Vitals Vital Signs Date Time Temp Pulse Resp B/P Pulse Ox O2 Delivery O2 Flow Rate FiO2 03/19/17 07:24 94 20 99 03/19/17 06:45 107/67 03/19/17 05:05 50 03/19/17 03:00 Mechanical Ventilator 03/19/17 02:00 98.2 03/16/17 10:15 5.0 Intake and Output 03/18/17 03/18/17 03/19/17 15:00 23:00 07:00 Intake Total 1834.285 ml 520.025 ml 900 ml Output Total 2800 ml 1750 ml Balance -965.715 ml -1229.975 ml 900 ml Exam HEENT exam is; supple neck, positive JVD. No lymphadenopathy. Midline trachea. No thyromegaly. Patient has bilateral intraocular lens implants. Has fair dentition. Chest examination; diminished breath on lung bases bilaterally. Upper lobes are clear. S1-S2 audible, there is a soft systolic ejection murmur best heard in the aortic area grade 1/6. Irregular rhythm. Abdomen examination; soft, nondistended, no organomegaly. Bowel sounds audible. Extremity examination; no peripheral edema. Next KOSHER SEALER examination; patient is awake and follows simple commands like eye blinking and mouth opening. Results Result Diagram: 03/19/17 0500 03/19/17 0500 Results 24 hrs Laboratory Tests Test 03/18/17 13:32 03/18/17 15:40 03/18/17 16:53 03/18/17 20:40 Bedside Glucose 96 104 133 Lactic Acid Level 2.9 H Test 03/19/17 01:02 03/19/17 05:00 03/19/17 05:06 Bedside Glucose 160 177 White Blood Count 11.0 #H Red Blood Count 2.67 #L Hemoglobin 8.0 L Hematocrit 24.8 L Mean Corpuscular Volume 92.9 Mean Corpuscular Hemoglobin 30.0 Mean Corpuscular Hemoglobin Concent 32.3 Red Cell Distribution Width 18.7 H Platelet Count Pending Mean Platelet Volume 11.2 H Neutrophils % Eosinophils % Neutrophils # Eosinophils # Sodium Level 138 Potassium Level 3.0 L Chloride Level 103 Carbon Dioxide Level 25 Anion Gap 13 Blood Urea Nitrogen 27 H Creatinine 2.13 H Glucose Level 165 Lactic Acid Level 4.2 *H Calcium Level 8.4 Magnesium Level 1.9 Digoxin Level 0.4 #L Medications Medications Current Medications Norepinephrine/ Dextrose (Levophed/D5W) 500 ml @ 9.37 mls/hr TITRATE IV Last administered on 03/18/17 19:59; Admin Dose 562.5 MLS/HR; Start 03/15/17 at 23: 00 Ondansetron HCl (Zofran Inj) 4 mg Q6H PRN IV NAUSEA AND/OR VOMITING; Start at 01:00 Acetaminophen (Tylenol Liquid) 650 mg Q6H PRN PO PAIN LEVEL 1-3 OR FEVER; Start 03/16/17 at 01:00 Morphine Sulfate (morphine) 2 mg Q4H PRN IV PAIN LEVEL 7-10; Start 03/16/17 at 01:00 Pantoprazole (Protonix Iv) 40 mg DAILY@06 IV Last administered on 03/19/17 05: 06; Admin Dose 40 MG; Start 03/16/17 at 06:00 Diagnostic Test (Pha) 1 ea 1 ea 02 XX Last administered on 03/18/17 02:22; Admin Dose 1 EA; Start 03/17/17 at 02:00 Midazolam HCl 50 ml @ 1 mls/hr TITRATE IV Last administered on 03/17/17 11:04 ; Admin Dose 3 MLS/HR; Start 03/16/17 at 11:00 Aztreonam/Sodium Chloride (Azactam/NS) 50 ml @ 100 mls/hr Q12 IV Last administered on 03/18/17 21:26; Admin Dose 100 MLS/HR; Start 03/16/17 at 12:30 Collagenase (Santyl) 1 applic DAILY TOP Last administered on 03/18/17 09:02; Admin Dose 1 APPLIC; Start 03/16/17 at 18:30 Collagenase (Santyl) 1 applic PRN PRN TOP WOUND CARE; Start 03/16/17 at 18:30 Insulin Aspart (Novolog Insulin Pen) NOVOLOG *MODERATE* ALGORI... Q4 SC Last administered on 03/19/17 05:10; Admin Dose 2 UNIT; Start 03/17/17 at 05:00 Miscellaneous Information 1 ea NOTE XX ; Start 03/17/17 at 02:00 Glucose (Glutose) 15 gm Q15M PRN PO DECREASED GLUCOSE; Start 03/17/17 at 02:00 Glucose (Glutose) 22.5 gm Q15M PRN PO DECREASED GLUCOSE; Start 03/17/17 at 02: 00 Dextrose (D50w Syringe) 25 ml Q15M PRN IV DECREASED GLUCOSE; Start 03/17/17 at 02:00 Dextrose (D50w Syringe) 50 ml Q15M PRN IV DECREASED GLUCOSE Last administered on 03/18/17 05:36; Admin Dose 50 ML; Start 03/17/17 at 02:00 Glucagon (Glucagen) 1 mg Q15M PRN IM DECREASED GLUCOSE; Start 03/17/17 at 02:00 Glucose (Glutose) 15 gm Q15M PRN BUCCAL DECREASED GLUCOSE; Start 03/17/17 at 02 :00 Insulin Glargine 20 unit 20 unit DAILY@20 SC ; Start 03/17/17 at 20:00 Sodium Bicarbonate 100 meq/Dextrose/ Sodium Chloride 1,000 ml @ 80 mls/hr [id number] IV Last administered on 03/18/17 21:26; Admin Dose 80 MLS/HR; Start at 06:30 Amiodarone HCl 900 mg/Dextrose 500 ml @ 0 mls/hr Q0M IV Last administered on 10:05; Admin Dose 33.4 MLS/HR; Start 03/18/17 at 09:00; Stop 03/19/17 at 08:59 Phenylephrine HCl/ Dextrose (Chris-Syneph/D5W) 500 ml @ 18.75 mls/ hr TITRATE IV Last administered on 03/19/17 05:12; Admin Dose 43.12 MLS/HR; Start 03/19/17 at 02:30 YUNIOR JUNIOR Mar 19, 2017 09:02
[2017-03-19] MEDS: AZTREONAM 0.5 GM in SOD CHLORIDE 0.9% 50 ML IV SCH ×2 (09:28→20:50)
[2017-03-19] MEDS: COLLAGENASE 30 GM TUBE TOP SCH (09:33)
--- NOTE | 2017-03-19 10:24 | CONS ---
Date/Time of Note Date/Time of Note DATE: 03/19/17 TIME: 10:22 Assessment/Plan Assessment/Plan Additional Assessment/Plan 1. End-stage renal disease on hemodialysis, regular schedule is Tuesday, , Tuesday. 2. Atiral fibrillation with RVR 2. Cardiomyopathy with a severe systolic dysfunction with ejection fraction of 25%. 3. History of hypertension. 4. History of hypothyroidism. 5. History of previous cerebrovascular accident. 6. Moderate to large bilateral pleural effusion. 7. Acute respiratory failure, multifactorial secondary to sepsis, hypotension pleural effusions and fluid overload, currently intubated on ventilator. 8. Moderate pleural effusion s/p let thoracentesis 03/18/17- 1.75 L drained PLAN: S/p HD 3 days in a row- 10 L removed, plan for HD today , next HD we will plan on Tuesday rate controlled with amiodarone and digoxin s/p left thoracentesis yesterday 1.75 L removed, chest x ray stable will follow up Consultation Date/Type/Reason Admit Date/Time Mar 15, 2017 at 20:26 Initial Consult Date 03/16/17 Type of Consultation: NEPHROLOGY Reason for Consultation acute fluid overload, hyperkalemia, VDRF< severe acidosis Referring Provider: VASILE DEMPSEY 24 HR Interval Summary Free Text/Dictation s/p HD 3 days in a row, s/p thoracentesis 1.75 removed from left chest Exam/Review of Systems Vital Signs Vitals Vital Signs Date Time Temp Pulse Resp B/P Pulse Ox O2 Delivery O2 Flow Rate FiO2 03/19/17 09:42 97 20 100 55 03/19/17 09:30 94/72 Mechanical Ventilator 03/19/17 07:30 98.3 03/16/17 10:15 5.0 Intake and Output 03/18/17 03/18/17 03/19/17 14:59 22:59 06:59 Intake Total 1806.505 ml 708.425 ml 900 ml Output Total 2800 ml 1750 ml Balance -993.495 ml -1041.575 ml 900 ml Exam HEENT: ET tube in place. NECK: Jugular venous distention. LUNGS: Bilateral coarse breath sounds with minimal basilar crackles present. HEART: S1, S2, tachycardia. Irregularly irregular. ABDOMEN: Soft, nontender, nondistended, obese. EXTREMITIES: 1 to 2+ pitting edema. The patient has right upper chest tunneled hemodialysis catheter in place. NEUROLOGICAL: Uncooperative for exam since the patient is currently sedated, intubated. PSYCHIATRIC: Appropriate. SKIN: No rash. Results Result Diagram: 03/19/17 0500 03/19/17 0500 Results 24 hrs Laboratory Tests Test 03/18/17 13:32 03/18/17 15:40 03/18/17 16:53 03/18/17 20:40 Bedside Glucose 96 104 133 Lactic Acid Level 2.9 H Test 03/19/17 01:02 03/19/17 05:00 03/19/17 05:06 03/19/17 09:29 Bedside Glucose 160 177 210 White Blood Count 11.0 #H Red Blood Count 2.67 #L Hemoglobin 8.0 L Hematocrit 24.8 L Mean Corpuscular Volume 92.9 Mean Corpuscular Hemoglobin 30.0 Mean Corpuscular Hemoglobin Concent 32.3 Red Cell Distribution Width 18.7 H Platelet Count Pending Mean Platelet Volume 11.2 H Neutrophils % Eosinophils % Neutrophils # Eosinophils # Sodium Level 138 Potassium Level 3.0 L Chloride Level 103 Carbon Dioxide Level 25 Anion Gap 13 Blood Urea Nitrogen 27 H Creatinine 2.13 H Glucose Level 165 Lactic Acid Level 4.2 *H Calcium Level 8.4 Magnesium Level 1.9 Digoxin Level 0.4 #L Medications Medications Current Medications Norepinephrine/ Dextrose (Levophed/D5W) 500 ml @ 9.37 mls/hr TITRATE IV Last administered on 03/18/17 19:59; Admin Dose 562.5 MLS/HR; Start 03/15/17 at 23: 00 Ondansetron HCl (Zofran Inj) 4 mg Q6H PRN IV NAUSEA AND/OR VOMITING; Start at 01:00 Acetaminophen (Tylenol Liquid) 650 mg Q6H PRN PO PAIN LEVEL 1-3 OR FEVER; Start 03/16/17 at 01:00 Morphine Sulfate (morphine) 2 mg Q4H PRN IV PAIN LEVEL 7-10; Start 03/16/17 at 01:00 Pantoprazole (Protonix Iv) 40 mg DAILY@06 IV Last administered on 03/19/17 05: 06; Admin Dose 40 MG; Start 03/16/17 at 06:00 Diagnostic Test (Pha) 1 ea 1 ea 02 XX Last administered on 03/18/17 02:22; Admin Dose 1 EA; Start 03/17/17 at 02:00 Midazolam HCl 50 ml @ 1 mls/hr TITRATE IV Last administered on 03/17/17 11:04 ; Admin Dose 3 MLS/HR; Start 03/16/17 at 11:00 Aztreonam/Sodium Chloride (Azactam/NS) 50 ml @ 100 mls/hr Q12 IV Last administered on 03/19/17 09:28; Admin Dose 100 MLS/HR; Start 03/16/17 at 12:30 Collagenase (Santyl) 1 applic DAILY TOP Last administered on 03/19/17 09:33; Admin Dose 1 APPLIC; Start 03/16/17 at 18:30 Collagenase (Santyl) 1 applic PRN PRN TOP WOUND CARE; Start 03/16/17 at 18:30 Insulin Aspart (Novolog Insulin Pen) NOVOLOG *MODERATE* ALGORI... Q4 SC Last administered on 03/19/17 09:32; Admin Dose 4 UNIT; Start 03/17/17 at 05:00 Miscellaneous Information 1 ea NOTE XX ; Start 03/17/17 at 02:00 Glucose (Glutose) 15 gm Q15M PRN PO DECREASED GLUCOSE; Start 03/17/17 at 02:00 Glucose (Glutose) 22.5 gm Q15M PRN PO DECREASED GLUCOSE; Start 03/17/17 at 02: 00 Dextrose (D50w Syringe) 25 ml Q15M PRN IV DECREASED GLUCOSE; Start 03/17/17 at 02:00 Dextrose (D50w Syringe) 50 ml Q15M PRN IV DECREASED GLUCOSE Last administered on 03/18/17 05:36; Admin Dose 50 ML; Start 03/17/17 at 02:00 Glucagon (Glucagen) 1 mg Q15M PRN IM DECREASED GLUCOSE; Start 03/17/17 at 02:00 Glucose (Glutose) 15 gm Q15M PRN BUCCAL DECREASED GLUCOSE; Start 03/17/17 at 02 :00 Insulin Glargine 20 unit 20 unit DAILY@20 SC ; Start 03/17/17 at 20:00 Sodium Bicarbonate 100 meq/Dextrose/ Sodium Chloride 1,000 ml @ 80 mls/hr [id number] IV Last administered on 03/18/17 21:26; Admin Dose 80 MLS/HR; Start at 06:30 Phenylephrine HCl/ Dextrose (Chris-Syneph/D5W) 500 ml @ 18.75 mls/ hr TITRATE IV Last administered on 03/19/17 05:12; Admin Dose 43.12 MLS/HR; Start 03/19/17 at 02:30 VIRIDIANA VILLARREAL MD Mar 19, 2017 10:24
[2017-03-19 10:30] LABS: LYMPHOCYTES # 0.4 10^3/ul (0.8-2.9); MONOCYTE # 0.2 10^3/ul (0.3-0.9); NEUTROPHIL # 6.9 10^3/ul (1.6-7.5); PLATELET ESTIMATE PLT APPEAR DECREASED
[2017-03-19 11:29] LABS: AADO2 Arterial 255.1 mmHg (7.0-24.0); Allen Test ACCEPTAB; Arterial COHb 0.8 % (0.0-3.0); Arterial Fraction of Oxyhgb 92.2 % (93.0-99.0); Arterial HCO3 21.9 mmol/L (22.0-26.0); Arterial MetHb 0.3 % (0.0-1.5); Arterial Total Hemglobin 8.7 g/dl (12.0-18.0); MODE VENT - AC
[2017-03-19 11:36] LABS: PLATELET COUNT 40 10^3/UL (140-415)
--- NOTE | 2017-03-19 12:42 | PN ---
DATE: 03/19/2017 CARDIOLOGY FOLLOWUP SUBJECTIVE: Discussed with the staff. Rhythm strip was reviewed. The patient remains in atrial fi brillation. Heart rate is better controlled. Still on pressors, but has been able to cut down slig htly. Still on dialysis right now. The patient remains nonverbal, status post intubation on the ve ntilator, to wean off. MEDICATIONS: Reviewed. PHYSICAL EXAMINATION: VITAL SIGNS: Temperature 98.1, heart rate of 100, blood pressure of 89/60, respiratory rate of 21, saturating 100%. HEENT: Normocephalic, atraumatic. Status post intubation on the vent. Eyes: Pupils are equal. CARDIOVASCULAR: Irregularly irregular. Systolic murmur. PULMONARY: With rhonchi at the bases. GASTROINTESTINAL: Soft, nontender. EXTREMITIES: With ankle edema. NEUROLOGIC: Sedated. DERMATOLOGIC: There are multiple ecchymoses. LABORATORY DATA: Digoxin level is 0.4 today. Sodium 138, potassium 3, BUN 27, creatinine 2.13, glu cose 165. Lactic acid 4.2. Magnesium 1.9. ABG shows pH of 7.49, pCO2 of 29, pO2 of 68. Chest x-ray shows decreased left pleural effusion, status post thoracentesis. No pneumothorax. The re is some cardiomegaly, mild to moderate congestion and small right pleural effusion. ASSESSMENT AND PLAN: 1. Septic shock. 2. Severe cardiomyopathy, probably a component of cardiogenic shock. 3. Atrial fibrillation with rapid ventricular response. 4. Pleural effusion, status post thoracentesis. 5. Memory impairment, dementia. 6. History of cerebrovascular accident. 7. Severe nonischemic cardiomyopathy with severe left ventricular dysfunction. 8. Diabetes. 9. Renal failure, on dialysis. RECOMMENDATIONS: Dialysis will be continued. We will give digoxin as needed and tolerated. Electr olytes including potassium to be replaced as per renal team. Diabetic management will be continued. The patient has had thoracentesis done. We will check a chest x-ray and the PT, INR tomorrow and if no other procedures scheduled, Coumadin to be resumed. We will continue with the ICU care for no w. Pressors will be continued and titrated off if able to maintain the blood pressure More than 38 minutes of critical care time was spent managing this patient excluding procedures. Dictated By: KATIUSKA BRITO MD AV/EMANUEL Conf#: [id number] DID#: [id number] CC: VASILE DEMPSEY MD;*End*
[2017-03-19] MEDS: SODIUM BICARBONATE IV SCH (12:51)
[2017-03-19] MEDS: DEXTROSE IV SCH (12:51)
[2017-03-19] MEDS: NACL IV SCH (12:51)
--- NOTE | 2017-03-19 16:49 | PN ---
Date/Time of Note Date/Time of Note DATE: 03/19/17 TIME: 16:45 Assessment/Plan VTE Prophylaxis VTE Prophylaxis Intervention: SCD's Lines/Catheters IV [facility] PERMICATH Urinary Cath still in place: No (HD PT) Assessment/Plan Chief Complaint/Hosp Course 1. Hypotension -cont pressor support for now -cont Aztreonam and Vanco 2. End-stage renal disease on dialysis -HD per Renal 3. Hypercapnic and Hypoxic Resp Failure -Intubated 4. Dementia with Debility -pt made into a DNR after discussion about code status with daughter -CT Brain shows advanced atrophy 5. History of hypothyroidism. 6. Old lacunar stroke. 7. Moderate to large bilateral pleural effusion -HD 8. AG Acidosis 2/2 Resp and Renal-improved -Intubated -cont Bicarb gtt 9. Cardiomyopathy with severe systolic dysfunction with EF of 25% 10. History of diabetes -cont NISS PPx- SCD's Problems: Subjective 24 Hr Interval Summary Subjective hx not possible: pt non-verbal Exam/Review of Systems Vital Signs Vitals Vital Signs Date Time Temp Pulse Resp B/P Pulse Ox O2 Delivery O2 Flow Rate FiO2 03/19/17 16:10 95 20 100 50 03/19/17 15:00 90/66 Mechanical Ventilator 03/19/17 11:00 98.1 03/16/17 10:15 5.0 Intake and Output 03/18/17 03/18/17 03/19/17 15:00 23:00 07:00 Intake Total 1834.285 ml 520.025 ml 948.75 ml Output Total 2800 ml 1750 ml Balance -965.715 ml -1229.975 ml 948.75 ml Exam Constitutional: non-verbal ENMT: intubated Respiratory: clear to auscultation Cardiovascular: regular rate and rhythm Gastrointestinal: soft, No distended Musculoskeletal: nl extremities to inspection Results Result Diagram: 03/19/17 0500 03/19/17 0500 Results 24 hrs Laboratory Tests Test 03/18/17 16:53 03/18/17 20:40 03/19/17 01:02 03/19/17 05:00 Bedside Glucose 104 133 160 White Blood Count 11.0 #H Red Blood Count 2.67 #L Hemoglobin 8.0 L Hematocrit 24.8 L Mean Corpuscular Volume 92.9 Mean Corpuscular Hemoglobin 30.0 Mean Corpuscular Hemoglobin Concent 32.3 Red Cell Distribution Width 18.7 H Platelet Count 40 #L Mean Platelet Volume 11.2 H Neutrophils % 63.0 Band Neutrophils % 31.0 H Lymphocytes % 4.0 L Monocytes % 2.0 Eosinophils % Neutrophils # 6.9 Lymphocytes # 0.4 L Monocytes # 0.2 L Eosinophils # Platelet Estimate PLT APPEAR DECREASED Blood Gas Specimen Source Blood arterial Arterial Blood Date Drawn 03/19/2017 5:19:47 AM Arterial Blood pH (Temp corrected) 7.492 H Arterial Blood pCO2 (Temp correct) 29.2 L Arterial Blood pO2 (Temp corrected) 68.6 L Arterial Blood HCO3 21.9 L Arterial Blood Base Excess -1.0 Arterial Blood Oxygen Saturation 93.2 L Akhil Test ACCEPTAB Arterial Blood Gas Puncture Site Right Radial Arterial Blood Carboxyhemoglobin 0.8 Arterial Blood Methemoglobin 0.3 Blood Gas A-a O2 Differential 255.1 H Oxyhemoglobin Percent 92.2 L Total Hemoglobin 8.7 L Blood Gas Temperature 37.0 Blood Gas Respiration Rate 20.0 Blood Gas Actual Respiration Rate 20 Blood Gas Modality VENT - AC FiO2 50.0 Blood Gas Tidal Volume 500.0 Blood Gas Notified Whom MARIA INESZORA RT Blood Gas Notified Time 03/19/2017 5:30:45 AM Sodium Level 138 Potassium Level 3.0 L Chloride Level 103 Carbon Dioxide Level 25 Anion Gap 13 Blood Urea Nitrogen 27 H Creatinine 2.13 H Glucose Level 165 Lactic Acid Level 4.2 *H Calcium Level 8.4 Magnesium Level 1.9 Digoxin Level 0.4 #L Test 03/19/17 05:06 03/19/17 09:29 03/19/17 14:37 Bedside Glucose 177 210 126 Medications Medications Current Medications Norepinephrine/ Dextrose (Levophed/D5W) 500 ml @ 9.37 mls/hr TITRATE IV Last administered on 03/18/17t 19:59; Admin Dose 562.5 MLS/HR; Start 03/15/17 at 23: 00 Ondansetron HCl (Zofran Inj) 4 mg Q6H PRN IV NAUSEA AND/OR VOMITING; Start at 01:00 Acetaminophen (Tylenol Liquid) 650 mg Q6H PRN PO PAIN LEVEL 1-3 OR FEVER; Start 03/16/17 at 01:00 Morphine Sulfate (morphine) 2 mg Q4H PRN IV PAIN LEVEL 7-10; Start 03/16/17 at 01:00 Pantoprazole (Protonix Iv) 40 mg DAILY@06 IV Last administered on 03/19/17 05: 06; Admin Dose 40 MG; Start 03/16/17 at 06:00 Diagnostic Test (Pha) 1 ea 1 ea 02 XX Last administered on 03/18/17 02:22; Admin Dose 1 EA; Start 03/17/17 at 02:00 Midazolam HCl 50 ml @ 1 mls/hr TITRATE IV Last administered on 03/17/17 11:04 ; Admin Dose 3 MLS/HR; Start 03/16/17 at 11:00 Aztreonam/Sodium Chloride (Azactam/NS) 50 ml @ 100 mls/hr Q12 IV Last administered on 03/19/17 09:28; Admin Dose 100 MLS/HR; Start 03/16/17 at 12:30 Collagenase (Santyl) 1 applic DAILY TOP Last administered on 03/19/17 09:33; Admin Dose 1 APPLIC; Start 03/16/17 at 18:30 Collagenase (Santyl) 1 applic PRN PRN TOP WOUND CARE; Start 03/16/17 at 18:30 Insulin Aspart (Novolog Insulin Pen) NOVOLOG *MODERATE* ALGORI... Q4 SC Last administered on 03/19/17 09:32; Admin Dose 4 UNIT; Start 03/17/17 at 05:00 Miscellaneous Information 1 ea NOTE XX ; Start 03/17/17 at 02:00 Glucose (Glutose) 15 gm Q15M PRN PO DECREASED GLUCOSE; Start 03/17/17 at 02:00 Glucose (Glutose) 22.5 gm Q15M PRN PO DECREASED GLUCOSE; Start 03/17/17 at 02: 00 Dextrose (D50w Syringe) 25 ml Q15M PRN IV DECREASED GLUCOSE; Start 03/17/17 at 02:00 Dextrose (D50w Syringe) 50 ml Q15M PRN IV DECREASED GLUCOSE Last administered on 03/18/17 05:36; Admin Dose 50 ML; Start 03/17/17 at 02:00 Glucagon (Glucagen) 1 mg Q15M PRN IM DECREASED GLUCOSE; Start 03/17/17 at 02:00 Glucose (Glutose) 15 gm Q15M PRN BUCCAL DECREASED GLUCOSE; Start 03/17/17 at 02 :00 Insulin Glargine 20 unit 20 unit DAILY@20 SC ; Start 03/17/17 at 20:00 Sodium Bicarbonate 100 meq/Dextrose/ Sodium Chloride 1,000 ml @ 80 mls/hr [id number] IV Last administered on 03/19/17 12:51; Admin Dose 80 MLS/HR; Start at 06:30 Phenylephrine HCl/ Dextrose (Chris-Syneph/D5W) 500 ml @ 18.75 mls/ hr TITRATE IV Last administered on 03/19/17 05:12; Admin Dose 43.12 MLS/HR; Start 03/19/17 at 02:30 VASILE DEMPSEY Mar 19, 2017 16:48
[2017-03-19] MEDS ORDERED: VANCOMYCIN IV PER PHARMACY XX SCH (17:00)
[2017-03-19] MEDS ORDERED: VANCOMYCIN 1.5 GM in SOD CHLORIDE 0.9% 250 ML IVPB SCH (20:00)
[2017-03-19] MEDS: INSULIN GLARGINE [LANtus] 3 ML PEN SC SCH (20:36)
[2017-03-20] VITALS (94 sets, daily range): BP systolic 80–113; BP diastolic 46–73; PULSE 60–117; RESP 16–21
[2017-03-20] MEDS: INSULIN ASPART [NOVOLOG] 3 ML PEN SC SCH ×6 (01:00→21:00)
[2017-03-20] MEDS: ACCU-CHEK XX SCH (02:00)
[2017-03-20] MEDS: DEXTROSE IV SCH ×3 (05:25→22:03)
[2017-03-20] MEDS: SODIUM BICARBONATE IV SCH ×3 (05:25→22:03)
[2017-03-20] MEDS: NACL IV SCH ×3 (05:25→22:03)
[2017-03-20 05:31] LABS: ADD SCAN DIFF NO
[2017-03-20] MEDS: PANTOPRAZOLE 40 MG INJ IV SCH (05:34)
[2017-03-20 05:35] LABS: ABNORMAL IP MESSAGE 1; HEMATOCRIT 22.6 % (37.0-47.0); HEMOGLOBIN 7.2 g/dl (12.0-16.0); MEAN CORPUSCULAR HEMOGLOBIN 29.9 pg (29.0-33.0); MEAN CORPUSCULAR HGB CONC 31.9 g/dl (32.0-37.0); MEAN CORPUSCULAR VOLUME 93.8 fl (82.0-101.0); MEAN PLATELET VOLUME 11.9 fl (7.4-10.4); PLATELET COUNT 70 10^3/UL (140-415); RED BLOOD COUNT 2.41 10^6/ul (4.20-5.40); RED CELL DISTRIBUTION WIDTH 18.9 % (11.5-14.5); WHITE BLOOD COUNT 10.3 10^3/ul (4.8-10.8)
[2017-03-20 05:45] LABS: INR 1.94; PROTIME 22.3 Sec (12.2-14.2); PT RATIO 1.7
[2017-03-20 05:50] LABS: ALBUMIN 1.7 g/dl (3.3-4.9)
[2017-03-20 05:51] LABS: POTASSIUM 3.4 mmol/L (3.5-5.1)
[2017-03-20 05:53] LABS: ALBUMIN/GLOBULIN RATIO 0.85; BILIRUBIN,DIRECT 0.2 mg/dl (0.00-0.20); BILIRUBIN,TOTAL 1.2 mg/dl (0.2-1.3); CREATININE 1.73 mg/dl (0.44-1.00); TOTAL PROTEIN 3.7 g/dl (6.1-8.1)
[2017-03-20 05:54] LABS: CALCIUM 8.8 mg/dl (8.4-10.2); MAGNESIUM 1.8 mg/dl (1.7-2.5)
[2017-03-20] MEDS: COLLAGENASE 30 GM TUBE TOP SCH (09:15)
[2017-03-20] MEDS: AZTREONAM 0.5 GM in SOD CHLORIDE 0.9% 50 ML IV SCH ×2 (09:15→20:37)
[2017-03-20 11:28] LABS: LYMPHOCYTES # 0.2 10^3/ul (0.8-2.9); MONOCYTE # 0.3 10^3/ul (0.3-0.9); MYELOCYTES # 0.1; NEUTROPHIL # 8.1 10^3/ul (1.6-7.5)
[2017-03-20 11:29] LABS: PLATELET ESTIMATE PLT APPEAR DECREASED
--- NOTE | 2017-03-20 11:54 | CONS ---
Date/Time of Note Date/Time of Note DATE: 03/20/17 TIME: 11:50 Assessment/Plan Assessment/Plan Additional Assessment/Plan Chest x-ray was reviewed done a short while ago which is again showing persistent significant pulmonary edema with bilateral pleural effusions. However there has been interval improvement. Endotracheal tube is at an adequate level. Patient currently on phenylephrine drip at 100 mics per minute. Ventilator setting; AC of 20, tidal volume 500, PEEP of 0, 50% FiO2. Next Assessment recommendations; 1. Patient admitted with respiratory failure due to pulmonary edema from underlying severe cardiomyopathy. 2. Possibly superimposed pneumonia. 3. Anemia. 4. Atrial fibrillation. 5. End-stage renal disease, on hemodialysis. 6. Thrombocytopenia. There has been improvement in platelet count from today. Continue current treatment. Transfuse 1 unit packed RBC. Prognosis is guarded. Next 35 minutes of critical care time was spent evaluating the patient. Consultation Date/Type/Reason Admit Date/Time Mar 15, 2017 at 20:26 Initial Consult Date 03/16/17 Type of Consultation: Pulmonary/critical care Referring Provider: VASILE DEMPSEY 24 HR Interval Summary Free Text/Dictation Patient condition remains critical. Still requiring high-dose pressor support for blood pressure maintenance. Shins however is awake and alert. Next regular exam; elderly lady, orally intubated, currently in no distress. Exam/Review of Systems Vital Signs Vitals Vital Signs Date Time Temp Pulse Resp B/P Pulse Ox O2 Delivery O2 Flow Rate FiO2 03/20/17 11:15 106 20 100 40 03/20/17 09:45 90/53 Mechanical Ventilator 03/20/17 07:45 98.5 03/16/17 10:15 5.0 Intake and Output 03/19/17 03/19/17 03/20/17 15:00 23:00 07:00 Intake Total 906.62 ml 1534.61 ml 630.00 ml Output Total 1500 ml Balance -593.38 ml 1534.61 ml 630.00 ml Exam HEENT examination; supple neck, positive JVD. No lymphadenopathy. Midline trachea. Patient has bilateral intraocular lens implants. Dentition is fair. Orally intubated. No thyromegaly. No neck bruits. Neck Chest examination; diminished breath on lung bases bilaterally. S1-S2 audible, irregular rhythm. No murmurs. Abdomen examination; soft, protuberant. No organomegaly. Bowel sounds audible. Extremity examination; trace generalized edema. Patient has a multiple ecchymosis involving all 4 extremities. ACCESS SERVICES REPRESENTATIVE examination a micro patient is awake and follows simple commands. Results Result Diagram: 03/20/17 0430 03/20/17 0430 Results 24 hrs Laboratory Tests Test 03/19/17 14:37 03/19/17 18:30 03/19/17 20:26 03/20/17 01:07 Bedside Glucose 126 134 123 111 Test 03/20/17 04:30 03/20/17 09:18 White Blood Count 10.3 Red Blood Count 2.41 L Hemoglobin 7.2 L Hematocrit 22.6 L Mean Corpuscular Volume 93.8 Mean Corpuscular Hemoglobin 29.9 Mean Corpuscular Hemoglobin Concent 31.9 L Red Cell Distribution Width 18.9 H Platelet Count 70 #L Mean Platelet Volume 11.9 H Neutrophils % 79.0 H Band Neutrophils % 15.0 H Lymphocytes % 2.0 L Monocytes % 3.0 Eosinophils % Myelocytes % 1.0 H Neutrophils # 8.1 H Lymphocytes # 0.2 L Monocytes # 0.3 Eosinophils # Myelocytes # 0.1 Platelet Estimate PLT APPEAR DECREASED Large Platelets FEW Prothrombin Time 22.3 H Prothrombin Time Ratio 1.7 INR International Normalized Ratio 1.94 Sodium Level 137 Potassium Level 3.4 L Chloride Level 102 Carbon Dioxide Level 27 Anion Gap 11 Blood Urea Nitrogen 25 H Creatinine 1.73 H Glucose Level 91 # Calcium Level 8.8 Magnesium Level 1.8 Total Bilirubin 1.2 Direct Bilirubin 0.20 Indirect Bilirubin 1.0 Aspartate Amino Transf (AST/SGOT) 12 L Alanine Aminotransferase (ALT/SGPT) 24 Alkaline Phosphatase 83 Total Protein 3.7 L Albumin 1.7 L Globulin 2.00 Albumin/Globulin Ratio 0.85 Digoxin Level 1.1 # Bedside Glucose 72 Medications Medications Current Medications Norepinephrine/ Dextrose (Levophed/D5W) 500 ml @ 9.37 mls/hr TITRATE IV Last administered on 03/18/17t 19:59; Admin Dose 562.5 MLS/HR; Start 03/15/17 at 23: 00 Ondansetron HCl (Zofran Inj) 4 mg Q6H PRN IV NAUSEA AND/OR VOMITING; Start at 01:00 Acetaminophen (Tylenol Liquid) 650 mg Q6H PRN PO PAIN LEVEL 1-3 OR FEVER; Start 03/16/17 at 01:00 Morphine Sulfate (morphine) 2 mg Q4H PRN IV PAIN LEVEL 7-10; Start 03/16/17 at 01:00 Pantoprazole (Protonix Iv) 40 mg DAILY@06 IV Last administered on 03/20/17 05: 34; Admin Dose 40 MG; Start 03/16/17 at 06:00 Diagnostic Test (Pha) 1 ea 1 ea 02 XX Last administered on 03/20/17 02:00; Admin Dose 1 EA; Start 03/17/17 at 02:00 Midazolam HCl 50 ml @ 1 mls/hr TITRATE IV Last administered on 03/17/17 11:04 ; Admin Dose 3 MLS/HR; Start 03/16/17 at 11:00 Aztreonam/Sodium Chloride (Azactam/NS) 50 ml @ 100 mls/hr Q12 IV Last administered on 03/20/17 09:15; Admin Dose 100 MLS/HR; Start 03/16/17 at 12:30 Collagenase (Santyl) 1 applic DAILY TOP Last administered on 03/20/17 09:15; Admin Dose 1 APPLIC; Start 03/16/17 at 18:30 Collagenase (Santyl) 1 applic PRN PRN TOP WOUND CARE; Start 03/16/17 at 18:30 Insulin Aspart (Novolog Insulin Pen) NOVOLOG *MODERATE* ALGORI... Q4 SC Last administered on 03/19/17 09:32; Admin Dose 4 UNIT; Start 03/17/17 at 05:00 Miscellaneous Information 1 ea NOTE XX ; Start 03/17/17 at 02:00 Glucose (Glutose) 15 gm Q15M PRN PO DECREASED GLUCOSE; Start 03/17/17 at 02:00 Glucose (Glutose) 22.5 gm Q15M PRN PO DECREASED GLUCOSE; Start 03/17/17 at 02: 00 Dextrose (D50w Syringe) 25 ml Q15M PRN IV DECREASED GLUCOSE; Start 03/17/17 at 02:00 Dextrose (D50w Syringe) 50 ml Q15M PRN IV DECREASED GLUCOSE Last administered on 03/18/17 05:36; Admin Dose 50 ML; Start 03/17/17 at 02:00 Glucagon (Glucagen) 1 mg Q15M PRN IM DECREASED GLUCOSE; Start 03/17/17 at 02:00 Glucose (Glutose) 15 gm Q15M PRN BUCCAL DECREASED GLUCOSE; Start 03/17/17 at 02 :00 Insulin Glargine 20 unit 20 unit DAILY@20 SC Last administered on 03/19/17 20: 36; Admin Dose 20 UNIT; Start 03/17/17 at 20:00 Sodium Bicarbonate 100 meq/Dextrose/ Sodium Chloride 1,000 ml @ 80 mls/hr [id number] IV Last administered on 03/20/17 05:25; Admin Dose 80 MLS/HR; Start at 06:30 Phenylephrine HCl 160 mg/Dextrose 500 ml @ 18.75 mls/ hr TITRATE IV Last administered on 03/19/17 19:31; Admin Dose 24.37 MLS/HR; Start 03/19/17 at 02: 30 Vancomycin HCl/ Sodium Chloride (Vancocin/NS) 250 ml @ 83.333 mls/ hr ONCE IVPB Last administered on 03/19/17 20:33; Admin Dose 83.333 MLS/HR; Start at 20:00; Stop 03/20/17 at 16:00 YUNIOR JUNIOR Mar 20, 2017 11:54
[2017-03-20 12:01] LABS: AADO2 Arterial 176.9 mmHg (7.0-24.0); Allen Test ACCEPTAB; Arterial Base Excess 1.6 mmol/L (-3.0-3); Arterial COHb 1.2 % (0.0-3.0); Arterial Fraction of Oxyhgb 93.7 % (93.0-99.0); Arterial MetHb 0.3 % (0.0-1.5); Arterial Total Hemglobin 7.7 g/dl (12.0-18.0); MODE VENT - AC
[2017-03-20] MEDS: POTASSIUM CHLORIDE 50 ML IVPB PRN ×2 (12:07→13:18)
--- NOTE | 2017-03-20 16:41 | CONS ---
Date/Time of Note Date/Time of Note DATE: 03/20/17 TIME: 16:38 Assessment/Plan Assessment/Plan Additional Assessment/Plan 1. End-stage renal disease on hemodialysis, regular schedule is Tuesday, , Tuesday. 2. Atiral fibrillation with RVR 2. Cardiomyopathy with a severe systolic dysfunction with ejection fraction of 25%. 3. History of hypertension. 4. History of hypothyroidism. 5. History of previous cerebrovascular accident. 6. Moderate to large bilateral pleural effusion. 7. Acute respiratory failure, multifactorial secondary to sepsis, hypotension pleural effusions and fluid overload, currently intubated on ventilator. 8. Moderate pleural effusion s/p let thoracentesis 03/18/17- 1.75 L drained PLAN: S/p HD 4 days in a row- HD ordered for tomorrow rate controlled with amiodarone and digoxin s/p left thoracentesis 03/18/17- 1.75 L removed, chest x ray stable will follow up Consultation Date/Type/Reason Admit Date/Time Mar 15, 2017 at 20:26 Initial Consult Date 03/16/17 Type of Consultation: NEPHROLOGY Referring Provider: VASILE DEMPSEY 24 HR Interval Summary Free Text/Dictation no acute Events, S/p HD yesterday Exam/Review of Systems Vital Signs Vitals Vital Signs Date Time Temp Pulse Resp B/P Pulse Ox O2 Delivery O2 Flow Rate FiO2 03/20/17 15:36 105 20 99 40 03/20/17 14:30 84/71 Mechanical Ventilator 03/20/17 11:00 98.2 03/16/17 10:15 5.0 Intake and Output 03/19/17 03/19/17 03/20/17 15:00 23:00 07:00 Intake Total 906.62 ml 1534.61 ml 710.00 ml Output Total 1500 ml Balance -593.38 ml 1534.61 ml 710.00 ml Exam HEENT: ET tube in place. NECK: Jugular venous distention. LUNGS: Bilateral coarse breath sounds with minimal basilar crackles present. HEART: S1, S2, tachycardia. Irregularly irregular. ABDOMEN: Soft, nontender, nondistended, obese. EXTREMITIES: 1 to 2+ pitting edema. The patient has right upper chest tunneled hemodialysis catheter in place. NEUROLOGICAL: Uncooperative for exam since the patient is currently sedated, intubated. PSYCHIATRIC: Appropriate. SKIN: No rash. Results Result Diagram: 03/20/17 0430 03/20/17 0430 Results 24 hrs Laboratory Tests Test 03/19/17 18:30 03/19/17 20:26 03/20/17 01:07 03/20/17 04:30 Bedside Glucose 134 123 111 White Blood Count 10.3 Red Blood Count 2.41 L Hemoglobin 7.2 L Hematocrit 22.6 L Mean Corpuscular Volume 93.8 Mean Corpuscular Hemoglobin 29.9 Mean Corpuscular Hemoglobin Concent 31.9 L Red Cell Distribution Width 18.9 H Platelet Count 70 #L Mean Platelet Volume 11.9 H Neutrophils % 79.0 H Band Neutrophils % 15.0 H Lymphocytes % 2.0 L Monocytes % 3.0 Eosinophils % Myelocytes % 1.0 H Neutrophils # 8.1 H Lymphocytes # 0.2 L Monocytes # 0.3 Eosinophils # Myelocytes # 0.1 Platelet Estimate PLT APPEAR DECREASED Large Platelets FEW Prothrombin Time 22.3 H Prothrombin Time Ratio 1.7 INR International Normalized Ratio 1.94 Sodium Level 137 Potassium Level 3.4 L Chloride Level 102 Carbon Dioxide Level 27 Anion Gap 11 Blood Urea Nitrogen 25 H Creatinine 1.73 H Glucose Level 91 # Calcium Level 8.8 Magnesium Level 1.8 Total Bilirubin 1.2 Direct Bilirubin 0.20 Indirect Bilirubin 1.0 Aspartate Amino Transf (AST/SGOT) 12 L Alanine Aminotransferase (ALT/SGPT) 24 Alkaline Phosphatase 83 Total Protein 3.7 L Albumin 1.7 L Globulin 2.00 Albumin/Globulin Ratio 0.85 Digoxin Level 1.1 # Test 03/20/17 09:18 03/20/17 11:50 03/20/17 13:20 Bedside Glucose 72 79 Blood Gas Specimen Source Blood arterial Arterial Blood Date Drawn 03/20/2017 11:39:19 AM Arterial Blood pH (Temp corrected) 7.538 H Arterial Blood pCO2 (Temp correct) 28.9 L Arterial Blood pO2 (Temp corrected) 75.1 L Arterial Blood HCO3 24.0 Arterial Blood Base Excess 1.6 Arterial Blood Oxygen Saturation 95.1 Akhil Test ACCEPTAB Arterial Blood Gas Puncture Site Right Radial Arterial Blood Carboxyhemoglobin 1.2 Arterial Blood Methemoglobin 0.3 Blood Gas A-a O2 Differential 176.9 H Oxyhemoglobin Percent 93.7 Total Hemoglobin 7.7 L Blood Gas Temperature 37.0 Blood Gas Respiration Rate 20.0 Blood Gas Actual Respiration Rate 20 Blood Gas Modality VENT - AC FiO2 40.0 Blood Gas Tidal Volume 500.0 Blood Gas Notified Whom LS Blood Gas Notified Time 03/20/2017 12:01:35 PM Medications Medications Current Medications Norepinephrine/ Dextrose (Levophed/D5W) 500 ml @ 9.37 mls/hr TITRATE IV Last administered on 03/18/17 19:59; Admin Dose 562.5 MLS/HR; Start 03/15/17 at 23: 00 Ondansetron HCl (Zofran Inj) 4 mg Q6H PRN IV NAUSEA AND/OR VOMITING; Start at 01:00 Acetaminophen (Tylenol Liquid) 650 mg Q6H PRN PO PAIN LEVEL 1-3 OR FEVER; Start 03/16/17 at 01:00 Morphine Sulfate (morphine) 2 mg Q4H PRN IV PAIN LEVEL 7-10; Start 03/16/17 at 01:00 Pantoprazole (Protonix Iv) 40 mg DAILY@06 IV Last administered on 03/20/17 05: 34; Admin Dose 40 MG; Start 03/16/17 at 06:00 Diagnostic Test (Pha) 1 ea 1 ea 02 XX Last administered on 03/20/17 02:00; Admin Dose 1 EA; Start 03/17/17 at 02:00 Midazolam HCl 50 ml @ 1 mls/hr TITRATE IV Last administered on 03/17/17 11:04 ; Admin Dose 3 MLS/HR; Start 03/16/17 at 11:00 Aztreonam/Sodium Chloride (Azactam/NS) 50 ml @ 100 mls/hr Q12 IV Last administered on 03/20/17 09:15; Admin Dose 100 MLS/HR; Start 03/16/17 at 12:30 Collagenase (Santyl) 1 applic DAILY TOP Last administered on 03/20/17 09:15; Admin Dose 1 APPLIC; Start 03/16/17 at 18:30 Collagenase (Santyl) 1 applic PRN PRN TOP WOUND CARE; Start 03/16/17 at 18:30 Insulin Aspart (Novolog Insulin Pen) NOVOLOG *MODERATE* ALGORI... Q4 SC Last administered on 03/19/17 09:32; Admin Dose 4 UNIT; Start 03/17/17 at 05:00 Miscellaneous Information 1 ea NOTE XX ; Start 03/17/17 at 02:00 Glucose (Glutose) 15 gm Q15M PRN PO DECREASED GLUCOSE; Start 03/17/17 at 02:00 Glucose (Glutose) 22.5 gm Q15M PRN PO DECREASED GLUCOSE; Start 03/17/17 at 02: 00 Dextrose (D50w Syringe) 25 ml Q15M PRN IV DECREASED GLUCOSE; Start 03/17/17 at 02:00 Dextrose (D50w Syringe) 50 ml Q15M PRN IV DECREASED GLUCOSE Last administered on 03/18/17 05:36; Admin Dose 50 ML; Start 03/17/17 at 02:00 Glucagon (Glucagen) 1 mg Q15M PRN IM DECREASED GLUCOSE; Start 03/17/17 at 02:00 Glucose (Glutose) 15 gm Q15M PRN BUCCAL DECREASED GLUCOSE; Start 03/17/17 at 02 :00 Insulin Glargine 20 unit 20 unit DAILY@20 SC Last administered on 03/19/17 20: 36; Admin Dose 20 UNIT; Start 03/17/17 at 20:00 Sodium Bicarbonate 100 meq/Dextrose/ Sodium Chloride 1,000 ml @ 80 mls/hr [id number] IV Last administered on 03/20/17 05:25; Admin Dose 80 MLS/HR; Start at 06:30 Phenylephrine HCl/ Dextrose (Chris-Syneph/D5W) 500 ml @ 18.75 mls/ hr TITRATE IV Last administered on 03/19/17 19:31; Admin Dose 24.37 MLS/HR; Start 03/19/17 at 02:30 Miscellaneous Information (*Rx Drug Level Order Reminder*) RANDOM VANCOMYCIN LEVEL ... ONCE ONCE XX ; Start 03/21/17 at 05:00; Stop 03/21/17 at 05:01 VIRIDIANA VILLARREAL MD Mar 20, 2017 16:41
--- NOTE | 2017-03-20 17:20 | PN ---
Date/Time of Note Date/Time of Note DATE: 03/20/17 TIME: 17:14 Assessment/Plan VTE Prophylaxis VTE Prophylaxis Intervention: SCD's Lines/Catheters IV Catheter Type (from [facility]): PERMICATH Assessment/Plan Chief Complaint/Hosp Course 1. Hypotension -cont pressor support for now -cont Aztreonam and Vanco -Blood cultures are negative so far 2. End-stage renal disease on dialysis -HD per Renal 3. Hypercapnic and Hypoxic Resp Failure -Vent support, continue to attempt to wean off vent -Pulmonology following 4. Acute encephalopathy on chronic dementia with Debility -Acute altered mental status has improved now with resolution of the acidosis and the patient appears to now be at her mental baseline -pt made into a DNR after discussion about code status with daughter -CT Brain shows advanced atrophy 5. History of hypothyroidism. 6. Old lacunar stroke. 7. Moderate to large bilateral pleural effusion -HD 8. AG Acidosis 2/2 Resp and Renal-improved -Intubated -cont Bicarb gtt 9. Cardiomyopathy with severe systolic dysfunction with EF of 25% 10. History of diabetes -cont NISS PPx- SCD's Problems: Subjective 24 Hr Interval Summary Subjective hx not possible: pt non-verbal Exam/Review of Systems Vital Signs Vitals Vital Signs Date Time Temp Pulse Resp B/P Pulse Ox O2 Delivery O2 Flow Rate FiO2 03/20/17 15:36 105 20 99 40 03/20/17 14:30 84/71 Mechanical Ventilator 03/20/17 11:00 98.2 03/16/17 10:15 5.0 Intake and Output 03/19/17 03/19/17 03/20/17 15:00 23:00 07:00 Intake Total 906.62 ml 1534.61 ml 710.00 ml Output Total 1500 ml Balance -593.38 ml 1534.61 ml 710.00 ml Exam Constitutional: alert, non-verbal ENMT: intubated Respiratory: clear to auscultation Cardiovascular: regular rate and rhythm Gastrointestinal: soft, No distended Musculoskeletal: nl extremities to inspection Results Result Diagram: 03/20/17 0430 03/20/17 0430 Results 24 hrs Laboratory Tests Test 03/19/17 18:30 03/19/17 20:26 03/20/17 01:07 03/20/17 04:30 Bedside Glucose 134 123 111 White Blood Count 10.3 Red Blood Count 2.41 L Hemoglobin 7.2 L Hematocrit 22.6 L Mean Corpuscular Volume 93.8 Mean Corpuscular Hemoglobin 29.9 Mean Corpuscular Hemoglobin Concent 31.9 L Red Cell Distribution Width 18.9 H Platelet Count 70 #L Mean Platelet Volume 11.9 H Neutrophils % 79.0 H Band Neutrophils % 15.0 H Lymphocytes % 2.0 L Monocytes % 3.0 Eosinophils % Myelocytes % 1.0 H Neutrophils # 8.1 H Lymphocytes # 0.2 L Monocytes # 0.3 Eosinophils # Myelocytes # 0.1 Platelet Estimate PLT APPEAR DECREASED Large Platelets FEW Prothrombin Time 22.3 H Prothrombin Time Ratio 1.7 INR International Normalized Ratio 1.94 Sodium Level 137 Potassium Level 3.4 L Chloride Level 102 Carbon Dioxide Level 27 Anion Gap 11 Blood Urea Nitrogen 25 H Creatinine 1.73 H Glucose Level 91 # Calcium Level 8.8 Magnesium Level 1.8 Total Bilirubin 1.2 Direct Bilirubin 0.20 Indirect Bilirubin 1.0 Aspartate Amino Transf (AST/SGOT) 12 L Alanine Aminotransferase (ALT/SGPT) 24 Alkaline Phosphatase 83 Total Protein 3.7 L Albumin 1.7 L Globulin 2.00 Albumin/Globulin Ratio 0.85 Digoxin Level 1.1 # Test 03/20/17 09:18 03/20/17 11:50 03/20/17 13:20 Bedside Glucose 72 79 Blood Gas Specimen Source Blood arterial Arterial Blood Date Drawn 03/20/2017 11:39:19 AM Arterial Blood pH (Temp corrected) 7.538 H Arterial Blood pCO2 (Temp correct) 28.9 L Arterial Blood pO2 (Temp corrected) 75.1 L Arterial Blood HCO3 24.0 Arterial Blood Base Excess 1.6 Arterial Blood Oxygen Saturation 95.1 Akhil Test ACCEPTAB Arterial Blood Gas Puncture Site Right Radial Arterial Blood Carboxyhemoglobin 1.2 Arterial Blood Methemoglobin 0.3 Blood Gas A-a O2 Differential 176.9 H Oxyhemoglobin Percent 93.7 Total Hemoglobin 7.7 L Blood Gas Temperature 37.0 Blood Gas Respiration Rate 20.0 Blood Gas Actual Respiration Rate 20 Blood Gas Modality VENT - AC FiO2 40.0 Blood Gas Tidal Volume 500.0 Blood Gas Notified Whom LS Blood Gas Notified Time 03/20/2017 12:01:35 PM Medications Medications Current Medications Norepinephrine/ Dextrose (Levophed/D5W) 500 ml @ 9.37 mls/hr TITRATE IV Last administered on 03/18/17 19:59; Admin Dose 562.5 MLS/HR; Start 03/15/17 at 23: 00 Ondansetron HCl (Zofran Inj) 4 mg Q6H PRN IV NAUSEA AND/OR VOMITING; Start at 01:00 Acetaminophen (Tylenol Liquid) 650 mg Q6H PRN PO PAIN LEVEL 1-3 OR FEVER; Start 03/16/17 at 01:00 Morphine Sulfate (morphine) 2 mg Q4H PRN IV PAIN LEVEL 7-10; Start 03/16/17 at 01:00 Pantoprazole (Protonix Iv) 40 mg DAILY@06 IV Last administered on 03/20/17 05: 34; Admin Dose 40 MG; Start 03/16/17 at 06:00 Diagnostic Test (Pha) 1 ea 1 ea 02 XX Last administered on 03/20/17 02:00; Admin Dose 1 EA; Start 03/17/17 at 02:00 Midazolam HCl 50 ml @ 1 mls/hr TITRATE IV Last administered on 03/17/17 11:04 ; Admin Dose 3 MLS/HR; Start 03/16/17 at 11:00 Aztreonam/Sodium Chloride (Azactam/NS) 50 ml @ 100 mls/hr Q12 IV Last administered on 03/20/17 09:15; Admin Dose 100 MLS/HR; Start 03/16/17 at 12:30 Collagenase (Santyl) 1 applic DAILY TOP Last administered on 03/20/17 09:15; Admin Dose 1 APPLIC; Start 03/16/17 at 18:30 Collagenase (Santyl) 1 applic PRN PRN TOP WOUND CARE; Start 03/16/17 at 18:30 Insulin Aspart (Novolog Insulin Pen) NOVOLOG *MODERATE* ALGORI... Q4 SC Last administered on 03/19/17 09:32; Admin Dose 4 UNIT; Start 03/17/17 at 05:00 Miscellaneous Information 1 ea NOTE XX ; Start 03/17/17 at 02:00 Glucose (Glutose) 15 gm Q15M PRN PO DECREASED GLUCOSE; Start 03/17/17 at 02:00 Glucose (Glutose) 22.5 gm Q15M PRN PO DECREASED GLUCOSE; Start 03/17/17 at 02: 00 Dextrose (D50w Syringe) 25 ml Q15M PRN IV DECREASED GLUCOSE; Start 03/17/17 at 02:00 Dextrose (D50w Syringe) 50 ml Q15M PRN IV DECREASED GLUCOSE Last administered on 03/18/17 05:36; Admin Dose 50 ML; Start 03/17/17 at 02:00 Glucagon (Glucagen) 1 mg Q15M PRN IM DECREASED GLUCOSE; Start 03/17/17 at 02:00 Glucose (Glutose) 15 gm Q15M PRN BUCCAL DECREASED GLUCOSE; Start 03/17/17 at 02 :00 Insulin Glargine 20 unit 20 unit DAILY@20 SC Last administered on 03/19/17 20: 36; Admin Dose 20 UNIT; Start 03/17/17 at 20:00 Sodium Bicarbonate 100 meq/Dextrose/ Sodium Chloride 1,000 ml @ 80 mls/hr [id number] IV Last administered on 03/20/17 05:25; Admin Dose 80 MLS/HR; Start at 06:30 Phenylephrine HCl/ Dextrose (Chris-Syneph/D5W) 500 ml @ 18.75 mls/ hr TITRATE IV Last administered on 03/19/17 19:31; Admin Dose 24.37 MLS/HR; Start 03/19/17 at 02:30 Miscellaneous Information (*Rx Drug Level Order Reminder*) RANDOM VANCOMYCIN LEVEL ... ONCE ONCE XX ; Start 03/21/17 at 05:00; Stop 03/21/17 at 05:01 VASILE DEMPSEY Mar 20, 2017 17:20
[2017-03-20] MEDS: INSULIN GLARGINE [LANtus] 3 ML PEN SC SCH (20:00)
[2017-03-20] MEDS: PHENYLephrine 160 MG in DEXTROSE 5% 484 ML IV SCH (22:04)
[2017-03-21] VITALS (107 sets, daily range): BP systolic 64–120; BP diastolic 38–80; PULSE 62–128; RESP 10–24
[2017-03-21] MEDS: INSULIN ASPART [NOVOLOG] 3 ML PEN SC SCH ×6 (01:00→21:00)
[2017-03-21] MEDS: ACCU-CHEK XX SCH (02:00)
[2017-03-21 04:39] LABS: ADD SCAN DIFF NO
[2017-03-21 04:44] LABS: ABNORMAL IP MESSAGE 1; HEMATOCRIT 26.2 % (37.0-47.0); HEMOGLOBIN 8.6 g/dl (12.0-16.0); MEAN CORPUSCULAR HEMOGLOBIN 29.8 pg (29.0-33.0); MEAN CORPUSCULAR HGB CONC 32.8 g/dl (32.0-37.0); MEAN CORPUSCULAR VOLUME 90.7 fl (82.0-101.0); MEAN PLATELET VOLUME 11.4 fl (7.4-10.4); PLATELET COUNT 31 10^3/UL (140-415); RED BLOOD COUNT 2.89 10^6/ul (4.20-5.40); RED CELL DISTRIBUTION WIDTH 18.3 % (11.5-14.5); WHITE BLOOD COUNT 10.1 10^3/ul (4.8-10.8)
[2017-03-21 05:01] LABS: ALBUMIN 1.6 g/dl (3.3-4.9); POTASSIUM 3.6 mmol/L (3.5-5.1)
[2017-03-21 05:03] LABS: BILIRUBIN,DIRECT 0.3 mg/dl (0.00-0.20); BILIRUBIN,INDIRECT 1.2 mg/dl (0-1.1); BILIRUBIN,TOTAL 1.5 mg/dl (0.2-1.3); CREATININE 2.08 mg/dl (0.44-1.00)
[2017-03-21 05:04] LABS: ALBUMIN/GLOBULIN RATIO 0.8; CALCIUM 8.7 mg/dl (8.4-10.2); TOTAL PROTEIN 3.6 g/dl (6.1-8.1)
[2017-03-21 05:05] LABS: MAGNESIUM 1.7 mg/dl (1.7-2.5)
[2017-03-21] MEDS: PANTOPRAZOLE 40 MG INJ IV SCH (06:06)
--- NOTE | 2017-03-21 07:17 | PN ---
DATE: 03/20/2017 CARDIOLOGY FOLLOWUP SUBJECTIVE: Discussed with the staff. Rhythm strip was reviewed. The patient remains in atrial fi brillation. Heart has improved. She is being weaned off all the pressors and is only on Chris-Syneph rine now. She is more awake, responds appropriately. Denies any pain to me. MEDICATIONS: Reviewed as per medication reconciliation, personally reviewed. PHYSICAL EXAMINATION: VITAL SIGNS: Temperature 98.5, heart rate of 104, blood pressure 92/50, respiration rate of 19, sat urating 100%. HEENT: Normocephalic, atraumatic. Eyes: Pupils are equal. Status post intubation on the vent. CARDIOVASCULAR: ____. PULMONARY: ____ rhonchi with no wheezes heard. GASTROINTESTINAL: Soft, nontender. EXTREMITIES: Diffuse lower extremity edema. NEUROLOGIC: Awake, follows basic commands. PSYCHIATRIC: Appears to be calm. LABORATORY: Digoxin level is 1.1. Sodium 137, potassium 3.4, BUN of 25, creatinine 1.73, glucose o f 91. ____ is 1.7 only. ASSESSMENT AND PLAN: 1. Shock, combination of probably septic and cardiogenic. 2. Hypoxemia respiratory failure, acute on the vent now. 3. Severe cardiomyopathy appeared to be nonischemic. 4. Atrial fibrillation with rapid ventricular response. 5. Renal failure on dialysis, history of thyroid disorder with history of old cerebrovascular accid ent. 6. Pleural effusion, status post thoracentesis. RECOMMENDATIONS: INR ____ therapeutic at 1.94. Coumadin to be adjusted if no other procedures plan roxanna. Dialysis will be continued as tolerated. Continue with the Chris-Synephrine drip and try to tit rate her off of it. We will check a digoxin level again tomorrow and more digoxin will be given if able to tolerate it. Continue with the ICU care. Antibiotic as per internal medicine and pulmonary . Continue with ICU care. More than 36 minutes of critical care time was spent in management of this patient excluding any pro cedures. Dictated By: KATIUSKA BRITO MD AV/NTS Conf#: [id number] DID#: [id number] CC: NATHANIEL WORTHY MD; ??Kyleigh;*EndCC*
[2017-03-21 09:00] LABS: LYMPHOCYTES # 0.4 10^3/ul (0.8-2.9); MONOCYTE # 0.3 10^3/ul (0.3-0.9); NEUTROPHIL # 9.3 10^3/ul (1.6-7.5)
[2017-03-21] MEDS: COLLAGENASE 30 GM TUBE TOP SCH (09:00)
[2017-03-21 09:01] LABS: PLATELET ESTIMATE PLT APPEAR DECREASED
[2017-03-21] MEDS: ALBUMIN HUMAN 25% 100 ML IV SCH ×2 (09:30→18:15)
--- NOTE | 2017-03-21 09:59 | CONS ---
Date/Time of Note Date/Time of Note DATE: 03/21/17 TIME: 09:56 Assessment/Plan Assessment/Plan Additional Assessment/Plan Ventilator settings; AC of 20, tidal volume 500, PEEP of 5, 30% FiO2. Patient is currently on phenylephrine drip at 70 mics per minute. Assessment recommendations; 1. Patient admitted for respiratory failure due to pulmonary edema from underlying cardiomyopathy. 2. End-stage renal disease, on hemodialysis. 3. Chronic atrial fibrillation. 4. Anemia. 5. Worsening thrombocytopenia. 6. Persistent hypotension, although on a tapering dose of pressor support. Discontinue Azactam due to thrombocytopenia, start Levaquin 250 mg IV daily, continue vancomycin. Continue current ventilator settings. Chest x-ray is pending from today once it is done I will review it and make further recommendations regarding any possibility of weaning from ventilator. Consultation Date/Type/Reason Admit Date/Time Mar 15, 2017 at 20:26 Initial Consult Date 03/16/17 Type of Consultation: Pulmonary/critical care Referring Provider: VASILE DEMPSEY 24 HR Interval Summary Free Text/Dictation Patient condition remains critical. She however remains awake and alert. Currently getting hemodialysis at bedside. Has remained hemodynamically stable. General exam; elderly lady, orally intubated, awake and alert. Currently in no distress. Exam/Review of Systems Vital Signs Vitals Vital Signs Date Time Temp Pulse Resp B/P Pulse Ox O2 Delivery O2 Flow Rate FiO2 03/21/17 09:15 112 20 106/79 99 03/21/17 08:00 97.5 03/21/17 07:23 40 03/21/17 07:00 Mechanical Ventilator Intake and Output 03/20/17 03/20/17 03/21/17 15:00 23:00 07:00 Intake Total 670.6875 ml 1090.55 ml 731.85 ml Output Total 125 ml Balance 670.6875 ml 1090.55 ml 606.85 ml Exam HEENT exam; supple neck, positive JVD. No lymphadenopathy. Midline trachea. Orally intubated. Has bilateral intraocular lens implants. Dentition is fair. Chest examination; diminished breath on lung bases bilaterally. Upper lobes are clear. S1-S2 audible, irregular rhythm. Abdomen examination; soft, nontender. No organomegaly. Bowel sounds audible. Extremity examination; no peripheral edema. Patient does have ecchymosis involving all 4 extremities. [employer] examination; patient is awake and follows simple commands, moves all 4 extremities. Results Result Diagram: 03/21/17 0400 03/21/17 0400 Results 24 hrs Laboratory Tests Test 03/20/17 11:50 03/20/17 13:20 03/20/17 17:37 03/20/17 20:32 Blood Gas Specimen Source Blood arterial Arterial Blood Date Drawn 03/20/2017 11:39:19 AM Arterial Blood pH (Temp corrected) 7.538 H Arterial Blood pCO2 (Temp correct) 28.9 L Arterial Blood pO2 (Temp corrected) 75.1 L Arterial Blood HCO3 24.0 Arterial Blood Base Excess 1.6 Arterial Blood Oxygen Saturation 95.1 Akhil Test ACCEPTAB Arterial Blood Gas Puncture Site Right Radial Arterial Blood Carboxyhemoglobin 1.2 Arterial Blood Methemoglobin 0.3 Blood Gas A-a O2 Differential 176.9 H Oxyhemoglobin Percent 93.7 Total Hemoglobin 7.7 L Blood Gas Temperature 37.0 Blood Gas Respiration Rate 20.0 Blood Gas Actual Respiration Rate 20 Blood Gas Modality VENT - AC FiO2 40.0 Blood Gas Tidal Volume 500.0 Blood Gas Notified Whom LS Blood Gas Notified Time 03/20/2017 12:01:35 PM Bedside Glucose 79 87 91 Test 03/21/17 00:36 03/21/17 04:00 03/21/17 04:57 03/21/17 09:03 Bedside Glucose 100 134 164 White Blood Count 10.1 Red Blood Count 2.89 L Hemoglobin 8.6 L Hematocrit 26.2 L Mean Corpuscular Volume 90.7 Mean Corpuscular Hemoglobin 29.8 Mean Corpuscular Hemoglobin Concent 32.8 Red Cell Distribution Width 18.3 H Platelet Count 31 #L Mean Platelet Volume 11.4 H Neutrophils % Band Neutrophils % 1.0 Lymphocytes % 4.0 L Monocytes % 3.0 Eosinophils % Nucleated Red Blood Cells % 1.0 H Neutrophils # 9.3 H Lymphocytes # 0.4 L Monocytes # 0.3 Eosinophils # Differential Comment MANUAL DIFF Platelet Estimate PLT APPEAR DECREASED Sodium Level 137 Potassium Level 3.6 Chloride Level 100 Carbon Dioxide Level 27 Anion Gap 14 Blood Urea Nitrogen 34 H Creatinine 2.08 H Glucose Level 113 Calcium Level 8.7 Magnesium Level 1.7 Total Bilirubin 1.5 H Direct Bilirubin 0.30 H Indirect Bilirubin 1.2 H Aspartate Amino Transf (AST/SGOT) 9 L Alanine Aminotransferase (ALT/SGPT) 25 Alkaline Phosphatase 101 Total Protein 3.6 L Albumin 1.6 L Globulin 2.00 Albumin/Globulin Ratio 0.80 Random Vancomycin Level 10.4 Digoxin Level 1.3 Medications Medications Current Medications Norepinephrine/ Dextrose (Levophed/D5W) 500 ml @ 9.37 mls/hr TITRATE IV Last administered on 03/18/17 19:59; Admin Dose 562.5 MLS/HR; Start 03/15/17 at 23: 00 Ondansetron HCl (Zofran Inj) 4 mg Q6H PRN IV NAUSEA AND/OR VOMITING; Start at 01:00 Acetaminophen (Tylenol Liquid) 650 mg Q6H PRN PO PAIN LEVEL 1-3 OR FEVER; Start 03/16/17 at 01:00 Morphine Sulfate (morphine) 2 mg Q4H PRN IV PAIN LEVEL 7-10; Start 03/16/17 at 01:00 Pantoprazole (Protonix Iv) 40 mg DAILY@06 IV Last administered on 03/21/17 06: 06; Admin Dose 40 MG; Start 03/16/17 at 06:00 Diagnostic Test (Pha) 1 ea 1 ea 02 XX Last administered on 03/20/17 02:00; Admin Dose 1 EA; Start 03/17/17 at 02:00 Midazolam HCl 50 ml @ 1 mls/hr TITRATE IV Last administered on 03/17/17 11:04 ; Admin Dose 3 MLS/HR; Start 03/16/17 at 11:00 Aztreonam/Sodium Chloride (Azactam/NS) 50 ml @ 100 mls/hr Q12 IV Last administered on 03/20/17 20:37; Admin Dose 100 MLS/HR; Start 03/16/17 at 12:30 Collagenase (Santyl) 1 applic DAILY TOP Last administered on 03/20/17 09:15; Admin Dose 1 APPLIC; Start 03/16/17 at 18:30 Collagenase (Santyl) 1 applic PRN PRN TOP WOUND CARE; Start 03/16/17 at 18:30 Insulin Aspart (Novolog Insulin Pen) NOVOLOG *MODERATE* ALGORI... Q4 SC Last administered on 03/19/17 09:32; Admin Dose 4 UNIT; Start 03/17/17 at 05:00 Miscellaneous Information 1 ea NOTE XX ; Start 03/17/17 at 02:00 Glucose (Glutose) 15 gm Q15M PRN PO DECREASED GLUCOSE; Start 03/17/17 at 02:00 Glucose (Glutose) 22.5 gm Q15M PRN PO DECREASED GLUCOSE; Start 03/17/17 at 02: 00 Dextrose (D50w Syringe) 25 ml Q15M PRN IV DECREASED GLUCOSE; Start 03/17/17 at 02:00 Dextrose (D50w Syringe) 50 ml Q15M PRN IV DECREASED GLUCOSE Last administered on 03/18/17 05:36; Admin Dose 50 ML; Start 03/17/17 at 02:00 Glucagon (Glucagen) 1 mg Q15M PRN IM DECREASED GLUCOSE; Start 03/17/17 at 02:00 Glucose (Glutose) 15 gm Q15M PRN BUCCAL DECREASED GLUCOSE; Start 03/17/17 at 02 :00 Insulin Glargine 20 unit 20 unit DAILY@20 SC Last administered on 03/19/17 20: 36; Admin Dose 20 UNIT; Start 03/17/17 at 20:00 Sodium Bicarbonate 100 meq/Dextrose/ Sodium Chloride 1,000 ml @ 80 mls/hr [id number] IV Last administered on 03/20/17 22:03; Admin Dose 80 MLS/HR; Start at 06:30 Phenylephrine HCl 160 mg/Dextrose 500 ml @ 18.75 mls/ hr TITRATE IV Last administered on 03/20/17 22:04; Admin Dose 11.25 MLS/HR; Start 03/19/17 at 02: 30 Albumin Human 100 ml @ 100 mls/hr Q8H IV ; Start 03/21/17 at 09:30; Stop at 02:29 Magnesium Sulfate (Magnesium Sulfate 2 Gm/50 ml) 50 ml @ 25 mls/hr ONCE ONCE IVPB ; Start 03/21/17 at 13:30; Stop 03/21/17 at 15:29 YUNIOR JUNIOR March 21, 2017 09:59
[2017-03-21 10:03] LABS: ADD UMIC YES; URINE BILIRUBIN (Dip) NEGATIVE (NEGATIVE); URINE BLOOD (Dip) 3+ (NEGATIVE); URINE COLOR BROWN (YELLOW); URINE KETONES (Dip) NEGATIVE (NEGATIVE); URINE LEUKOCYTE ESTERASE (Dip) 2+ (NEGATIVE); URINE NITRITE (Dip) NEGATIVE (NEGATIVE); URINE TOTAL PROTEIN (Dip) 4+ (NEGATIVE); URINE UROBILINOGEN (Dip) 0.2 E.U./dL (0.1-1.0)
[2017-03-21 10:11] LABS: URINE RBCS >200 /HPF (0)
[2017-03-21 10:12] LABS: BACTERIA,URINE MANY
--- NOTE | 2017-03-21 10:14 | RADRPT ---
PROCEDURE: XR Chest. CLINICAL INDICATION: CHF follow-up TECHNIQUE: Anterior chest x-ray. COMPARISON: 03/18/2017 FINDINGS: Endotracheal tube terminates 1.2 cm above the nai. Nasogastric tube terminates below the inferior margin exam in the upper abdomen. Right dual-lumen dialysis catheter demonstrates stable and satisfactory position. Multiple lead wires overlie the chest. Small right pleural effusions unchanged from previous exam. Small to moderate left pleural effusion is increased from previous exam. Mild consolidation left lung base is increased from previous exam. There is no evidence of pneumothorax. The heart size is large. There is atherosclerotic calcification of the aorta. The soft tissues are normal. Moderate degenerative changes seen throughout the thoracic spine and in the bilateral shoulders. IMPRESSION: 1. Stable and satisfactory position of life support lines. 2. Small to moderate left pleural effusion, increased from previous exam. 3. Small right pleural effusion, unchanged. 4. Compressive atelectasis versus infiltrate in left lung base, increased from previous exam. 5. Cardiomegaly. 6. Atherosclerotic calcification of the aorta. RPTAT: HLDM .Jose Marc MD, MD Date Time Electronically viewed and signed by .Jose Marc MD, MD on 03/21/2017 10:13 .M/
[2017-03-21] MEDS: ALBUMIN HUMAN 25% 100 ML IV PRN (10:29)
[2017-03-21] MEDS ORDERED: SOD CHLORIDE 0.9% 1,000 ML IV SCH (10:30)
--- NOTE | 2017-03-21 10:39 | PN ---
Date/Time of Note Date/Time of Note DATE: 03/21/17 TIME: 10:10 Assessment/Plan VTE Prophylaxis VTE Prophylaxis Intervention: other (coumadin) Lines/Catheters IV Catheter Type (from Nrsg): Central Line Central line still needed: Yes Urinary Cath still in place: Yes Reason Cath still needed: other (indicate) Assessment/Plan Assessment/Plan Chief Complaint/Hosp Course 1. Shock: Hypovolemic (effusions/anasarca) + Septic 2. End-stage renal disease on Hemodialysis 3. Hypercapnic and Hypoxic Resp Failure remains ventilated 4. Acute encephalopathy on chronic dementia with Debility likely 2/2 #3 5. Hypothyroidism. 6. Anemia 2/2 CKD + Thrombocytopenia likely 2/2 SIRS versus Sepsis 7. Bilateral pleural effusion / Probable underlying pneumonia L sided thoracentesis done 03/18 8. Afib RVR on . Cardiomyopathy with severe systolic dysfunction with EF of 25% 10. Diabetes type 2, currently controlled 11. Old lacunar stroke. 12. AG Acidosis 2/2 Resp and Renal: resolved 13. Supratherapeutic INR: resolved PLAN: Continue ICU monitoring and care Wean Vent and pressors as tolerated / short course of albumin therapy D/c Bicarb and replace with plain NS if ok with renal Continue Lantus / SSI / ?commence tube feeds Rate control per cardiology, patient on digoxin and Coumadin Resume home synthroid with last TSH of 15 if ok with cards Continue abx per ID PPx- Coumadin / PPI Subjective 24 Hr Interval Summary Free Text/Dictation Patient seen and examined. Intubated but communicative c/o mild soreness in extremities currently on dialysis remains on pressor support Exam/Review of Systems Vital Signs Vitals Vital Signs Date Time Temp Pulse Resp B/P Pulse Ox O2 Delivery O2 Flow Rate FiO2 03/21/17 09:15 112 20 106/79 99 03/21/17 08:00 97.5 03/21/17 07:23 40 03/21/17 07:00 Mechanical Ventilator Intake and Output 03/20/17 03/20/17 03/21/17 15:00 23:00 07:00 Intake Total 670.6875 ml 1090.55 ml 731.85 ml Output Total 125 ml Balance 670.6875 ml 1090.55 ml 606.85 ml Exam Constitutional: alert, non-verbal ENMT: intubated Respiratory: clear to auscultation, diminished Cardiovascular: regular rate and rhythm Gastrointestinal: soft, obese No distended, + BS Musculoskeletal: diffuse edema / anasarca Results Result Diagram: 03/21/17 0400 03/21/17 0400 Results 24 hrs Laboratory Tests Test 03/20/17 11:50 03/20/17 13:20 03/20/17 17:37 03/20/17 20:32 Blood Gas Specimen Source Blood arterial Arterial Blood Date Drawn 03/20/2017 11:39:19 AM Arterial Blood pH (Temp corrected) 7.538 H Arterial Blood pCO2 (Temp correct) 28.9 L Arterial Blood pO2 (Temp corrected) 75.1 L Arterial Blood HCO3 24.0 Arterial Blood Base Excess 1.6 Arterial Blood Oxygen Saturation 95.1 Akhil Test ACCEPTAB Arterial Blood Gas Puncture Site Right Radial Arterial Blood Carboxyhemoglobin 1.2 Arterial Blood Methemoglobin 0.3 Blood Gas A-a O2 Differential 176.9 H Oxyhemoglobin Percent 93.7 Total Hemoglobin 7.7 L Blood Gas Temperature 37.0 Blood Gas Respiration Rate 20.0 Blood Gas Actual Respiration Rate 20 Blood Gas Modality VENT - AC FiO2 40.0 Blood Gas Tidal Volume 500.0 Blood Gas Notified Whom LS Blood Gas Notified Time 03/20/2017 12:01:35 PM Bedside Glucose 79 87 91 Test 03/21/17 00:36 03/21/17 03:00 03/21/17 04:00 03/21/17 04:57 Bedside Glucose 100 134 Urine Color BROWN Urine Clarity CLEAR Urine pH 7.5 Urine Specific [place] 1.020 Urine Ketones NEGATIVE Urine Nitrite NEGATIVE Urine Bilirubin NEGATIVE Urine Urobilinogen 0.2 E.U./dL Urine Leukocyte Esterase 2+ H Urine Microscopic RBC Pending Urine Microscopic WBC Pending Urine Hemoglobin 3+ H Urine Glucose 0.1% H Urine Total Protein 4+ H White Blood Count 10.1 Red Blood Count 2.89 L Hemoglobin 8.6 L Hematocrit 26.2 L Mean Corpuscular Volume 90.7 Mean Corpuscular Hemoglobin 29.8 Mean Corpuscular Hemoglobin Concent 32.8 Red Cell Distribution Width 18.3 H Platelet Count 31 #L Mean Platelet Volume 11.4 H Neutrophils % Band Neutrophils % 1.0 Lymphocytes % 4.0 L Monocytes % 3.0 Eosinophils % Nucleated Red Blood Cells % 1.0 H Neutrophils # 9.3 H Lymphocytes # 0.4 L Monocytes # 0.3 Eosinophils # Differential Comment MANUAL DIFF Platelet Estimate PLT APPEAR DECREASED Sodium Level 137 Potassium Level 3.6 Chloride Level 100 Carbon Dioxide Level 27 Anion Gap 14 Blood Urea Nitrogen 34 H Creatinine 2.08 H Glucose Level 113 Calcium Level 8.7 Magnesium Level 1.7 Total Bilirubin 1.5 H Direct Bilirubin 0.30 H Indirect Bilirubin 1.2 H Aspartate Amino Transf (AST/SGOT) 9 L Alanine Aminotransferase (ALT/SGPT) 25 Alkaline Phosphatase 101 Total Protein 3.6 L Albumin 1.6 L Globulin 2.00 Albumin/Globulin Ratio 0.80 Random Vancomycin Level 10.4 Digoxin Level 1.3 Test 03/21/17 09:03 Bedside Glucose 164 Medications Medications Current Medications Norepinephrine/ Dextrose (Levophed/D5W) 500 ml @ 9.37 mls/hr TITRATE IV Last administered on 03/18/17 19:59; Admin Dose 562.5 MLS/HR; Start 03/15/17 at 23: 00 Ondansetron HCl (Zofran Inj) 4 mg Q6H PRN IV NAUSEA AND/OR VOMITING; Start at 01:00 Acetaminophen (Tylenol Liquid) 650 mg Q6H PRN PO PAIN LEVEL 1-3 OR FEVER; Start 03/16/17 at 01:00 Morphine Sulfate (morphine) 2 mg Q4H PRN IV PAIN LEVEL 7-10; Start 03/16/17 at 01:00 Pantoprazole (Protonix Iv) 40 mg DAILY@06 IV Last administered on 03/21/17 06: 06; Admin Dose 40 MG; Start 03/16/17 at 06:00 Diagnostic Test (Pha) 1 ea 1 ea 02 XX Last administered on 03/20/17 02:00; Admin Dose 1 EA; Start 03/17/17 at 02:00 Midazolam HCl (Versed) 50 ml @ 1 mls/hr TITRATE IV Last administered on 11:04; Admin Dose 3 MLS/HR; Start 03/16/17 at 11:00 Collagenase (Santyl) 1 applic DAILY TOP Last administered on 03/20/17 09:15; Admin Dose 1 APPLIC; Start 03/16/17 at 18:30 Collagenase (Santyl) 1 applic PRN PRN TOP WOUND CARE; Start 03/16/17 at 18:30 Insulin Aspart (Novolog Insulin Pen) NOVOLOG *MODERATE* ALGORI... Q4 SC Last administered on 03/19/17 09:32; Admin Dose 4 UNIT; Start 03/17/17 at 05:00 Miscellaneous Information 1 ea NOTE XX ; Start 03/17/17 at 02:00 Glucose (Glutose) 15 gm Q15M PRN PO DECREASED GLUCOSE; Start 03/17/17 at 02:00 Glucose (Glutose) 22.5 gm Q15M PRN PO DECREASED GLUCOSE; Start 03/17/17 at 02: 00 Dextrose (D50w Syringe) 25 ml Q15M PRN IV DECREASED GLUCOSE; Start 03/17/17 at 02:00 Dextrose (D50w Syringe) 50 ml Q15M PRN IV DECREASED GLUCOSE Last administered on 03/18/17 05:36; Admin Dose 50 ML; Start 03/17/17 at 02:00 Glucagon (Glucagen) 1 mg Q15M PRN IM DECREASED GLUCOSE; Start 03/17/17 at 02:00 Glucose (Glutose) 15 gm Q15M PRN BUCCAL DECREASED GLUCOSE; Start 03/17/17 at 02 :00 Insulin Glargine 20 unit 20 unit DAILY@20 SC Last administered on 03/19/17 20: 36; Admin Dose 20 UNIT; Start 03/17/17 at 20:00 Sodium Bicarbonate 100 meq/Dextrose/ Sodium Chloride 1,000 ml @ 80 mls/hr [id number] IV Last administered on 03/20/17 22:03; Admin Dose 80 MLS/HR; Start at 06:30 Phenylephrine HCl 160 mg/Dextrose 500 ml @ 18.75 mls/ hr TITRATE IV Last administered on 03/20/17 22:04; Admin Dose 11.25 MLS/HR; Start 03/19/17 at 02: 30 Albumin Human 100 ml @ 100 mls/hr Q8H IV ; Start 03/21/17 at 09:30; Stop at 02:29 Magnesium Sulfate 50 ml @ 25 mls/hr ONCE ONCE IVPB ; Start 03/21/17 at 13:30; Stop 03/21/17 at 15:29 Levofloxacin/ Dextrose (Levaquin 250 Mg/ D5W 50 ml (Pmx)) 50 ml @ 50 mls/hr Q24H IVPB ; Start 03/21/17 at 11:30 Procedures Procedures PROCEDURE: XR Chest. CLINICAL INDICATION: CHF TECHNIQUE: An AP view of the chest was obtained. COMPARISON: Chest x-ray dated 03/15/2017 and 03/16/2017 FINDINGS: The endotracheal tube tip is approximately 2.2 cm above the nai. The tip of the enteric tube extends below the left diaphragm. There is a right chest Perma-Cath with tip near the cavoatrial junction. There is prominence of the interstitial and central pulmonary vascular markings with large left and moderate right pleural effusions. No focal airspace opacification or pneumothorax is seen. The cardiomediastinal silhouette is mildly enlarged . Calcifications are seen within the aortic arch. The osseous structures demonstrate senescent changes. There is severe left shoulder arthrosis. IMPRESSION: 1. Findings suggestive of pulmonary vascular congestion/interstitial edema with large left and moderate right pleural effusion. Findings are increased when compared to the prior examination. 2. Mild cardiomegaly and aortic atherosclerosis. 3. Tubes and lines, as described above. RPTAT: HH .Alvina Bowden MD, MD Date Time Electronically viewed and signed by .Alvina Bowden MD, on 03/18/2017 09 :14 .G/ CC: YUNIOR JUNIOR BOLATITO M. March 21, 2017 10:21
[2017-03-21 10:43] LABS: ALBUMIN 1.5 g/dl (3.3-4.9)
[2017-03-21 10:46] LABS: BILIRUBIN,DIRECT 0.2 mg/dl (0.00-0.20); BILIRUBIN,INDIRECT 1.2 mg/dl (0-1.1); BILIRUBIN,TOTAL 1.4 mg/dl (0.2-1.3); TOTAL PROTEIN 3.3 g/dl (6.1-8.1)
--- NOTE | 2017-03-21 10:52 | CONS ---
Date/Time of Note Date/Time of Note DATE: 03/21/17 TIME: 10:49 Assessment/Plan Assessment/Plan Additional Assessment/Plan 1. End-stage renal disease on hemodialysis, regular schedule is Tuesday, , Tuesday. 2. Atiral fibrillation with RVR 2. Cardiomyopathy with a severe systolic dysfunction with ejection fraction of 25%. 3. History of hypertension. 4. History of hypothyroidism. 5. History of previous cerebrovascular accident. 6. Moderate to large bilateral pleural effusion. 7. Acute respiratory failure, multifactorial secondary to sepsis, hypotension pleural effusions and fluid overload, currently intubated on ventilator. 8. Moderate pleural effusion s/p let thoracentesis 03/18/17- 1.75 L drained PLAN: S/p HD 4 days in a row- HD ordered for today Mag replacement d./c bicarbonate drip Getting HD now Tube feeding plan, as soon as TF started d/c NS rate controlled with amiodarone and digoxin s/p left thoracentesis 03/18/17- 1.75 L removed, weaning plan for as per pulmonary will follow up Consultation Date/Type/Reason Admit Date/Time Mar 15, 2017 at 20:26 Initial Consult Date 03/16/17 Type of Consultation: NEPHROLOGY Referring Provider: VASILE DEMPSEY 24 HR Interval Summary Free Text/Dictation pt remains intubated, Getting HD now, Low platelets, low Mag, very alkalotic Exam/Review of Systems Vital Signs Vitals Vital Signs Date Time Temp Pulse Resp B/P Pulse Ox O2 Delivery O2 Flow Rate FiO2 03/21/17 10:22 98 20 100 30 03/21/17 09:15 106/79 03/21/17 08:00 97.5 03/21/17 07:00 Mechanical Ventilator Intake and Output 03/20/17 03/20/17 03/21/17 14:59 22:59 06:59 Intake Total 769.4375 ml 999.3 ml 735.60 ml Output Total 125 ml Balance 769.4375 ml 999.3 ml 610.60 ml Exam HEENT: ET tube in place. NECK: Jugular venous distention. LUNGS: Bilateral coarse breath sounds with minimal basilar crackles present. HEART: S1, S2, tachycardia. Irregularly irregular. ABDOMEN: Soft, nontender, nondistended, obese. EXTREMITIES: 1 to 2+ pitting edema. The patient has right upper chest tunneled hemodialysis catheter in place. NEUROLOGICAL: Uncooperative for exam since the patient is currently sedated, intubated. PSYCHIATRIC: Appropriate. SKIN: No rash. Results Result Diagram: 03/21/17 0400 03/21/17 0400 Results 24 hrs Laboratory Tests Test 03/20/17 11:50 03/20/17 13:20 03/20/17 17:37 03/20/17 20:32 Blood Gas Specimen Source Blood arterial Arterial Blood Date Drawn 03/20/2017 11:39:19 AM Arterial Blood pH (Temp corrected) 7.538 H Arterial Blood pCO2 (Temp correct) 28.9 L Arterial Blood pO2 (Temp corrected) 75.1 L Arterial Blood HCO3 24.0 Arterial Blood Base Excess 1.6 Arterial Blood Oxygen Saturation 95.1 Akhil Test ACCEPTAB Arterial Blood Gas Puncture Site Right Radial Arterial Blood Carboxyhemoglobin 1.2 Arterial Blood Methemoglobin 0.3 Blood Gas A-a O2 Differential 176.9 H Oxyhemoglobin Percent 93.7 Total Hemoglobin 7.7 L Blood Gas Temperature 37.0 Blood Gas Respiration Rate 20.0 Blood Gas Actual Respiration Rate 20 Blood Gas Modality VENT - AC FiO2 40.0 Blood Gas Tidal Volume 500.0 Blood Gas Notified Whom LS Blood Gas Notified Time 03/20/2017 12:01:35 PM Bedside Glucose 79 87 91 Test 03/21/17 00:36 03/21/17 03:00 03/21/17 04:00 03/21/17 04:57 Bedside Glucose 100 134 Urine Color BROWN Urine Clarity CLEAR Urine pH 7.5 Urine Specific [place] 1.020 Urine Ketones NEGATIVE Urine Nitrite NEGATIVE Urine Bilirubin NEGATIVE Urine Urobilinogen 0.2 E.U./dL Urine Leukocyte Esterase 2+ H Urine Microscopic RBC >200 Urine Microscopic WBC >200 Urine Epithelial Cells FEW Urine Bacteria MANY Urine Yeast MODERATE Urine Hemoglobin 3+ H Urine Glucose 0.1% H Urine Total Protein 4+ H White Blood Count 10.1 Red Blood Count 2.89 L Hemoglobin 8.6 L Hematocrit 26.2 L Mean Corpuscular Volume 90.7 Mean Corpuscular Hemoglobin 29.8 Mean Corpuscular Hemoglobin Concent 32.8 Red Cell Distribution Width 18.3 H Platelet Count 31 #L Mean Platelet Volume 11.4 H Neutrophils % Band Neutrophils % 1.0 Lymphocytes % 4.0 L Monocytes % 3.0 Eosinophils % Nucleated Red Blood Cells % 1.0 H Neutrophils # 9.3 H Lymphocytes # 0.4 L Monocytes # 0.3 Eosinophils # Differential Comment MANUAL DIFF Platelet Estimate PLT APPEAR DECREASED Sodium Level 137 Potassium Level 3.6 Chloride Level 100 Carbon Dioxide Level 27 Anion Gap 14 Blood Urea Nitrogen 34 H Creatinine 2.08 H Glucose Level 113 Calcium Level 8.7 Magnesium Level 1.7 Total Bilirubin 1.4 H Direct Bilirubin 0.20 Indirect Bilirubin 1.2 H Aspartate Amino Transf (AST/SGOT) 11 L Alanine Aminotransferase (ALT/SGPT) 26 Alkaline Phosphatase 103 Total Protein 3.3 L Albumin 1.5 L Globulin 2.00 Albumin/Globulin Ratio 0.80 Random Vancomycin Level 10.4 Digoxin Level 1.3 Test 03/21/17 09:03 Bedside Glucose 164 Medications Medications Current Medications Norepinephrine/ Dextrose (Levophed/D5W) 500 ml @ 9.37 mls/hr TITRATE IV Last administered on 03/18/17 19:59; Admin Dose 562.5 MLS/HR; Start 03/15/17 at 23: 00 Ondansetron HCl (Zofran Inj) 4 mg Q6H PRN IV NAUSEA AND/OR VOMITING; Start at 01:00 Acetaminophen (Tylenol Liquid) 650 mg Q6H PRN PO PAIN LEVEL 1-3 OR FEVER; Start 03/16/17 at 01:00 Morphine Sulfate (morphine) 2 mg Q4H PRN IV PAIN LEVEL 7-10; Start 03/16/17 at 01:00 Pantoprazole (Protonix Iv) 40 mg DAILY@06 IV Last administered on 03/21/17 06: 06; Admin Dose 40 MG; Start 03/16/17 at 06:00 Diagnostic Test (Pha) 1 ea 1 ea 02 XX Last administered on 03/20/17 02:00; Admin Dose 1 EA; Start 03/17/17 at 02:00 Midazolam HCl (Versed) 50 ml @ 1 mls/hr TITRATE IV Last administered on 11:04; Admin Dose 3 MLS/HR; Start 03/16/17 at 11:00 Collagenase (Santyl) 1 applic DAILY TOP Last administered on 03/20/17 09:15; Admin Dose 1 APPLIC; Start 03/16/17 at 18:30 Collagenase (Santyl) 1 applic PRN PRN TOP WOUND CARE; Start 03/16/17 at 18:30 Insulin Aspart (Novolog Insulin Pen) NOVOLOG *MODERATE* ALGORI... Q4 SC Last administered on 03/19/17 09:32; Admin Dose 4 UNIT; Start 03/17/17 at 05:00 Miscellaneous Information 1 ea NOTE XX ; Start 03/17/17 at 02:00 Glucose (Glutose) 15 gm Q15M PRN PO DECREASED GLUCOSE; Start 03/17/17 at 02:00 Glucose (Glutose) 22.5 gm Q15M PRN PO DECREASED GLUCOSE; Start 03/17/17 at 02: 00 Dextrose (D50w Syringe) 25 ml Q15M PRN IV DECREASED GLUCOSE; Start 03/17/17 at 02:00 Dextrose (D50w Syringe) 50 ml Q15M PRN IV DECREASED GLUCOSE Last administered on 03/18/17 05:36; Admin Dose 50 ML; Start 03/17/17 at 02:00 Glucagon (Glucagen) 1 mg Q15M PRN IM DECREASED GLUCOSE; Start 03/17/17 at 02:00 Glucose (Glutose) 15 gm Q15M PRN BUCCAL DECREASED GLUCOSE; Start 03/17/17 at 02 :00 Insulin Glargine 20 unit 20 unit DAILY@20 SC Last administered on 03/19/17 20: 36; Admin Dose 20 UNIT; Start 03/17/17 at 20:00 Phenylephrine HCl 160 mg/Dextrose 500 ml @ 18.75 mls/ hr TITRATE IV Last administered on 03/20/17 22:04; Admin Dose 11.25 MLS/HR; Start 03/19/17 at 02: 30 Albumin Human 100 ml @ 100 mls/hr Q8H IV ; Start 03/21/17 at 09:30; Stop at 02:29 Magnesium Sulfate 50 ml @ 25 mls/hr ONCE ONCE IVPB ; Start 03/21/17 at 13:30; Stop 03/21/17 at 15:29 Levofloxacin/ Dextrose 50 ml @ 50 mls/hr Q24H IVPB ; Start 03/21/17 at 11:30 Sodium Chloride (NS) 1,000 ml @ 60 mls/hr [id number] IV ; Start 03/21/17 at 10:30 Levothyroxine Sodium (Synthroid) 150 mcg DAILY@06 PO ; Start 03/22/17 at 06:00 VIRIDIANA VILLARREAL MD March 21, 2017 10:52
--- NOTE | 2017-03-21 11:58 | RADRPT ---
PROCEDURE: XR Chest. CLINICAL INDICATION: Shortness of breath. TECHNIQUE: Single frontal view. COMPARISON: 03/20/2017. FINDINGS: The endotracheal tube, nasogastric tube, and right internal jugular vein tunneled dialysis catheter remain in satisfactory position. There is bilateral air space disease in the mid and lower lung zon es consistent with atelectasis or pneumonia. The heart is mildly enlarged. There is calcification in the aorta consistent with atherosclerosis. There are moderate bilateral pleural effusions. There is no pneumothorax. IMPRESSION: 1. Endotracheal tube, nasogastric tube, and right IJ catheter in satisfactory position. 2. Atelectasis or pneumonia in the mid and lower lung zones. 3. Mild cardiomegaly. 4. Atherosclerosis. 5. Moderate bilateral pleural effusions. RPTAT: QQ .Levar Lewis MD, MD Date Time Electronically viewed and signed by .Levar Lewis MD, MD on 03/21/2017 11:58 .R/
[2017-03-21] MEDS: LEVOFLOXACIN 250MG/D5W (PMX) 50 ML IVPB SCH (12:09)
[2017-03-21] MEDS ORDERED: MAGNESIUM SULFATE 2 GM/50 ML 50 ML IVPB ONE (13:30)
[2017-03-21] MEDS ORDERED: VANCOMYCIN 1 GM in NS 250 ML IVPB SCH (17:00)
--- NOTE | 2017-03-21 18:17 | PN ---
DATE: 03/21/2017 CARDIOLOGY FOLLOWUP SUBJECTIVE: Patient remains in atrial fibrillation. Heart rate has been under fair control. He is still on Chris-Synephrine drip and is hypotensive. Intubated on the vent. Discussed with the staff. Rhythm strip was reviewed. MEDICATIONS: Personally reviewed. PHYSICAL EXAMINATION: VITAL SIGNS: Temperature 97.6, heart rate of 104, blood pressure 90/60, respiration rate of 24, sat urating 100%. HEENT: Normocephalic, atraumatic. Status post intubation on the vent. CARDIOVASCULAR: Irregularly irregular, systolic murmur. PULMONARY: Diffuse rhonchi. GASTROINTESTINAL: Soft, nontender. EXTREMITIES: Diffuse upper and lower extremity edema. There is multiple oozing. NEUROLOGIC: Awake, responds appropriately. PSYCHIATRIC: Appears to be calm. LABORATORY: WBC of 10.1, hemoglobin 8.6, platelets of 31. Sodium 137, potassium is 3.6, BUN of 34, creatinine 2.08, glucose 113. Chest x-ray done today shows moderate bilateral pleural effusion. ASSESSMENT AND PLAN: 1. Shock, probably combination of septic and secondary to severe LV dysfunction. 2. Severe cardiomyopathy which appears to be a chronic issue and probably most likely nonischemic. 3. Hypoxemic hypercapnic respiratory failure, status post intubation, vent dependent. 4. Atrial fibrillation with chronic ventricular response. 5. Renal failure, chronically on dialysis. 6. Recurrent pleural effusion status post thoracentesis, but recurrent pleural effusion. 7. Coagulopathy, possible disseminated intravascular coagulation. 8. Thrombocytopenia. 9. Malnutrition with low albumin level 1.5 only. 10. Anemia. RECOMMENDATIONS: We will continue with the current cardiac care. Digoxin level will be checked aga in tomorrow and if tolerated, need an extra digoxin will be given. The patient will not be able to clear off digoxin well, so will have to make sure that the digoxin toxicity is avoided. Antibiotic is managed as per ID recommendation with internal medicine. Vent support will be continued. I was not able to wean off of pressors. Consider thoracentesis again. The patient may need more permanen t tube placement. The patient has severe malnutrition with very low albumin of less than 2. Severe cardiomyopathy and renal failure, a combination of those makes it extremely difficult to avoid pleu ral effusion and most likely would have recurrence of pleural effusion. Anticoagulation with Coumad in currently is on hold due to her severe thrombocytopenia. Will check the PT, INR again tomorrow a nd evaluate after that. Nutritional support will be continued. Dialysis as tolerated will be savannah nued as per renal recommendations. We will continue with the Chris-Synephrine drip for now. Diabetic control as per internal medicine will be continued as well. We will continue with close ICU care. Tracheostomy is being considered as well since the patient has a very difficult time being extubate d. Continue with the ICU care. More than 38 minutes of critical care time was for management of this patient excluding any procedur es. Dictated By: KATIUSKA BRITO MD AV/NTS Conf#: [id number] DID#: [id number] CC: NATHANIEL WORTHY MD;*EndCC*
[2017-03-21] MEDS: INSULIN GLARGINE [LANtus] 3 ML PEN SC SCH (20:37)
[2017-03-21] MEDS ORDERED: HEPARIN 5,000 UNIT/0.5 ML VIAL SC SCH (21:00)
[2017-03-21] MEDS ORDERED: ALTEPLASE (CATHFLO) 2 MG INJ CATHETER ONE (21:30)
[2017-03-22] VITALS (107 sets, daily range): BP systolic 75–121; BP diastolic 39–93; PULSE 88–136; RESP 18–28
[2017-03-22] MEDS: INSULIN ASPART [NOVOLOG] 3 ML PEN SC SCH ×6 (01:00→21:00)
[2017-03-22] MEDS: ALBUMIN HUMAN 25% 100 ML IV SCH (01:14)
[2017-03-22] MEDS: ACCU-CHEK XX SCH (01:17)
[2017-03-22] MEDS: DEXTROSE 50% 50 ML SYRINGE IV PRN ×2 (04:48→09:19)
[2017-03-22] MEDS: PANTOPRAZOLE 40 MG INJ IV SCH (05:20)
[2017-03-22] MEDS: LEVOTHYROXINE 150 MCG TAB PO SCH (05:20)
[2017-03-22 07:01] LABS: ADD SCAN DIFF NO
[2017-03-22 07:18] LABS: ABNORMAL IP MESSAGE 1; HEMATOCRIT 25.9 % (37.0-47.0); HEMOGLOBIN 8.2 g/dl (12.0-16.0); MEAN CORPUSCULAR HEMOGLOBIN 29.2 pg (29.0-33.0); MEAN CORPUSCULAR HGB CONC 31.7 g/dl (32.0-37.0); MEAN CORPUSCULAR VOLUME 92.2 fl (82.0-101.0); RED BLOOD COUNT 2.81 10^6/ul (4.20-5.40); RED CELL DISTRIBUTION WIDTH 18.6 % (11.5-14.5); WHITE BLOOD COUNT 8.3 10^3/ul (4.8-10.8)
[2017-03-22 07:25] LABS: INR 2.12; PT RATIO 1.9
[2017-03-22 07:26] LABS: ALBUMIN 1.8 g/dl (3.3-4.9)
[2017-03-22 07:27] LABS: POTASSIUM 3.1 mmol/L (3.5-5.1)
[2017-03-22 07:29] LABS: CREATININE 1.83 mg/dl (0.44-1.00)
[2017-03-22 07:30] LABS: CALCIUM 9.2 mg/dl (8.4-10.2); MAGNESIUM 2.2 mg/dl (1.7-2.5); PHOSPHORUS 1.8 mg/dl (2.5-4.9)
[2017-03-22 07:56] LABS: PLATELET COUNT 24 10^3/UL (140-415)
[2017-03-22 07:57] LABS: MEAN PLATELET VOLUME 14.2 fl (7.4-10.4)
--- NOTE | 2017-03-22 08:41 | PN ---
DATE: 03/22/2017 CARDIOLOGY FOLLOWUP SUBJECTIVE: Discussed with the staff. Rhythm strip was reviewed. The patient remains good on the vent. Is more awake and responds appropriately. ____ heart rate has remained about 100 to 120 most ly. Blood pressure on the low side ____ 200 mcg. ____. No reported chest pain or pressure. No re ported palpitation. MEDICATIONS: Reviewed as per medication reconciliation, was personally reviewed. PHYSICAL EXAMINATION: VITAL SIGNS: Temperature 98.3, heart rate of 110, blood pressure 96/74, respiratory rate of 22, sat urating 98%. HEENT: Normocephalic, atraumatic. Status post intubation, on the vent. Pupils are equal. NECK: Positive JVD. CARDIOVASCULAR: Irregularly irregular. Systolic murmur. PULMONARY: With diffuse rhonchi. GASTROINTESTINAL: Soft, nontender. EXTREMITIES: Diffuse edema, upper and lower extremity edema and diffuse multiple ecchymoses. NEUROLOGIC: Awake, responds appropriately. PSYCHIATRIC: Appeared to be calm and pleasant. LABORATORY: WBC of 8.3, hemoglobin 8.2, platelets of 24. Sodium 141, potassium 3.1, BUN of 33, cre atinine 1.83, glucose of 22 and 35, next one has been 127. Phosphorus 1.8, albumin is 1.8. Most re cent chest x-ray done yesterday showed cardiomegaly, moderate bilateral pleural effusion. ASSESSMENT AND PLAN: 1. Shock, multifactorial, secondary to probably sepsis and possibly in addition to the poor cardiac function. 2. Severe cardiomyopathy. 3. Congestive heart failure secondary to systolic and probably diastolic dysfunction. 4. Current pleural perfusion. 5. Atrial fibrillation with rapid ventricular response. 6. Renal failure, currently on dialysis. 7. Coagulopathy. 8. Thrombocytopenia, possible disseminated intravascular coagulation ____. 9. Neutropenia. 10. Severe malnutrition ____ level of less than 2. 11. History of encephalopathy and anemia. 12. History of hypothyroidism. 13. History of cerebrovascular accident. RECOMMENDATIONS: Will follow up on the digoxin level intermittently. Will give very low dose of di goxin, awaiting the digoxin toxicity. I will order ultrasound of the chest to evaluate pleural effu beryl to see if she would benefit from repeated thoracentesis. She has had recurrent pleural effusio n and may have to consider a chest ____ Pleurx placement in the chest drainage. She has multiple re asons which make it very likely that she has recurrent pleural effusion. She is very poor nutrition and a very low albumin level, very poor LV function. Also on dialysis and renal failure. She has had hypoglycemia today, which has been replaced and closely monitored. Diabetes and ____ management as per internal medicine. Antibiotic is managed as per pulmonary and ID recommendations. ____ jitendra l be continued, try to wean off as tolerated. Albumin will be given as needed as per renal recommen dations. Potassium and electrolytes are being managed as per renal team through her dialysis. Cont inue the vent support. Consider weaning trial. I will check the digoxin level again today. Follow the digoxin level today as well and if it is tolerated, will give extra digoxin. Continue to follo w along with you. Continue with the ICU care. More than 39 minutes of critical care time was spent in management of this patient excluding procedu res. Dictated By: KATIUSKA BRITO MD AV/NTS Conf#: [id number] DID#: [id number] CC: ALIX TALBOT MD;*EndCC*
--- NOTE | 2017-03-22 08:53 | RADRPT ---
PROCEDURE: Ultrasound chest CLINICAL INDICATION: Pleural effusion. Shortness of breath. TECHNIQUE: Freed scale ultrasound images of the chest were obtained. COMPARISON: Chest radiograph 03/21/2017 FINDINGS: Right pleural space: Moderate effusion. Left pleural space: Moderate effusion. IMPRESSION: Moderate bilateral pleural effusions. RPTAT: AADD .Eduardo Browne MD, MD Date Time Electronically viewed and signed by .Eduardo Browne MD, on 03/22/2017 08:52 .B/
[2017-03-22] MEDS: COLLAGENASE 30 GM TUBE TOP SCH (09:00)
[2017-03-22] MEDS: PHENYLephrine 160 MG in DEXTROSE 5% 484 ML IV SCH (09:06)
--- NOTE | 2017-03-22 09:33 | CONS ---
Date/Time of Note Date/Time of Note DATE: 03/22/17 TIME: 09:30 Assessment/Plan Assessment/Plan Additional Assessment/Plan Chest x-ray was reviewed from yesterday afternoon which is showing bilateral pleural effusions. More pronounced in the right lung. Endotracheal tube is at an adequate level. Current ventilator settings are AC of 20, tidal volume 500, PEEP of 0, 30% FiO2. Patient on phenylephrine drip at 100 mics per minute. Assessment recommendations; 1. Patient admitted for respiratory failure due to underlying cardiomyopathy with severe pulmonary edema. 2. Possibly superimposed pneumonia. 3. Chronic atrial fibrillation 4. Thrombocytopenia. Without any overt bleeding. 5. Chronic renal failure, on hemodialysis. 6. Bilateral pleural effusions. 7. Interval resolution of coagulopathy Continue current treatment. Schedule ultrasound-guided thoracentesis either right or left brachial bursitis greater. After the patient undergoes thoracentesis procedure she will be evaluated for possible weaning from ventilator. Consultation Date/Type/Reason Admit Date/Time Mar 15, 2017 at 20:26 Initial Consult Date 03/16/17 Type of Consultation: Pulmonary/critical care Referring Provider: VASILE DEMPSEY 24 HR Interval Summary Free Text/Dictation Patient's condition remains critical. Still requiring pressor support for blood pressure maintenance. General exam; elderly woman, awake alert, orally intubated. Currently in no distress. Exam/Review of Systems Vital Signs Vitals Vital Signs Date Time Temp Pulse Resp B/P Pulse Ox O2 Delivery O2 Flow Rate FiO2 03/22/17 07:00 110 22 96/74 Mechanical Ventilator 03/22/17 05:52 98 30 03/22/17 04:00 98.3 Intake and Output 03/21/17 03/21/17 03/22/17 15:00 23:00 07:00 Intake Total 496.24 ml 1184.33 ml 568.75 ml Output Total 1850 ml Balance -1353.76 ml 1184.33 ml 568.75 ml Exam HEENT exam; supple neck, positive JVD. No lymphadenopathy. Midline trachea. No thyromegaly. Pupils are small bilaterally. Patient multiple carious teeth. Chest examination; diminished breath on lung bases bilaterally. Upper lobes are clear. S1-S2 audible, irregular rhythm. Abdomen examination; soft, nondistended. No organomegaly. Bowel sounds audible. Extremity examination; no peripheral edema. [employer] examination; patient is awake and follows simple commands and moves all 4 extremities. Results Result Diagram: 03/22/17 0430 03/22/17 0430 Results 24 hrs Laboratory Tests Test 03/21/17 12:26 03/21/17 18:02 03/21/17 20:28 03/22/17 01:11 Bedside Glucose 152 120 128 73 Test 03/22/17 04:30 03/22/17 04:42 03/22/17 05:03 03/22/17 05:17 White Blood Count 8.3 Red Blood Count 2.81 L Hemoglobin 8.2 L Hematocrit 25.9 L Mean Corpuscular Volume 92.2 Mean Corpuscular Hemoglobin 29.2 Mean Corpuscular Hemoglobin Concent 31.7 L Red Cell Distribution Width 18.6 H Platelet Count 24 #*L Mean Platelet Volume 14.2 #H Neutrophils % Lymphocytes % 4.0 L Monocytes % 2.5 Eosinophils % Basophils % 0.4 Nucleated Red Blood Cells % 0.0 Neutrophils # Lymphocytes # 0.3 L Monocytes # 0.2 L Eosinophils # Basophils # 0.0 Nucleated Red Blood Cells # 0.0 Prothrombin Time 24.0 H Prothrombin Time Ratio 1.9 INR International Normalized Ratio 2.12 Sodium Level 142 Potassium Level 3.1 L Chloride Level 105 Carbon Dioxide Level 26 Anion Gap 14 Blood Urea Nitrogen 33 H Creatinine 1.83 H Glucose Level 22 #*L Calcium Level 9.2 Phosphorus Level 1.8 L Magnesium Level 2.2 Albumin 1.8 L Digoxin Level 1.1 Bedside Glucose 35 *L 127 97 Test 03/22/17 09:17 Bedside Glucose 31 *L Medications Medications Current Medications Norepinephrine/ Dextrose (Levophed/D5W) 500 ml @ 9.37 mls/hr TITRATE IV Last administered on 03/18/17t 19:59; Admin Dose 562.5 MLS/HR; Start 03/15/17 at 23: 00 Ondansetron HCl (Zofran Inj) 4 mg Q6H PRN IV NAUSEA AND/OR VOMITING; Start at 01:00 Acetaminophen (Tylenol Liquid) 650 mg Q6H PRN PO PAIN LEVEL 1-3 OR FEVER; Start 03/16/17 at 01:00 Morphine Sulfate (morphine) 2 mg Q4H PRN IV PAIN LEVEL 7-10; Start 03/16/17 at 01:00 Pantoprazole (Protonix Iv) 40 mg DAILY@06 IV Last administered on 03/22/17 05: 20; Admin Dose 40 MG; Start 03/16/17 at 06:00 Diagnostic Test (Pha) 1 ea 1 ea 02 XX Last administered on 03/20/17 02:00; Admin Dose 1 EA; Start 03/17/17 at 02:00 Midazolam HCl (Versed) 50 ml @ 1 mls/hr TITRATE IV Last administered on 11:04; Admin Dose 3 MLS/HR; Start 03/16/17 at 11:00 Collagenase (Santyl) 1 applic DAILY TOP Last administered on 03/21/17 09:00; Admin Dose 1 APPLIC; Start 03/16/17 at 18:30 Collagenase (Santyl) 1 applic PRN PRN TOP WOUND CARE; Start 03/16/17 at 18:30 Insulin Aspart (Novolog Insulin Pen) NOVOLOG *MODERATE* ALGORI... Q4 SC Last administered on 03/21/17 13:00; Admin Dose 2 UNIT; Start 03/17/17 at 05:00 Miscellaneous Information 1 ea NOTE XX ; Start 03/17/17 at 02:00 Glucose (Glutose) 15 gm Q15M PRN PO DECREASED GLUCOSE; Start 03/17/17 at 02:00 Glucose (Glutose) 22.5 gm Q15M PRN PO DECREASED GLUCOSE; Start 03/17/17 at 02: 00 Dextrose (D50w Syringe) 25 ml Q15M PRN IV DECREASED GLUCOSE; Start 03/17/17 at 02:00 Dextrose (D50w Syringe) 50 ml Q15M PRN IV DECREASED GLUCOSE Last administered on 03/22/17 04:48; Admin Dose 50 ML; Start 03/17/17 at 02:00 Glucagon (Glucagen) 1 mg Q15M PRN IM DECREASED GLUCOSE; Start 03/17/17 at 02:00 Glucose (Glutose) 15 gm Q15M PRN BUCCAL DECREASED GLUCOSE; Start 03/17/17 at 02 :00 Insulin Glargine 20 unit 20 unit DAILY@20 SC Last administered on 03/21/17 20: 37; Admin Dose 20 UNIT; Start 03/17/17 at 20:00 Phenylephrine HCl 160 mg/Dextrose 500 ml @ 18.75 mls/ hr TITRATE IV Last administered on 03/22/17 09:06; Admin Dose 18.75 MLS/HR; Start 03/19/17 at 02:30 Levofloxacin/ Dextrose (Levaquin 250 Mg/ D5W 50 ml (Pmx)) 50 ml @ 50 mls/hr Q24H IVPB Last administered on 03/21/17 12:09; Admin Dose 50 MLS/HR; Start 03/21 at 11:30 Levothyroxine Sodium (Synthroid) 150 mcg DAILY@06 PO Last administered on 05:20; Admin Dose 150 MCG; Start 03/22/17 at 06:00 YUNIOR JUNIOR March 22, 2017 09:33
[2017-03-22] MEDS ORDERED: ALTEPLASE (CATHFLO) 2 MG INJ CATHETER PRN (10:30)
[2017-03-22] MEDS: LEVOFLOXACIN 250MG/D5W (PMX) 50 ML IVPB SCH (12:38)
--- NOTE | 2017-03-22 13:38 | PN ---
Date/Time of Note Date/Time of Note DATE: 03/22/17 TIME: 13:10 Assessment/Plan VTE Prophylaxis VTE Prophylaxis Intervention: SCD's VTE Contraindication Reason: thrombocytopenia Lines/Catheters IV Catheter Type (from Nrs): PERMACATH Urinary Cath still in place: Yes Reason Cath still needed: other (indicate) Assessment/Plan Assessment/Plan 1. Shock: Hypovolemic (effusions/anasarca) + Septic 2. End-stage renal disease on Hemodialysis 3. Hypercapnic and Hypoxic Resp Failure remains ventilated 4. Acute encephalopathy on chronic dementia with Debility likely 2/2 #3 5. Hypothyroidism. 6. Anemia 2/2 CKD + Thrombocytopenia likely 2/2 SIRS versus Sepsis 7. Bilateral pleural effusion / Probable underlying pneumonia L sided thoracentesis done 03/18 8. Afib RVR 9. Cardiomyopathy with severe systolic dysfunction with EF of 25% 10. Diabetes type 2, currently controlled 11. Old lacunar stroke with ?confusion 12. AG Acidosis 2/2 Resp and Renal: resolved 13. Supratherapeutic INR: resolved PLAN: * Continue ICU monitoring and care * Increase tube feed to goal * US guided thoracentesis orderd for today * Monitor platelet count / HIT antibody testing * Rate control per cardiology, patient on digoxin and Coumadin * Resume home synthroid with last TSH of 15 if ok with cards * Continue abx per ID * Replace electrolytes, wean pressors PPx- SCDs / PPI Subjective 24 Hr Interval Summary Free Text/Dictation Nursing reports episodes of hypoglycemia despite being on tube feeds Exam/Review of Systems Vital Signs Vitals Vital Signs Date Time Temp Pulse Resp B/P Pulse Ox O2 Delivery O2 Flow Rate FiO2 03/22/17 10:00 121 03/22/17 09:20 20 97 30 03/22/17 07:00 96/74 Mechanical Ventilator 03/22/17 04:00 98.3 Intake and Output 03/21/17 03/21/17 03/22/17 15:00 23:00 07:00 Intake Total 496.24 ml 1184.33 ml 568.75 ml Output Total 1850 ml Balance -1353.76 ml 1184.33 ml 568.75 ml Exam Constitutional: alert, non-verbal 2/2 ET tube, requiring bilateral restraints ENMT: intubated Respiratory: clear to auscultation, diminished Cardiovascular: regular rate and rhythm Gastrointestinal: soft, obese No distended, + BS Musculoskeletal: diffuse edema / anasarca Results Result Diagram: 03/22/17 0430 03/22/17 0430 Results 24 hrs Laboratory Tests Test 03/21/17 18:02 03/21/17 20:28 03/22/17 01:11 03/22/17 04:30 Bedside Glucose 120 128 73 White Blood Count 8.3 Red Blood Count 2.81 L Hemoglobin 8.2 L Hematocrit 25.9 L Mean Corpuscular Volume 92.2 Mean Corpuscular Hemoglobin 29.2 Mean Corpuscular Hemoglobin Concent 31.7 L Red Cell Distribution Width 18.6 H Platelet Count 24 #*L Mean Platelet Volume 14.2 #H Neutrophils % Lymphocytes % 4.0 L Monocytes % 2.5 Eosinophils % Basophils % 0.4 Nucleated Red Blood Cells % 0.0 Neutrophils # Lymphocytes # 0.3 L Monocytes # 0.2 L Eosinophils # Basophils # 0.0 Nucleated Red Blood Cells # 0.0 Prothrombin Time 24.0 H Prothrombin Time Ratio 1.9 INR International Normalized Ratio 2.12 Sodium Level 142 Potassium Level 3.1 L Chloride Level 105 Carbon Dioxide Level 26 Anion Gap 14 Blood Urea Nitrogen 33 H Creatinine 1.83 H Glucose Level 22 #*L Calcium Level 9.2 Phosphorus Level 1.8 L Magnesium Level 2.2 Albumin 1.8 L Digoxin Level 1.1 Test 03/22/17 04:42 03/22/17 05:03 03/22/17 05:17 03/22/17 09:17 Bedside Glucose 35 *L 127 97 31 *L Test 03/22/17 09:50 03/22/17 10:14 03/22/17 12:39 03/22/17 13:00 Bedside Glucose 104 101 55 L 101 Medications Medications Current Medications Ondansetron HCl (Zofran Inj) 4 mg Q6H PRN IV NAUSEA AND/OR VOMITING; Start at 01:00 Acetaminophen (Tylenol Liquid) 650 mg Q6H PRN PO PAIN LEVEL 1-3 OR FEVER; Start 03/16/17 at 01:00 Morphine Sulfate (morphine) 2 mg Q4H PRN IV PAIN LEVEL 7-10 Last administered on 03/22/17t 13:01; Admin Dose 2 MG; Start 03/16/17 at 01:00 Pantoprazole (Protonix Iv) 40 mg DAILY@06 IV Last administered on 03/22/17 05: 20; Admin Dose 40 MG; Start 03/16/17 at 06:00 Diagnostic Test (Pha) 1 ea 1 ea 02 XX Last administered on 03/20/17 02:00; Admin Dose 1 EA; Start 03/17/17 at 02:00 Midazolam HCl (Versed) 50 ml @ 1 mls/hr TITRATE IV Last administered on 11:04; Admin Dose 3 MLS/HR; Start 03/16/17 at 11:00 Collagenase (Santyl) 1 applic DAILY TOP Last administered on 03/21/17 09:00; Admin Dose 1 APPLIC; Start 03/16/17 at 18:30 Collagenase (Santyl) 1 applic PRN PRN TOP WOUND CARE; Start 03/16/17 at 18:30 Insulin Aspart (Novolog Insulin Pen) NOVOLOG *MODERATE* ALGORI... Q4 SC Last administered on 03/21/17 13:00; Admin Dose 2 UNIT; Start 03/17/17 at 05:00 Miscellaneous Information 1 ea NOTE XX ; Start 03/17/17 at 02:00 Glucose (Glutose) 15 gm Q15M PRN PO DECREASED GLUCOSE; Start 03/17/17 at 02:00 Glucose (Glutose) 22.5 gm Q15M PRN PO DECREASED GLUCOSE; Start 03/17/17 at 02: 00 Dextrose (D50w Syringe) 25 ml Q15M PRN IV DECREASED GLUCOSE; Start 03/17/17 at 02:00 Dextrose (D50w Syringe) 50 ml Q15M PRN IV DECREASED GLUCOSE Last administered on 03/22/17 09:19; Admin Dose 50 ML; Start 03/17/17 at 02:00 Glucagon (Glucagen) 1 mg Q15M PRN IM DECREASED GLUCOSE; Start 03/17/17 at 02:00 Glucose 15 gm 15 gm Q15M PRN BUCCAL DECREASED GLUCOSE; Start 03/17/17 at 02:00 Levofloxacin/ Dextrose (Levaquin 250 Mg/ D5W 50 ml (Pmx)) 50 ml @ 50 mls/hr Q24H IVPB Last administered on 03/22/17 12:38; Admin Dose 50 MLS/HR; Start 03/21 at 11:30 Levothyroxine Sodium 150 mcg 150 mcg DAILY@06 PO Last administered on 03/22/17t 05:20; Admin Dose 150 MCG; Start 03/22/17 at 06:00 Norepinephrine 16 mg/Dextrose 500 ml @ 9.37 mls/hr TITRATE IV ; Start 03/22/17 at 10:30 Phenylephrine HCl/ Dextrose (Chris-Syneph/D5W) 500 ml @ 18.75 mls/ hr TITRATE IV ; Start 03/22/17 at 10:30 Procedures Procedures PROCEDURE: Ultrasound chest CLINICAL INDICATION: Pleural effusion. Shortness of breath. TECHNIQUE: Freed scale ultrasound images of the chest were obtained. COMPARISON: Chest radiograph 03/21/2017 FINDINGS: Right pleural space: Moderate effusion. Left pleural space: Moderate effusion. IMPRESSION: Moderate bilateral pleural effusions. RPTAT: AADD .Eduardo Browne MD, MD Date Time Electronically viewed and signed by .Eduardo Browne MD, MD on 03/22/2017 08:52 .B/ CC: KATIUSKA BRITO MD, BOLATITO M. March 22, 2017 13:35
[2017-03-22 13:40] LABS: BASOPHIL # 0.1 10^3/ul (0.0-0.1); EOSINOPHILS # 0.2 10^3/ul (0.0-0.5); LYMPHOCYTES # 0.2 10^3/ul (0.8-2.9); MONOCYTE # 0.1 10^3/ul (0.3-0.9); NEUTROPHIL # 6.1 10^3/ul (1.6-7.5)
[2017-03-22 13:41] LABS: TARGET CELLS FEW
[2017-03-22] MEDS ORDERED: PROPOFOL 100 ML IV PRN (14:30)
[2017-03-22] MEDS: FENTAnyl (DRIP) 1000 mcg/100mL 100 ML IV SCH (15:29)
[2017-03-22] MEDS ORDERED: DEXTROSE 10% 1,000 ML IV SCH (16:00)
--- NOTE | 2017-03-22 16:42 | CONS ---
Date/Time of Note Date/Time of Note DATE: 03/22/17 TIME: 16:40 Assessment/Plan Assessment/Plan Additional Assessment/Plan 1. End-stage renal disease on hemodialysis, regular schedule is Tuesday, , Tuesday. 2. Atiral fibrillation with RVR 2. Cardiomyopathy with a severe systolic dysfunction with ejection fraction of 25%. 3. History of hypertension. 4. History of hypothyroidism. 5. History of previous cerebrovascular accident. 6. Moderate to large bilateral pleural effusion. 7. Acute respiratory failure, multifactorial secondary to sepsis, hypotension pleural effusions and fluid overload, currently intubated on ventilator. 8. Moderate pleural effusion s/p let thoracentesis 03/18/17- 1.75 L drained PLAN: S/p HD yesterday, plan for HD today tolerating tube feeding rate controlled with amiodarone and digoxin s/p left thoracentesis 03/18/17- 1.75 L removed, weaning plan for as per pulmonary US chest showed moderate pleural effusion - will need thoracentesis but platelets are low will follow up Consultation Date/Type/Reason Admit Date/Time Mar 15, 2017 at 20:26 Initial Consult Date 03/16/17 Type of Consultation: NEPHROLOGY Referring Provider: VASILE DEMPSEY 24 HR Interval Summary Free Text/Dictation pt remains intubated, plan for HD today, platelets still low Exam/Review of Systems Vital Signs Vitals Vital Signs Date Time Temp Pulse Resp B/P Pulse Ox O2 Delivery O2 Flow Rate FiO2 03/22/17 15:54 97 20 96 30 03/22/17 15:45 98.8 91/53 03/22/17 15:00 Mechanical Ventilator Intake and Output 03/21/17 03/21/17 03/22/17 15:00 23:00 07:00 Intake Total 496.24 ml 1184.33 ml 598.75 ml Output Total 1850 ml Balance -1353.76 ml 1184.33 ml 598.75 ml Exam HEENT: ET tube in place. NECK: Jugular venous distention. LUNGS: Bilateral coarse breath sounds with minimal basilar crackles present. HEART: S1, S2, tachycardia. Irregularly irregular. ABDOMEN: Soft, nontender, nondistended, obese. EXTREMITIES: 1 to 2+ pitting edema. The patient has right upper chest tunneled hemodialysis catheter in place. NEUROLOGICAL: Uncooperative for exam since the patient is currently sedated, intubated. PSYCHIATRIC: Appropriate. SKIN: No rash. Results Result Diagram: 03/22/17 0430 03/22/17 0430 Results 24 hrs Laboratory Tests Test 03/21/17 18:02 03/21/17 20:28 03/22/17 01:11 03/22/17 04:30 Bedside Glucose 120 128 73 White Blood Count 8.3 Red Blood Count 2.81 L Hemoglobin 8.2 L Hematocrit 25.9 L Mean Corpuscular Volume 92.2 Mean Corpuscular Hemoglobin 29.2 Mean Corpuscular Hemoglobin Concent 31.7 L Red Cell Distribution Width 18.6 H Platelet Count 24 #*L Mean Platelet Volume 14.2 #H Neutrophils % 73.0 Band Neutrophils % 18.0 H Lymphocytes % 2.0 L Reactive Lymphocytes % 2.0 Monocytes % 1.0 Eosinophils % 3.0 Basophils % 1.0 Nucleated Red Blood Cells % 0.0 Neutrophils # 6.1 Lymphocytes # 0.2 L Monocytes # 0.1 L Eosinophils # 0.2 Basophils # 0.1 Nucleated Red Blood Cells # 0.0 Target Cells FEW Prothrombin Time 24.0 H Prothrombin Time Ratio 1.9 INR International Normalized Ratio 2.12 Sodium Level 142 Potassium Level 3.1 L Chloride Level 105 Carbon Dioxide Level 26 Anion Gap 14 Blood Urea Nitrogen 33 H Creatinine 1.83 H Glucose Level 22 #*L Calcium Level 9.2 Phosphorus Level 1.8 L Magnesium Level 2.2 Albumin 1.8 L Digoxin Level 1.1 Test 03/22/17 04:42 03/22/17 05:03 03/22/17 05:17 03/22/17 09:17 Bedside Glucose 35 *L 127 97 31 *L Test 03/22/17 09:50 03/22/17 10:14 03/22/17 12:39 03/22/17 13:00 Bedside Glucose 104 101 55 L 101 Test 03/22/17 13:31 Bedside Glucose 91 Medications Medications Current Medications Ondansetron HCl (Zofran Inj) 4 mg Q6H PRN IV NAUSEA AND/OR VOMITING; Start at 01:00 Acetaminophen (Tylenol Liquid) 650 mg Q6H PRN PO PAIN LEVEL 1-3 OR FEVER; Start 03/16/17 at 01:00 Morphine Sulfate (morphine) 2 mg Q4H PRN IV PAIN LEVEL 7-10 Last administered on 03/22/17 13:01; Admin Dose 2 MG; Start 03/16/17 at 01:00 Pantoprazole (Protonix Iv) 40 mg DAILY@06 IV Last administered on 03/22/17 05: 20; Admin Dose 40 MG; Start 03/16/17 at 06:00 Diagnostic Test (Pha) 1 ea 1 ea 02 XX Last administered on 03/20/17 02:00; Admin Dose 1 EA; Start 03/17/17 at 02:00 Midazolam HCl (Versed) 50 ml @ 1 mls/hr TITRATE IV Last administered on 11:04; Admin Dose 3 MLS/HR; Start 03/16/17 at 11:00 Collagenase (Santyl) 1 applic DAILY TOP Last administered on 03/21/17 09:00; Admin Dose 1 APPLIC; Start 03/16/17 at 18:30 Collagenase (Santyl) 1 applic PRN PRN TOP WOUND CARE; Start 03/16/17 at 18:30 Miscellaneous Information 1 ea NOTE XX ; Start 03/17/17 at 02:00 Glucose (Glutose) 15 gm Q15M PRN PO DECREASED GLUCOSE; Start 03/17/17 at 02:00 Glucose (Glutose) 22.5 gm Q15M PRN PO DECREASED GLUCOSE; Start 03/17/17 at 02: 00 Dextrose (D50w Syringe) 25 ml Q15M PRN IV DECREASED GLUCOSE; Start 03/17/17 at 02:00 Dextrose (D50w Syringe) 50 ml Q15M PRN IV DECREASED GLUCOSE Last administered on 03/22/17 09:19; Admin Dose 50 ML; Start 03/17/17 at 02:00 Glucagon (Glucagen) 1 mg Q15M PRN IM DECREASED GLUCOSE; Start 03/17/17 at 02:00 Glucose 15 gm 15 gm Q15M PRN BUCCAL DECREASED GLUCOSE; Start 03/17/17 at 02:00 Levofloxacin/ Dextrose (Levaquin 250 Mg/ D5W 50 ml (Pmx)) 50 ml @ 50 mls/hr Q24H IVPB Last administered on 03/22/17 12:38; Admin Dose 50 MLS/HR; Start 03/21 at 11:30 Levothyroxine Sodium 150 mcg 150 mcg DAILY@06 PO Last administered on 03/22/17 05:20; Admin Dose 150 MCG; Start 03/22/17 at 06:00 Norepinephrine 16 mg/Dextrose 500 ml @ 9.37 mls/hr TITRATE IV ; Start 03/22/17 at 10:30 Phenylephrine HCl 160 mg/Dextrose 500 ml @ 18.75 mls/ hr TITRATE IV ; Start 03/22/17 at 10:30 Fentanyl 100 ml @ 2.5 mls/hr TITRATE IV Last administered on 03/22/17 15:29; Admin Dose 2.5 MLS/HR; Start 03/22/17 at 14:30 Propofol (Diprivan) 100 ml @ 2.28 mls/hr Q12H PRN IV SEDATION; Start 03/22/17 at 14:30 Mupirocin (Bactroban) 1 applic BID TOP ; Start 03/22/17 at 15:30 Sodium Hypochlorite (Dakin'S (1/4 Strength)) 1 applic BID IRR ; Start 03/22/17 at 21:00 Silver Sulfadiazine (Thermazene 1% 25 Gm) 1 applic DAILY TOP ; Start 03/22/17 at 17:00 Insulin Aspart NOVOLOG *MILD* ALGORI... Q4 SC ; Start 03/22/17 at 17:00 Dextrose (D10w) 1,000 ml @ 20 mls/hr Q24H IV ; Start 03/22/17 at 16:00 VIRIDIANA VILLARREAL MD March 22, 2017 16:42
[2017-03-22] MEDS: MUPIROCIN 2% 22 GM OINT TOP SCH (16:44)
[2017-03-22] MEDS: SILVER SULFADIAZINE 1% 25 GM CR TOP SCH (17:52)
[2017-03-22] MEDS: SODIUM HYPOCHLORITE 0.125% 473 ML BTL IRR SCH (21:00)
[2017-03-23] VITALS (104 sets, daily range): BP systolic 61–140; BP diastolic 39–90; PULSE 83–116; RESP 18–25
[2017-03-23] MEDS: INSULIN ASPART [NOVOLOG] 3 ML PEN SC SCH ×7 (00:53→20:26)
[2017-03-23] MEDS: ACCU-CHEK XX SCH (02:00)
[2017-03-23] MEDS: SODIUM HYPOCHLORITE 0.125% 473 ML BTL IRR SCH ×2 (04:24→20:27)
[2017-03-23] MEDS: SILVER SULFADIAZINE 1% 25 GM CR TOP SCH ×2 (04:25→08:45)
[2017-03-23 05:31] LABS: INR 2.07; PROTIME 23.5 Sec (12.2-14.2); PT RATIO 1.8
[2017-03-23 05:32] LABS: PARTIAL THROMBOPLASTIN TIME 40.4 Sec (25.0-35.0)
[2017-03-23 05:33] LABS: THROMBIN TIME 14.3 SEC (13.8-19.1)
[2017-03-23] MEDS: LEVOTHYROXINE 150 MCG TAB PO SCH (05:35)
[2017-03-23] MEDS: PANTOPRAZOLE 40 MG INJ IV SCH (05:35)
[2017-03-23 05:36] LABS: D-DIMER 3241.99 ng/ml (<460)
[2017-03-23 05:39] LABS: ALBUMIN 1.8 g/dl (3.3-4.9)
[2017-03-23 05:40] LABS: POTASSIUM 3.2 mmol/L (3.5-5.1)
[2017-03-23 05:42] LABS: ALBUMIN/GLOBULIN RATIO 0.94; BILIRUBIN,INDIRECT 0.8 mg/dl (0-1.1); BILIRUBIN,TOTAL 0.8 mg/dl (0.2-1.3); CREATININE 1.87 mg/dl (0.44-1.00); TOTAL PROTEIN 3.7 g/dl (6.1-8.1)
[2017-03-23 05:43] LABS: CALCIUM 9.5 mg/dl (8.4-10.2)
[2017-03-23 06:05] LABS: ABNORMAL IP MESSAGE 1; ADD SCAN DIFF NO; HEMATOCRIT 23.4 % (37.0-47.0); HEMOGLOBIN 7.3 g/dl (12.0-16.0); MEAN CORPUSCULAR HEMOGLOBIN 28.3 pg (29.0-33.0); MEAN CORPUSCULAR HGB CONC 31.2 g/dl (32.0-37.0); MEAN CORPUSCULAR VOLUME 90.7 fl (82.0-101.0); RED BLOOD COUNT 2.58 10^6/ul (4.20-5.40); RED CELL DISTRIBUTION WIDTH 18.5 % (11.5-14.5); WHITE BLOOD COUNT 6.7 10^3/ul (4.8-10.8)
[2017-03-23 06:31] LABS: PLATELET COUNT 24 10^3/UL (140-415)
[2017-03-23 06:50] LABS: FIBRIN SPLIT PRODUCT <10 ug/ml (<10)
[2017-03-23 06:54] LABS: PLATELET COUNT 24 10^3/UL (140-440)
[2017-03-23] MEDS: MUPIROCIN 2% 22 GM OINT TOP SCH ×3 (08:45→20:28)
[2017-03-23] MEDS: COLLAGENASE 30 GM TUBE TOP SCH (08:46)
--- NOTE | 2017-03-23 08:53 | CONS ---
Date/Time of Note Date/Time of Note DATE: 03/23/17 TIME: 08:49 Assessment/Plan Assessment/Plan Additional Assessment/Plan Ventilator settings; AC of 20, tidal volume 500, PEEP of 0, 30% FiO2. Patient currently on phenylephrine drip at 16 mics per minute, fentanyl 50 mics per hour. Chest x-ray was reviewed from a short while ago which is showing improving bilateral pleural effusions. Assessment recommendations; 1. Patient admitted for respiratory failure due to pulmonary edema from underlying cardia myopathy, status post hypothermia protocol. 3. Status post cardiac arrest. With preservation of mental status. 3. Chronic renal failure, on hemodialysis. 4. Atrial fibrillation. 5. Anemia. 6. Thrombocytopenia, without any overt bleed. 7. Possibly aspiration pneumonia. 8. Coagulopathy. Continue current treatment. Chest x-ray is improving with progressive decline in bilateral pleural effusions hopefully with a couple of more dialysis sessions the effusions will improve further. Transfuse 1 unit packed RBC. Meanwhile patient is not ready to be weaned off ventilator yet. Prognosis is guarded. 35 minutes of critical care time was spent evaluating the patient. Consultation Date/Type/Reason Admit Date/Time Mar 15, 2017 at 20:26 Initial Consult Date 03/16/17 Type of Consultation: Pulmonary/critical care Referring Provider: VASILE DEMPSEY 24 HR Interval Summary Free Text/Dictation Patient's condition remains critical. Patient however is completely awake and alert. Has remained hemodynamically unstable, requiring pressor support with phenylephrine drip. General exam; elderly woman, or intubated, awake, currently in no distress. Exam/Review of Systems Vital Signs Vitals Vital Signs Date Time Temp Pulse Resp B/P Pulse Ox O2 Delivery O2 Flow Rate FiO2 03/23/17 07:30 103 20 91/64 90 Mechanical Ventilator 03/23/17 07:00 98.8 03/23/17 05:12 30 Intake and Output 03/22/17 03/22/17 03/23/17 15:00 23:00 07:00 Intake Total 943.08 ml 454.25 ml 657.5 ml Output Total 3300 ml Balance -2356.92 ml 454.25 ml 657.5 ml Exam HEENT exam; supple neck, positive JVD. No lymphadenopathy. Midline trachea. No thyromegaly. Pupils are small bilaterally. Chest exam is; diminished breath on lung bases, upper lobes are clear. S1-S2 audible, irregular rhythm. There is no change in soft systolic ejection murmur grade 2/6 best heard in the aortic area. Abdomen examination; soft, protuberant. No organomegaly. Nontender. Bowel sounds audible. Extremity exam is; no peripheral edema. ACCOUNT ANALYST examination; patient is awake, follows simple commands. Results Result Diagram: 03/23/17 0400 03/23/17 0400 Results 24 hrs Laboratory Tests Test 03/22/17 09:17 03/22/17 09:50 03/22/17 10:14 03/22/17 12:39 Bedside Glucose 31 *L 104 101 55 L Test 03/22/17 13:00 03/22/17 13:31 03/22/17 16:42 03/22/17 17:11 Bedside Glucose 101 91 60 L 133 Test 03/22/17 17:32 03/22/17 21:09 03/23/17 00:51 03/23/17 04:00 Bedside Glucose 117 131 159 White Blood Count 6.7 Red Blood Count 2.58 L Hemoglobin 7.3 L Hematocrit 23.4 L Mean Corpuscular Volume 90.7 Mean Corpuscular Hemoglobin 28.3 L Mean Corpuscular Hemoglobin Concent 31.2 L Red Cell Distribution Width 18.5 H Platelet Count 24 *L Mean Platelet Volume Neutrophils % Eosinophils % Neutrophils # Eosinophils # Prothrombin Time 23.5 H Prothrombin Time Ratio 1.8 INR International Normalized Ratio 2.07 Activated Partial Thromboplast Time 40.4 H Thrombin Time 14.3 Fibrinogen 232.0 Plasma Fibrin Degradation Products <10 D-Dimer 3241.99 H D-Dimer Comment Sodium Level 139 Potassium Level 3.2 L Chloride Level 103 Carbon Dioxide Level 26 Anion Gap 13 Blood Urea Nitrogen 39 H Creatinine 1.87 H Glucose Level 167 # Calcium Level 9.5 Magnesium Level 2.0 Total Bilirubin 0.8 Direct Bilirubin 0.00 # Indirect Bilirubin 0.8 Aspartate Amino Transf (AST/SGOT) 12 L Alanine Aminotransferase (ALT/SGPT) 28 Alkaline Phosphatase 129 H Total Protein 3.7 L Albumin 1.8 L Globulin 1.90 Albumin/Globulin Ratio 0.94 Digoxin Level 1.0 Test 03/23/17 04:07 03/23/17 06:53 Bedside Glucose 191 Lab Scanned Report BLOOD TRANSFUSION Medications Medications Current Medications Ondansetron HCl (Zofran Inj) 4 mg Q6H PRN IV NAUSEA AND/OR VOMITING; Start at 01:00 Acetaminophen (Tylenol Liquid) 650 mg Q6H PRN PO PAIN LEVEL 1-3 OR FEVER; Start 03/16/17 at 01:00 Morphine Sulfate (morphine) 2 mg Q4H PRN IV PAIN LEVEL 7-10 Last administered on 03/22/17 13:01; Admin Dose 2 MG; Start 03/16/17 at 01:00 Pantoprazole (Protonix Iv) 40 mg DAILY@06 IV Last administered on 03/23/17 05: 35; Admin Dose 40 MG; Start 03/16/17 at 06:00 Diagnostic Test (Pha) 1 ea 1 ea 02 XX Last administered on 03/20/17 02:00; Admin Dose 1 EA; Start 03/17/17 at 02:00 Midazolam HCl (Versed) 50 ml @ 1 mls/hr TITRATE IV Last administered on 11:04; Admin Dose 3 MLS/HR; Start 03/16/17 at 11:00 Collagenase (Santyl) 1 applic DAILY TOP Last administered on 03/21/17 09:00; Admin Dose 1 APPLIC; Start 03/16/17 at 18:30 Collagenase (Santyl) 1 applic PRN PRN TOP WOUND CARE; Start 03/16/17 at 18:30 Miscellaneous Information 1 ea NOTE XX ; Start 03/17/17 at 02:00 Glucose (Glutose) 15 gm Q15M PRN PO DECREASED GLUCOSE; Start 03/17/17 at 02:00 Glucose (Glutose) 22.5 gm Q15M PRN PO DECREASED GLUCOSE; Start 03/17/17 at 02: 00 Dextrose (D50w Syringe) 25 ml Q15M PRN IV DECREASED GLUCOSE Last administered on 03/22/17 16:45; Admin Dose 25 ML; Start 03/17/17 at 02:00 Dextrose (D50w Syringe) 50 ml Q15M PRN IV DECREASED GLUCOSE Last administered on 03/22/17 09:19; Admin Dose 50 ML; Start 03/17/17 at 02:00 Glucagon (Glucagen) 1 mg Q15M PRN IM DECREASED GLUCOSE; Start 03/17/17 at 02:00 Glucose 15 gm 15 gm Q15M PRN BUCCAL DECREASED GLUCOSE; Start 03/17/17 at 02:00 Levofloxacin/ Dextrose (Levaquin 250 Mg/ D5W 50 ml (Pmx)) 50 ml @ 50 mls/hr Q24H IVPB Last administered on 03/22/17 12:38; Admin Dose 50 MLS/HR; Start 03/21 at 11:30 Levothyroxine Sodium 150 mcg 150 mcg DAILY@06 PO Last administered on 03/23/17 05:35; Admin Dose 150 MCG; Start 03/22/17 at 06:00 Norepinephrine 16 mg/Dextrose 500 ml @ 9.37 mls/hr TITRATE IV ; Start 03/22/17 at 10:30 Phenylephrine HCl 160 mg/Dextrose 500 ml @ 18.75 mls/ hr TITRATE IV ; Start 03/22/17 at 10:30 Fentanyl 100 ml @ 2.5 mls/hr TITRATE IV Last administered on 03/22/17 15:29; Admin Dose 2.5 MLS/HR; Start 03/22/17 at 14:30 Propofol (Diprivan) 100 ml @ 2.28 mls/hr Q12H PRN IV SEDATION; Start 03/22/17 at 14:30 Mupirocin (Bactroban) 1 applic BID TOP Last administered on 03/23/17 00:00; Admin Dose 1 APPLIC; Start 03/22/17 at 15:30 Sodium Hypochlorite (Dakin'S (1/4 Strength)) 1 applic BID IRR Last administered on 03/23/17 04:24; Admin Dose 1 APPLIC; Start 03/22/17 at 21:00 Silver Sulfadiazine (Thermazene 1% 25 Gm) 1 applic DAILY TOP Last administered on 03/23/17 04:25; Admin Dose 1 APPLIC; Start 03/22/17 at 17:00 Insulin Aspart NOVOLOG *MILD* ALGORI... Q4 SC Last administered on 03/23/17 04: 24; Admin Dose 2 UNIT; Start 03/22/17 at 17:00 Dextrose (D10w) 1,000 ml @ 20 mls/hr Q24H IV Last administered on 03/22/17 16: 46; Admin Dose 20 MLS/HR; Start 03/22/17 at 16:00 YUNIOR JUNIOR March 23, 2017 08:53
--- NOTE | 2017-03-23 09:18 | RADRPT ---
PROCEDURE: XR Chest 1 view. CLINICAL INDICATION: Shortness of breath. TECHNIQUE: AP views of the chest were obtained. COMPARISON: March 21, 2017 FINDINGS: The heart is large. Calcified atherosclerosis is noted in the aorta. Endotracheal and nasogastric t ubes are stable and appear in grossly appropriate location. Right-sided dialysis catheter is unchan ged. Central pulmonary vascular congestion and interstitial prominence in both lungs is unchanged. Patchy infiltrates throughout both lungs combined with moderate pleural effusions are unchanged. T he osseous structures are stable. IMPRESSION: Cardiomegaly with calcified atherosclerosis in the aorta. Stable central pulmonary vascular congestion and interstitial prominence in both lungs. Stable patchy infiltrates throughout both lungs, combined with moderate pleural effusions. RPTAT: AA .Ishmael Carver MD, Date Time Electronically viewed and signed by .Ishmael Carver MD, MD on 03/23/2017 09:18 .P/
[2017-03-23] MEDS: PHENYLephrine 160 MG in DEXTROSE 5% 484 ML IV SCH (10:11)
[2017-03-23] MEDS: FENTAnyl (DRIP) 1000 mcg/100mL 100 ML IV SCH ×2 (10:22→20:33)
[2017-03-23 10:31] LABS: BURR CELLS FEW; LYMPHOCYTES # 0.1 10^3/ul (0.8-2.9); MONOCYTE # 0.1 10^3/ul (0.3-0.9); TOXIC GRANULATION MODERATE
[2017-03-23] MEDS: LEVOFLOXACIN 250MG/D5W (PMX) 50 ML IVPB SCH (11:14)
--- NOTE | 2017-03-23 14:53 | PN ---
Date/Time of Note Date/Time of Note DATE: 03/23/17 TIME: 14:31 Assessment/Plan VTE Prophylaxis VTE Prophylaxis Intervention: SCD's VTE Contraindication Reason: thrombocytopenia Lines/Catheters IV Catheter Type (from Nrs): perma cath Urinary Cath still in place: Yes Reason Cath still needed: other (indicate) (will d/c) Assessment/Plan Assessment/Plan 1. Shock: Hypovolemic (effusions/anasarca) + Septic 2. End-stage renal disease on Hemodialysis 3. Hypercapnic and Hypoxic Resp Failure remains ventilated 4. Acute encephalopathy on chronic dementia with Debility likely 2/2 #3: improved 5. Hypothyroidism. 6. Anemia 2/2 CKD + Thrombocytopenia with coagulopathy likely 2/2 SIRS versus Sepsis r/o DIC 7. Bilateral pleural effusion / Probable underlying pneumonia L sided thoracentesis done 03/18 8. Afib RVR: improved 9. Cardiomyopathy with severe systolic dysfunction with EF of 25% 10. Diabetes type 2, currently controlled 11. Old lacunar stroke with ?confusion 12. Unstageable Sacral ulcer 13. Supratherapeutic INR: resolved 14. AG Acidosis 2/2 Resp and Renal: resolved PLAN: * Patient remains intubated and on pressor support, unable to get thoracentesis 2/2 low platelets limiting ability to extubate. She will be difficult to wean off pressors 2/2 need for hemodialysis and remains with severe anasarca despite volume removal during dialysis. * She will need debridement for her ulcer and cultures from there / she remains in Afib but with improved rate control * Will aggressively give albumin therapy * Planned for transfusion of packed cells and platelets today * Surgical consult for debridement * HD per renal * Continue abx per ID * Replace electrolytes, wean pressors PPx- SCDs / PPI Prognosis: guarded. If no improvement in the next few days, will urge family to consider comfort measures. Exam/Review of Systems Vital Signs Vitals Vital Signs Date Time Temp Pulse Resp B/P Pulse Ox O2 Delivery O2 Flow Rate FiO2 03/23/17 13:00 95 20 101/62 98 Mechanical Ventilator 03/23/17 12:00 98.8 03/23/17 11:28 30 Intake and Output 03/22/17 03/22/17 03/23/17 15:00 23:00 07:00 Intake Total 943.08 ml 454.25 ml 733.75 ml Output Total 3300 ml Balance -2356.92 ml 454.25 ml 733.75 ml Results Result Diagram: 03/23/17 0400 03/23/17 0400 Results 24 hrs Laboratory Tests Test 03/22/17 16:42 03/22/17 17:11 03/22/17 17:32 03/22/17 21:09 Bedside Glucose 60 L 133 117 131 Test 03/23/17 00:51 03/23/17 04:00 03/23/17 04:07 03/23/17 06:53 Bedside Glucose 159 191 White Blood Count 6.7 Red Blood Count 2.58 L Hemoglobin 7.3 L Hematocrit 23.4 L Mean Corpuscular Volume 90.7 Mean Corpuscular Hemoglobin 28.3 L Mean Corpuscular Hemoglobin Concent 31.2 L Red Cell Distribution Width 18.5 H Platelet Count 24 *L Mean Platelet Volume Neutrophils % 90.0 H Band Neutrophils % 4.0 Lymphocytes % 2.0 L Monocytes % 2.0 Eosinophils % Metamyelocytes % 2.0 H Nucleated Red Blood Cells % 1.0 H Neutrophils # 6.0 Lymphocytes # 0.1 L Monocytes # 0.1 L Eosinophils # Metamyelocytes # 0.1 Differential Comment MANUAL DIFF Toxic Granulation MODERATE Prothrombin Time 23.5 H Prothrombin Time Ratio 1.8 INR International Normalized Ratio 2.07 Activated Partial Thromboplast Time 40.4 H Thrombin Time 14.3 Fibrinogen 232.0 Plasma Fibrin Degradation Products <10 D-Dimer 3241.99 H D-Dimer Comment Sodium Level 139 Potassium Level 3.2 L Chloride Level 103 Carbon Dioxide Level 26 Anion Gap 13 Blood Urea Nitrogen 39 H Creatinine 1.87 H Glucose Level 167 # Calcium Level 9.5 Magnesium Level 2.0 Total Bilirubin 0.8 Direct Bilirubin 0.00 # Indirect Bilirubin 0.8 Aspartate Amino Transf (AST/SGOT) 12 L Alanine Aminotransferase (ALT/SGPT) 28 Alkaline Phosphatase 129 H Total Protein 3.7 L Albumin 1.8 L Globulin 1.90 Albumin/Globulin Ratio 0.94 Digoxin Level 1.0 Lab Scanned Report BLOOD TRANSFUSION Test 03/23/17 08:43 03/23/17 13:00 Bedside Glucose 202 205 Medications Medications Current Medications Ondansetron HCl (Zofran Inj) 4 mg Q6H PRN IV NAUSEA AND/OR VOMITING; Start at 01:00 Acetaminophen (Tylenol Liquid) 650 mg Q6H PRN PO PAIN LEVEL 1-3 OR FEVER; Start 03/16/17 at 01:00 Morphine Sulfate (morphine) 2 mg Q4H PRN IV PAIN LEVEL 7-10 Last administered on 03/22/17 13:01; Admin Dose 2 MG; Start 03/16/17 at 01:00 Pantoprazole (Protonix Iv) 40 mg DAILY@06 IV Last administered on 03/23/17 05: 35; Admin Dose 40 MG; Start 03/16/17 at 06:00 Diagnostic Test (Pha) 1 ea 1 ea 02 XX Last administered on 03/20/17 02:00; Admin Dose 1 EA; Start 03/17/17 at 02:00 Midazolam HCl (Versed) 50 ml @ 1 mls/hr TITRATE IV Last administered on 11:04; Admin Dose 3 MLS/HR; Start 03/16/17 at 11:00 Collagenase (Santyl) 1 applic DAILY TOP Last administered on 03/23/17 08:46; Admin Dose 1 APPLIC; Start 03/16/17 at 18:30 Collagenase (Santyl) 1 applic PRN PRN TOP WOUND CARE; Start 03/16/17 at 18:30 Miscellaneous Information 1 ea NOTE XX ; Start 03/17/17 at 02:00 Glucose (Glutose) 15 gm Q15M PRN PO DECREASED GLUCOSE; Start 03/17/17 at 02:00 Glucose (Glutose) 22.5 gm Q15M PRN PO DECREASED GLUCOSE; Start 03/17/17 at 02: 00 Dextrose (D50w Syringe) 25 ml Q15M PRN IV DECREASED GLUCOSE Last administered on 03/22/17 16:45; Admin Dose 25 ML; Start 03/17/17 at 02:00 Dextrose (D50w Syringe) 50 ml Q15M PRN IV DECREASED GLUCOSE Last administered on 03/22/17 09:19; Admin Dose 50 ML; Start 03/17/17 at 02:00 Glucagon (Glucagen) 1 mg Q15M PRN IM DECREASED GLUCOSE; Start 03/17/17 at 02:00 Glucose 15 gm 15 gm Q15M PRN BUCCAL DECREASED GLUCOSE; Start 03/17/17 at 02:00 Levofloxacin/ Dextrose (Levaquin 250 Mg/ D5W 50 ml (Pmx)) 50 ml @ 50 mls/hr Q24H IVPB Last administered on 03/23/17 11:14; Admin Dose 50 MLS/HR; Start 03/21 at 11:30 Levothyroxine Sodium 150 mcg 150 mcg DAILY@06 PO Last administered on 03/23/17 05:35; Admin Dose 150 MCG; Start 03/22/17 at 06:00 Norepinephrine 16 mg/Dextrose 500 ml @ 9.37 mls/hr TITRATE IV ; Start 03/22/17 at 10:30 Phenylephrine HCl 160 mg/Dextrose 500 ml @ 18.75 mls/ hr TITRATE IV Last administered on 03/23/17 10:11; Admin Dose 15 MLS/HR; Start 03/22/17 at 10:30 Fentanyl 100 ml @ 2.5 mls/hr TITRATE IV Last administered on 03/23/17 10:22; Admin Dose 7.5 MLS/HR; Start 03/22/17 at 14:30 Propofol (Diprivan) 100 ml @ 2.28 mls/hr Q12H PRN IV SEDATION; Start 03/22/17 at 14:30 Mupirocin (Bactroban) 1 applic BID TOP Last administered on 03/23/17 08:45; Admin Dose 1 APPLIC; Start 03/22/17 at 15:30 Sodium Hypochlorite (Dakin'S (1/4 Strength)) 1 applic BID IRR Last administered on 03/23/17 04:24; Admin Dose 1 APPLIC; Start 03/22/17 at 21:00 Silver Sulfadiazine (Thermazene 1% 25 Gm) 1 applic DAILY TOP Last administered on 03/23/17 08:45; Admin Dose 1 APPLIC; Start 03/22/17 at 17:00 Insulin Aspart NOVOLOG *MILD* ALGORI... Q4 SC Last administered on 03/23/17 13: 03; Admin Dose 2 UNIT; Start 03/22/17 at 17:00 Dextrose (D10w) 1,000 ml @ 20 mls/hr Q24H IV Last administered on 03/22/17 16: 46; Admin Dose 20 MLS/HR; Start 03/22/17 at 16:00 ALIX TALBOT March 23, 2017 14:45
[2017-03-23] MEDS: ALBUMIN HUMAN 25% 100 ML IV SCH ×2 (15:16→22:33)
--- NOTE | 2017-03-23 15:36 | CONS ---
Date/Time of Note Date/Time of Note DATE: 03/23/17 TIME: 15:34 Assessment/Plan Assessment/Plan Additional Assessment/Plan 1. End-stage renal disease on hemodialysis, regular schedule is Tuesday, , Tuesday. 2. Atiral fibrillation with RVR 2. Cardiomyopathy with a severe systolic dysfunction with ejection fraction of 25%. 3. History of hypertension. 4. History of hypothyroidism. 5. History of previous cerebrovascular accident. 6. Moderate to large bilateral pleural effusion. 7. Acute respiratory failure, multifactorial secondary to sepsis, hypotension pleural effusions and fluid overload, currently intubated on ventilator. 8. Moderate pleural effusion s/p let thoracentesis 03/18/17- 1.75 L drained PLAN: S/p HD yesterday, no plan for HD today, ok to transfus 1 pack of platelets KCL 20mEQ IV x 1 dose now tolerating tube feeding rate controlled with amiodarone and digoxin s/p left thoracentesis 03/18/17- 1.75 L removed, weaning plan for as per pulmonary US chest showed moderate pleural effusion - will need thoracentesis but platelets are low will follow up Consultation Date/Type/Reason Admit Date/Time Mar 15, 2017 at 20:26 Initial Consult Date 03/16/17 Type of Consultation: NEPHROLOGY Referring Provider: VASILE DEMPSEY 24 HR Interval Summary Free Text/Dictation pt remains intubated, K low, low platelets Exam/Review of Systems Vital Signs Vitals Vital Signs Date Time Temp Pulse Resp B/P Pulse Ox O2 Delivery O2 Flow Rate FiO2 03/23/17 14:30 98 20 86/49 98 Mechanical Ventilator 03/23/17 14:00 98.0 03/23/17 11:28 30 Intake and Output 03/22/17 03/22/17 03/23/17 15:00 23:00 07:00 Intake Total 943.08 ml 454.25 ml 733.75 ml Output Total 3300 ml Balance -2356.92 ml 454.25 ml 733.75 ml Results Result Diagram: 03/23/17 0400 03/23/17 0400 Results 24 hrs Laboratory Tests Test 03/22/17 16:42 03/22/17 17:11 03/22/17 17:32 03/22/17 21:09 Bedside Glucose 60 L 133 117 131 Test 03/23/17 00:51 03/23/17 04:00 03/23/17 04:07 03/23/17 06:53 Bedside Glucose 159 191 White Blood Count 6.7 Red Blood Count 2.58 L Hemoglobin 7.3 L Hematocrit 23.4 L Mean Corpuscular Volume 90.7 Mean Corpuscular Hemoglobin 28.3 L Mean Corpuscular Hemoglobin Concent 31.2 L Red Cell Distribution Width 18.5 H Platelet Count 24 *L Mean Platelet Volume Neutrophils % 90.0 H Band Neutrophils % 4.0 Lymphocytes % 2.0 L Monocytes % 2.0 Eosinophils % Metamyelocytes % 2.0 H Nucleated Red Blood Cells % 1.0 H Neutrophils # 6.0 Lymphocytes # 0.1 L Monocytes # 0.1 L Eosinophils # Metamyelocytes # 0.1 Differential Comment MANUAL DIFF Toxic Granulation MODERATE Prothrombin Time 23.5 H Prothrombin Time Ratio 1.8 INR International Normalized Ratio 2.07 Activated Partial Thromboplast Time 40.4 H Thrombin Time 14.3 Fibrinogen 232.0 Plasma Fibrin Degradation Products <10 D-Dimer 3241.99 H D-Dimer Comment Sodium Level 139 Potassium Level 3.2 L Chloride Level 103 Carbon Dioxide Level 26 Anion Gap 13 Blood Urea Nitrogen 39 H Creatinine 1.87 H Glucose Level 167 # Calcium Level 9.5 Magnesium Level 2.0 Total Bilirubin 0.8 Direct Bilirubin 0.00 # Indirect Bilirubin 0.8 Aspartate Amino Transf (AST/SGOT) 12 L Alanine Aminotransferase (ALT/SGPT) 28 Alkaline Phosphatase 129 H Total Protein 3.7 L Albumin 1.8 L Globulin 1.90 Albumin/Globulin Ratio 0.94 Digoxin Level 1.0 Lab Scanned Report BLOOD TRANSFUSION Test 03/23/17 08:43 03/23/17 13:00 Bedside Glucose 202 205 Medications Medications Current Medications Ondansetron HCl (Zofran Inj) 4 mg Q6H PRN IV NAUSEA AND/OR VOMITING; Start at 01:00 Acetaminophen (Tylenol Liquid) 650 mg Q6H PRN PO PAIN LEVEL 1-3 OR FEVER; Start 03/16/17 at 01:00 Morphine Sulfate (morphine) 2 mg Q4H PRN IV PAIN LEVEL 7-10 Last administered on 03/22/17t 13:01; Admin Dose 2 MG; Start 03/16/17 at 01:00 Pantoprazole 40 mg 40 mg DAILY@06 IV Last administered on 03/23/17 05:35; Admin Dose 40 MG; Start 03/16/17 at 06:00 Midazolam HCl (Versed) 50 ml @ 1 mls/hr TITRATE IV Last administered on 11:04; Admin Dose 3 MLS/HR; Start 03/16/17 at 11:00 Collagenase (Santyl) 1 applic DAILY TOP Last administered on 03/23/17 08:46; Admin Dose 1 APPLIC; Start 03/16/17 at 18:30 Collagenase (Santyl) 1 applic PRN PRN TOP WOUND CARE; Start 03/16/17 at 18:30 Miscellaneous Information 1 ea NOTE XX ; Start 03/17/17 at 02:00 Glucose (Glutose) 15 gm Q15M PRN PO DECREASED GLUCOSE; Start 03/17/17 at 02:00 Glucose (Glutose) 22.5 gm Q15M PRN PO DECREASED GLUCOSE; Start 03/17/17 at 02: 00 Dextrose (D50w Syringe) 25 ml Q15M PRN IV DECREASED GLUCOSE Last administered on 03/22/17 16:45; Admin Dose 25 ML; Start 03/17/17 at 02:00 Dextrose (D50w Syringe) 50 ml Q15M PRN IV DECREASED GLUCOSE Last administered on 03/22/17 09:19; Admin Dose 50 ML; Start 03/17/17 at 02:00 Glucagon (Glucagen) 1 mg Q15M PRN IM DECREASED GLUCOSE; Start 03/17/17 at 02:00 Glucose 15 gm 15 gm Q15M PRN BUCCAL DECREASED GLUCOSE; Start 03/17/17 at 02:00 Levofloxacin/ Dextrose (Levaquin 250 Mg/ D5W 50 ml (Pmx)) 50 ml @ 50 mls/hr Q24H IVPB Last administered on 03/23/17 11:14; Admin Dose 50 MLS/HR; Start 03/21 at 11:30 Levothyroxine Sodium 150 mcg 150 mcg DAILY@06 PO Last administered on 03/23/17 05:35; Admin Dose 150 MCG; Start 03/22/17 at 06:00 Norepinephrine 16 mg/Dextrose 500 ml @ 9.37 mls/hr TITRATE IV ; Start 03/22/17 at 10:30 Phenylephrine HCl 160 mg/Dextrose 500 ml @ 18.75 mls/ hr TITRATE IV Last administered on 03/23/17 10:11; Admin Dose 15 MLS/HR; Start 03/22/17 at 10:30 Fentanyl 100 ml @ 2.5 mls/hr TITRATE IV Last administered on 03/23/17 10:22; Admin Dose 7.5 MLS/HR; Start 03/22/17 at 14:30 Propofol (Diprivan) 100 ml @ 2.28 mls/hr Q12H PRN IV SEDATION; Start 03/22/17 at 14:30 Mupirocin (Bactroban) 1 applic BID TOP Last administered on 03/23/17 08:45; Admin Dose 1 APPLIC; Start 03/22/17 at 15:30 Sodium Hypochlorite (Dakin'S (1/4 Strength)) 1 applic BID IRR Last administered on 03/23/17 04:24; Admin Dose 1 APPLIC; Start 03/22/17 at 21:00 Silver Sulfadiazine (Thermazene 1% 25 Gm) 1 applic DAILY TOP Last administered on 03/23/17 08:45; Admin Dose 1 APPLIC; Start 03/22/17 at 17:00 Insulin Aspart (Novolog Insulin Pen) NOVOLOG *MILD* ALGORI... Q4 SC Last administered on 03/23/17 13:03; Admin Dose 2 UNIT; Start 03/22/17 at 17:00 Insulin Aspart 3 unit 3 unit Q6 SC ; Start 03/23/17 at 18:00 Albumin Human (Albumin Human 25%) 100 ml @ 100 mls/hr Q8H IV Last administered on 03/23/17 15:16; Admin Dose 100 MLS/HR; Start 03/23/17 at 15:00; Stop 03/25/17 at 07:59 Metronidazole (Flagyl) 500 mg Q8 PO ; Start 03/23/17 at 15:30; Stop 04/06/17 at 15:29 Lactobacillus Acidophilus/ Rhamnosus 1 cap 1 cap BID PO ; Start 03/23/17 at 21:00 Fluconazole (Diflucan 200 Mg/ NS (Pmx)) 100 ml @ 100 mls/hr Q24H IVPB ; Start 03/23/17 at 17:00 VIRIDIANA VILLARREAL MD March 23, 2017 15:35
[2017-03-23] MEDS: metroNIDAZOLE 500 MG TAB PO SCH ×2 (15:41→22:32)
[2017-03-23] MEDS ORDERED: POTASSIUM CHLORIDE 20 MEQ in SOD CHLORIDE 0.9% 100 ML IVPB ONE (16:00)
[2017-03-23] MEDS ORDERED: POTASSIUM CHLORIDE 50 ML IVPB ONE (16:00)
[2017-03-23] MEDS: FLUCONAZOLE 200 MG/NS (PMX) 100 ML IVPB SCH (16:37)
--- NOTE | 2017-03-23 17:32 | CONS ---
DATE OF ADMISSION: 03/15/2017 DATE OF CONSULTATION: 03/23/2017 TYPE OF CONSULTATION: Infectious Disease. REASON FOR CONSULTATION: Antibiotic management. HISTORY OF PRESENT ILLNESS: Cyndy Self is a 71-year-old female who is admitted with hypotensio n to the intensive care unit and is being seen for antibiotic management. Her past problems include : 1. History of hypertension. 2. Adult-onset diabetes mellitus. 3. Old stroke. 4. Congestive heart failure with systolic dysfunction. 5. Dilated cardiomyopathy. 6. Atrial fibrillation. 7. Hypothyroidism. 8. End-stage renal disease on hemodialysis. The patient was sent on 03/15/2017 from the dialysis center for hypotension. In the emergency room, blood pressure was 80/46, temperature 97.6. She was placed on Levophed. PAST MEDICATION HISTORY: She had a right upper chest dialysis catheter placed. FAMILY HISTORY: Noncontributory. SOCIAL HISTORY: She does not smoke, drink or abuse drugs. ALLERGIES: PENICILLIN. MEDICATIONS: Per chart. REVIEW OF SYSTEMS: As per HPI. LABORATORIES: On admission, her white count was 7.8, H and H of 8.4 and 27.8, platelet count of 1 04,000. On March 19, her white count was 11 and on March 23, white count was 6.7. BUN and creatinine is 7.3 and 23.4, platelet count of 24,000, coming down from 70 on March 20 and currently 24,000 on . IMAGING STUDIES: Her chest x-ray shows cardiomegaly with calcified atherosclerosis in the aorta, st able central pulmonary vascular congestion, interstitial prominence in both lungs, stable patchy inf iltrates throughout both lungs, combined with moderate pleural effusions. She had a thoracentesis d one on the left chest on March 18 , 1750 mL of clear yellow fluid was aspirated from the left pleura l space. MICROBIOLOGY: Her urine grew out Allison albicans on March 21. Blood cultures are negative. Her C. d ifficile is positive. The patient is currently on fluconazole. She is on metronidazole. She is on propofol and she is also on vancomycin and Levaquin. PHYSICAL EXAMINATION: GENERAL: The patient is an elderly appearing female who is obtunded on a respirator. She has an ET tube, an OG-tube, a right chest Perm-A-Cath and a left femoral central line. SKIN: Without generalized rash. HEENT: ET tube in place, temporal wasting. NECK: Supple. LYMPH NODES: None palpable. CHEST: Decreased breath sounds at the bases. HEART: Without murmur or gallop. THORAX: With a permanent dialysis catheter in the right chest. ABDOMEN: Soft, nontender, without organosplenomegaly or masses. EXTREMITIES: Without cyanosis, clubbing, or edema. RECTAL AND GENITAL: Deferred. NEUROLOGIC: No focal neurological abnormalities. IMPRESSION AND PLAN: The patient currently has Clostridium difficile. She is on IV vancomycin and she is on Levaquin as well. White count is 6.7, platelet count is dropping to 24,000, the etiology is unclear. I am going to stop her Levaquin and see if that helps. I do not think that she needs i t. She is on fluconazole for her Allison in the urine. I will dictate my findings to the [facility] and to the various consultants. Dictated By: MINOR ALCALA MD, JD/EMANUEL Conf#: [id number] DID#: [id number]
[2017-03-23] MEDS: LACTOBACILLUS RHAMNOSUS CAP PO SCH (20:26)
[2017-03-24] VITALS (102 sets, daily range): BP systolic 66–137; BP diastolic 38–83; PULSE 83–114; RESP 18–20
[2017-03-24] MEDS: INSULIN ASPART [NOVOLOG] 3 ML PEN SC SCH ×9 (00:38→20:45)
[2017-03-24 04:50] LABS: ADD SCAN DIFF NO
[2017-03-24 05:03] LABS: ABNORMAL IP MESSAGE 1; HEMATOCRIT 21.1 % (37.0-47.0); MEAN CORPUSCULAR HEMOGLOBIN 28.6 pg (29.0-33.0); MEAN CORPUSCULAR HGB CONC 32.2 g/dl (32.0-37.0); MEAN CORPUSCULAR VOLUME 88.7 fl (82.0-101.0); MEAN PLATELET VOLUME 12.7 fl (7.4-10.4); PLATELET COUNT 39 10^3/UL (140-415); RED BLOOD COUNT 2.38 10^6/ul (4.20-5.40); RED CELL DISTRIBUTION WIDTH 17.8 % (11.5-14.5); WHITE BLOOD COUNT 2.8 10^3/ul (4.8-10.8)
[2017-03-24 05:12] LABS: ALBUMIN 1.9 g/dl (3.3-4.9); POTASSIUM 3.5 mmol/L (3.5-5.1)
[2017-03-24 05:15] LABS: CREATININE 2.13 mg/dl (0.44-1.00); PHOSPHORUS 1.2 mg/dl (2.5-4.9)
[2017-03-24] MEDS: LEVOTHYROXINE 150 MCG TAB PO SCH (05:27)
[2017-03-24] MEDS: PANTOPRAZOLE 40 MG INJ IV SCH (05:27)
[2017-03-24] MEDS: metroNIDAZOLE 500 MG TAB PO SCH ×3 (05:27→22:43)
--- NOTE | 2017-03-24 05:40 | PN ---
DATE: 03/23/2017 CARDIOLOGY FOLLOWUP SUBJECTIVE: Discussed with the staff. Rhythm strip was reviewed. The patient remained in atrial f ibrillation but heart rate is under slightly better control now. She is down on her Chris-Synephrine drip to 80 mcg, still on the pressors though, still on the vent, intubated unable to wean off. Curr ently the patient is still sedated. Currently has been agitated overnight as well. Discussed with the physicians and the staff, including Dr. Cook. MEDICATIONS: Reviewed as per medication reconciliation, personally reviewed. PHYSICAL EXAMINATION: VITAL SIGNS: Temperature 98.8, heart rate of 103, blood pressure 90/60, respiration rate of 20, sat urating 96%. HEENT: Normocephalic, atraumatic. Thin, elderly female. Status post intubation on the vent. Eyes are closed. Status post intubation on the vent. NECK: Positive for JVD. CARDIOVASCULAR: Irregularly irregular, systolic murmur. PULMONARY: Bilateral rhonchi at the base. GASTROINTESTINAL: Soft, nontender. EXTREMITIES: Diffuse lower extremity edema. There are multiple ecchymoses on the skin. NEUROLOGIC: Sedated. PSYCHIATRIC: Calm. LABORATORY: INR is 2.07, PTT is 40, ____ 232. ____ less than 10. D-dimer is 3241. Sodium 139, pot assium 3.2, BUN of 39, creatinine 1.87, glucose of 167. WBC of 6.7, hemoglobin 7.3, platelets of 24 . Digoxin level is 1. Chest ultrasound showed moderate bilateral pleural effusion. ASSESSMENT AND PLAN: 1. Shock, probably septic with a combination of cardiogenic as above with severe LV dysfunction. 2. Severe cardiomyopathy appeared to be most likely nonischemic. 3. Congestive heart failure, acute on chronic, secondary to systolic and probably diastolic dysfunc tion. 4. Recurrent pleural effusion, currently moderate pleural effusion bilateral side due to multiple f actors including cardiomyopathy, renal failure and very poor nutrition with albumin less than 2. 5. Atrial fibrillation with rapid ventricular response. Heart rate currently better controlled. Un able to give Cardizem or beta shakir due to her low blood pressure and very low dose ____ intermit tently has been given due to her renal failure. 6. Coagulopathy. 7. Severe thrombocytopenia, etiology unclear. 8. Neutropenia. Severe malnutrition with very low albumin. 9. Encephalopathy and history of dementia. 10. Anemia. 11. History of hypothyroidism. 12. History of cerebrovascular accident. RECOMMENDATIONS: We will continue with the supportive care, vent support will be continued. Thorac entesis with PleurX will be placed once the patient is able to get it. Currently, thrombocytopenic as well as elevated INR make her a high risk of bleeding. May need to get platelets for that. Anti biotic is managed as per internal medicine. Vent support will be continued for now. I will keep int ermittent digoxin when needed and ____ heart rate is elevated. Currently is tolerating it okay. Ne o-Synephrine drip will be continued and try to titrate off if possible. We will continue with the I CU care and vent support. More than 39 minutes of critical care time was spent managing this patient excluding any procedures. Dictated By: KATIUSKA BRITO MD AV/NTS Conf#: [id number] DID#: [id number] CC: ALIX TALBOT MD;*EndCC*
[2017-03-24 05:57] LABS: HEMOGLOBIN 6.8 g/dl (12.0-16.0)
[2017-03-24] MEDS: FENTAnyl (DRIP) 1000 mcg/100mL 100 ML IV SCH ×2 (06:18→16:24)
[2017-03-24] MEDS: ALBUMIN HUMAN 25% 100 ML IV SCH ×3 (06:19→23:22)
[2017-03-24] MEDS: PHENYLephrine 160 MG in DEXTROSE 5% 484 ML IV SCH (07:20)
[2017-03-24] MEDS ORDERED: SOD CHLORIDE 0.9% 250 ML IV* ONE (07:30)
[2017-03-24] MEDS: LACTOBACILLUS RHAMNOSUS CAP PO SCH ×2 (08:32→20:41)
[2017-03-24] MEDS: SODIUM HYPOCHLORITE 0.125% 473 ML BTL IRR SCH ×2 (08:32→20:43)
[2017-03-24] MEDS: MUPIROCIN 2% 22 GM OINT TOP SCH ×2 (08:33→20:42)
[2017-03-24] MEDS: COLLAGENASE 30 GM TUBE TOP SCH (08:34)
[2017-03-24] MEDS: SILVER SULFADIAZINE 1% 25 GM CR TOP SCH (08:35)
--- NOTE | 2017-03-24 09:59 | RADRPT ---
PROCEDURE: XR Chest 1 view. CLINICAL INDICATION: Shortness of breath. TECHNIQUE: AP views of the chest were obtained. COMPARISON: 03/23/2017 FINDINGS: Endotracheal and nasogastric tubes are stable and appear in grossly appropriate location. Right-side d dialysis catheter is unchanged. The heart is large. Calcified atherosclerosis is noted in the aort a. Central pulmonary vascular congestion and interstitial prominence is increased. Small bilateral p leural effusions, larger on the left, are unchanged. The osseous structures are stable. IMPRESSION: 1. Interval increased pulmonary vascular congestion and interstitial prominence. 2. Stable small bilateral pleural effusions. 3. Cardiomegaly with calcified atherosclerosis in the aorta. RPTAT: JJ .Eddie Boyer MD, MD Date Time Electronically viewed and signed by .Eddie Boyer MD, on 03/24/2017 09:59 .A/
--- NOTE | 2017-03-24 10:19 | CONS ---
Date/Time of Note Date/Time of Note DATE: 03/24/17 TIME: 10:14 Assessment/Plan Assessment/Plan Additional Assessment/Plan Current ventilator settings; AC of 20, tidal volume 500, PEEP of 0, 30% FiO2. Patient currently on fentanyl drip 100 mics per hour, phenylephrine at 60 mics per minute. Chest x-ray was reviewed from today which is again showing persistent bilateral pulmonary edema with cardiomegaly. Assessment recommendations; 1. Patient admitted with respiratory failure due to underlying cardiomyopathy resulting in persistent severe pulmonary edema. 2. Hypotension. Requiring pressor support. Although on a tapering dose. 3. Chronic renal failure, on hemodialysis. 4. Severe anemia and thrombocytopenia. 5. Candiduria. 6. History of atrial fibrillation, patient remains in atrial fibrillation. 7. Coagulopathy, with interval correction. Next Continue current supportive care. Patient is not in a position to be weaned off from ventilator. Meanwhile patient will be transfused packed RBC. Prognosis remains very poor. 35 minutes critical care time was spent evaluating the patient. Consultation Date/Type/Reason Admit Date/Time Mar 15, 2017 at 20:26 Initial Consult Date 03/16/17 Type of Consultation: Pulmonary/critical care Referring Provider: VASILE DEMPSEY 24 HR Interval Summary Free Text/Dictation Patient condition remains critical. Still requiring full ventilator support. As well as pressor support for hypotension. General exam; elderly woman, orally intubated, currently in no distress. Sedated. Exam/Review of Systems Vital Signs Vitals Vital Signs Date Time Temp Pulse Resp B/P Pulse Ox O2 Delivery O2 Flow Rate FiO2 03/24/17 09:45 88 20 118/66 95 Mechanical Ventilator 03/24/17 09:25 30 03/24/17 07:00 98.8 Intake and Output 03/23/17 03/23/17 03/24/17 15:00 23:00 07:00 Intake Total 833.12 ml 1532.24 ml 734.37 ml Balance 833.12 ml 1532.24 ml 734.37 ml Exam HEENT examination; supple neck, positive JVD. No lymphadenopathy. Midline trachea. Patient has fair dentition. Pupils are small bilaterally. Orally intubated. Chest examination; diminished breath sounds bilaterally. No added sound. S1- S2 audible, no no change in soft systolic ejection murmur grade 2/6, best heard over aortic area. Irregular rhythm. Abdomen examination; soft, no organomegaly. Bowel sounds audible. Ischemic examination; 2+ anasarca. Patient does have ecchymosis involving all 4 extremities. 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 Results Result Diagram: 03/24/17 0400 03/24/17 0400 Results 24 hrs Laboratory Tests Test 03/23/17 13:00 03/23/17 17:16 03/23/17 20:25 03/24/17 00:35 Bedside Glucose 205 142 120 124 Test 03/24/17 04:00 03/24/17 04:40 03/24/17 05:23 03/24/17 05:44 White Blood Count 2.8 #L Red Blood Count 2.38 L Hemoglobin 6.8 *L Hematocrit 21.1 L Mean Corpuscular Volume 88.7 Mean Corpuscular Hemoglobin 28.6 L Mean Corpuscular Hemoglobin Concent 32.2 Red Cell Distribution Width 17.8 H Platelet Count 39 #L Mean Platelet Volume 12.7 H Neutrophils % Eosinophils % Neutrophils # Eosinophils # Sodium Level 138 Potassium Level 3.5 Chloride Level 102 Carbon Dioxide Level 27 Anion Gap 13 Blood Urea Nitrogen 52 H Creatinine 2.13 H Glucose Level 100 # Calcium Level 10.0 Phosphorus Level 1.2 L Albumin 1.9 L Random Vancomycin Level 11.8 Magnesium Level 2.0 Bedside Glucose 132 Lab Scanned Report BLOOD TRANSFUSION Test 03/24/17 08:34 Bedside Glucose 117 Medications Medications Current Medications Ondansetron HCl (Zofran Inj) 4 mg Q6H PRN IV NAUSEA AND/OR VOMITING; Start at 01:00 Acetaminophen (Tylenol Liquid) 650 mg Q6H PRN PO PAIN LEVEL 1-3 OR FEVER; Start 03/16/17 at 01:00 Morphine Sulfate (morphine) 2 mg Q4H PRN IV PAIN LEVEL 7-10 Last administered on 03/22/17 13:01; Admin Dose 2 MG; Start 03/16/17 at 01:00 Pantoprazole 40 mg 40 mg DAILY@06 IV Last administered on 03/24/17 05:27; Admin Dose 40 MG; Start 03/16/17 at 06:00 Midazolam HCl (Versed) 50 ml @ 1 mls/hr TITRATE IV Last administered on 11:04; Admin Dose 3 MLS/HR; Start 03/16/17 at 11:00 Collagenase (Santyl) 1 applic DAILY TOP Last administered on 03/24/17 08:34; Admin Dose 1 APPLIC; Start 03/16/17 at 18:30 Collagenase (Santyl) 1 applic PRN PRN TOP WOUND CARE; Start 03/16/17 at 18:30 Miscellaneous Information 1 ea NOTE XX ; Start 03/17/17 at 02:00 Glucose (Glutose) 15 gm Q15M PRN PO DECREASED GLUCOSE; Start 03/17/17 at 02:00 Glucose (Glutose) 22.5 gm Q15M PRN PO DECREASED GLUCOSE; Start 03/17/17 at 02: 00 Dextrose (D50w Syringe) 25 ml Q15M PRN IV DECREASED GLUCOSE Last administered on 03/22/17 16:45; Admin Dose 25 ML; Start 03/17/17 at 02:00 Dextrose (D50w Syringe) 50 ml Q15M PRN IV DECREASED GLUCOSE Last administered on 03/22/17 09:19; Admin Dose 50 ML; Start 03/17/17 at 02:00 Glucagon (Glucagen) 1 mg Q15M PRN IM DECREASED GLUCOSE; Start 03/17/17 at 02:00 Glucose (Glutose) 15 gm Q15M PRN BUCCAL DECREASED GLUCOSE; Start 03/17/17 at 02 :00 Levothyroxine Sodium 150 mcg 150 mcg DAILY@06 PO Last administered on 03/24/17 05:27; Admin Dose 150 MCG; Start 03/22/17 at 06:00 Norepinephrine 16 mg/Dextrose 500 ml @ 9.37 mls/hr TITRATE IV ; Start 03/22/17 at 10:30 Phenylephrine HCl 160 mg/Dextrose 500 ml @ 18.75 mls/ hr TITRATE IV Last administered on 03/24/17 07:20; Admin Dose 16.87 MLS/HR; Start 03/22/17 at 10:30 Fentanyl 100 ml @ 2.5 mls/hr TITRATE IV Last administered on 03/24/17 06:18; Admin Dose 10 MLS/HR; Start 03/22/17 at 14:30 Propofol (Diprivan) 100 ml @ 2.28 mls/hr Q12H PRN IV SEDATION; Start 03/22/17 at 14:30 Mupirocin (Bactroban) 1 applic BID TOP Last administered on 03/24/17 08:33; Admin Dose 1 APPLIC; Start 03/22/17 at 15:30 Sodium Hypochlorite (Dakin'S (1/4 Strength)) 1 applic BID IRR Last administered on 03/24/17 08:32; Admin Dose 1 APPLIC; Start 03/22/17 at 21:00 Silver Sulfadiazine (Thermazene 1% 25 Gm) 1 applic DAILY TOP Last administered on 03/24/17 08:35; Admin Dose 1 APPLIC; Start 03/22/17 at 17:00 Insulin Aspart (Novolog Insulin Pen) NOVOLOG *MILD* ALGORI... Q4 SC Last administered on 03/23/17 17:22; Admin Dose 1 UNIT; Start 03/22/17 at 17:00 Insulin Aspart 3 unit 3 unit Q6 SC Last administered on 03/23/17 17:50; Admin Dose 3 UNIT; Start 03/23/17 at 18:00 Albumin Human (Albumin Human 25%) 100 ml @ 100 mls/hr Q8H IV Last administered on 03/24/17 06:19; Admin Dose 100 MLS/HR; Start 03/23/17 at 15:00; Stop 03/25/17 at 07:59 Metronidazole (Flagyl) 500 mg Q8 PO Last administered on 03/24/17 05:27; Admin Dose 500 MG; Start 03/23/17 at 15:30; Stop 04/06/17 at 15:29 Lactobacillus Acidophilus/ Rhamnosus 1 cap 1 cap BID PO Last administered on 08:32; Admin Dose 1 CAP; Start 03/23/17 at 21:00 Fluconazole (Diflucan 200 Mg/ NS (Pmx)) 100 ml @ 100 mls/hr Q24H IVPB Last administered on 03/23/17 16:37; Admin Dose 100 MLS/HR; Start 03/23/17 at 17:00 YUNIOR JUNIOR March 24, 2017 10:19
[2017-03-24 10:46] LABS: LYMPHOCYTES # 0.3 10^3/ul (0.8-2.9); PLATELET ESTIMATE PLT APPEAR DECREASED
[2017-03-24] MEDS ORDERED: VANCOMYCIN 1 GM in NS 250 ML IVPB SCH (11:00)
--- NOTE | 2017-03-24 11:14 | QN ---
Documentation Comment Spoke with patient's daughter in [place], plan is for eventual terminal extubation in a few days when patient's sister and brother and daughter are here. ALIX TALBOT March 24, 2017 11:14
--- NOTE | 2017-03-24 11:59 | PN ---
DATE: 03/24/2017 SUBJECTIVE: No events. Overnight, the patient had low-grade fevers with a temperature max of 99.8. She is intubated, sedated, lying comfortably in bed. She is also on pressors. She is in hemodial ysis now. VITAL SIGNS: Temperature 98.8, pulse 90, respirations 20, blood pressure 93/53, saturation 99% on 3 0% FIO2. LABORATORY DATA: WBC 2.8, H and H 6.8 and 21.1, platelets 31, neutrophils 72, bands 11, lymphs 10. INDWELLINGS: Femoral triple-lumen catheter and right chest PermCath. MICROBIOLOGY: Urine culture on 03/21/2017 grew Allison albicans. Blood cultures have been negative . Nares swab came back positive for MRSA. Stool for C. diff negative. DIAGNOSTICS: Chest x-ray revealed increased pulmonary congestion. ANTIMICROBIALS: The patient is on 1. IV vancomycin. 2. Fluconazole. 3. Flagyl. 4. She is also getting topical Bactroban to nares. PHYSICAL EXAMINATION: GENERAL: This is a chronically ill-appearing, fragile, elderly woman who is in no distress. HEENT: Head atraumatic, normocephalic. Sclerae anicteric. Buccal mucosa dry. NECK: Supple, trachea midline. CHEST: Rise symmetrical. Breath sounds diminished to bases. HEART: S1, S2. ABDOMEN: Soft. Bowel sounds present. EXTREMITIES: With bilateral edema. Left lower extremity with slight erythema. ASSESSMENT: 1. Sepsis with shock. 2. Clostridium difficile colitis. 3. Allison albicans urinary tract infection. 4. Methicillin-resistant Staphylococcus aureus nares colonization. 5. Acute respiratory failure secondary to fluid overload. 6. End-stage renal disease. 7. Atrial fibrillation with coagulopathy and cardiomyopathy. PLAN: The patient remains hemodynamically unstable. No diarrhea per report. She is on appropriate antimicrobials. No evidence of pneumonia per chest x-ray. Pulmonary, cardiology and nephrology fo llows her. Continue present care. Dictated By: KONSTANTIN NELSON HARVEST WORKER for MINOR RAZO/EMANUEL Conf#: [id number] DID#: [id number]
[2017-03-24] MEDS ORDERED: POTASSIUM PHOSPHATE 15 MM in SOD CHLORIDE 0.9% 250 ML IVPB ONE (12:00)
--- NOTE | 2017-03-24 17:21 | PN ---
Date/Time of Note Date/Time of Note DATE: 03/24/17 TIME: 0850 Assessment/Plan VTE Prophylaxis VTE Prophylaxis Intervention: SCD's VTE Contraindication Reason: thrombocytopenia Lines/Catheters IV [facility] CATH Urinary Cath still in place: No Assessment/Plan Assessment/Plan 1. Shock: Hypovolemic (effusions/anasarca) + Septic 2. End-stage renal disease on Hemodialysis 3. Hypercapnic and Hypoxic Resp Failure remains ventilated 4. Acute encephalopathy on chronic dementia with Debility likely 2/2 #3: improved 5. Hypothyroidism. 6. Persistent Anemia 2/2 CKD + Thrombocytopenia with coagulopathy likely 2/ 2 SIRS versus Sepsis r/o DIC 7. Bilateral pleural effusion / Probable underlying pneumonia L sided thoracentesis done 03/18 8. Afib RVR: improved 9. Cardiomyopathy with severe systolic dysfunction with EF of 25% 10. Diabetes type 2, currently controlled 11. Old lacunar stroke with ?confusion 12. Unstageable Sacral ulcer 13. Supratherapeutic INR: resolved 14. AG Acidosis 2/2 Resp and Renal: resolved 15. Allison UTI 16. C-diff colitis PLAN: * Patient remains intubated and on pressor support, unable to get thoracentesis 2/2 low platelets limiting ability to extubate. She will be difficult to wean off pressors 2/2 need for hemodialysis and remains with severe anasarca despite volume removal during dialysis. * She will need debridement for her ulcer and cultures from there / she remains in Afib but with improved rate control * Continue albumin / pressors * Persistent anemia despite transfusions / repeat transfusion today * Continue abx per ID * Replace electrolytes, wean pressors PPx- SCDs / PPI Prognosis: Poor. Will speak with daughter, consider comfort measures Critical care time : >35mins Subjective 24 Hr Interval Summary Free Text/Dictation Patient sleeping, remains on pressors. Remains intubated. Still with severe anasarca. Spoke with pulmonary, not a weaning candidate at this time. Exam/Review of Systems Vital Signs Vitals Vital Signs Date Time Temp Pulse Resp B/P Pulse Ox O2 Delivery O2 Flow Rate FiO2 03/24/17 16:45 96 20 125/72 98 Mechanical Ventilator 03/24/17 15:14 30 03/24/17 12:00 98.8 Intake and Output 03/23/17 03/23/17 03/24/17 15:00 23:00 07:00 Intake Total 833.12 ml 1532.24 ml 734.37 ml Balance 833.12 ml 1532.24 ml 734.37 ml Exam Constitutional: alert, non-verbal 2/2 ET tube, requiring bilateral restraints ENMT: intubated Respiratory: clear to auscultation, diminished Cardiovascular: regular rate and rhythm Gastrointestinal: soft, obese No distended, + BS Musculoskeletal: diffuse edema / anasarca Results Result Diagram: 03/24/170 03/24/17 0400 Results 24 hrs Laboratory Tests Test 03/23/17 20:25 03/24/17 00:35 03/24/17 04:00 03/24/17 04:40 Bedside Glucose 120 124 White Blood Count 2.8 #L Red Blood Count 2.38 L Hemoglobin 6.8 *L Hematocrit 21.1 L Mean Corpuscular Volume 88.7 Mean Corpuscular Hemoglobin 28.6 L Mean Corpuscular Hemoglobin Concent 32.2 Red Cell Distribution Width 17.8 H Platelet Count 39 #L Mean Platelet Volume 12.7 H Neutrophils % 72.0 Band Neutrophils % 18.0 H Lymphocytes % 10.0 L Eosinophils % Neutrophils # 2.0 Lymphocytes # 0.3 L Eosinophils # Platelet Estimate PLT APPEAR DECREASED Sodium Level 138 Potassium Level 3.5 Chloride Level 102 Carbon Dioxide Level 27 Anion Gap 13 Blood Urea Nitrogen 52 H Creatinine 2.13 H Glucose Level 100 # Calcium Level 10.0 Phosphorus Level 1.2 L Albumin 1.9 L Random Vancomycin Level 11.8 Magnesium Level 2.0 Test 03/24/17 05:23 03/24/17 05:44 03/24/17 08:34 03/24/17 12:15 Bedside Glucose 132 117 134 Lab Scanned Report BLOOD TRANSFUSION Test 03/24/17 17:03 Bedside Glucose 122 Medications Medications Current Medications Ondansetron HCl (Zofran Inj) 4 mg Q6H PRN IV NAUSEA AND/OR VOMITING; Start at 01:00 Acetaminophen (Tylenol Liquid) 650 mg Q6H PRN PO PAIN LEVEL 1-3 OR FEVER; Start 03/16/17 at 01:00 Morphine Sulfate (morphine) 2 mg Q4H PRN IV PAIN LEVEL 7-10 Last administered on 03/22/17 13:01; Admin Dose 2 MG; Start 03/16/17 at 01:00 Pantoprazole 40 mg 40 mg DAILY@06 IV Last administered on 03/24/17 05:27; Admin Dose 40 MG; Start 03/16/17 at 06:00 Midazolam HCl (Versed) 50 ml @ 1 mls/hr TITRATE IV Last administered on 11:04; Admin Dose 3 MLS/HR; Start 03/16/17 at 11:00 Collagenase (Santyl) 1 applic DAILY TOP Last administered on 03/24/17 08:34; Admin Dose 1 APPLIC; Start 03/16/17 at 18:30 Collagenase (Santyl) 1 applic PRN PRN TOP WOUND CARE; Start 03/16/17 at 18:30 Miscellaneous Information 1 ea NOTE XX ; Start 03/17/17 at 02:00 Glucose (Glutose) 15 gm Q15M PRN PO DECREASED GLUCOSE; Start 03/17/17 at 02:00 Glucose (Glutose) 22.5 gm Q15M PRN PO DECREASED GLUCOSE; Start 03/17/17 at 02: 00 Dextrose (D50w Syringe) 25 ml Q15M PRN IV DECREASED GLUCOSE Last administered on 03/22/17 16:45; Admin Dose 25 ML; Start 03/17/17 at 02:00 Dextrose (D50w Syringe) 50 ml Q15M PRN IV DECREASED GLUCOSE Last administered on 03/22/17 09:19; Admin Dose 50 ML; Start 03/17/17 at 02:00 Glucagon (Glucagen) 1 mg Q15M PRN IM DECREASED GLUCOSE; Start 03/17/17 at 02:00 Glucose (Glutose) 15 gm Q15M PRN BUCCAL DECREASED GLUCOSE; Start 03/17/17 at 02 :00 Levothyroxine Sodium 150 mcg 150 mcg DAILY@06 PO Last administered on 03/24/17 05:27; Admin Dose 150 MCG; Start 03/22/17 at 06:00 Norepinephrine 16 mg/Dextrose 500 ml @ 9.37 mls/hr TITRATE IV ; Start 03/22/17 at 10:30 Phenylephrine HCl 160 mg/Dextrose 500 ml @ 18.75 mls/ hr TITRATE IV Last administered on 03/24/17 07:20; Admin Dose 16.87 MLS/HR; Start 03/22/17 at 10:30 Fentanyl 100 ml @ 2.5 mls/hr TITRATE IV Last administered on 03/24/17 16:24; Admin Dose 10 MLS/HR; Start 03/22/17 at 14:30 Propofol (Diprivan) 100 ml @ 2.28 mls/hr Q12H PRN IV SEDATION; Start 03/22/17 at 14:30 Mupirocin (Bactroban) 1 applic BID TOP Last administered on 03/24/17 08:33; Admin Dose 1 APPLIC; Start 03/22/17 at 15:30 Sodium Hypochlorite (Dakin'S (11/24 Strength)) 1 applic BID IRR Last administered on 03/24/17 08:32; Admin Dose 1 APPLIC; Start 03/22/17 at 21:00 Silver Sulfadiazine (Thermazene 1% 25 Gm) 1 applic DAILY TOP Last administered on 03/24/17 08:35; Admin Dose 1 APPLIC; Start 03/22/17 at 17:00 Insulin Aspart NOVOLOG *MILD* ALGORI... Q4 SC Last administered on 03/23/17 17: 22; Admin Dose 1 UNIT; Start 03/22/17 at 17:00 Albumin Human (Albumin Human 25%) 100 ml @ 100 mls/hr Q8H IV Last administered on 03/24/17 14:38; Admin Dose 100 MLS/HR; Start 03/23/17 at 15:00; Stop 03/25/17 at 07:59 Metronidazole (Flagyl) 500 mg Q8 PO Last administered on 03/24/17 13:27; Admin Dose 500 MG; Start 03/23/17 at 15:30; Stop 04/06/17 at 15:29 Lactobacillus Acidophilus/ Rhamnosus 1 cap 1 cap BID PO Last administered on 08:32; Admin Dose 1 CAP; Start 03/23/17 at 21:00 Fluconazole 100 ml @ 100 mls/hr Q24H IVPB Last administered on 03/23/17 16:37 ; Admin Dose 100 MLS/HR; Start 03/23/17 at 17:00 Vancomycin HCl (Vancocin) 250 ml @ 125 mls/hr Q96H IVPB Last administered on 11:46; Admin Dose 125 MLS/HR; Start 03/24/17 at 11:00 ALIX TALBOT March 24, 2017 17:21
--- NOTE | 2017-03-24 17:48 | CONS ---
Date/Time of Note Date/Time of Note DATE: 03/24/17 TIME: 17:47 Assessment/Plan Assessment/Plan Additional Assessment/Plan 1. End-stage renal disease on hemodialysis, regular schedule is Tuesday, , Tuesday. 2. Atiral fibrillation with RVR 2. Cardiomyopathy with a severe systolic dysfunction with ejection fraction of 25%. 3. History of hypertension. 4. History of hypothyroidism. 5. History of previous cerebrovascular accident. 6. Moderate to large bilateral pleural effusion. 7. Acute respiratory failure, multifactorial secondary to sepsis, hypotension pleural effusions and fluid overload, currently intubated on ventilator. 8. Moderate pleural effusion s/p let thoracentesis 03/18/17- 1.75 L drained PLAN: S/p HDtoday, will order HD for tomorrow with ultrafiltration on Tube feeding rate controlled with amiodarone and digoxin s/p left thoracentesis 03/18/17- 1.75 L removed, weaning plan for as per pulmonary US chest showed moderate pleural effusion - will need thoracentesis but platelets are low will follow up Consultation Date/Type/Reason Admit Date/Time Mar 15, 2017 at 20:26 Initial Consult Date 03/16/17 Type of Consultation: NEPHROLOGY Referring Provider: VASILE DEMPSEY 24 HR Interval Summary Free Text/Dictation remain intubated, Unable to thoracentesis due to low platelets , S/p HD today Exam/Review of Systems Vital Signs Vitals Vital Signs Date Time Temp Pulse Resp B/P Pulse Ox O2 Delivery O2 Flow Rate FiO2 03/24/17 17:21 93 20 97 30 03/24/17 17:00 127/66 Mechanical Ventilator 03/24/17 12:00 98.8 Intake and Output 03/23/17 03/23/17 03/24/17 15:00 23:00 07:00 Intake Total 833.12 ml 1532.24 ml 734.37 ml Balance 833.12 ml 1532.24 ml 734.37 ml Results Result Diagram: 03/24/17 0400 03/24/17 0400 Results 24 hrs Laboratory Tests Test 03/23/17 20:25 03/24/17 00:35 03/24/17 04:00 03/24/17 04:40 Bedside Glucose 120 124 White Blood Count 2.8 #L Red Blood Count 2.38 L Hemoglobin 6.8 *L Hematocrit 21.1 L Mean Corpuscular Volume 88.7 Mean Corpuscular Hemoglobin 28.6 L Mean Corpuscular Hemoglobin Concent 32.2 Red Cell Distribution Width 17.8 H Platelet Count 39 #L Mean Platelet Volume 12.7 H Neutrophils % 72.0 Band Neutrophils % 18.0 H Lymphocytes % 10.0 L Eosinophils % Neutrophils # 2.0 Lymphocytes # 0.3 L Eosinophils # Platelet Estimate PLT APPEAR DECREASED Sodium Level 138 Potassium Level 3.5 Chloride Level 102 Carbon Dioxide Level 27 Anion Gap 13 Blood Urea Nitrogen 52 H Creatinine 2.13 H Glucose Level 100 # Calcium Level 10.0 Phosphorus Level 1.2 L Albumin 1.9 L Random Vancomycin Level 11.8 Magnesium Level 2.0 Test 03/24/17 05:23 03/24/17 05:44 03/24/17 08:34 03/24/17 12:15 Bedside Glucose 132 117 134 Lab Scanned Report BLOOD TRANSFUSION Test 03/24/17 17:03 Bedside Glucose 122 Medications Medications Current Medications Ondansetron HCl (Zofran Inj) 4 mg Q6H PRN IV NAUSEA AND/OR VOMITING; Start at 01:00 Acetaminophen (Tylenol Liquid) 650 mg Q6H PRN PO PAIN LEVEL 1-3 OR FEVER; Start 03/16/17 at 01:00 Morphine Sulfate (morphine) 2 mg Q4H PRN IV PAIN LEVEL 7-10 Last administered on 03/22/17 13:01; Admin Dose 2 MG; Start 03/16/17 at 01:00 Pantoprazole 40 mg 40 mg DAILY@06 IV Last administered on 03/24/17 05:27; Admin Dose 40 MG; Start 03/16/17 at 06:00 Midazolam HCl (Versed) 50 ml @ 1 mls/hr TITRATE IV Last administered on 11:04; Admin Dose 3 MLS/HR; Start 03/16/17 at 11:00 Collagenase (Santyl) 1 applic DAILY TOP Last administered on 03/24/17 08:34; Admin Dose 1 APPLIC; Start 03/16/17 at 18:30 Collagenase (Santyl) 1 applic PRN PRN TOP WOUND CARE; Start 03/16/17 at 18:30 Miscellaneous Information 1 ea NOTE XX ; Start 03/17/17 at 02:00 Glucose (Glutose) 15 gm Q15M PRN PO DECREASED GLUCOSE; Start 03/17/17 at 02:00 Glucose (Glutose) 22.5 gm Q15M PRN PO DECREASED GLUCOSE; Start 03/17/17 at 02: 00 Dextrose (D50w Syringe) 25 ml Q15M PRN IV DECREASED GLUCOSE Last administered on 03/22/17 16:45; Admin Dose 25 ML; Start 03/17/17 at 02:00 Dextrose (D50w Syringe) 50 ml Q15M PRN IV DECREASED GLUCOSE Last administered on 03/22/17 09:19; Admin Dose 50 ML; Start 03/17/17 at 02:00 Glucagon (Glucagen) 1 mg Q15M PRN IM DECREASED GLUCOSE; Start 03/17/17 at 02:00 Glucose (Glutose) 15 gm Q15M PRN BUCCAL DECREASED GLUCOSE; Start 03/17/17 at 02 :00 Levothyroxine Sodium 150 mcg 150 mcg DAILY@06 PO Last administered on 03/24/17 05:27; Admin Dose 150 MCG; Start 03/22/17 at 06:00 Norepinephrine 16 mg/Dextrose 500 ml @ 9.37 mls/hr TITRATE IV ; Start 03/22/17 at 10:30 Phenylephrine HCl 160 mg/Dextrose 500 ml @ 18.75 mls/ hr TITRATE IV Last administered on 03/24/17 07:20; Admin Dose 16.87 MLS/HR; Start 03/22/17 at 10:30 Fentanyl 100 ml @ 2.5 mls/hr TITRATE IV Last administered on 03/24/17 16:24; Admin Dose 10 MLS/HR; Start 03/22/17 at 14:30 Propofol (Diprivan) 100 ml @ 2.28 mls/hr Q12H PRN IV SEDATION; Start 03/22/17 at 14:30 Mupirocin (Bactroban) 1 applic BID TOP Last administered on 03/24/17 08:33; Admin Dose 1 APPLIC; Start 03/22/17 at 15:30 Sodium Hypochlorite (Dakin'S (1/4 Strength)) 1 applic BID IRR Last administered on 03/24/17 08:32; Admin Dose 1 APPLIC; Start 03/22/17 at 21:00 Silver Sulfadiazine (Thermazene 1% 25 Gm) 1 applic DAILY TOP Last administered on 03/24/17 08:35; Admin Dose 1 APPLIC; Start 03/22/17 at 17:00 Insulin Aspart NOVOLOG *MILD* ALGORI... Q4 SC Last administered on 03/23/17 17: 22; Admin Dose 1 UNIT; Start 03/22/17 at 17:00 Albumin Human (Albumin Human 25%) 100 ml @ 100 mls/hr Q8H IV Last administered on 03/24/17 14:38; Admin Dose 100 MLS/HR; Start 03/23/17 at 15:00; Stop 03/25/17 at 07:59 Metronidazole (Flagyl) 500 mg Q8 PO Last administered on 03/24/17 13:27; Admin Dose 500 MG; Start 03/23/17 at 15:30; Stop 04/06/17 at 15:29 Lactobacillus Acidophilus/ Rhamnosus 1 cap 1 cap BID PO Last administered on 08:32; Admin Dose 1 CAP; Start 03/23/17 at 21:00 Fluconazole 100 ml @ 100 mls/hr Q24H IVPB Last administered on 03/23/17 16:37 ; Admin Dose 100 MLS/HR; Start 03/23/17 at 17:00 Vancomycin HCl (Vancocin) 250 ml @ 125 mls/hr Q96H IVPB Last administered on 11:46; Admin Dose 125 MLS/HR; Start 03/24/17 at 11:00 VIRIDIANA VILLARREAL MD March 24, 2017 17:48
[2017-03-24] MEDS: FLUCONAZOLE 200 MG/NS (PMX) 100 ML IVPB SCH (18:17)
[2017-03-25] VITALS (93 sets, daily range): BP systolic 75–136; BP diastolic 35–88; PULSE 82–108; RESP 18–21
[2017-03-25] MEDS: FENTAnyl (DRIP) 1000 mcg/100mL 100 ML IV SCH ×4 (00:37→23:16)
[2017-03-25] MEDS: INSULIN ASPART [NOVOLOG] 3 ML PEN SC SCH ×6 (00:55→21:07)
[2017-03-25] MEDS: PANTOPRAZOLE 40 MG INJ IV SCH (06:02)
[2017-03-25] MEDS: metroNIDAZOLE 500 MG TAB PO SCH ×3 (06:02→21:58)
[2017-03-25] MEDS: LEVOTHYROXINE 150 MCG TAB PO SCH (06:02)
[2017-03-25 06:33] LABS: ADD SCAN DIFF NO
--- NOTE | 2017-03-25 06:47 | PN ---
DATE: 03/24/2017 CARDIOLOGY FOLLOWUP SUBJECTIVE: Discussed with the staff. Rhythm strip has been reviewed. The patient is in atrial fibr illation. Heart rate has remained stable, remains intubated on the vent on Chris-Synephrine drip, sti ll on antibiotics. No reported chest pain or pressure. ____ sedated. Has been following commands ____ off sedation. MEDICATIONS: Reviewed. PHYSICAL EXAMINATION: VITAL SIGNS: Temperature 98.8, heart rate of 98, blood pressure 120/60, respiratory rate of 20, sat urating 96%. HEENT: Normocephalic, atraumatic. Elderly female. Eyes are closed. CARDIOVASCULAR: Irregularly irregular. PULMONARY: With diffuse rhonchi. GASTROINTESTINAL: Soft, nontender. EXTREMITIES: With diffuse edema ____ and ecchymoses. NEUROLOGIC: Sedated. LABORATORY: Shows WBC of 2.8, hemoglobin 6.8, platelets of 39. Sodium 138, potassium 3.5, BUN of 5 2, creatinine ____, glucose of 100, mag is 2. Albumin is 1.9. ASSESSMENT AND PLAN: 1. Shock with combination of septic and cardiogenic. 2. Severe cardiomyopathy and congestive heart failure, acute on chronic secondary to systolic dysfu nction. 3. Atrial fibrillation with rapid ventricular response. 4. Hypoxemia with hypercapnic respiratory failure, status post intubation on the vent. 5. Severe coagulopathy. 6. Thrombocytopenia. 7. Severe anemia. 8. History of thyroid disorder. 9. History of cerebrovascular accident. 10. History of dementia. 11. Renal failure on dialysis. RECOMMENDATIONS: Dialysis will be continued. Transfusion with dialysis. ____ recurrent pleural ef fusion. Consider removal of the fluid and ____ PleurX placement once coagulopathy has been correcte d. Antibiotic is managed as per ID recommendation. Digoxin will be given p.r.n. Will check a digo antonio level again tomorrow, vent support will be continued. Continue with the ICU care. Dictated By: KATIUSKA BRITO MD AV/NTS Conf#: [id number] DID#: [id number] CC: ALIX TALBOT MD;*EndCC*
[2017-03-25 06:52] LABS: ABNORMAL IP MESSAGE 1; HEMATOCRIT 24.6 % (37.0-47.0); MEAN CORPUSCULAR HEMOGLOBIN 28.9 pg (29.0-33.0); MEAN CORPUSCULAR HGB CONC 32.5 g/dl (32.0-37.0); MEAN CORPUSCULAR VOLUME 88.8 fl (82.0-101.0); PLATELET COUNT 36 10^3/UL (140-415); RED BLOOD COUNT 2.77 10^6/ul (4.20-5.40); RED CELL DISTRIBUTION WIDTH 17.8 % (11.5-14.5); WHITE BLOOD COUNT 2.8 10^3/ul (4.8-10.8)
[2017-03-25 07:12] LABS: ALBUMIN 2.1 g/dl (3.3-4.9)
[2017-03-25 07:13] LABS: POTASSIUM 3.6 mmol/L (3.5-5.1)
[2017-03-25 07:15] LABS: ALBUMIN/GLOBULIN RATIO 1.16; BILIRUBIN,INDIRECT 0.7 mg/dl (0-1.1); BILIRUBIN,TOTAL 0.7 mg/dl (0.2-1.3); CREATININE 1.92 mg/dl (0.44-1.00); TOTAL PROTEIN 3.9 g/dl (6.1-8.1)
[2017-03-25 07:16] LABS: CALCIUM 9.7 mg/dl (8.4-10.2)
[2017-03-25] MEDS: ALBUMIN HUMAN 25% 100 ML IV SCH (09:03)
[2017-03-25] MEDS: LACTOBACILLUS RHAMNOSUS CAP PO SCH ×2 (09:06→21:01)
[2017-03-25] MEDS: MUPIROCIN 2% 22 GM OINT TOP SCH ×2 (09:07→21:01)
[2017-03-25] MEDS: SODIUM HYPOCHLORITE 0.125% 473 ML BTL IRR SCH ×2 (09:08→21:01)
[2017-03-25] MEDS: SILVER SULFADIAZINE 1% 25 GM CR TOP SCH (09:09)
[2017-03-25] MEDS: COLLAGENASE 30 GM TUBE TOP SCH (09:09)
--- NOTE | 2017-03-25 10:02 | CONS ---
Date/Time of Note Date/Time of Note DATE: 03/25/17 TIME: 09:59 Assessment/Plan Assessment/Plan Additional Assessment/Plan Ventilator settings; AC of 20, tidal volume 500, PEEP of 0, 30% FiO2. Patient currently on fentanyl drip at 20 mics per hour, phenylephrine at 66 mics per minute. Assessment recommendations; 1. Patient admitted for respiratory failure due to cardiomyopathy resulting in severe pulmonary edema and bilateral pleural effusions, however there has been some interval improvement in chest x-ray. 2. Persistent hypotension on account of cardia myopathy, requiring pressor support. 3. Chronic atrial fib relation. 4. Anemia. 5. Thrombocytopenia. 6. Diabetes. 7. C. difficile colitis. 8. End-stage renal disease, on hemodialysis. Continue current treatment. Patient is not in the clinical condition to be weaned off from ventilator as of yet. Obtain follow-up chest x-ray. Prognosis remains extremely poor due to multiple comorbidities. Discontinue vancomycin. Continue Flagyl. Obtain follow-up chest x-ray. 35 years of critical care time was spent evaluating the patient. Consultation Date/Type/Reason Admit Date/Time Mar 15, 2017 at 20:26 Initial Consult Date 03/16/17 Type of Consultation: Pulmonary/critical care Referring Provider: VASIEL DEMPSEY 24 HR Interval Summary Free Text/Dictation Patient condition remains critical. Still requiring full ventilator support. Also requiring pressor support and sedation. General exam; elderly woman, orally intubated, sedated, currently in no distress. Exam/Review of Systems Vital Signs Vitals Vital Signs Date Time Temp Pulse Resp B/P Pulse Ox O2 Delivery O2 Flow Rate FiO2 03/25/17 09:12 88 20 97 30 03/25/17 06:30 103/56 03/25/17 06:00 Mechanical Ventilator 03/25/17 04:00 98.9 Intake and Output 03/24/17 03/24/17 03/25/17 15:00 23:00 07:00 Intake Total 1794.37 ml 866.84 ml 657.5 ml Output Total 3800 ml Balance -2005.63 ml 866.84 ml 657.5 ml Exam HEENT exam is; supple neck, positive JVD. No lymphadenopathy. Midline trachea. No thyromegaly. Orally intubated. No neck masses. Patient has multiple carious teeth. Pupils are small bilaterally. Chest examined; diminished breath on lung bases bilaterally. Upper lobes are clear. S1-S2 audible, irregular rhythm. There is a soft systolic ejection murmur grade 2/6 best heard in the aortic area. No interval change in murmur. Abdomen examination; soft, nondistended, bowel sounds audible. No organomegaly. Extremity exam is; trace peripheral edema. Multiple ecchymoses are present in all 4 extremities. 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 Results Result Diagram: 03/25/17 0520 03/25/17 0520 Results 24 hrs Laboratory Tests Test 03/24/17 12:15 03/24/17 17:03 03/24/17 20:45 03/25/17 00:51 Bedside Glucose 134 122 117 156 Test 03/25/17 04:44 03/25/17 05:20 03/25/17 05:53 03/25/17 08:05 Bedside Glucose 140 136 White Blood Count 2.8 L Red Blood Count 2.77 L Hemoglobin 8.0 L Hematocrit 24.6 L Mean Corpuscular Volume 88.8 Mean Corpuscular Hemoglobin 28.9 L Mean Corpuscular Hemoglobin Concent 32.5 Red Cell Distribution Width 17.8 H Platelet Count 36 L Mean Platelet Volume 14.0 H Neutrophils % Lymphocytes % Monocytes % Eosinophils % Neutrophils # Lymphocytes # Monocytes # Eosinophils # Sodium Level 139 Potassium Level 3.6 Chloride Level 104 Carbon Dioxide Level 25 Anion Gap 14 Blood Urea Nitrogen 49 H Creatinine 1.92 H Glucose Level 121 Calcium Level 9.7 Total Bilirubin 0.7 Direct Bilirubin 0.00 Indirect Bilirubin 0.7 Aspartate Amino Transf (AST/SGOT) 9 L Alanine Aminotransferase (ALT/SGPT) 24 Alkaline Phosphatase 137 H Total Protein 3.9 L Albumin 2.1 L Globulin 1.80 Albumin/Globulin Ratio 1.16 Digoxin Level 1.1 Lab Scanned Report BLOOD TRANSFUSION Medications Medications Current Medications Ondansetron HCl (Zofran Inj) 4 mg Q6H PRN IV NAUSEA AND/OR VOMITING; Start at 01:00 Acetaminophen (Tylenol Liquid) 650 mg Q6H PRN PO PAIN LEVEL 1-3 OR FEVER; Start 03/16/17 at 01:00 Morphine Sulfate (morphine) 2 mg Q4H PRN IV PAIN LEVEL 7-10 Last administered on 03/22/17t 13:01; Admin Dose 2 MG; Start 03/16/17 at 01:00 Pantoprazole 40 mg 40 mg DAILY@06 IV Last administered on 03/25/17 06:02; Admin Dose 40 MG; Start 03/16/17 at 06:00 Midazolam HCl (Versed) 50 ml @ 1 mls/hr TITRATE IV Last administered on 11:04; Admin Dose 3 MLS/HR; Start 03/16/17 at 11:00 Collagenase (Santyl) 1 applic DAILY TOP Last administered on 03/25/17 09:09; Admin Dose 1 APPLIC; Start 03/16/17 at 18:30 Collagenase (Santyl) 1 applic PRN PRN TOP WOUND CARE; Start 03/16/17 at 18:30 Miscellaneous Information 1 ea NOTE XX ; Start 03/17/17 at 02:00 Glucose (Glutose) 15 gm Q15M PRN PO DECREASED GLUCOSE; Start 03/17/17 at 02:00 Glucose (Glutose) 22.5 gm Q15M PRN PO DECREASED GLUCOSE; Start 03/17/17 at 02: 00 Dextrose (D50w Syringe) 25 ml Q15M PRN IV DECREASED GLUCOSE Last administered on 03/22/17 16:45; Admin Dose 25 ML; Start 03/17/17 at 02:00 Dextrose (D50w Syringe) 50 ml Q15M PRN IV DECREASED GLUCOSE Last administered on 03/22/17 09:19; Admin Dose 50 ML; Start 03/17/17 at 02:00 Glucagon (Glucagen) 1 mg Q15M PRN IM DECREASED GLUCOSE; Start 03/17/17 at 02:00 Glucose (Glutose) 15 gm Q15M PRN BUCCAL DECREASED GLUCOSE; Start 03/17/17 at 02 :00 Levothyroxine Sodium 150 mcg 150 mcg DAILY@06 PO Last administered on 03/25/17 06:02; Admin Dose 150 MCG; Start 03/22/17 at 06:00 Norepinephrine 16 mg/Dextrose 500 ml @ 9.37 mls/hr TITRATE IV ; Start 03/22/17 at 10:30 Phenylephrine HCl 160 mg/Dextrose 500 ml @ 18.75 mls/ hr TITRATE IV Last administered on 03/24/17 07:20; Admin Dose 16.87 MLS/HR; Start 03/22/17 at 10:30 Fentanyl 100 ml @ 2.5 mls/hr TITRATE IV Last administered on 03/25/17 09:10; Admin Dose 5 MLS/HR; Start 03/22/17 at 14:30 Propofol (Diprivan) 100 ml @ 2.28 mls/hr Q12H PRN IV SEDATION; Start 03/22/17 at 14:30 Mupirocin (Bactroban) 1 applic BID TOP Last administered on 03/25/17 09:07; Admin Dose 1 APPLIC; Start 03/22/17 at 15:30 Sodium Hypochlorite (Dakin'S (14 Strength)) 1 applic BID IRR Last administered on 03/25/17 09:08; Admin Dose 1 APPLIC; Start 03/22/17 at 21:00 Silver Sulfadiazine (Thermazene 1% 25 Gm) 1 applic DAILY TOP Last administered on 03/25/17 09:09; Admin Dose 1 APPLIC; Start 03/22/17 at 17:00 Insulin Aspart (Novolog Insulin Pen) NOVOLOG *MILD* ALGORI... Q4 SC Last administered on 03/25/17 00:55; Admin Dose 1 UNIT; Start 03/22/17 at 17:00 Metronidazole (Flagyl) 500 mg Q8 PO Last administered on 03/25/17 06:02; Admin Dose 500 MG; Start 03/23/17 at 15:30; Stop 04/06/17 at 15:29 Lactobacillus Acidophilus/ Rhamnosus 1 cap 1 cap BID PO Last administered on 09:06; Admin Dose 1 CAP; Start 03/23/17 at 21:00 Fluconazole 100 ml @ 100 mls/hr Q24H IVPB Last administered on 03/24/17 18:17 ; Admin Dose 100 MLS/HR; Start 03/23/17 at 17:00 Vancomycin HCl (Vancocin) 250 ml @ 125 mls/hr Q96H IVPB Last administered on 11:46; Admin Dose 125 MLS/HR; Start 03/24/17 at 11:00 YUNIOR JUNIOR March 25, 2017 10:02
--- NOTE | 2017-03-25 11:23 | CONS ---
DATE OF ADMISSION: 03/15/2017 DATE OF CONSULTATION: 03/25/2017 HISTORY OF PRESENT ILLNESS: This is a 71-year-old female who was brought in from dialysis center on 03/16/2017. The patient was admitted with hemodynamic compromise, hypotension was sent over from [facility] dialysis center when she was found to be more altered and hypotensive. The patient has a baselin e history of dementia. She lives in a fdc unit. She has been there 5 months now. She has underlying cardiovascular disease with cardiomyopathy, end-stage renal disease on dialysis, typ e 2 diabetes. She was admitted to ICU, she required pressor support and has not significantly impro rona from a cardiovascular standpoint and requires continued ventilation support. Overall, impressio ns are that patient will not improve significantly secondary to multiple comorbid major medical prob lems. She has been seen by pulmonary consultation and is not a candidate to be weaned off the venti lator. She has been receiving aggressive support in every other aspect including antibiotics and be ing seen by infectious disease, nephrology and cardiology consultations. I am asked to speak to fam cintia members concerning ongoing level of care. It is of note that the patient is a DO NOT RESUSCITAT E after a conversation with Dr. Larios. Family members have decided to pursue no further major aggress thad intervention and would like to wait until other family members arrive in town for compassionate extubation on 03/26/2017. I have had a conversation with family members. PHYSICAL EXAMINATION: GENERAL: Shows an ill-appearing female who is nonresponsive to any verbal or tactile stimulation, o ff sedation. HEENT: She is normocephalic and atraumatic. Anicteric, acyanotic on examination. VITAL SIGNS: Blood pressure 103/56, pulse of 94 and regular, respirations of 20, 96% saturation on 30% FIO2. CHEST: Bilateral distant breath sounds throughout both lung rose. Inspiratory and expiratory rho nchi on examination right lower lobe compared to left lower lobe. COR: S1, S2, without S3, S4, murmur, gallop, rub. Normal rate, normal rhythm. ABDOMEN: Grossly benign. LABORATORY DATA: Laboratory test have been reviewed. Participants, once again, are the patient's sister and daughter, is not here, although he is the decision maker the family have decided not to pursue any aggressive intervention per the daught er once again. Acceptable quality of life, hopes, understanding of the patient's condition have bee n addressed with them and they do not want her to have PEG, trach, and to live in a moribund conditi on having to be transferred to a subacute facility and have a strong family support. There are no c ultural issues, communication has been exceptional amongst the physicians and family members. Goals of care are to pursue a compassionate extubation on 03/26/2017. Prognosis we feel the patient will probably breathe, but not for an extended period of time. There are no pain management issues at t his time. Psychosocial issues have been addressed, ethical issues, surrogate is the . He wi ll make all decisions on her behalf. Once again, code status at this point is DO NOT RESUSCITATE. Dictated By: RAFAT ENGEL MD, LP/EMANUEL Conf#: [id number] DID#: [id number]
[2017-03-25 11:38] LABS: LYMPHOCYTES # 0.5 10^3/ul (0.8-2.9); NEUTROPHIL # 1.5 10^3/ul (1.6-7.5)
[2017-03-25 11:39] LABS: PLATELET ESTIMATE PLT APPEAR DECREASED; TOXIC GRANULATION 2+
--- NOTE | 2017-03-25 12:23 | PN ---
Date/Time of Note Date/Time of Note DATE: 03/25/17 TIME: 12:07 Assessment/Plan VTE Prophylaxis VTE Prophylaxis Intervention: contraindicated (severe edema) VTE Contraindication Reason: thrombocytopenia Lines/Catheters IV [facility] Type (from [facility]): perma cath Urinary Cath still in place: No Assessment/Plan Assessment/Plan 1. Shock: Hypovolemic (effusions/anasarca) + Septic 2. End-stage renal disease on Hemodialysis 3. Hypercapnic and Hypoxic Resp Failure remains ventilated 4. Acute encephalopathy on chronic dementia with Debility likely 2/2 #3: improved 5. Hypothyroidism. 6. Persistent Anemia 2/2 CKD + Thrombocytopenia with coagulopathy likely 2/ 2 SIRS versus Sepsis r/o DIC 7. Bilateral pleural effusion / Probable underlying pneumonia L sided thoracentesis done 03/18 8. Afib RVR: improved 9. Cardiomyopathy with severe systolic dysfunction with EF of 25% 10. Diabetes type 2, currently controlled 11. Old lacunar stroke with ?confusion 12. Unstageable Sacral ulcer 13. Supratherapeutic INR: resolved 14. AG Acidosis 2/2 Resp and Renal: resolved 15. Allison UTI 16. C-diff colitis PLAN: * Patient remains intubated and on pressor support, unable to get thoracentesis 2/2 low platelets limiting ability to extubate. She will be difficult to wean off pressors 2/2 need for hemodialysis and remains with severe anasarca despite volume removal during dialysis. * She will need debridement for her ulcer and cultures from that but is quite unstable / she remains in Afib but with improved rate control * Continue albumin / pressors * Continue abx per ID * Replace electrolytes, wean pressors PPx- SCDs / PPI Prognosis: Poor. Family have chosen to proceed with terminal extubation and comfort measure, planned for tomorrow. Continue current measures. Critical care time : >35mins Subjective 24 Hr Interval Summary Subjective hx not possible: pt non-verbal, pt critical status Exam/Review of Systems Vital Signs Vitals Vital Signs Date Time Temp Pulse Resp B/P Pulse Ox O2 Delivery O2 Flow Rate FiO2 03/25/17 11:02 93 20 98 30 03/25/17 06:30 103/56 03/25/17 06:00 Mechanical Ventilator 03/25/17 04:00 98.9 Intake and Output 03/24/17 03/24/17 03/25/17 15:00 23:00 07:00 Intake Total 1794.37 ml 866.84 ml 657.5 ml Output Total 3800 ml Balance -2005.63 ml 866.84 ml 657.5 ml Exam Constitutional: alert, non-verbal 2/2 ET tube, requiring bilateral restraints ENMT: intubated Respiratory: clear to auscultation, diminished Cardiovascular: regular rate and rhythm Gastrointestinal: soft, obese No distended, + BS Musculoskeletal: diffuse edema / anasarca Results Result Diagram: 03/25/1720 03/25/17 0520 Results 24 hrs Laboratory Tests Test 03/24/17 12:15 03/24/17 17:03 03/24/17 20:45 03/25/17 00:51 Bedside Glucose 134 122 117 156 Test 03/25/17 04:44 03/25/17 05:20 03/25/17 05:53 03/25/17 08:05 Bedside Glucose 140 136 White Blood Count 2.8 L Red Blood Count 2.77 L Hemoglobin 8.0 L Hematocrit 24.6 L Mean Corpuscular Volume 88.8 Mean Corpuscular Hemoglobin 28.9 L Mean Corpuscular Hemoglobin Concent 32.5 Red Cell Distribution Width 17.8 H Platelet Count 36 L Mean Platelet Volume 14.0 H Neutrophils % 55.0 Band Neutrophils % 25.0 H Lymphocytes % 19.0 Monocytes % Eosinophils % Basophils % 1.0 Neutrophils # 1.5 L Lymphocytes # 0.5 L Monocytes # Eosinophils # Basophils # 0.0 Toxic Granulation 2+ Platelet Estimate PLT APPEAR DECREASED Sodium Level 139 Potassium Level 3.6 Chloride Level 104 Carbon Dioxide Level 25 Anion Gap 14 Blood Urea Nitrogen 49 H Creatinine 1.92 H Glucose Level 121 Calcium Level 9.7 Total Bilirubin 0.7 Direct Bilirubin 0.00 Indirect Bilirubin 0.7 Aspartate Amino Transf (AST/SGOT) 9 L Alanine Aminotransferase (ALT/SGPT) 24 Alkaline Phosphatase 137 H Total Protein 3.9 L Albumin 2.1 L Globulin 1.80 Albumin/Globulin Ratio 1.16 Digoxin Level 1.1 Lab Scanned Report BLOOD TRANSFUSION Medications Medications Current Medications Ondansetron HCl (Zofran Inj) 4 mg Q6H PRN IV NAUSEA AND/OR VOMITING; Start at 01:00 Acetaminophen (Tylenol Liquid) 650 mg Q6H PRN PO PAIN LEVEL 1-3 OR FEVER; Start 03/16/17 at 01:00 Morphine Sulfate (morphine) 2 mg Q4H PRN IV PAIN LEVEL 7-10 Last administered on 03/22/17 13:01; Admin Dose 2 MG; Start 03/16/17 at 01:00 Pantoprazole 40 mg 40 mg DAILY@06 IV Last administered on 03/25/17 06:02; Admin Dose 40 MG; Start 03/16/17 at 06:00 Midazolam HCl (Versed) 50 ml @ 1 mls/hr TITRATE IV Last administered on 11:04; Admin Dose 3 MLS/HR; Start 03/16/17 at 11:00 Collagenase (Santyl) 1 applic DAILY TOP Last administered on 03/25/17 09:09; Admin Dose 1 APPLIC; Start 03/16/17 at 18:30 Collagenase (Santyl) 1 applic PRN PRN TOP WOUND CARE; Start 03/16/17 at 18:30 Miscellaneous Information 1 ea NOTE XX ; Start 03/17/17 at 02:00 Glucose (Glutose) 15 gm Q15M PRN PO DECREASED GLUCOSE; Start 03/17/17 at 02:00 Glucose (Glutose) 22.5 gm Q15M PRN PO DECREASED GLUCOSE; Start 03/17/17 at 02: 00 Dextrose (D50w Syringe) 25 ml Q15M PRN IV DECREASED GLUCOSE Last administered on 03/22/17 16:45; Admin Dose 25 ML; Start 03/17/17 at 02:00 Dextrose (D50w Syringe) 50 ml Q15M PRN IV DECREASED GLUCOSE Last administered on 03/22/17 09:19; Admin Dose 50 ML; Start 03/17/17 at 02:00 Glucagon (Glucagen) 1 mg Q15M PRN IM DECREASED GLUCOSE; Start 03/17/17 at 02:00 Glucose (Glutose) 15 gm Q15M PRN BUCCAL DECREASED GLUCOSE; Start 03/17/17 at 02 :00 Levothyroxine Sodium 150 mcg 150 mcg DAILY@06 PO Last administered on 03/25/17 06:02; Admin Dose 150 MCG; Start 03/22/17 at 06:00 Norepinephrine 16 mg/Dextrose 500 ml @ 9.37 mls/hr TITRATE IV ; Start 03/22/17 at 10:30 Phenylephrine HCl 160 mg/Dextrose 500 ml @ 18.75 mls/ hr TITRATE IV Last administered on 03/24/17 07:20; Admin Dose 16.87 MLS/HR; Start 03/22/17 at 10:30 Fentanyl 100 ml @ 2.5 mls/hr TITRATE IV Last administered on 03/25/17 09:10; Admin Dose 5 MLS/HR; Start 03/22/17 at 14:30 Propofol (Diprivan) 100 ml @ 2.28 mls/hr Q12H PRN IV SEDATION; Start 03/22/17 at 14:30 Mupirocin (Bactroban) 1 applic BID TOP Last administered on 03/25/17 09:07; Admin Dose 1 APPLIC; Start 03/22/17 at 15:30 Sodium Hypochlorite (Dakin'S (1/4 Strength)) 1 applic BID IRR Last administered on 03/25/17 09:08; Admin Dose 1 APPLIC; Start 03/22/17 at 21:00 Silver Sulfadiazine (Thermazene 1% 25 Gm) 1 applic DAILY TOP Last administered on 03/25/17 09:09; Admin Dose 1 APPLIC; Start 03/22/17 at 17:00 Insulin Aspart (Novolog Insulin Pen) NOVOLOG *MILD* ALGORI... Q4 SC Last administered on 03/25/17 00:55; Admin Dose 1 UNIT; Start 03/22/17 at 17:00 Metronidazole (Flagyl) 500 mg Q8 PO Last administered on 03/25/17 06:02; Admin Dose 500 MG; Start 03/23/17 at 15:30; Stop 04/06/17 at 15:29 Lactobacillus Acidophilus/ Rhamnosus 1 cap 1 cap BID PO Last administered on 09:06; Admin Dose 1 CAP; Start 03/23/17 at 21:00 Fluconazole (Diflucan 200 Mg/ NS (Pmx)) 100 ml @ 100 mls/hr Q24H IVPB Last administered on 03/24/17 18:17; Admin Dose 100 MLS/HR; Start 03/23/17 at 17:00 ALIX TALBOT March 25, 2017 12:19
--- NOTE | 2017-03-25 13:00 | PN ---
DATE: 03/25/2017 SUBJECTIVE: No events overnight. The patient remains on pressors. Temperature max today 99.5. No changes: LABORATORY DATA: WBC 2.8, platelets 36, neutrophils 55. BUN 49, creatinine 1.92. ANTIMICROBIALS: 1. Diflucan. 2. Flagyl. 3. Vancomycin. INDWELLINGS: Endotracheal tube, NG tube, Bradley catheter, right chest PermCath. PHYSICAL EXAMINATION: GENERAL: This is a well-developed, fragile, elderly woman who is in no distress. HEENT: Head atraumatic, normocephalic. Sclerae anicteric. Buccal mucosa dry. NECK: Supple. CHEST: Rise symmetrical. Breath sounds diminished to bases. HEART: S1, S2. ABDOMEN: Soft, bowel sounds present. EXTREMITIES: With bilateral trace edema. ASSESSMENT: 1. Sepsis with shock. 2. Clostridium difficile colitis. 3. Allison albicans urinary tract infection. 4. Methicillin-resistant Staphylococcus aureus nares colonization. 5. Acute respiratory failure. 6. End-stage renal disease. 7. Coronary artery disease, atrial fibrillation, cardiomyopathy. PLAN: The patient is DNR status. On appropriate antimicrobials, pending hospice evaluation, palli ative care follows. Dictated By: KONSTANTIN NELSON PERFORMANCE ENGINEER for [employer]/NTS Conf#: [id number] DID#: [id number]
[2017-03-25 14:13] LABS: HEPARIN INDUCED PLATELET AB NEGATIVE (NEGATIVE)
--- NOTE | 2017-03-25 16:09 | PN ---
Date/Time of Note Date/Time of Note DATE: 03/24/17 TIME: 16:03 Assessment/Plan Lines/Catheters IV Catheter Type (from [facility]): perma cath Bradley in Place (from [facility]): No Assessment/Plan Chief Complaint/Hosp Course 1. Sacral decubitus ulcer with devitalized tissue -off loading -nutritional optimization -vit c -local care -debridement when medically optimized and cleared 2. Shock with hypovolemia and sepsis -judicious fluids -supportive care -abx 3. Anemia without evidence of acute blood loss -monitor 4. ESRD on HD 5. AFib c RVR -rate control -optimize electrolytes -judicious fluids -tx infections 6. Hypothyroidism -replete 7. DM -nut and med optimization 8. Cardiomyopathy with EF 25% -cardiac optimization 9. Anasarca -judicious fluid management -nutritional optimization Thank you, Late entry 03/24 Problems: Subjective 24 Hr Interval Summary Pressor. Bowel function. No f/c. No cough. No vomiting. No bleeding. No bloating. No rashes. Exam/Review of Systems Vital Signs Vitals Vital Signs Date Time Temp Pulse Resp B/P Pulse Ox O2 Delivery O2 Flow Rate FiO2 03/25/17 15:00 86 20 98 30 03/25/17 12:00 99.5 123/57 Mechanical Ventilator Intake and Output 03/24/17 03/24/17 03/25/17 15:00 23:00 07:00 Intake Total 1794.37 ml 866.84 ml 715.0 ml Output Total 3800 ml Balance -2005.63 ml 866.84 ml 715.0 ml Exam Constitutional: No alert, No distress, No oriented Psych: confusion, No nl mood/affect Head: atraumatic, normocephalic Eyes: EOMI, nl conjunctiva, No icteric ENMT: mucosa pink and moist Neck: jvd, non-tender Respiratory: diminished breath sounds, No congested cough, No labored breathing Cardiovascular: edema, No regular rate and rhythm Gastrointestinal: non-tender, soft, No distended, No rebound or guarding Musculoskeletal: No joint tenderness, No nl extremities to inspection, No nl gait and stance Extremities: No calf tenderness, No cyanosis Neurological: No nl mental status, No nl speech, No nl strength Skin: rash or lesions (Decubitus ulcerations), No diaphoresis, No nl turgor Lymph: nl lymph nodes Results Result Diagram: 03/25/17 0520 03/25/17 0520 MARIO ALBERTO KOTHARI MD March 25, 2017 16:09
--- NOTE | 2017-03-25 16:10 | PN ---
Date/Time of Note Date/Time of Note DATE: 03/25/17 TIME: 16:09 Assessment/Plan Lines/Catheters IV Catheter Type (from [facility]): perma cath Bradley in Place (from [facility]): No Assessment/Plan Chief Complaint/Hosp Course 1. Sacral decubitus ulcer with devitalized tissue -off loading -nutritional optimization -vit c -local care -debridement when medically optimized and cleared 2. Shock with hypovolemia and sepsis -judicious fluids -supportive care -abx 3. Anemia without evidence of acute blood loss -monitor 4. ESRD on HD 5. AFib c RVR -rate control -optimize electrolytes -judicious fluids -tx infections 6. Hypothyroidism -replete 7. DM -nut and med optimization 8. Cardiomyopathy with EF 25% -cardiac optimization 9. Anasarca -judicious fluid management -nutritional optimization Thank you, Problems: Subjective 24 Hr Interval Summary Pressor. Bowel function. No f/c. No cough. No vomiting. No bleeding. No bloating. No rashes. Exam/Review of Systems Vital Signs Vitals Vital Signs Date Time Temp Pulse Resp B/P Pulse Ox O2 Delivery O2 Flow Rate FiO2 03/25/17 15:00 86 20 98 30 03/25/17 12:00 99.5 123/57 Mechanical Ventilator Intake and Output 03/24/17 03/24/17 03/25/17 15:00 23:00 07:00 Intake Total 1794.37 ml 866.84 ml 715.0 ml Output Total 3800 ml Balance -2005.63 ml 866.84 ml 715.0 ml Exam Free Text/Dictation Constitutional: No alert, No distress, No oriented Psych: confusion, No nl mood/affect Head: atraumatic, normocephalic Eyes: EOMI, nl conjunctiva, No icteric ENMT: mucosa pink and moist Neck: jvd, non-tender Respiratory: diminished breath sounds, No congested cough, No labored breathing Cardiovascular: edema, No regular rate and rhythm Gastrointestinal: non-tender, soft, No distended, No rebound or guarding Musculoskeletal: No joint tenderness, No nl extremities to inspection, No nl gait and stance Extremities: No calf tenderness, No cyanosis Neurological: No nl mental status, No nl speech, No nl strength Skin: rash or lesions (Decubitus ulcerations), No diaphoresis, No nl turgor Lymph: nl lymph nodes Results Result Diagram: 03/25/17 0520 03/25/17 0520 MARIO ALBERTO KOTHARI MD March 25, 2017 16:10
--- NOTE | 2017-03-25 16:20 | CONS ---
Date/Time of Note Date/Time of Note DATE: 03/25/17 TIME: 16:16 Assessment/Plan Assessment/Plan Additional Assessment/Plan 1. End-stage renal disease on hemodialysis, regular schedule is Tuesday, , Tuesday. 2. Atiral fibrillation with RVR 2. Cardiomyopathy with a severe systolic dysfunction with ejection fraction of 25%. 3. History of hypertension. 4. History of hypothyroidism. 5. History of previous cerebrovascular accident. 6. Moderate to large bilateral pleural effusion. 7. Acute respiratory failure, multifactorial secondary to sepsis, hypotension pleural effusions and fluid overload, currently intubated on ventilator. 8. Moderate pleural effusion s/p let thoracentesis 03/18/17- 1.75 L drained PLAN: S/p HDtoday, will order HD for tomorrow with ultrafiltration on Tube feeding rate controlled with amiodarone and digoxin s/p left thoracentesis 03/18/17- 1.75 L removed, weaning plan for as per pulmonary will follow up Consultation Date/Type/Reason Admit Date/Time Mar 15, 2017 at 20:26 Initial Consult Date 03/16/17 Type of Consultation: NEPHROLOGY Referring Provider: VASILE DEMPSEY 24 HR Interval Summary Free Text/Dictation Plan for HD today, BP stable Exam/Review of Systems Vital Signs Vitals Vital Signs Date Time Temp Pulse Resp B/P Pulse Ox O2 Delivery O2 Flow Rate FiO2 03/25/17 15:00 86 20 98 30 03/25/17 12:00 99.5 123/57 Mechanical Ventilator Intake and Output 03/24/17 03/24/17 03/25/17 15:00 23:00 07:00 Intake Total 1794.37 ml 866.84 ml 715.0 ml Output Total 3800 ml Balance -2005.63 ml 866.84 ml 715.0 ml Results Result Diagram: 03/25/17 0520 03/25/17 0520 Results 24 hrs Laboratory Tests Test 03/24/17 17:03 03/24/17 20:45 03/25/17 00:51 03/25/17 04:44 Bedside Glucose 122 117 156 140 Test 03/25/17 05:20 03/25/17 05:53 03/25/17 08:05 03/25/17 13:10 White Blood Count 2.8 L Red Blood Count 2.77 L Hemoglobin 8.0 L Hematocrit 24.6 L Mean Corpuscular Volume 88.8 Mean Corpuscular Hemoglobin 28.9 L Mean Corpuscular Hemoglobin Concent 32.5 Red Cell Distribution Width 17.8 H Platelet Count 36 L Mean Platelet Volume 14.0 H Neutrophils % 55.0 Band Neutrophils % 25.0 H Lymphocytes % 19.0 Monocytes % Eosinophils % Basophils % 1.0 Neutrophils # 1.5 L Lymphocytes # 0.5 L Monocytes # Eosinophils # Basophils # 0.0 Toxic Granulation 2+ Platelet Estimate PLT APPEAR DECREASED Sodium Level 139 Potassium Level 3.6 Chloride Level 104 Carbon Dioxide Level 25 Anion Gap 14 Blood Urea Nitrogen 49 H Creatinine 1.92 H Glucose Level 121 Calcium Level 9.7 Total Bilirubin 0.7 Direct Bilirubin 0.00 Indirect Bilirubin 0.7 Aspartate Amino Transf (AST/SGOT) 9 L Alanine Aminotransferase (ALT/SGPT) 24 Alkaline Phosphatase 137 H Total Protein 3.9 L Albumin 2.1 L Globulin 1.80 Albumin/Globulin Ratio 1.16 Digoxin Level 1.1 Lab Scanned Report BLOOD TRANSFUSION Bedside Glucose 136 133 Medications Medications Current Medications Ondansetron HCl (Zofran Inj) 4 mg Q6H PRN IV NAUSEA AND/OR VOMITING; Start at 01:00 Acetaminophen (Tylenol Liquid) 650 mg Q6H PRN PO PAIN LEVEL 1-3 OR FEVER; Start 03/16/17 at 01:00 Morphine Sulfate (morphine) 2 mg Q4H PRN IV PAIN LEVEL 7-10 Last administered on 03/22/17 13:01; Admin Dose 2 MG; Start 03/16/17 at 01:00 Pantoprazole 40 mg 40 mg DAILY@06 IV Last administered on 03/25/17 06:02; Admin Dose 40 MG; Start 03/16/17 at 06:00 Midazolam HCl (Versed) 50 ml @ 1 mls/hr TITRATE IV Last administered on 11:04; Admin Dose 3 MLS/HR; Start 03/16/17 at 11:00 Collagenase (Santyl) 1 applic DAILY TOP Last administered on 03/25/17 09:09; Admin Dose 1 APPLIC; Start 03/16/17 at 18:30 Collagenase (Santyl) 1 applic PRN PRN TOP WOUND CARE; Start 03/16/17 at 18:30 Miscellaneous Information 1 ea NOTE XX ; Start 03/17/17 at 02:00 Glucose (Glutose) 15 gm Q15M PRN PO DECREASED GLUCOSE; Start 03/17/17 at 02:00 Glucose (Glutose) 22.5 gm Q15M PRN PO DECREASED GLUCOSE; Start 03/17/17 at 02: 00 Dextrose (D50w Syringe) 25 ml Q15M PRN IV DECREASED GLUCOSE Last administered on 03/22/17 16:45; Admin Dose 25 ML; Start 03/17/17 at 02:00 Dextrose (D50w Syringe) 50 ml Q15M PRN IV DECREASED GLUCOSE Last administered on 03/22/17 09:19; Admin Dose 50 ML; Start 03/17/17 at 02:00 Glucagon (Glucagen) 1 mg Q15M PRN IM DECREASED GLUCOSE; Start 03/17/17 at 02:00 Glucose (Glutose) 15 gm Q15M PRN BUCCAL DECREASED GLUCOSE; Start 03/17/17 at 02 :00 Levothyroxine Sodium 150 mcg 150 mcg DAILY@06 PO Last administered on 03/25/17 06:02; Admin Dose 150 MCG; Start 03/22/17 at 06:00 Norepinephrine 16 mg/Dextrose 500 ml @ 9.37 mls/hr TITRATE IV ; Start 03/22/17 at 10:30 Phenylephrine HCl 160 mg/Dextrose 500 ml @ 18.75 mls/ hr TITRATE IV Last administered on 03/24/17 07:20; Admin Dose 16.87 MLS/HR; Start 03/22/17 at 10:30 Fentanyl 100 ml @ 2.5 mls/hr TITRATE IV Last administered on 03/25/17 14:42; Admin Dose 10 MLS/HR; Start 03/22/17 at 14:30 Propofol (Diprivan) 100 ml @ 2.28 mls/hr Q12H PRN IV SEDATION; Start 03/22/17 at 14:30 Mupirocin (Bactroban) 1 applic BID TOP Last administered on 03/25/17 09:07; Admin Dose 1 APPLIC; Start 03/22/17 at 15:30 Sodium Hypochlorite (Dakin'S (1/4 Strength)) 1 applic BID IRR Last administered on 03/25/17 09:08; Admin Dose 1 APPLIC; Start 03/22/17 at 21:00 Silver Sulfadiazine (Thermazene 1% 25 Gm) 1 applic DAILY TOP Last administered on 03/25/17 09:09; Admin Dose 1 APPLIC; Start 03/22/17 at 17:00 Insulin Aspart (Novolog Insulin Pen) NOVOLOG *MILD* ALGORI... Q4 SC Last administered on 03/25/17 00:55; Admin Dose 1 UNIT; Start 03/22/17 at 17:00 Metronidazole (Flagyl) 500 mg Q8 PO Last administered on 03/25/17 14:42; Admin Dose 500 MG; Start 03/23/17 at 15:30; Stop 04/06/17 at 15:29 Lactobacillus Acidophilus/ Rhamnosus 1 cap 1 cap BID PO Last administered on 09:06; Admin Dose 1 CAP; Start 03/23/17 at 21:00 Fluconazole (Diflucan 200 Mg/ NS (Pmx)) 100 ml @ 100 mls/hr Q24H IVPB Last administered on 03/24/17 18:17; Admin Dose 100 MLS/HR; Start 03/23/17 at 17:00 VIRIDIANA VILLARREAL MD March 25, 2017 16:20
--- NOTE | 2017-03-25 16:49 | CONS ---
DATE OF ADMISSION: 03/15/2017 DATE OF CONSULTATION: 03/23/2017 TYPE OF CONSULTATION: Surgical. REFERRING PHYSICIAN: Dr. Larios. CHIEF COMPLAINT: 1. Decubitus ulceration. 2. Sepsis. 3. Cardiomyopathy with ejection fraction of 25%. 4. Diabetes. 5. Hypothyroidism. 6. End-stage renal disease. HISTORY OF PRESENT ILLNESS: Cyndy Self is a 71-year-old female with multiple significant comor bidities who was sent from dialysis center for hypertension and was found to probably be septic and started on pressors plus or minus hypovolemic. She was started on pressors and antibiotics and has been treated thus far. Surgical consult is obtained for further evaluation of her decubitus ulcerat ions. The patient is unable to communicate. Most of the information is obtained from chart and sta ff. There is no reported current fevers, chills, cough, seizure, blood per mouth or rectum. No blo ating. No abdominal hardness. No rashes. PAST MEDICAL HISTORY: 1. Shock (hypovolemic/septic.) 2. End-stage renal disease on hemodialysis. 3. Respiratory failure on ventilator. 4. Acute encephalopathy on chronic dementia. 5. Hypothyroidism. 6. Anemia. 7. Thrombocytopenia. 8. Bilateral pleural effusions. 9. Possible pneumonia. 10. Atrial fibrillation with rapid ventricular response. 11. Cardiomyopathy with ejection fraction of 25%. 12. Type 2 diabetes mellitus. 13. Lacunar stroke history. 14. Metabolic acidosis. 15. Supratherapeutic INR. 16. Congestive heart failure. 17. Systolic dysfunction. 18. Hemodialysis catheter. MEDICATIONS: As per EMR. ALLERGIES: PER CHART. SOCIAL HISTORY: No current alcohol, drugs, or tobacco. FAMILY HISTORY: Noncontributory. REVIEW OF SYSTEMS: A 12-point review of systems is negative unless addressed in HPI. PHYSICAL EXAMINATION: VITAL SIGNS: Temperature is 99.4, pulse 80s to 100s, blood pressure 115/56. GENERAL: Noncommunicative, in no acute distress. HEENT: Pupils equal and sluggish. No scleral icterus. NECK: No crepitus. Positive JVD. PULMONARY: Normal respiratory effort. No wheezing. CARDIAC: S1, S2 present. ABDOMEN: Soft, nondistended. EXTREMITIES: No edema. VASCULAR: Capillary refill is 2 to 3 seconds. SKIN: No rashes. No jaundice. Sacral decubitus ulcer with devitalized tissue. Positive edema/elana sarca. LYMPHATICS: No inguinal or cervical lymphadenopathy. ASSESSMENT AND PLAN: 1. Sacral decubitus ulcer with devitalized tissue. Continue off-loading, nutritional optimization, vitamin C, local care, and debridement when medically optimized and cleared. 2. Shock with hypovolemia and sepsis. Continue judicious fluid management, supportive care, and an tibiotics. 3. Anemia without evidence of acute blood loss. Continue to monitor. 4. End-stage renal disease on hemodialysis. 5. Atrial fibrillation with rapid ventricular rate. Continue rate control, optimize electrolytes, judicious fluid management, and treat any infections. 6. Hypothyroidism. Continue repletion. 7. Diabetes. Continue nutrition and medication optimization. 8. Cardiomyopathy with an ejection fraction of 25%. Continue cardiac optimization. 9. Anasarca. Continue judicious fluid management and nutritional optimization. Thank you very much for consulting me in this patient's care. Dictated By: MARIO ALBERTO PISANO/EMANUEL Conf#: [id number] DID#: [id number]
[2017-03-25] MEDS: FLUCONAZOLE 200 MG/NS (PMX) 100 ML IVPB SCH (17:00)
[2017-03-25] MEDS: ALBUMIN HUMAN 25% 100 ML IV PRN (18:19)
[2017-03-26] VITALS (69 sets, daily range): BP systolic 62–132; BP diastolic 43–82; PULSE 78–106; RESP 19–22
[2017-03-26] MEDS: INSULIN ASPART [NOVOLOG] 3 ML PEN SC SCH ×4 (01:00→13:00)
[2017-03-26] MEDS: LEVOTHYROXINE 150 MCG TAB PO SCH (05:43)
[2017-03-26] MEDS: PANTOPRAZOLE 40 MG INJ IV SCH (05:43)
[2017-03-26] MEDS: metroNIDAZOLE 500 MG TAB PO SCH ×2 (05:43→14:00)
[2017-03-26] MEDS: PHENYLephrine 160 MG in DEXTROSE 5% 484 ML IV SCH (05:58)
[2017-03-26] MEDS: FENTAnyl (DRIP) 1000 mcg/100mL 100 ML IV SCH (07:24)
[2017-03-26] MEDS: LACTOBACILLUS RHAMNOSUS CAP PO SCH ×2 (09:00→09:35)
[2017-03-26] MEDS: COLLAGENASE 30 GM TUBE TOP SCH (09:14)
[2017-03-26] MEDS: SODIUM HYPOCHLORITE 0.125% 473 ML BTL IRR SCH (09:14)
[2017-03-26] MEDS: SILVER SULFADIAZINE 1% 25 GM CR TOP SCH (09:35)
[2017-03-26] MEDS: MUPIROCIN 2% 22 GM OINT TOP SCH (09:35)
--- NOTE | 2017-03-26 09:37 | RADRPT ---
PROCEDURE: XR Chest 1 view. CLINICAL INDICATION: Shortness of breath. TECHNIQUE: AP views of the chest were obtained. COMPARISON: March 24, 2017 FINDINGS: The heart is large. Calcified atherosclerosis is noted in the aorta. Endotracheal and nasogastric t ubes are stable and appear in grossly appropriate location. Right-sided dialysis catheter is unchan ged. Central pulmonary vascular congestion and interstitial prominence in both lungs appears stable . Patchy infiltrates throughout both lungs, combined small to moderate pleural effusions are stable . Osseous structures are intact. IMPRESSION: Cardiomegaly with calcified atherosclerosis in the aorta. Stable central pulmonary vascular congestion and interstitial prominence in both lungs. Stable patchy infiltrates throughout both lungs, combined with small to moderate pleural effusions RPTAT: AA .Ishmael Carver MD, Date Time Electronically viewed and signed by .Ishmael Carver MD, on 03/26/2017 09:37 .P/
--- NOTE | 2017-03-26 09:43 | CONS ---
Date/Time of Note Date/Time of Note DATE: 03/26/17 TIME: 09:40 Consult Date/Type/Reason Admit Date/Time Mar 15, 2017 at 20:26 Initial Consult Date 03/16/17 Type of Consultation: Pulmonary ICU Ordering Provider: VASILE DEMPSEY Subjective Patient remains sedated on mechanical ventilation appears comfortable at rest Objective Vital Signs Date Time Temp Pulse Resp B/P Pulse Ox O2 Delivery O2 Flow Rate FiO2 03/26/17 08:00 90 03/26/17 07:00 20 103/60 98 Mechanical Ventilator 03/26/17 05:22 30 03/26/17 04:00 98.9 Intake and Output 03/25/17 03/25/17 03/26/17 15:00 23:00 07:00 Intake Total 586.21 ml 890.61 ml 524.47 ml Output Total 3000 ml Balance 586.21 ml -2109.39 ml 524.47 ml Exam PHYSICAL EXAMINATION GENERAL: Elderly lady intubated on mechanical ventilation comfortable VITAL SIGNS: see below. HEENT: Pupils equal, round, and reactive to light. CARDIAC: S1, S2, tachycardia. CHEST: Diminished air entry bilaterally. ABDOMEN: Mildly distended. diminished bowel sounds no guarding or rebound EXTREMITIES: No cyanosis, clubbing edema +2 NEUROLOGIC: Generalized weakness unable to assess Results/Medications Result Diagram: 03/25/1751903/25/17 0520 Results 24 hrs Laboratory Tests Test 03/25/17 13:10 03/25/17 17:44 03/25/17 21:00 03/26/17 01:00 Bedside Glucose 133 131 156 125 Test 03/26/17 05:42 03/26/17 09:30 Bedside Glucose 167 164 Medications Current Medications Ondansetron HCl (Zofran Inj) 4 mg Q6H PRN IV NAUSEA AND/OR VOMITING; Start at 01:00 Acetaminophen (Tylenol Liquid) 650 mg Q6H PRN PO PAIN LEVEL 1-3 OR FEVER; Start 03/16/17 at 01:00 Morphine Sulfate (morphine) 2 mg Q4H PRN IV PAIN LEVEL 7-10 Last administered on 03/22/17 13:01; Admin Dose 2 MG; Start 03/16/17 at 01:00 Pantoprazole 40 mg 40 mg DAILY@06 IV Last administered on 03/26/17 05:43; Admin Dose 40 MG; Start 03/16/17 at 06:00 Midazolam HCl (Versed) 50 ml @ 1 mls/hr TITRATE IV Last administered on 11:04; Admin Dose 3 MLS/HR; Start 03/16/17 at 11:00 Collagenase (Santyl) 1 applic DAILY TOP Last administered on 03/26/17 09:14; Admin Dose 1 APPLIC; Start 03/16/17 at 18:30 Collagenase (Santyl) 1 applic PRN PRN TOP WOUND CARE; Start 03/16/17 at 18:30 Miscellaneous Information 1 ea NOTE XX ; Start 03/17/17 at 02:00 Glucose (Glutose) 15 gm Q15M PRN PO DECREASED GLUCOSE; Start 03/17/17 at 02:00 Glucose (Glutose) 22.5 gm Q15M PRN PO DECREASED GLUCOSE; Start 03/17/17 at 02: 00 Dextrose (D50w Syringe) 25 ml Q15M PRN IV DECREASED GLUCOSE Last administered on 03/22/17 16:45; Admin Dose 25 ML; Start 03/17/17 at 02:00 Dextrose (D50w Syringe) 50 ml Q15M PRN IV DECREASED GLUCOSE Last administered on 03/22/17 09:19; Admin Dose 50 ML; Start 03/17/17 at 02:00 Glucagon (Glucagen) 1 mg Q15M PRN IM DECREASED GLUCOSE; Start 03/17/17 at 02:00 Glucose (Glutose) 15 gm Q15M PRN BUCCAL DECREASED GLUCOSE; Start 03/17/17 at 02 :00 Levothyroxine Sodium 150 mcg 150 mcg DAILY@06 PO Last administered on 03/26/17 05:43; Admin Dose 150 MCG; Start 03/22/17 at 06:00 Norepinephrine 16 mg/Dextrose 500 ml @ 9.37 mls/hr TITRATE IV ; Start 03/22/17 at 10:30 Phenylephrine HCl 160 mg/Dextrose 500 ml @ 18.75 mls/ hr TITRATE IV Last administered on 03/26/17 05:58; Admin Dose 7.5 MLS/HR; Start 03/22/17 at 10:30 Fentanyl 100 ml @ 2.5 mls/hr TITRATE IV Last administered on 03/26/17 07:24; Admin Dose 10 MLS/HR; Start 03/22/17 at 14:30 Propofol (Diprivan) 100 ml @ 2.28 mls/hr Q12H PRN IV SEDATION; Start 03/22/17 at 14:30 Mupirocin (Bactroban) 1 applic BID TOP Last administered on 03/25/17 21:01; Admin Dose 1 APPLIC; Start 03/22/17 at 15:30 Sodium Hypochlorite (Dakin'S (1/4 Strength)) 1 applic BID IRR Last administered on 03/26/17 09:14; Admin Dose 1 APPLIC; Start 03/22/17 at 21:00 Silver Sulfadiazine (Thermazene 1% 25 Gm) 1 applic DAILY TOP Last administered on 03/25/17 09:09; Admin Dose 1 APPLIC; Start 03/22/17 at 17:00 Insulin Aspart (Novolog Insulin Pen) NOVOLOG *MILD* ALGORI... Q4 SC Last administered on 03/26/17 05:46; Admin Dose 1 UNIT; Start 03/22/17 at 17:00 Metronidazole (Flagyl) 500 mg Q8 PO Last administered on 03/26/17 05:43; Admin Dose 500 MG; Start 03/23/17 at 15:30; Stop 04/06/17 at 15:29 Lactobacillus Acidophilus/ Rhamnosus 1 cap 1 cap BID PO Last administered on 21:01; Admin Dose 1 CAP; Start 03/23/17 at 21:00 Fluconazole (Diflucan 200 Mg/ NS (Pmx)) 100 ml @ 100 mls/hr Q24H IVPB Last administered on 03/24/17 18:17; Admin Dose 100 MLS/HR; Start 03/23/17 at 17:00 Assessment/Plan Chief Complaint/Hosp Course Assessment 1. Hypoxemic respiratory failure acute. 2. Possible aspiration versus community acquired pneumonia 3. Cardiomyopathy with congestive cardiac failure with pulmonary edema history of chronic atrial fibrillation 4. Pancytopenia 5. End-stage renal failure on hemodialysis Plan 1. Continue mechanical ventilation, family scheduled for terminal extubation today 2. Hold hemodialysis 3. Pain medications as needed Disposition Continue ICU Problems: MARILEE BATES MD, FCCP March 26, 2017 09:43
--- NOTE | 2017-03-26 12:59 | CONS ---
Date/Time of Note Date/Time of Note DATE: 03/26/17 TIME: 12:59 Assessment/Plan Assessment/Plan Chief Complaint/Hosp Course SUBJECTIVE: No events overnight. ANTIMICROBIALS: 1. Diflucan. 2. Flagyl. 3. Vancomycin. INDWELLINGS: Endotracheal tube, NG tube, Bradley catheter, right chest PermCath. PHYSICAL EXAMINATION: GENERAL: This is a well-developed, fragile, elderly woman who is in no distress. HEENT: Head atraumatic, normocephalic. Sclerae anicteric. Buccal mucosa dry. NECK: Supple. CHEST: Rise symmetrical. Breath sounds diminished to bases. HEART: S1, S2. ABDOMEN: Soft, bowel sounds present. EXTREMITIES: With bilateral trace edema. ASSESSMENT: 1. Sepsis with shock. 2. Clostridium difficile colitis. 3. Allison albicans urinary tract infection. 4. Methicillin-resistant Staphylococcus aureus nares colonization. 5. Acute respiratory failure. 6. End-stage renal disease. 7. Coronary artery disease, atrial fibrillation, cardiomyopathy. PLAN: The patient is DNR status. Pending terminal extubation today MIMI RN Problems: Consultation Date/Type/Reason Admit Date/Time Mar 15, 2017 at 20:26 Initial Consult Date 03/16/17 Type of Consultation: ID Referring Provider: VASILE DEMPSEY Exam/Review of Systems Vital Signs Vitals Vital Signs Date Time Temp Pulse Resp B/P Pulse Ox O2 Delivery O2 Flow Rate FiO2 03/26/17 12:45 106 20 91/48 96 03/26/17 12:00 99.5 Mechanical Ventilator 03/26/17 11:30 30 Intake and Output 03/25/17 03/25/17 03/26/17 15:00 23:00 07:00 Intake Total 586.21 ml 890.61 ml 524.47 ml Output Total 3000 ml Balance 586.21 ml -2109.39 ml 524.47 ml Results Result Diagram: 03/25/17 0503/25/17 0520 Results 24 hrs Laboratory Tests Test 03/25/17 13:10 03/25/17 17:44 03/25/17 21:00 03/26/17 01:00 Bedside Glucose 133 131 156 125 Test 03/26/17 05:42 03/26/17 09:30 Bedside Glucose 167 164 Medications Medications Current Medications Ondansetron HCl (Zofran Inj) 4 mg Q6H PRN IV NAUSEA AND/OR VOMITING; Start at 01:00 Acetaminophen (Tylenol Liquid) 650 mg Q6H PRN PO PAIN LEVEL 1-3 OR FEVER; Start 03/16/17 at 01:00 Morphine Sulfate (morphine) 2 mg Q4H PRN IV PAIN LEVEL 7-10 Last administered on 03/22/17 13:01; Admin Dose 2 MG; Start 03/16/17 at 01:00 Pantoprazole 40 mg 40 mg DAILY@06 IV Last administered on 03/26/17 05:43; Admin Dose 40 MG; Start 03/16/17 at 06:00 Midazolam HCl (Versed) 50 ml @ 1 mls/hr TITRATE IV Last administered on 11:04; Admin Dose 3 MLS/HR; Start 03/16/17 at 11:00 Collagenase (Santyl) 1 applic DAILY TOP Last administered on 03/26/17 09:14; Admin Dose 1 APPLIC; Start 03/16/17 at 18:30 Collagenase (Santyl) 1 applic PRN PRN TOP WOUND CARE; Start 03/16/17 at 18:30 Miscellaneous Information 1 ea NOTE XX ; Start 03/17/17 at 02:00 Glucose (Glutose) 15 gm Q15M PRN PO DECREASED GLUCOSE; Start 03/17/17 at 02:00 Glucose (Glutose) 22.5 gm Q15M PRN PO DECREASED GLUCOSE; Start 03/17/17 at 02: 00 Dextrose (D50w Syringe) 25 ml Q15M PRN IV DECREASED GLUCOSE Last administered on 03/22/17 16:45; Admin Dose 25 ML; Start 03/17/17 at 02:00 Dextrose (D50w Syringe) 50 ml Q15M PRN IV DECREASED GLUCOSE Last administered on 03/22/17 09:19; Admin Dose 50 ML; Start 03/17/17 at 02:00 Glucagon (Glucagen) 1 mg Q15M PRN IM DECREASED GLUCOSE; Start 03/17/17 at 02:00 Glucose (Glutose) 15 gm Q15M PRN BUCCAL DECREASED GLUCOSE; Start 03/17/17 at 02 :00 Levothyroxine Sodium 150 mcg 150 mcg DAILY@06 PO Last administered on 03/26/17 05:43; Admin Dose 150 MCG; Start 03/22/17 at 06:00 Norepinephrine 16 mg/Dextrose 500 ml @ 9.37 mls/hr TITRATE IV ; Start 03/22/17 at 10:30 Phenylephrine HCl 160 mg/Dextrose 500 ml @ 18.75 mls/ hr TITRATE IV Last administered on 03/26/17 05:58; Admin Dose 7.5 MLS/HR; Start 03/22/17 at 10:30 Fentanyl 100 ml @ 2.5 mls/hr TITRATE IV Last administered on 03/26/17 07:24; Admin Dose 10 MLS/HR; Start 03/22/17 at 14:30 Propofol (Diprivan) 100 ml @ 2.28 mls/hr Q12H PRN IV SEDATION; Start 03/22/17 at 14:30 Mupirocin (Bactroban) 1 applic BID TOP Last administered on 03/26/17 09:35; Admin Dose 1 APPLIC; Start 03/22/17 at 15:30 Sodium Hypochlorite (Dakin'S (1/4 Strength)) 1 applic BID IRR Last administered on 03/26/17 09:14; Admin Dose 1 APPLIC; Start 03/22/17 at 21:00 Silver Sulfadiazine (Thermazene 1% 25 Gm) 1 applic DAILY TOP Last administered on 03/26/17 09:35; Admin Dose 1 APPLIC; Start 03/22/17 at 17:00 Insulin Aspart (Novolog Insulin Pen) NOVOLOG *MILD* ALGORI... Q4 SC Last administered on 03/26/17 09:52; Admin Dose 1 UNIT; Start 03/22/17 at 17:00 Metronidazole (Flagyl) 500 mg Q8 PO Last administered on 03/26/17 05:43; Admin Dose 500 MG; Start 03/23/17 at 15:30; Stop 04/06/17 at 15:29 Lactobacillus Acidophilus/ Rhamnosus 1 cap 1 cap BID PO Last administered on 21:01; Admin Dose 1 CAP; Start 03/23/17 at 21:00 Fluconazole (Diflucan 200 Mg/ NS (Pmx)) 100 ml @ 100 mls/hr Q24H IVPB Last administered on 03/24/17 18:17; Admin Dose 100 MLS/HR; Start 03/23/17 at 17:00 KONSTANTIN NELSON NP March 26, 2017 12:59
--- NOTE | 2017-03-26 13:58 | CONS ---
Date/Time of Note Date/Time of Note DATE: 03/26/17 TIME: 13:56 Assessment/Plan Assessment/Plan Additional Assessment/Plan 1. End-stage renal disease on hemodialysis, regular schedule is Tuesday, , Tuesday. 2. Atiral fibrillation with RVR 2. Cardiomyopathy with a severe systolic dysfunction with ejection fraction of 25%. 3. History of hypertension. 4. History of hypothyroidism. 5. History of previous cerebrovascular accident. 6. Moderate to large bilateral pleural effusion. 7. Acute respiratory failure, multifactorial secondary to sepsis, hypotension pleural effusions and fluid overload, currently intubated on ventilator. 8. Moderate pleural effusion s/p let thoracentesis 03/18/17- 1.75 L drained PLAN: family decided for comfort care, BP labile, no plan for HD now will follow up Consultation Date/Type/Reason Admit Date/Time Mar 15, 2017 at 20:26 Initial Consult Date 03/16/17 Type of Consultation: NEPHROLOGY Referring Provider: VASILE DEMPSEY 24 HR Interval Summary Free Text/Dictation pt family deciding for comfort care today, no [place] for HD today Exam/Review of Systems Vital Signs Vitals Vital Signs Date Time Temp Pulse Resp B/P Pulse Ox O2 Delivery O2 Flow Rate FiO2 03/26/17 12:45 106 20 91/48 96 03/26/17 12:00 99.5 Mechanical Ventilator 03/26/17 11:30 30 Intake and Output 03/25/17 03/25/17 03/26/17 15:00 23:00 07:00 Intake Total 586.21 ml 890.61 ml 524.47 ml Output Total 3000 ml Balance 586.21 ml -2109.39 ml 524.47 ml Results Result Diagram: 03/25/17 0520 03/25/17 0520 Results 24 hrs Laboratory Tests Test 03/25/17 17:44 03/25/17 21:00 03/26/17 01:00 03/26/17 05:42 Bedside Glucose 131 156 125 167 Test 03/26/17 09:30 Bedside Glucose 164 Medications Medications Current Medications Ondansetron HCl (Zofran Inj) 4 mg Q6H PRN IV NAUSEA AND/OR VOMITING; Start at 01:00 Acetaminophen (Tylenol Liquid) 650 mg Q6H PRN PO PAIN LEVEL 1-3 OR FEVER; Start 03/16/17 at 01:00 Morphine Sulfate (morphine) 2 mg Q4H PRN IV PAIN LEVEL 7-10 Last administered on 03/22/17 13:01; Admin Dose 2 MG; Start 03/16/17 at 01:00 Pantoprazole 40 mg 40 mg DAILY@06 IV Last administered on 03/26/17 05:43; Admin Dose 40 MG; Start 03/16/17 at 06:00 Midazolam HCl (Versed) 50 ml @ 1 mls/hr TITRATE IV Last administered on 11:04; Admin Dose 3 MLS/HR; Start 03/16/17 at 11:00 Collagenase (Santyl) 1 applic DAILY TOP Last administered on 03/26/17 09:14; Admin Dose 1 APPLIC; Start 03/16/17 at 18:30 Collagenase (Santyl) 1 applic PRN PRN TOP WOUND CARE; Start 03/16/17 at 18:30 Miscellaneous Information 1 ea NOTE XX ; Start 03/17/17 at 02:00 Glucose (Glutose) 15 gm Q15M PRN PO DECREASED GLUCOSE; Start 03/17/17 at 02:00 Glucose (Glutose) 22.5 gm Q15M PRN PO DECREASED GLUCOSE; Start 03/17/17 at 02: 00 Dextrose (D50w Syringe) 25 ml Q15M PRN IV DECREASED GLUCOSE Last administered on 03/22/17 16:45; Admin Dose 25 ML; Start 03/17/17 at 02:00 Dextrose (D50w Syringe) 50 ml Q15M PRN IV DECREASED GLUCOSE Last administered on 03/22/17 09:19; Admin Dose 50 ML; Start 03/17/17 at 02:00 Glucagon (Glucagen) 1 mg Q15M PRN IM DECREASED GLUCOSE; Start 03/17/17 at 02:00 Glucose (Glutose) 15 gm Q15M PRN BUCCAL DECREASED GLUCOSE; Start 03/17/17 at 02 :00 Levothyroxine Sodium 150 mcg 150 mcg DAILY@06 PO Last administered on 03/26/17 05:43; Admin Dose 150 MCG; Start 03/22/17 at 06:00 Norepinephrine 16 mg/Dextrose 500 ml @ 9.37 mls/hr TITRATE IV ; Start 03/22/17 at 10:30 Phenylephrine HCl 160 mg/Dextrose 500 ml @ 18.75 mls/ hr TITRATE IV Last administered on 03/26/17 05:58; Admin Dose 7.5 MLS/HR; Start 03/22/17 at 10:30 Fentanyl 100 ml @ 2.5 mls/hr TITRATE IV Last administered on 03/26/17 07:24; Admin Dose 10 MLS/HR; Start 03/22/17 at 14:30 Propofol (Diprivan) 100 ml @ 2.28 mls/hr Q12H PRN IV SEDATION; Start 03/22/17 at 14:30 Mupirocin (Bactroban) 1 applic BID TOP Last administered on 03/26/17 09:35; Admin Dose 1 APPLIC; Start 03/22/17 at 15:30 Sodium Hypochlorite (Dakin'S (1/4 Strength)) 1 applic BID IRR Last administered on 03/26/17 09:14; Admin Dose 1 APPLIC; Start 03/22/17 at 21:00 Silver Sulfadiazine (Thermazene 1% 25 Gm) 1 applic DAILY TOP Last administered on 03/26/17 09:35; Admin Dose 1 APPLIC; Start 03/22/17 at 17:00 Insulin Aspart (Novolog Insulin Pen) NOVOLOG *MILD* ALGORI... Q4 SC Last administered on 03/26/17 09:52; Admin Dose 1 UNIT; Start 03/22/17 at 17:00 Metronidazole (Flagyl) 500 mg Q8 PO Last administered on 03/26/17 05:43; Admin Dose 500 MG; Start 03/23/17 at 15:30; Stop 04/06/17 at 15:29 Lactobacillus Acidophilus/ Rhamnosus 1 cap 1 cap BID PO Last administered on 21:01; Admin Dose 1 CAP; Start 03/23/17 at 21:00 Fluconazole (Diflucan 200 Mg/ NS (Pmx)) 100 ml @ 100 mls/hr Q24H IVPB Last administered on 03/24/17 18:17; Admin Dose 100 MLS/HR; Start 03/23/17 at 17:00 VIRIDIANA VILLARREAL MD March 26, 2017 13:58
[2017-03-26] MEDS ORDERED: morphine (DRIP) 100 MG/100 ML 100 ML IV SCH (15:00)
--- NOTE | 2017-03-26 18:38 | DES ---
Date/Time of Note Date/Time of Note DATE: 03/26/17 TIME: 18:28 Discharge/ Summary Admission/Discharge Info Admit Date/Time Mar 15, 2017 at 20:26 Discharge Date/Time 03/26/17 Final Diagnosis 1. Septic shock with a component of hypovolemia 2. End-stage renal disease on Hemodialysis 3. Hypercapnic and Hypoxic Resp Failure 4. Acute encephalopathy likely 2/2 #3 5. Hypothyroidism. 6. Persistent Anemia 2/2 CKD + Thrombocytopenia with coagulopathy likely 2/ 2 Sepsis r/o DIC 7. Bilateral pleural effusion with underlying pneumonia 8. Chronic atrial fibrillation 9. Cardiomyopathy with severe systolic dysfunction with EF of 25% 10. Diabetes type 2 11. Old lacunar stroke with resultant baseline encephalopathy 12. Unstageable Sacral ulcer 13. Allison UTI 14. C-diff colitis 15. Chronic dementia with Debility . Preliminary Cause of Respiratory failure . Hospital Course Ms. Dubois is a 71-year-old female with multiple comorbidities as summarized above who was admitted to our facility March 15 with severe hypotension. It was later determined that her hypotension was secondary to septic shock with a component of hypovolemia as she was having severe anasarca secondary to third spacing from very bad hypoalbuminemia. She was also a dialysis patient and required pressor support throughout her hospitalization. Sepsis source was not clear however patient did have bilateral pneumonia on x-rays, and was also found to have a fungal urinary tract infection. She also had a large unstageable sacral ulcer they have this could have caused her severe infection. Blood cultures were negative however throughout her hospitalization. She was managed with broad-spectrum antibiotics. She also had atrial fibrillation with rapid ventricular response that was exacerbated by pressor therapy however this was brought under control with medication. She was also a respiratory failure throughout her hospitalization requiring ventilator support. She was found to have bilateral pleural effusions, but was unable to get regular paracentesis because of severe thrombocytopenia from sepsis. Hence was unable to be weaned off the ventilator successfully. Despite our best efforts, patient never really improved. Upon discussion with her family, family decided that the patient seemed to be suffering, and there was no significant quality of life waiting for her, especially if she ended up with a tracheostomy. Hence they made the decision to make her comfort measures only, and requested for her to be terminally extubated. She was extubated earlier today and passed not too long after. Immediate and extended family were at the bedside. Her CODE STATUS was DO NOT RESUSCITATE. . Pending Labs/Cultures Laboratory Tests Test 03/25/17 21:00 03/26/17 01:00 03/26/17 05:42 03/26/17 09:30 Bedside Glucose 156mg/dL (70-220) 125mg/dL (70-220) 167mg/dL (70-220) 164mg/dL (70-220) ALIX TALBOT March 26, 2017 18:38
--- NOTE | 2017-03-26 18:40 | PN ---
Date/Time of Note Date/Time of Note DATE: 03/26/17 TIME: 1000 Assessment/Plan VTE Prophylaxis VTE Prophylaxis Intervention: contraindicated VTE Contraindication Reason: thrombocytopenia Lines/Catheters IV [facility] PERMACATH Urinary Cath still in place: No Assessment/Plan Chief Complaint/Hosp Course . Problems: Assessment/Plan 1. Shock: Hypovolemic (effusions/anasarca) + Septic 2. End-stage renal disease on Hemodialysis 3. Hypercapnic and Hypoxic Resp Failure remains ventilated 4. Acute encephalopathy on chronic dementia with Debility likely 2/2 #3: improved 5. Hypothyroidism. 6. Persistent Anemia 2/2 CKD + Thrombocytopenia with coagulopathy likely 2/ 2 SIRS versus Sepsis r/o DIC 7. Bilateral pleural effusion / Probable underlying pneumonia L sided thoracentesis done 03/18 8. Afib RVR: improved 9. Cardiomyopathy with severe systolic dysfunction with EF of 25% 10. Diabetes type 2, currently controlled 11. Old lacunar stroke with ?confusion 12. Unstageable Sacral ulcer 13. Supratherapeutic INR: resolved 14. AG Acidosis 2/2 Resp and Renal: resolved 15. Allison UTI 16. C-diff colitis PLAN: * Patient remains intubated and on pressor support, unable to get thoracentesis 2/2 low platelets limiting ability to extubate. She will be difficult to wean off pressors 2/2 need for hemodialysis and remains with severe anasarca despite volume removal during dialysis. * She will need debridement for her ulcer and cultures from that but is quite unstable / she remains in Afib but with improved rate control * Continue albumin / pressors * Continue abx per ID * Replace electrolytes, wean pressors PPx- SCDs / PPI Prognosis: Poor. Family have chosen to proceed with terminal extubation and comfort measures, planned for later today, when all family members arrive. Continue current measures. Critical care time : >35mins Subjective 24 Hr Interval Summary Subjective hx not possible: pt non-verbal, pt critical status Exam/Review of Systems Vital Signs Vitals Vital Signs Date Time Temp Pulse Resp B/P Pulse Ox O2 Delivery O2 Flow Rate FiO2 03/26/17 16:00 94 22 93 Mechanical Ventilator 03/26/17 16:00 2.0 03/26/17 13:20 30 03/26/17 12:00 99.5 Intake and Output 03/25/17 03/25/1717 15:00 23:00 07:00 Intake Total 586.21 ml 890.61 ml 564.47 ml Output Total 3000 ml Balance 586.21 ml -2109.39 ml 564.47 ml Exam Constitutional: alert, non-verbal 2/2 ET tube, requiring bilateral restraints ENMT: intubated Respiratory: clear to auscultation, diminished Cardiovascular: regular rate and rhythm Gastrointestinal: soft, obese No distended, + BS Musculoskeletal: diffuse edema / anasarca Results Result Diagram: 03/25/17 0503/25/17519 Results 24 hrs Laboratory Tests Test 03/25/17 21:00 03/26/17 01:00 03/26/17 05:42 03/26/17 09:30 Bedside Glucose 156 125 167 164 Medications Medications Current Medications Morphine Sulfate/ Sodium Chloride (morphine) 100 ml @ 1 mls/hr TITRATE IV Last administered on 03/26/17t 15:24; Admin Dose 1 MLS/HR; Start 03/26/17 at 15:00 ALIX TALBOT March 26, 2017 18:40
--- NOTE | 2017-03-28 08:58 | PN ---
DATE: 03/25/2017 CARDIOLOGY FOLLOWUP SUBJECTIVE: Discussed with the staff. The patient with atrial fibrillation. Heart rate is overall stable and is still on Chris-Synephrine drip, , nonresponsive. Status post intubation on the ve nt. Currently being dialyzed. MEDICATIONS: Reviewed. PHYSICAL EXAMINATION: VITAL SIGNS: Temperature 99.7, T-max is 100.2, heart rate of 92, blood pressure 90/51, respiratory rate of 20. HEENT: Normocephalic, atraumatic. status post intubation on the vent. CARDIOVASCULAR: Regular rate and rhythm. Systolic murmur. CHEST: Right-sided dialysis access. PULMONARY: Anteriorly with no wheezes, but diffuse rhonchi GASTROINTESTINAL: Soft, nontender. EXTREMITIES: With diffuse upper and lower extremity edema. NEUROLOGIC: Alert, responsive. LABORATORY: WBC of 2.8, hemoglobin 2.77, platelets of 36. Sodium 139, potassium 3.9, BUN of 49, cr eatinine 1.92, glucose 121. ASSESSMENT AND PLAN: 1. Severe sepsis with shock. 2. Severe cardiomyopathy. 3. Atrial fibrillation was hypoxemia. 4. Respiratory failure, status post intubation on the vent. 5. Severe coagulopathy and thrombocytopenia. 6. Anemia. 7. . 8. History of cerebrovascular accident. 9. History of dementia. 10. Renal failure on dialysis. 11. Recurrent pleural effusion. RECOMMENDATIONS: Prognosis is poor. We will continue with the current cardiac care. Code status i s DNR and Chris-Synephrine will be continued as needed. Heart rate remained stable now off of digoxin . Digoxin level is 1.1 today. Dialysis will be continued. Continue with ICU care for now. Family is considering terminal extubation. Will follow up as needed. Dictated By: KATIUSKA BRITO MD AV/EMANUEL Conf#: [id number] DID#: [id number] CC: VIRIDIANA VILLARREAL MD;*End*
== END 2017-03-26 17:28 | disposition expired | DRG 870 ==
LOC: E/R 12:18 → ICU 20:26
PROVIDERS: ADMIT Internal Medicine; ATTEND Internal Medicine
PROC: 5A1955Z Respiratory Ventilation, Greater than 96 Consecutive Hours (ICD-10-PCS; principal; 2017-03-16)
PROC: 5A1D60Z (ICD-10-PCS; 2017-03-16)
PROC: 0BH17EZ Insertion of Endotracheal Airway into Trachea, Via Natural or Artificial Opening (ICD-10-PCS; 2017-03-16)
PROC: 0W9B3ZZ Drainage of Left Pleural Cavity, Percutaneous Approach (ICD-10-PCS; 2017-03-18)
DX: A41.9 Sepsis, unspecified organism (principal); D65 Disseminated intravascular coagulation [defibrination syndrome]; J18.9 Pneumonia, unspecified organism; R65.21 Severe sepsis with septic shock; G93.49 Other encephalopathy; I50.23 Acute on chronic systolic (congestive) heart failure; J90 Pleural effusion, not elsewhere classified; J96.02 Acute respiratory failure with hypercapnia; J96.01 Acute respiratory failure with hypoxia; N18.6 End stage renal disease; I42.0 Dilated cardiomyopathy; I13.2 Hypertensive heart and chronic kidney disease with heart failure and with stage 5 chronic kidney disease, or end stage renal disease; E46 Unspecified protein-calorie malnutrition; E87.4 Mixed disorder of acid-base balance; B37.49 Other urogenital candidiasis; A04.7 Enterocolitis due to Clostridium difficile; D61.818 Other pancytopenia; Z99.2 Dependence on renal dialysis; E11.22 Type 2 diabetes mellitus with diabetic chronic kidney disease; E03.9 Hypothyroidism, unspecified; I48.2 Chronic atrial fibrillation; F03.90 Unspecified dementia, unspecified severity, without behavioral disturbance, psychotic disturbance, mood disturbance, and anxiety; R41.3 Other amnesia; Z68.27 Body mass index [BMI] 27.0-27.9, adult; Z66 Do not resuscitate; G72.89 Other specified myopathies; D63.1 Anemia in chronic kidney disease; I69.998 Other sequelae following unspecified cerebrovascular disease; L89.150 Pressure ulcer of sacral region, unstageable; E86.1 Hypovolemia; E88.09 Other disorders of plasma-protein metabolism, not elsewhere classified; Z22.322 Carrier or suspected carrier of Methicillin resistant Staphylococcus aureus; Z78.1 Physical restraint status
CPT/HCPCS: 31500; 36430; 36600; 70450; 71010; 76604; 76942; 80048; 80053; 80069; 80076; 80162; 80202; 81001; 81003; 82550; 82553; 82803; 82962; 83605; 83735; 83880; 84439; 84443; 84484; 85025; 85049; 85362; 85378; 85384; 85610; 85670; 85730; 86022; 86644; 86850; 86900; 86901; 86920; 87040; 87075; 87081; 87086; 90935; 93005; 94002; 94003; 94770; C9113; J0282; J1815; J1956; J2270; J2997; J3010; J3370; J3475; J3480; J7030; J7040; J7042; J7050; J7060; P9016; P9035; P9047; P9059